=== PATIENT | male | born 1945 | race Caucasian/White ===

== ENCOUNTER 2017-05-01 13:19 | Emergency (ER) | payer MEDICARE ==
--- NOTE | 2017-05-01 15:22 | RAD ---
RIGHT HIP TWO VIEWS: History: Fall one week ago with pain and injury to right hip. FINDINGS: There is evidence of a linear fracture involving the greater trochanter of the proximal right femur. Old avulsion from the lesser trochanter is noted. Degenerative changes at the hip. Femoral head con tour is preserved. IMPRESSION: Evidence of acute fracture involving the greater trochanter of the proximal right femur. Consider CT for better characterization. POS: [facility]
== END 2017-05-01 16:40 | disposition home or self-care (01) ==
LOC: ERS 13:19
DX: S72.114A Nondisplaced fracture of greater trochanter of right femur, initial encounter for closed fracture (principal); I10 Essential (primary) hypertension; E78.5 Hyperlipidemia, unspecified; Z85.3 Personal history of malignant neoplasm of breast; W19.XXXA Unspecified fall, initial encounter

== ENCOUNTER 2018-04-26 00:21 | Inpatient (IN) | payer MEDICARE ==
[2018-04-26 01:02] LABS: #Basophils 0.1 thou/uL (0.0-0.2); #Eosinphils 0.2 thou/uL (0.0-0.7); #Lymphocytes 1.9 thou/uL (1.20-3.40); #Neutrophils 8.7 thou/uL (1.40-6.50); %Basophils 0.8 % (0.0-1.0); %Eosinophils 1.3 % (0.0-10.0); %Lymphocytes 15.8 % (21.0-51.0); %Monocytes 8.2 % (0.0-10.0); %Neutrophils 73.9 % (42.0-75.0); Hemoglobin 13.9 g/dL (14.0-18.0); Mean Corpuscular HGB CONC 32.9 g/dL (32.0-36.0); Mean Corpuscular Hemoglobin 34.1 pg (27.0-31.0); Mean Platelet Volume 7.3 fL (7.4-10.4); Platelet Count 243 thou/uL (130-400); RBC Distribution Width 11.2 % (11.5-14.5); Red Blood Cell (RBC) Count 4.08 mill/uL (4.70-6.10); White Blood Cell (WBC) Count 11.8 thou/uL (4.8-10.8)
[2018-04-26 01:16] LABS: ALT (SGPT) 16 U/L (8-55); AST (SGOT) 18 U/L (5-34); Albumin 4.3 g/dL (3.4-4.8); Alkaline Phosphatase 54 U/L (40-150); Anion Gap 13 mmol/L (10-20); BUN (Urea Nitrogen) 18 mg/dL (8.4-25.7); Bilirubin, Total 0.8 mg/dL (0.2-1.2); CK (CPK) 43 U/L (30-200); Calc. Creatinine Clearance 0 mL/min (70-130); Calcium 9.3 mg/dL (7.8-10.44); Carbon Dioxide 22 mmol/L (23-31); Chloride 96 mmol/L (98-107); Estimated GFR-MDRD Greater than 90; Globulin 2.9 g/dL (2.4-3.5); Glucose 95 mg/dL (83-110); Lipase 106 U/L (8-78); Potassium 4.4 mmol/L (3.5-5.1); Protein, Total 7.2 g/dL (5.8-8.1); Sodium 127 mmol/L (136-145)
[2018-04-26 01:18] LABS: CKMB 1.7 ng/mL (0-6.6); Troponin I Less than 0.010 ng/mL (< 0.028)
[2018-04-26] MEDS ORDERED: Nitroglycerin 2% Ointment 1 INCH/1 GM Packet ONE (03:07)
[2018-04-26] MEDS ORDERED: Ondansetron HCl/PF 4 MG/2 ML Vial IVP PRN ×2 (03:53→07:23)
[2018-04-26] MEDS ORDERED: Ondansetron ODT 4 MG TAB SL PRN (03:53)
[2018-04-26] MEDS ORDERED: Acetaminophen 325 MG TAB PO PRN ×2 (03:53→07:23)
[2018-04-26 05:05] VITALS: BMI 23.6
[2018-04-26 05:46] LABS: Troponin I 0.074 ng/mL (< 0.028)
[2018-04-26] MEDS ORDERED: Zolpidem Tartrate 5 MG TAB PO PRN (07:23)
[2018-04-26 07:30] LABS: Troponin I 0.351 ng/mL (< 0.028)
--- NOTE | 2018-04-26 07:49 | HP ---
PRIMARY CARE PROVIDER: Dr. Martinez Higuera He was referred to the [facility] by [facility] for chest pain. HISTORY OF PRESENT ILLNESS: The patient had chest pain off and on for about a month, tightness in hi s chest, shortness of breath, no precipitating events, no radiation, lasts about 5 minutes at a time. No nausea, sweats. PAST MEDICAL HISTORY: Hypertension, elevated cholesterol. CURRENT MEDICATIONS: Aspirin 81 mg a day, lisinopril 40 mg a day, metoprolol 50 mg a day, pravastati n 80 mg a day. ALLERGIES: None. PAST SURGICAL HISTORY: Two hernia repairs in the distant past, tonsillectomy as a child, breast canc er resected in 2001, had chemotherapy. FAMILY HISTORY: Unknown. He is estranged from his family. SOCIAL HISTORY: . He quit smoking in 1988. He quit drinking alcohol in 1980. CODE STATUS: Full code status. is surrogate decision maker. REVIEW OF SYSTEMS: CONSTITUTIONAL: Occasional headaches lifelong had migraines as a child. No dizziness or fainting. EYES: No double vision, blurred vision, flashing lights. ENT: No ear pain or drainage. No nasal bleeding. No trouble swallowing. CARDIAC: He has had only one episode of being awakened by chest pain, shortness of breath. Otherwis e, no orthopnea, dyspnea on exertion. RESPIRATORY: No cough, wheezing or asthma. GASTROINTESTINAL: No nausea, vomiting, diarrhea, constipation or abdominal pain. GENITOURINARY: No frequency, pain, or hematuria on urination. MUSCULOSKELETAL: No muscle or joint pains or swelling in his legs. PSYCHIATRIC: No anxiety, depression. NEUROLOGIC: He states he had a TIA 5 years ago. SKIN: Bruises easily. No rash. HEME/LYMPH: No tender or swollen lymph nodes in axilla, inguinal, or cervical area. NEURO: He is alert, oriented, and cooperative, no distress, requesting coffee. PHYSICAL EXAMINATION: VITAL SIGNS: Blood pressure 125/87, respiration 19, pulse 59, temperature 97.8. HEENT: Reveal pupils equal, round, and reactive to light. Extraocular movements intact. Sclerae wh ite. Tympanic membranes clear. Nose clear. Oral mucous membranes are wet. Dental hygiene is good. NECK: Supple, without jugular venous distention, adenopathy or thyromegaly. CHEST: Clear to auscultation and percussion. HEART: Regular rate and rhythm with an occasional early beat. First and second heart sounds are camila ar. No murmurs or gallops. ABDOMEN: Soft, bowel sounds are normal. There is no hepatosplenomegaly, no mass, no rebound, no bru its. EXTREMITIES: Reveal no cyanosis, clubbing or edema. PULSES: Carotid, radial, femoral, and dorsalis pedis pulses intact. SKIN: Warm and dry without bruises or rash. HEME/LYMPH: No tender or swollen lymph nodes in axilla, inguinal, or cervical area. NEUROLOGICAL: Cranial nerves II-XII are intact. Moves all extremities. Sensation intact. EKG: Regular sinus rhythm with premature beats and ST depression suggestive of ischemia, reviewed by me. CT of the chest was done for a high D-dimer, it is negative for pulmonary emboli. Chest x-ray: No cardiomegaly, CHF, infiltrate mass, etc., reviewed by me. LABORATORY DATA: Initial troponin 0.01, follow up 0.074. BNP 202. Liver function tests normal. So dium 127, potassium 4.4, BUN 18, creatinine 0.82. White count 11.8, hemoglobin 13.9, platelet count 243,000. ADMITTING DIAGNOSES: 1. Chest pain consistent with unstable angina. 2. Hypertension. 3. Dyslipidemia. 4. History of breast cancer. PLAN: Aspirin. N.p.o. for now. I have called Dr. Kerr and ask him to see him before deciding on a stress test or a cardiac catheterization.
--- NOTE | 2018-04-26 08:14 | CT ---
PRELIMINARY REPORT/[facility]/EMERGENTY AFTER-HOURS PROCEDURE Addendum created by Jose J Manuel MD on 04/26/2018 3:02 AM Central Time ([place] & [place]) Findings were di scussed with BRI LEON at 04/26/2018 2:58 AM CDT. Dictation software error occurred. Regarding lung lesion, Nonemergent (not non-urgent) evaluation is advised. Initial Report created on 04/26/2018 2:43 AM Central Time ([place] & [place]) CT Angiography Chest With Intravenous Contrast EXAM DATE/TIME: 04/26/2018 2:20 AM CLINICAL HISTORY: 73 years old, male; Pain and signs and symptoms; Dyspnea and shortness of breath; Chest pain; Prior s urgery; Patient HX: Er 8; M73 presents to the ed C/O chest pain and SOB that was first noticed 1 ever h ago. PT. Reports that his symptoms were exacerbated tonight around 2300 while laying down. PT. Desc ribes pain as being localized in center of chest and as a pressure. PT. Does have HX of breast CA in 2000, had a resection. TECHNIQUE: Axial computed tomographic angiography images of the chest with intravenous contrast using CT angiogr aphy protocol. MIP reconstructed images were created and reviewed. COMPARISON: No relevant prior studies available. FINDINGS: Pulmonary arteries: There is no evidence of peripheral filling defects within the pulmonary arterial circulation to suggest pulmonary embolism. Aorta: Normal. No aortic aneurysm. No aortic dissection. Lungs: There is a suspicious appearing 14 mm LEFT upper lobe pulmonary nodule with spiculations. Pleural space: Normal. No pneumothorax. No pleural effusion. Heart: Normal. No cardiomegaly. No pericardial effusion. Bones/joints: Unremarkable. No acute fracture. Soft tissues: Unremarkable. Lymph nodes: Enlarged subcarinal lymph node measuring 2 cm in short axis. IMPRESSION: 1. There is no CT evidence of acute pulmonary embolism. 2. There is a suspicious appearing 14 mm LEFT upper lobe pulmonary nodule with spiculations. Nonurgen t PET CT and/or tissue sampling is advised. 3. Enlarged subcarinal lymph node measuring 2 cm in short axis. Thank you for allowing us to participate in the care of your patient. Dictated and Authenticated by: Jose J Manuel MD 04/26/2018 2:43 AM Central Time ([place] & [place]) FINAL REPORT CT ARTERIOGRAM CHEST WITH IV CONTRAST AND 3D MIP IMAGING: DATE: 04/26/2018. TIME: Performed on emergency basis at 0222 hours. HISTORY: Chest pain. Dyspnea. FINDINGS: Agree with the preliminary report by Dr. Manuel from [facility]. There is no CT evidence of p ulmonary embolus. Left upper lobe nodule is confirmed. Subcarinal lymph node described I the prelim inary report may be less than 2 cm short axis diameter. POS: [facility]
[2018-04-26 08:22] LABS: Troponin I 0.383 ng/mL (< 0.028)
--- NOTE | 2018-04-26 08:33 | RAD ---
CHEST 1 VIEW: HISTORY: Chest pain. Dyspnea. FINDINGS: No comparison. Cardiac silhouette is magnified by projection. Pulmonary vasculature unremarkable. Mediastinum is midline with aortic calcification. No lobar consolidation or evidence of pneumothorax . Metallic clips overlie the left axilla. equipment monitor phototypesetting leads overlie the chest. IMPRESSION: 1. Atherosclerosis. 2. No active cardiopulmonary abnormalities are otherwise demonstrated. POS: [facility]
[2018-04-26] MEDS ORDERED: Non-Formulary Item 1 EACH (Lisinopril [Lisinopril] 40 MG) PO SCH (09:00)
[2018-04-26] MEDS ORDERED: Aspirin 325 MG TAB PO SCH (09:00)
[2018-04-26] MEDS: Lisinopril 20 MG TAB PO SCH (09:18)
[2018-04-26] MEDS ORDERED: Fentanyl 100 MCG/2 ML VIAL ONE (11:52)
[2018-04-26] MEDS ORDERED: Lidocaine 1% (PF) 30 ML VIAL ONE (11:52)
[2018-04-26] MEDS ORDERED: Midazolam HCl 2 mg/2 ml Vial ONE (11:52)
[2018-04-26] MEDS ORDERED: Sodium Chloride 0.9% 1,000 ML IV SCH (12:00)
[2018-04-26] MEDS ORDERED: Heparin 10,000 UNITS/1 ML VIAL ONE (13:11)
[2018-04-26] MEDS ORDERED: Verapamil 5 MG/2 ML VIAL ONE (13:11)
[2018-04-26] MEDS ORDERED: Nitroglycerin 100MG/250ML BOT 250 ML ONE (13:11)
--- NOTE | 2018-04-26 14:01 | CON ---
DATE OF CONSULTATION: 04/26/2018 REASON FOR CONSULTATION: Non-STEMI. HISTORY OF PRESENT ILLNESS: Mr. Guthrie is a very pleasant 73-year-old white gentleman who comes to the hospital for chest pain. He has been having chest pain for at least the last year or 2. He act ually saw Dr. Rubio in the office in February of last year. He would describe symptoms which were h ighly concerning for angina. He was offered a heart catheterization and started on sublingual nitro. He declined catheterization at that time and said he would call back if he decided that he would pr oceed with this. He did get an echocardiogram that showed an EF of 50%-55% and there is documentatio n where he was informed of the findings, but he never called back to schedule a heart catheterization . He continued to have chest pain throughout the year. He states that yesterday the pain got worse. It usually lasts about 5-10 minutes and it lasted for much longer, so decided to come in for evalua tion. He was admitted initially and found to have elevated troponins, so Cardiology was consulted fo r this. On my evaluation, he is pain free. PAST MEDICAL HISTORY: 1. Hypertension. 2. Hyperlipidemia. OUTPATIENT MEDICATIONS: 1. Aspirin 81 a day. 2. Lisinopril 40 mg a day. 3. Metoprolol 50 mg daily. 4. Pravastatin 80 mg at bedtime. 5. Sublingual nitro 0.4 mg p.r.n. chest pain. ALLERGIES: No known drug allergies. PAST SURGICAL HISTORY: 1. Hernia repair. 2. Tonsillectomy. 3. Breast cancer resected in 2001 with chemotherapy afterwards and was in remission. FAMILY HISTORY: He is strange, does not know much about his family medical history. SOCIAL HISTORY: He smoked 2 packs a day from age [age]. He has not smoked since. REVIEW OF SYSTEMS: A 12-point review of systems was done and is all negative unless stated in the hi story of present illness. PHYSICAL EXAMINATION: VITAL SIGNS: Temperature 98.1, pulse 60, respiratory rate 16, sat 98% on room air, blood pressure 15 7/72. GENERAL: Awake, alert, oriented x3, in no distress. HEENT: Normocephalic, atraumatic. NECK: Supple. LUNGS: Clear. CARDIOVASCULAR: S1, S2, no S3, S4, no murmurs, no rubs. ABDOMEN: Soft, positive bowel sounds. EXTREMITIES: No edema. SKIN: Warm and dry. LABORATORY WORK: Reviewed and shows a white count of 11, hemoglobin of 13.9, hematocrit 42.3, platel et count 243. Coags: D-dimer was high at 1.01. Troponin was undetectable on arrival it went up to 0.07, then 0.35, then 0.38. Sodium 127 little low, potassium 4.4, BUN 18, creatinine 0.82, GFR of 90 , albumin 4.3. BNP was 202. CT of the chest done yesterday showed no CT evidence of pulmonary embolus. There is a left upper lob e nodule which is spiculated. There is a subcarinal lymph node as well, less than 2 cm. EKG was reviewed. ASSESSMENT AND PLAN: 1. Non-ST elevation myocardial infarction. We will recommend he have a heart catheterization. Risk s and benefits were discussed with him at length the risks including, but not limited to stroke, [place], , bleeding and need for blood transfusion, limb loss, organ loss, need for emergent bypass surge ry. He verbalized understanding of this and agrees to proceed. We also spoke about contrast reactio ns, both allergic and renal dysfunction. He agrees to proceed. Drug-eluting stents if needed. 2. Pulmonary nodule. He may need workup due to his history of malignancy and this is spiculated nod ule. 3. Further recommendation per results of coronary angiogram.
--- NOTE | 2018-04-26 14:21 | PDOC.EVN ---
Event Note - Event Note Event Note: cardiac cath pos extensive CAD, for CABG
[2018-04-26] MEDS ORDERED: ISOVUE-370 76%-LOCM 1 ML ONE (14:43)
[2018-04-26] MEDS ORDERED: hydrALAZINE 20 MG/ML VIAL SLOW IVP PRN (16:20)
[2018-04-26] MEDS ORDERED: Labetalol HCl 100 MG/20 ML VIAL SLOW IVP PRN (16:20)
[2018-04-26] MEDS ORDERED: Communication Order-Pharmacy FS SCH (18:35)
[2018-04-26] MEDS ORDERED: Non-Formulary Item 1 EACH (Pravastatin Sodium [Pravastatin Sodium] 80 MG) PO SCH (21:00)
[2018-04-26] MEDS ORDERED: Atorvastatin Calcium 20 MG TAB PO SCH (21:00)
--- NOTE | 2018-04-26 23:53 | CON ---
DATE OF CONSULTATION: 04/26/2018 REQUESTING PHYSICIAN: Dr. Kerr. PRIMARY CARE PHYSICIAN: Dr. Martinez Higuera. CHIEF COMPLAINT: Chest pain. HISTORY OF PRESENT ILLNESS: The patient is a 73-year-old man with hypertension , a distant history of left simple mastectomy for male breast cancer and a distant history of smoking. For about a year, he has been having some chest discomfort when walking on his treadmill, but this started getting more frequent and more severe about a month or two ago. Last night when he got up to go to the bathroom, he began having chest pain and this was more severe and lasted longer than typical, and he decided to come to the emergency room. When he first presented, he was markedly hypertensive, but had no obvious acute ischemia on EKG. His initial troponin was negative, but follow troponins turned positive and he underwent cardiac catheterization today that demonstrated severe 3-vessel coronary artery disease. His past medical and surgical history is significant for hypertension and hyperlipidemia. He underwent what he describes as sounds like a simple mastectomy with sentinel node biopsy in 2001. He underwent chemotherapy, but no radiation therapy and he has been in ED since. He has also had herniorrhaphy and tonsillectomy in 2014. He had a brief episode of fluent expressive aphasia that he described as this "speaking Martian --- fluent Martian, but Martian." At that time he had fairly unremarkable head CT, but he does not recall getting any carotid studies at that time. HOME MEDICATIONS: Baby aspirin a day, Toprol-XL 50 mg a day, lisinopril 40 mg every morning and pravastatin 80 mg at bedtime. His pravastatin has been replaced by Lipitor 20 mg at bedtime here in the hospital. ALLERGIES: He denies any medical or food allergies. SOCIAL HISTORY: He quit smoking in 1988. He does not know any details of family history. REVIEW OF SYSTEMS: Positive for one episode of fluent expressive aphasia about 3 years ago, but he has had no other eye, speech, facial or extremity symptoms to suggest TIAs when he walks briskly or uphill, his calves cramp bilaterally. Neither leg is particularly worse than the other. A couple of years ago hiking in [place], he had some shortness of breath, but otherwise no dyspnea with the exception of that associated with his chest pain described in the HPI. He has no orthopnea, no PND, no edema. He has what he describes as trochanteric pain in the left hip, but no other arthritic symptoms of longstanding. He does describe about 2 months of some low back pain in his left side low in his back. He denies any weight loss, any cough or hemoptysis, any headaches that are unusual for him, any seizures, any focal neurologic deficits. Denies any change in color, caliber or character stools. He denies any new lumps or bumps popping up anywhere or any changing moles. PHYSICAL EXAMINATION: GENERAL: He is a thin man in no distress. VITAL SIGNS: On presentation, his heart rate was 77 and blood pressure 215/89. Currently, his heart rate is 57 and blood pressure 151/86, room air O2 sats have been 99%-100%, temperature is 97.8, height 5 feet 8 inches, weight is 156.6 pounds. HEENT: He has no xanthelasma. No JVD. Bilateral carotid bruits. NECK: He has no cervical or supraclavicular lymphadenopathy. CHEST: Clear to auscultation. He has a regular rate and rhythm. He is missing his left breast, but palpably seems to have his pectoralis intact. He has a well healed surgical scar on the left lateral chest. He has no axillary lymphadenopathy. ABDOMEN: Soft and nontender, without any masses or bruits. EXTREMITIES: He has palpable left radial (his right wrist has a pressure dressing on it status post catheterization) and bilateral femoral pulses. I was not able to appreciate popliteal, dorsalis pedis or posterior tibial pulses. His feet are pink with capillary refill, it is less than 1 second. He has loud femoral bruits bilaterally, perhaps louder on the left than on the right. He has no clubbing, cyanosis or edema. He has a few spider type varicosities at the ankles. NEUROLOGIC: Grossly nonfocal. LABORATORY DATA AND IMAGING DATA: Showed white count of 11.8, hemoglobin 13.9, hematocrit 42.3, platelets 243,000 with an MCV reported at 104.0. Sodium is 127 , potassium 4.4, chloride 96, CO2 22, glucose 95, BUN 18, creatinine 0.82, bilirubin 0.8, alkaline phosphatase 54, AST 18 and ALT 16. Calcium is 9.3, total protein 7.2, albumin 4.3, lipase was 106, initial troponin was less than 0.010. Follow up 3 hours later was 0.074, at 06:30 this morning was 0.351 and at 07:30 this morning 0.383. His EKG shows inferolateral downsloping STs, occasional PVC. His cardiac catheterization shows a right dominant system with extensive calcification in the proximal vessels. He has serial subtotal stenoses in the mid to distal right coronary with poor visualization of the distal posterolateral branch with competitive flow in it. The LAD has a high grade lesion in between the second and third diagonals, both of which have some ostial disease in it. There is some milder disease in the distal LAD just beyond fourth diagonal on the left-sided injections. A branch that bifurcates out towards the apex can be seen ghosting in, it is hard to tell off what it originates. There is a subtotal lesion in the first portion of a fairly good sized OM and then there is a subtotal lesion in the circumflex proper leading to a very small posterolateral OM. LVEF is around 50%-60% with anterior hypokinesis. LV pressure was recorded as 108/-1 with an EDP of 6. Aortic pressure on pullback 123/79 with a mean of 95. His CT scan showed no evidence of pulmonary embolism. Does show about a 1.5 cm mass with some speculation, essentially abutting the pleura of the lateral chest wall and what appears to represent the left upper lobe. I see no AP adenopathy. There is extensive calcification in the aortic arch, but I do not really see any in the ascending aorta, I do see calcification in the coronaries. The CT report describes a 2 cm subcarinal lymph node, but I do not really spot any adenopathy in the subcarinal position. There are what I suspect are 2 adjacent subcentimeter nodes behind the distal trachea little proximal to the aurelio that in aggregate or about a 2 x 8 mm. I see no AP adenopathy or any hilar adenopathy. IMPRESSION AND RECOMMENDATIONS: Disruptive healthy appearing individual who actually would appear to be something of a vasculopathy with bilateral carotid bruits, bilateral femoral bruits and absence of palpable pedal pulses, a distant history of a male breast cancer, a new solitary pulmonary nodule and severe three-vessel coronary artery disease presenting with a non-ST elevation myocardial infarction. The patient does not have any very convincing signs or symptoms of metastatic disease should this lung mass proved to be malignancy. He is far enough out from his breast cancer that I would think the likelihood that this represents a recurrence of it is extremely low. He does have some back pain that is not particularly bad, but it is new and he has some hip pain that probably ought to be included in a workup of his lung mass. I do not really think that I would consider what I think is being described as 2 cm subcarinal node as a suspicious adenopathy. It would be accessible by [employer]SF[employer], because it is behind the trachea. I am going to check a carotid ultrasound to help plan on how to run a mean pressures on pump that will tentatively plan on coronary artery bypass grafting tomorrow. Also going to repeat electrolytes with normal alkaline phosphatase, not particularly suspicious that he would be having back pain and hip pain due to bone metastases. I think those x-rays can be deferred for the moment. MARÍA ELENA
[2018-04-27] MEDS ORDERED: Albumin 5% 500 ML ONE (10:10)
[2018-04-27] MEDS ORDERED: CEFAZOLIN/Water 2 GM/20 ML SYRINGE ONE (11:17)
[2018-04-27] MEDS ORDERED: Glycopyrrolate 0.2 MG/ML 5 ML SYRINGE ONE (11:39)
[2018-04-27] MEDS ORDERED: Calcium Chloride 1 GM/10 ML Abboject SYRINGE ONE ×2 (11:39→13:25)
[2018-04-27] MEDS ORDERED: Lidocaine 1% PF 5 ML VIAL ONE (11:39)
[2018-04-27] MEDS ORDERED: PHENYLEPHRINE-NS 100 MCG/ML 10 ML SYRINGE ONE ×2 (11:39→18:04)
[2018-04-27] MEDS ORDERED: Papaverine 60 MG/2 ML VIAL ONE ×2 (11:39→13:25)
[2018-04-27] MEDS ORDERED: PROPOFOL 200 MG/20 ML VIAL ONE (11:39)
[2018-04-27] MEDS ORDERED: ePHEDrine/0.9% NaCl/PF SYRINGE 50 mg/10 ml ONE ×2 (11:39→13:00)
[2018-04-27] MEDS ORDERED: Sodium Bicarb 50 MEQ/50 ML VIAL ONE ×2 (11:39→13:25)
[2018-04-27] MEDS ORDERED: Cardioplegic Soln 1,000 ML BAG ONE ×2 (11:39→13:25)
[2018-04-27] MEDS ORDERED: Nitroglycerin 50 MG/250 ML BOT ONE ×2 (11:39→13:25)
[2018-04-27] MEDS ORDERED: Thrombin 5000 UNITS/5 ML VIAL ONE ×2 (11:39→13:25)
[2018-04-27] MEDS ORDERED: Vecuronium 10 MG VIAL ONE (11:39)
[2018-04-27] MEDS ORDERED: Heparin 5,000 UNITS/ML VIAL ONE ×2 (11:39→13:25)
[2018-04-27] MEDS ORDERED: Heparin 30,000 units/30 ml VIAL ONE ×2 (11:39→13:25)
[2018-04-27] MEDS ORDERED: Protamine Sulfate 250 MG/25 ML VIAL ONE ×2 (11:39→13:25)
[2018-04-27] MEDS ORDERED: Heparin 10,000 UNITS/1 ML VIAL 30,000 UNITS in Sodium Chloride 0.9% 1,000 ML IVPB SCH (12:00)
[2018-04-27] MEDS ORDERED: Fentanyl 250 MCG/5 ML VIAL ONE (12:21)
[2018-04-27] MEDS ORDERED: Midazolam HCl 5 mg/5 ml Vial ONE (12:21)
[2018-04-27] MEDS ORDERED: Midazolam HCl 2 mg/2 ml Vial ONE (12:22)
[2018-04-27] MEDS ORDERED: Phenylephrine HCL 10 MG/ML VIAL ONE (12:22)
[2018-04-27 12:44] LABS: Anion Gap 13 mmol/L (10-20); BUN (Urea Nitrogen) 7 mg/dL (8.4-25.7); Calc. Creatinine Clearance 82 mL/min (70-130); Calcium 9.7 mg/dL (7.8-10.44); Carbon Dioxide 24 mmol/L (23-31); Chloride 98 mmol/L (98-107); Estimated GFR-MDRD Greater than 90; Glucose 86 mg/dL (83-110); Potassium 4.8 mmol/L (3.5-5.1); Sodium 130 mmol/L (136-145)
[2018-04-27] MEDS ORDERED: Bisacodyl 5 MG TAB PO PRN (13:13)
[2018-04-27] MEDS ORDERED: Mag-Al 1200 mg/1200 mg/30 ML UDCUP PO PRN (13:13)
[2018-04-27] MEDS ORDERED: Potassium Chloride 20 MEQ/100 ML PREMIX BAG IVPB PRN (13:13)
[2018-04-27] MEDS ORDERED: hydrALAZINE 20 MG/ML VIAL SLOW IVP PRN (13:13)
[2018-04-27] MEDS ORDERED: Promethazine HCl 25 MG/ML VIAL IM PRN (13:13)
[2018-04-27] MEDS ORDERED: Fentanyl 100 MCG/2 ML VIAL SLOW IVP PRN (13:13)
[2018-04-27] MEDS ORDERED: Morphine 2 MG/ML SYRINGE SLOW IVP PRN (13:13)
[2018-04-27] MEDS ORDERED: HYDROcodone/Acetaminophen 5/325 mg Tablet PO PRN (13:13)
[2018-04-27] MEDS ORDERED: Guaifenesin DM 100-10/5 ML UDCUP PO PRN (13:13)
[2018-04-27] MEDS ORDERED: Acetaminophen 325 MG TAB PO PRN (13:13)
[2018-04-27] MEDS ORDERED: Nitroglycerin 50 MG/250 ML BOT 250 ML IVPB PRN (13:13)
[2018-04-27] MEDS ORDERED: Hetastarch 6% 500 ML 500 ML IVPB PRN (13:13)
[2018-04-27] MEDS ORDERED: Post-Op Insulin Drip Protocol IVPB ONE (13:13)
[2018-04-27] MEDS ORDERED: Bisacodyl 10 MG SUPP PR PRN (13:13)
[2018-04-27] MEDS ORDERED: Norepinephrine 8 MG/0.9% NS 250 ML IVPB PRN (13:13)
[2018-04-27] MEDS ORDERED: Ondansetron HCl/PF 4 MG/2 ML Vial IVP PRN (13:13)
[2018-04-27] MEDS ORDERED: Magnesium 5 GM/10 ML VIAL ONE (13:25)
[2018-04-27] MEDS ORDERED: Lidocaine 2% PF 100 mg/5 ml Syringe ONE (13:25)
[2018-04-27] MEDS ORDERED: Aminocaproic Acid 5 GM/20 ML VIAL ONE (13:25)
[2018-04-27] MEDS ORDERED: Potassium Chloride 60 MEQ/30 ML VIAL ONE (13:25)
[2018-04-27] MEDS ORDERED: Mannitol 12.5 GM/50 ML ONE (13:25)
--- NOTE | 2018-04-27 14:51 | ULT ---
CAROTID DUPLEX SONOGRAM: HISTORY: Vascular disease. Carotid bruit. FINDINGS: RIGHT: Mild plaque. Color and spectral Doppler evaluation, peak systolic velocity of 142 cm/s, and IC to CC ratio of 1.8 suggests stenosis within the mid right cervical ICA to be approximately 50%. Antegrade flow within the vertebral artery. LEFT: Mild plaque. Color and spectral Doppler evaluation, peak systolic velocity of 102 cm/s, and IC to CC ratio of 0.8 suggests no hemodynamically significant stenosis within the extracranial left ICA. Ant egrade flow within the vertebral artery. IMPRESSION: 1. Slight elevated velocities within the mid right cervical internal carotid artery suggesting steno sis of approximately 50%. 2. No significant stenosis evident on the left. POS: [facility]
[2018-04-27] MEDS ORDERED: Insulin Regular 300 UNITS/3 ML VIAL SC PRN (15:37)
[2018-04-27] MEDS ORDERED: Dextrose 50% Abboject 50 ML SYRINGE SLOW IVP PRN (15:37)
[2018-04-27] MEDS ORDERED: Dextrose 5% in Water 1,000 ML IV PRN (15:37)
[2018-04-27] MEDS: Lisinopril 20 MG TAB PO SCH (16:57)
[2018-04-27 17:04] LABS: White Blood Cell (WBC) Count 9.4 thou/uL (4.8-10.8)
[2018-04-27 17:05] LABS: #Basophils 0.1 thou/uL (0.0-0.2); #Eosinphils 0.3 thou/uL (0.0-0.7); #Lymphocytes 1.6 thou/uL (1.20-3.40); #Monocytes 0.8 thou/uL (0.11-0.59); #Neutrophils 6.7 thou/uL (1.40-6.50); %Basophils 0.8 % (0.0-1.0); %Eosinophils 2.7 % (0.0-10.0); %Lymphocytes 16.7 % (21.0-51.0); %Monocytes 8.1 % (0.0-10.0); %Neutrophils 71.8 % (42.0-75.0); Hemoglobin 14.3 g/dL (14.0-18.0); Mean Corpuscular Hemoglobin 34.2 pg (27.0-31.0); Platelet Count 247 thou/uL (130-400); RBC Distribution Width 11.2 % (11.5-14.5); Red Blood Cell (RBC) Count 4.18 mill/uL (4.70-6.10)
[2018-04-27 18:32] LABS: Actual Bicarbonate (HCO3a) 19.1 mEq/L (22-28); Base Excess (BEa) -5.2 mEq/L (-2.0 to +3.0); CO2 Tension 33.1 mmHg (35.0-45.0); Calcium, Ionized 1.11 mmol/L (1.12-1.30); Carboxyhemoglobin (COHb) 0.6 gm% (0.0-3.0); Hemoglobin (Hb) 11.8 g/dL (14.0-18.0); O2 Tension (PaO2) 122.6 mmHg (> 70.0); Potassium - ABG Lab 4.25 mmol/L (3.70-5.30); pH, Arterial 7.38 (7.35-7.45)
[2018-04-27 18:33] LABS: ALV-art Gradient 263.825 (0-20); Puncture Site ALINE
[2018-04-27 18:37] LABS: Hemoglobin 11.7 g/dL (14.0-18.0); Mean Corpuscular HGB CONC 33.2 g/dL (32.0-36.0); Mean Corpuscular Hemoglobin 35.1 pg (27.0-31.0); Mean Platelet Volume 7.8 fL (7.4-10.4); Platelet Count 169 thou/uL (130-400); RBC Distribution Width 11.2 % (11.5-14.5); Red Blood Cell (RBC) Count 3.32 mill/uL (4.70-6.10); White Blood Cell (WBC) Count 26.6 thou/uL (4.8-10.8)
[2018-04-27 18:44] LABS: INR-International Normal Ratio 1.4; Prothrombin Time 17.2 SEC (12.0-14.7)
[2018-04-27 18:57] LABS: Potassium 4.4 mmol/L (3.5-5.1)
--- NOTE | 2018-04-27 18:58 | RAD ---
PORTABLE CHEST: 04/27/18 HISTORY: Postop open heart surgery. COMPARISON: 04/25/18 study. Endotracheal tube is in satisfactory position. Midline left sided chest tubes are present. Right subc lavian line is seen with catheter tip overlying the superior vena cava. Atelectatic changes are seen in the right base. Surgical clips are seen in the left axilla. IMPRESSION: 1. Subsegmental atelectasis right lung base. 2. Endotracheal tube in satisfactory position. POS: [facility]
[2018-04-27 19:03] LABS: Anion Gap 14 mmol/L (10-20); BUN (Urea Nitrogen) 9 mg/dL (8.4-25.7); Calc. Creatinine Clearance 90 mL/min (70-130); Calcium 7.8 mg/dL (7.8-10.44); Carbon Dioxide 17 mmol/L (23-31); Chloride 107 mmol/L (98-107); Estimated GFR-MDRD Greater than 90; Glucose 150 mg/dL (83-110); Potassium 4.5 mmol/L (3.5-5.1); Sodium 133 mmol/L (136-145)
[2018-04-27 19:04] LABS: Band 14 % (5-11); Lymphocytes 6 % (21-51); MDiff Complete? YES; Macrocytosis SLIGHT = 6-15 cells (100X) (0-5/hpf); Monocytes 4 % (0-10); Neutrophil 76 % (42-75); PLT Morphology Comment Appears Adequate
[2018-04-27] MEDS: Ketorolac Tromethamine 30 MG/ML VIAL IVP SCH ×2 (19:19→23:41)
[2018-04-27] MEDS: Sodium Chloride 0.9% 1,000 ML IV SCH (19:21)
[2018-04-27 21:24] LABS: Actual Bicarbonate (HCO3a) 17.6 mEq/L (22-28); Base Excess (BEa) -3.3 mEq/L (-2.0 to +3.0); Calcium, Ionized 1.06 mmol/L (1.12-1.30); Carboxyhemoglobin (COHb) 1.2 gm% (0.0-3.0); Hemoglobin (Hb) 12.7 g/dL (14.0-18.0); O2 Tension (PaO2) 140.3 mmHg (> 70.0); Potassium - ABG Lab 3.97 mmol/L (3.70-5.30); pH, Arterial 7.53 (7.35-7.45)
[2018-04-27 21:28] LABS: ALV-art Gradient 117.775 (0-20); CO2 Tension 21.7 mmHg (35.0-45.0); Puncture Site ALINE
[2018-04-27] MEDS: Famotidine/PF 20 mg/2ml Vial SLOW IVP SCH (22:00)
[2018-04-27] MEDS: Atorvastatin Calcium 20 MG TAB PO SCH (22:00)
--- NOTE | 2018-04-27 23:19 | OP ---
DATE OF PROCEDURE: 04/27/2018 PROCEDURES PERFORMED: Coronary artery bypass grafting x4 with left internal mammary artery to the LA D and reverse greater saphenous vein graft from the aorta to the third diagonal to the second obtuse marginal into the distal right coronary artery. PREOPERATIVE DIAGNOSIS: Coronary artery disease, status post subendocardial myocardial infarction. POSTOPERATIVE DIAGNOSIS: Coronary artery disease, status post subendocardial myocardial infarction. SURGEON: Bulmaro Terrazas M.D. SUPERVISOR OF WAY: Martinez Lee M.D. ANESTHESIA: General endotracheal anesthesia. INDICATIONS: The patient is a 73-year-old former smoker with cerebrovascular disease and peripheral vascular disease. He has been having mild angina over the last year that is significantly worsened o ryan the last month or so. He presented with protracted episode of severe chest pain and ruled in for myocardial infarction. Cardiac catheterization demonstrated severe 3-vessel coronary artery disease . He is now taken to the operating room for surgical revascularization. FINDINGS: Hyperinflated pump time 91 minutes. Crossclamp time 44 minutes. Hyperinflated lungs that were touching in the midline. Upon performance of the sternotomy, there was hard plaque in the inno minate artery and the base of the arch, but the intrapericardial aorta was soft, good quality KVNG. T here were extensive varicosities in both legs requiring bilateral vein harvesting in order to get an adequate amount of acceptable quality vein for grafting. The LAD was about a 2 mm vessel. The third diagonal was about 1.5-2 mm. The first obtuse marginal seemed to represent an occluded vessel seen on the catheterization filling left to left much of its length was intramyocardial, but it was rock h regi for almost all of its length including hard plaque that could be appreciated in the intrapericard ial segment and the vessel was not grafted. The second obtuse marginal was about 2 mm vessel with ex tensive hard plaque proximally, but is fairly good quality distally. The right coronary at the crux where it was soft, was about a 2.5 to 3 mm vessel. There was hard plaque in the right coronary proxi marleen. The pericardium was loosely closed. NARRATIVE REPORT: After informed consent was obtained, the patient was taken to the operating room a nd placed in supine position on the operating table. After induction of general anesthesia, the otoniel ent's right upper chest was prepped and draped in a sterile fashion and a triple-lumen central line k it was used to place a right subclavian central line. All three ports easily aspirated and flushed a nd the line was secured. The patient's torso, groins and lower extremities were prepped and draped i n sterile fashion. After ultrasonographic examination of the patient's saphenous veins, the veins ar e not appear to be appropriate for endoscopically harvesting and vein was harvested starting in the r ight lower extremity, but ultimately going to both lower extremities in order to harvest an adequate amount of vein. The vein that was ultimately used for the right coronary, was relatively large, but of fairly good quality. The segments of vein used for the diagonal and the obtuse marginal were slig htly small, but otherwise good quality. Median sternotomy was performed. The right pleura was opene d during the performance of the sternotomy and an attempt was made to close it with Vicryl. The left KVNG was then harvested as a skeletonized in situ graft through an extrapleural exposure. The patien t was heparinized. The mammary was ligated and divided distally. There was excellent flow through t he mammary which was instilled intraluminally with papaverine solution. The mammary bed was inspecte d for hemostasis. KVNG retractor was placed with an Ankeney. The pericardium was opened, hard plaque could be readily appreciated at the base of the innominate and the arch, but the intrapericardial ao rta felt soft. A double concentric pursestring of 2-0 Ethibond was placed in the intrapericardial ao rta distally towards the lesser curvature of the aorta to avoid plaque at the base of the innominate. A single pursestring was placed in the right atrial appendage. Aortic and venous cannulae were ins erted and secured by the pursestrings. The plane between the aorta and the pulmonary artery was deve loped. Cardiopulmonary bypass was instituted. The remaining intrapericardial aorta was again examin ed. The heart was examined. The vessels to be bypassed were identified. A longitudinal slit was ma de in the pericardium anterior to the left phrenic nerve through which the mammary could be passed an d the aortic crossclamp was applied and cardioplegia was administered through an aortic root needle. When arrest had been achieved, attention was turned to the distal right coronary system. The right coronary was opened with a [place] blade and Kuldeep scissors at the crux and saphenous vein was anas tomosed to it with a running Prolene suture and the anastomosis tested to limit flushing cold cardiop legia down the graft. Attention was then turned to the circumflex system. The intramyocardial OM1 w as deemed to be a poor quality target even though it was of good size. The OM2 ran in close proximit y to it and where it ran on the epicardial surface. Most of it was fairly good quality vessel. It w as opened and grafted in a similar fashion, the third diagonal was then opened and grafted, LAD was t hen opened at about the junction of the middle and distal thirds, it was deep to the epicardial fat a t that point, but where it was readily accessible in the epicardial surface towards the apex was far enough distal. I was concerned that with the lung was inflated even with a skeletonized mammary allegra th of the graft could be a problem. The LAD was opened and the mammary was anastomosed with running 7-0 Prolene, and then tacked to the epicardium. The aortic crossclamp was placed with partial occlud ing clamp and aortotomy was made in the ascending aorta with a scalpel and punch. The right coronary graft was brought along the right side of the heart and anastomosed to the most proximal aortotomy. The diagonal and OM grafts were anastomosed to the middle and distal aortotomies respectively. Part ial occlusion clamp was removed and the vein grafts were deaired. The bulldogs were removed from the m. The anastomoses were inspected for hemostasis. The posterior pericardial drain was brought out t hrough separate incision and secured with a suture. Right atrial and right ventricular temporary epi cardial pacing wires were placed. The patient was then easily from cardiopulmonary bypass. The aortic and venous cannulae were removed and their pursestring secured. Protamine was administe red. When hemostasis was adequate, an anterior mediastinal drain was placed and the pericardium was loosely reapproximated over it with running Vicryl. The sternum was treated with platelet rich GPS a nd vancomycin paste and then reapproximated with a combination of simple and [id number] #7 stain less steel Vicryl wires. The wound was then irrigated and treated with a platelet poor GPS. The fas francisco javier was closed over the wires and the subcutaneous tissue closed over that with Vicryl. The remainin g GPS was applied and the skin was closed with 4-0 Vicryl subcuticular suture. The wounds were dress ed and the patient was taken to the intensive care unit in stable condition.
[2018-04-27] MEDS: Fentanyl 100 MCG/2 ML VIAL SLOW IVP PRN (23:57)
[2018-04-28] MEDS: HYDROcodone/Acetaminophen 5/325 mg Tablet PO PRN ×3 (01:30→16:51)
[2018-04-28] MEDS: Fentanyl 100 MCG/2 ML VIAL SLOW IVP PRN ×2 (03:25→05:43)
[2018-04-28 04:37] LABS: #Lymphocytes 0.6 thou/uL (1.20-3.40); #Monocytes 0.7 thou/uL (0.11-0.59); #Neutrophils 12.3 thou/uL (1.40-6.50); %Basophils 0.1 % (0.0-1.0); %Lymphocytes 4.2 % (21.0-51.0); %Monocytes 5.2 % (0.0-10.0); %Neutrophils 90.4 % (42.0-75.0); Hemoglobin 10.5 g/dL (14.0-18.0); Mean Corpuscular HGB CONC 32.5 g/dL (32.0-36.0); Mean Corpuscular Hemoglobin 34.2 pg (27.0-31.0); Mean Platelet Volume 7.6 fL (7.4-10.4); Platelet Count 161 thou/uL (130-400); RBC Distribution Width 11.3 % (11.5-14.5); Red Blood Cell (RBC) Count 3.07 mill/uL (4.70-6.10); White Blood Cell (WBC) Count 13.6 thou/uL (4.8-10.8)
[2018-04-28 05:19] LABS: Anion Gap 10 mmol/L (10-20); BUN (Urea Nitrogen) 11 mg/dL (8.4-25.7); Calc. Creatinine Clearance 91 mL/min (70-130); Calcium 7.9 mg/dL (7.8-10.44); Carbon Dioxide 23 mmol/L (23-31); Chloride 105 mmol/L (98-107); Estimated GFR-MDRD Greater than 90; Glucose 153 mg/dL (83-110); Sodium 134 mmol/L (136-145)
[2018-04-28] MEDS: Sodium Chloride 0.9% 1,000 ML IV SCH ×2 (05:38→17:05)
[2018-04-28] MEDS: Ketorolac Tromethamine 30 MG/ML VIAL IVP SCH ×2 (05:38→11:50)
--- NOTE | 2018-04-28 05:42 | PDOC.CTH ---
Cardiology Progress Note - Subjective No complaints except for SOB. CXR with pneumothorax, left sided - Objective Vital Signs Temp Pulse Resp Pulse Ox 04/28/18 04:00 97.8 F 97 04/28/18 00:00 97.7 F 100 04/27/18 20:00 97.9 F 12 100 04/27/18 18:47 100 04/27/18 18:45 83 04/27/18 18:20 97.7 F 12 Admit Weight 155 lb 9.6 oz Weight 158 lb 1.143 oz 04/26/18 04/27/18 04/28/18 06:59 06:59 06:59 Intake Total 240 840 500 Output Total 400 1085 Balance 240 440 -585 - Physical Examination General/Neuro: alert & oriented x3, NAD Neck: carotid US brisk, no JVD present Lungs: CTA Heart: PMI normal, RRR Abdomen: no HSM, NT/ND, soft Extremities: + edema B - Labs Result Diagrams: 04/28/18 03:40 04/28/18 03:40 Troponin/CKMB CK-MB (CK-2) 1.7 ng/mL (0-6.6) 04/26/18 00:40 Troponin I 0.383 ng/mL (< 0.028) H* 04/26/18 07:35 - Assessment/Plan CAD s/p CABG HTN HLD Pneumonthorax On ASA, BB and statin IP Placement of CT per surgery
--- NOTE | 2018-04-28 08:27 | RAD ---
SEMIUPRIGHT PORTABLE CHEST: Date: 04/28/18 HISTORY: 73-year-old male, history of postop open heart. COMPARISON: 04/27/18. FINDINGS: Interval development of a moderate size left-sided pneumothorax is noted. No significant midline shif t. Mediastinal chest tubes and right subclavian catheter remain in place. The endotracheal tube has b een removed. The right lung is expanded with some minimal linear parenchymal changes in both lung bas es, probably some mild subsegmental atelectasis. IMPRESSION: Interval development of a moderate size left-sided pneumothorax. Minimal stable bibasilar subsegmenta l atelectatic changes. This report was called to the patient's nurse, Danette, at 0754 hours, who indicated she would contact Dr. Terrazas in this regard. CODE CR. POS: KENTRELL
[2018-04-28] MEDS ORDERED: Insulin Glargine 9 UNITS in Pre-Filled Syringe 1 EACH SC SCH (08:30)
[2018-04-28] MEDS: Lisinopril 20 MG TAB PO SCH (08:33)
[2018-04-28] MEDS: Famotidine/PF 20 mg/2ml Vial SLOW IVP SCH ×2 (08:34→20:52)
--- NOTE | 2018-04-28 09:58 | CON ---
DATE OF CONSULTATION: 04/28/2018 SERVICE: Pulmonary Medicine. REASON FOR CONSULTATION: ICU patient. HISTORY OF PRESENT ILLNESS: The patient is a 73-year-old white male with past medical history significant for a coronary artery disease. He presented to the hospital with some chest pain. He ruled in. Ultimately, he underwent a coronary artery bypass graft. He is postop day #1 from a 4-vessel bypass. Otherwise, the patient currently is asymptomatic. He denies any shortness of breath. He has appropriate chest discomfort. He does not have any nausea or vomiting. He is tolerating small amounts of p.o., but has yet to have a robust meal. The chest pain that brought him here is no longer present. Otherwise, he is in his usual state of health. PAST MEDICAL HISTORY: 1. Hypertension. 2. Dyslipidemia. 3. Coronary artery disease. PAST SURGICAL HISTORY: 1. Herniorrhaphy, remote. 2. Tonsillectomy. 3. Breast cancer, resected in 2001. 4. Coronary artery bypass graft x4 vessels. FAMILY HISTORY: Noncontributory. SOCIAL HISTORY: He quit smoking in 1988. Prior to that, he had greater than a 19-[id number]-caxk history of smoking. He quit drinking alcohol in 1980. He denies any illicit drugs. He is . He has no exposure to chemicals, dust, asbestos, or tuberculosis. ALLERGIES: No known drug allergies. MEDICATIONS: List of his inpatient medications were reviewed. No specific updates were made. REVIEW OF SYSTEMS: General, head, ears, eyes, nose, throat, cardiovascular, respiratory, GI, , musculoskeletal, neurologic, and skin is negative except as mentioned in the HPI. PHYSICAL EXAMINATION: VITAL SIGNS: Afebrile, pulse 79, blood pressure 108/52, respirations 17, saturation 96% on 2 liters nasal cannula. GENERAL: The patient is awake, alert, in no apparent distress. LUNGS: Decent air entry bilaterally. No prolonged expiratory phase or wheezing is present. HEART: Normal rate, regular. ABDOMEN: Soft, nontender, nondistended. Bowel sounds are positive. MUSCULOSKELETAL: No cyanosis or clubbing. There is no pitting in the bilateral lower extremities. NEUROLOGIC: Grossly nonfocal. LABORATORY DATA: WBC 13.6 and beautifully downtrending, hemoglobin 10.5, platelets 161,000. INR 1.4. D-dimer 1.01. PH 7.53, pCO2 of 21, pO2 of 140. Basic metabolic profile is, otherwise, unremarkable. Cardiac enzymes previously were up-trending to 0.38. Liver function studies are unremarkable. BNP is slightly elevated. IMAGIN. Chest x-ray from today demonstrates sternotomy wires that are in good position. The sternum was approximated well. The heart is small in size. There is a mediastinal drain, which is noted. I cannot identify the chest tube. The left lung has a small pneumothorax present. 2. Carotid Doppler demonstrates no significant stenosis on the left. Slightly elevated velocities in the right suggestive of a 50% stenosis. 3. CTA of the chest demonstrates no evidence of a pulmonary embolism. There is a spiculated pulmonary nodule in the left upper lobe. ASSESSMENT: 1. Acute hypoxic respiratory failure. 2. Coronary artery disease, status post coronary artery bypass graft x4 vessel , postoperative day #1. 3. Pneumothorax on the left, small. 4. Pulmonary nodule with findings concerning for cancer. DISCUSSION AND PLAN: The patient is doing fine in the postop period. He is asymptomatic from the pneumothorax. As such, we will put him on a nonrebreather , and repeat a chest x-ray in a couple of hours. If this thing increases in size, a small-bore catheter will be placed. If we do this, we can send him down for interventional radiology biopsy before the chest tube comes out. Pulmonary Critical Care will continue to follow along. 70 minutes have been devoted to this patient in various activities. I personally reviewed all imaging studies and laboratory data noted within this document. For fifty percent of this time, I was interacting with the patient at the bedside or coordinating care with the care team. For the remainder of the time I was immediately available to the patient in the hospital unit. MARÍA ELENA
--- NOTE | 2018-04-28 13:09 | RAD ---
FRONTAL VIEW CHEST: Date: 04/28/18 COMPARISON: Earlier same day. INDICATION: Hypoxia, pneumothorax, follow-up. FINDINGS: Moderate volume left pneumothorax is grossly stable. There are interstitial opacities of the lungs bi laterally. Right subclavian venous catheter is present with tip overlying the cavoatrial junction. Ca theter tubing overlying the mediastinum is again seen. No additional significant interval change. IMPRESSION: 1. Stable left pneumothorax. 2. Interstitial opacities bilaterally which may relate to edema. 3. Continued follow-up is recommended. POS: KENTRELL
--- NOTE | 2018-04-28 16:28 | PDOC.PN ---
- Subjective Encounter Start Date: 04/28/18 Encounter Start Time: 16:20 Subjective: f/u s/p CABG x 4v POD #1. Small L pneumothorax dx on CXR. -: Feels ok overall. Feels hungry. No fever or chills. O2 @ 2L/min NC - Objective Resuscitation Status: Resuscitation Status FULL:Full Resuscitation MAR Reviewed: Yes Vital Signs & Weight: Vital Signs (12 hours) Temp BP Pulse Ox 04/28/18 12:00 98.1 F 04/28/18 08:33 108/52 L 04/28/18 08:00 97.9 F 92 L 04/28/18 07:49 97 Weight Admit Weight 155 lb 9.6 oz Weight 158 lb 1.143 oz Most Recent Monitor Data Heart Rate from ECG 88 NIBP 178/96 NIBP BP-Mean 123 Respiration from ECG 20 SpO2 59 I&O: 04/27/18 04/28/18 04/29/18 06:59 06:59 06:59 Intake Total 840 1988 Output Total 400 1145 1005 Balance 440 843 -1005 Result Diagrams: 04/28/18 03:40 04/28/18 03:40 Additional Labs: Accuchecks 04/28/18 04/28/18 04/28/18 05:26 04:15 03:23 POC Glucose 112 H 132 H 122 H 04/28/18 04/28/18 04/28/18 02:17 01:16 00:11 POC Glucose 120 H 102 102 04/27/18 04/27/18 04/27/18 23:14 22:13 21:10 POC Glucose 122 H 137 H 164 H 04/27/18 04/27/18 04/27/18 20:00 18:25 17:54 POC Glucose 137 H 151 H 151 H 04/27/18 04/27/18 04/27/18 17:06 16:24 15:43 POC Glucose 158 H 157 H 135 H 04/27/18 04/27/18 15:02 13:48 POC Glucose 126 H 84 Laboratory Tests 04/27/18 04/27/18 03:30 18:24 WBC 9.4 26.6 H Hgb 14.3 11.7 L Radiology Reviewed by me: Yes (PCXR - mod-sized L pneumothorax) EKG Reviewed by me: Yes (Tele - SR) Phys Exam - Physical Examination Constitutional: NAD HEENT: PERRLA, sclera anicteric, oral pharynx no lesions Neck: no nodes, no JVD, supple, full ROM midline surgical incision intact Respiratory: no wheezing, no rales, no rhonchi, clear to auscultation bilateral Cardiovascular: RRR, no significant murmur, no rub, gallop Gastrointestinal: soft, non-tender, no distention, positive bowel sounds Musculoskeletal: no edema, pulses present Neurological: normal sensation, moves all 4 limbs Psychiatric: normal affect, A&O x 3 Skin: normal turgor, cap refill <2 seconds Deviation from normal: Ng with clear urine Dx/Plan (1) 3-vessel CAD Status: Acute Comment: s/p CABG x 4v POD #1, continue ASA, Lipitor, Metoprolol (2) Acute respiratory failure with hypoxia Code(s): J96.01 - ACUTE RESPIRATORY FAILURE WITH HYPOXIA Status: Acute Comment: Secondary to L pneumothorax, O2 supplementation NC currently, clinically observe (3) HTN (hypertension) Code(s): I10 - ESSENTIAL (PRIMARY) HYPERTENSION Status: Chronic Qualifiers: Hypertension type: essential hypertension Qualified Code(s): I10 - Essential (primary) hypertension Comment: Continue Metoprolol, Lisinopril, serial monitoring (4) NSTEMI (non-ST elevated myocardial infarction) Code(s): I21.4 - NON-ST ELEVATION (NSTEMI) MYOCARDIAL INFARCTION Status: Acute Comment: CAD x 3v on [facility], see #1 above - Plan plan discussed w/ family, PT/OT, social insurance administrator, incentive spirometry, out of bed/ambulate, DVT proph w/SCDs Stable currently -: Continue ASA and Lipitor -: Continue Metoprolol and Lisinopril -: OOB to chair -: AM lab: BMP, CBC * PCXR in am
[2018-04-28] MEDS: Docusate 100 MG CAP PO SCH (20:51)
[2018-04-28] MEDS: Atorvastatin Calcium 20 MG TAB PO SCH (20:51)
[2018-04-29] MEDS: HYDROcodone/Acetaminophen 5/325 mg Tablet PO PRN ×2 (02:11→17:16)
[2018-04-29] MEDS: Sodium Chloride 0.9% 1,000 ML IV SCH ×3 (04:17→22:30)
[2018-04-29 04:38] LABS: #Eosinphils 0.1 thou/uL (0.0-0.7); #Lymphocytes 1.6 thou/uL (1.20-3.40); #Monocytes 0.8 thou/uL (0.11-0.59); %Basophils 0.1 % (0.0-1.0); %Eosinophils 0.4 % (0.0-10.0); %Monocytes 5.2 % (0.0-10.0); %Neutrophils 83.4 % (42.0-75.0); Mean Corpuscular HGB CONC 34.2 g/dL (32.0-36.0); Mean Corpuscular Hemoglobin 35.9 pg (27.0-31.0); Mean Platelet Volume 8.2 fL (7.4-10.4); Platelet Count 148 thou/uL (130-400); RBC Distribution Width 11.3 % (11.5-14.5); White Blood Cell (WBC) Count 14.4 thou/uL (4.8-10.8)
[2018-04-29 04:50] LABS: Anion Gap 8 mmol/L (10-20); BUN (Urea Nitrogen) 12 mg/dL (8.4-25.7); Calc. Creatinine Clearance 98 mL/min (70-130); Calcium 7.9 mg/dL (7.8-10.44); Carbon Dioxide 24 mmol/L (23-31); Chloride 101 mmol/L (98-107); Estimated GFR-MDRD Greater than 90; Glucose 112 mg/dL (83-110); Potassium 4.9 mmol/L (3.5-5.1); Sodium 128 mmol/L (136-145)
[2018-04-29] MEDS: Lisinopril 20 MG TAB PO SCH (06:40)
--- NOTE | 2018-04-29 08:33 | PDOC.CTH ---
Cardiology Progress Note - Subjective Felling better. Less SOB. Pneumothorax has improved. - Objective Vital Signs Temp BP 04/29/18 06:40 153/93 H 04/29/18 04:00 98.2 F 04/29/18 00:00 97.7 F Admit Weight 155 lb 9.6 oz Weight 166 lb 10.711 oz 04/28/18 04/29/18 04/30/18 06:59 06:59 06:59 Intake Total 1988 2098.9 Output Total 1145 1595 Balance 843 503.9 - Physical Examination General/Neuro: alert & oriented x3, NAD Neck: carotid US brisk, no JVD present Lungs: unlabored respirations, other: (decrease BS on left) Heart: PMI normal, RRR Abdomen: NT/ND Extremities: + femoral B - Labs Result Diagrams: 04/29/18 03:45 04/29/18 03:45 Troponin/CKMB CK-MB (CK-2) 1.7 ng/mL (0-6.6) 04/26/18 00:40 Troponin I 0.383 ng/mL (< 0.028) H* 04/26/18 07:35 - Assessment/Plan CAD s/p CABG HTN HLD Pneumonthorax observation recommended on pneumothorax on BB, statin IS, PT
[2018-04-29] MEDS ORDERED: Polyethylene Glycol 3350 17 GM Packet PO SCH (09:00)
[2018-04-29] MEDS: Famotidine/PF 20 mg/2ml Vial SLOW IVP SCH ×2 (09:42→21:18)
[2018-04-29] MEDS: Docusate 100 MG CAP PO SCH ×2 (09:42→21:18)
--- NOTE | 2018-04-29 10:20 | RAD ---
SEMIUPRIGHT PORTABLE CHEST 1 VIEW: Date: 04/29/18 HISTORY: 73-year-old male postop open heart. COMPARISON: 04/28/18. FINDINGS: Mediastinal tube is in place with right subclavian catheter. The previously noted left-sided pneumoth orax appears stable. Small apical right-sided stable pneumothorax. Stable parenchymal changes in the left lower lobe. IMPRESSION: 1. Stable left-sided pneumothorax. Small right apical stable right-sided pneumothorax. Stable bibasi lar parenchymal changes, worse in the left retrocardiac region. Continued short-term follow-up recomm ended. 2. Persistent stable parenchymal changes in the left lower lobe. POS: LIZETH
[2018-04-29] MEDS ORDERED: Iopamidol 370 76% 100 ML VIAL ONE (10:35)
--- NOTE | 2018-04-29 10:45 | PRG ---
DATE OF SERVICE: 04/29/2018 SERVICE: Pulmonary Medicine. INTERVAL HISTORY: The patient is doing fine from a respiratory standpoint. He denies any current chest pain, fevers, chills, shortness of breath. His pain is much improved with the Toradol. The narcotic really does not seem to do very much for him. That being said, Toradol got discontinued and he is interested in why. We will look to see whether or not he can have this medication back. Otherwise, he is tolerating a little bit of p.o., though his appetite had not picked up completely. He denies any current fevers or chills. He is not currently on any drips. PHYSICAL EXAMINATION: VITAL SIGNS: Afebrile, pulse 90, blood pressure 153/93, respirations 25, saturation 96% on 2 liters nasal cannula. GENERAL: The patient is awake, alert, in no apparent distress. LUNGS: Really good air entry. Minimal dependent crackles are present. There is no prolonged expiratory phase or wheezing. HEART: Normal rate and regular. ABDOMEN: Soft, nontender, nondistended. Bowel sounds are positive. MUSCULOSKELETAL: No cyanosis or clubbing. There is trace pitting in the bilateral lower extremities. NEUROLOGIC: Grossly nonfocal. LABORATORY DATA: WBC 14.4, hemoglobin 10.0, platelets 148,000. INR 1.4. PH 7.53, pCO2 of 21, pO2 of 140. Basic metabolic profile is essentially unremarkable except for a sodium that is dropping off to 128. IMAGING: Chest x-ray demonstrates persistent left-sided pneumothorax. There is a new small apical right-sided pneumothorax as well. Mediastinal drain is in place. Sternotomy wires are noted. ASSESSMENT: 1. Acute hypoxic respiratory failure. 2. Coronary artery disease, status post coronary artery bypass graft x4 vessels , postoperative day #2. 3. Pneumothorax on the left, moderate. 4. Pneumothorax on the right. 5. Pulmonary nodule with findings concerning for cancer. 6. Hyponatremia. DISCUSSION AND PLAN: The patient is doing fine from a postop standpoint. That being said, he will need to stay in the ICU until this pneumothorax has resolved. We will talk to Dr. Lee about whether or not a chest tube is indicated. I think a small-bore chest tube on the left would be reasonable. If this is done, a biopsy of the pulmonary nodule could be done. Either way, he is fairly asymptomatic from a respiratory standpoint, and continued observation is reasonable too. We will reinitiate his Toradol. For his decreasing sodium, we will recheck a level this afternoon and put him on a fluid restriction. IV fluids will be interrupted. Pulmonary Critical Care will continue to follow along. MARÍA ELENA
--- NOTE | 2018-04-29 16:19 | PDOC.PN ---
- Subjective Encounter Start Date: 04/29/18 Encounter Start Time: 15:10 Subjective: f/u s/p CABG x 4v POD #2. Post-op bilat pneumothorax mod on L and -: small on R. States feeling fatigued but sat up for several hours. Appetite -: ok. - Objective Resuscitation Status: Resuscitation Status FULL:Full Resuscitation MAR Reviewed: Yes Vital Signs & Weight: Vital Signs (12 hours) Temp BP Pulse Ox 04/29/18 12:00 98.0 F 04/29/18 08:00 98.3 F 98 04/29/18 06:40 153/93 H Weight Admit Weight 155 lb 9.6 oz Weight 166 lb 10.711 oz Most Recent Monitor Data Heart Rate from ECG 87 NIBP 177/90 NIBP BP-Mean 119 Respiration from ECG 17 SpO2 98 I&O: 04/28/18 04/29/18 04/30/18 06:59 06:59 06:59 Intake Total 1988 2098.9 477 Output Total 1145 1595 600 Balance 843 503.9 -123 Result Diagrams: 04/29/18 03:45 04/29/18 03:45 Additional Labs: Laboratory Tests 04/27/18 04/27/18 04/28/18 03:30 18:24 03:40 WBC 9.4 26.6 H Hgb 14.3 11.7 L Sodium 134 L 04/28/18 03:40 WBC 13.6 H Hgb 10.5 L Sodium Radiology Reviewed by me: Yes (PCXR - bilat L>R pneumothorax) EKG Reviewed by me: Yes (Tele - SR with PVC's) Phys Exam - Physical Examination Constitutional: NAD HEENT: PERRLA, sclera anicteric, oral pharynx no lesions Neck: no nodes, no JVD, supple, full ROM mildly diminished in bases Respiratory: no wheezing, clear to auscultation bilateral chest incision intact Cardiovascular: RRR, no significant murmur, no rub, gallop Gastrointestinal: soft, non-tender, no distention, positive bowel sounds Musculoskeletal: no edema, pulses present Neurological: normal sensation, moves all 4 limbs Psychiatric: normal affect, A&O x 3 Skin: normal turgor, cap refill <2 seconds Deviation from normal: Ng with keira clear urine Dx/Plan (1) 3-vessel CAD Status: Acute Comment: s/p CABG x 4v POD #2, continue ASA, Lipitor, Metoprolol (2) Acute respiratory failure with hypoxia Code(s): J96.01 - ACUTE RESPIRATORY FAILURE WITH HYPOXIA Status: Acute Comment: Secondary to L pneumothorax, O2 supplementation NC currently, clinically observe (3) HTN (hypertension) Code(s): I10 - ESSENTIAL (PRIMARY) HYPERTENSION Status: Chronic Qualifiers: Hypertension type: essential hypertension Qualified Code(s): I10 - Essential (primary) hypertension Comment: Continue Metoprolol, Lisinopril, serial monitoring (4) NSTEMI (non-ST elevated myocardial infarction) Code(s): I21.4 - NON-ST ELEVATION (NSTEMI) MYOCARDIAL INFARCTION Status: Acute Comment: CAD x 3v on C, see #1 above (5) Pneumothorax, acute Code(s): J93.83 - OTHER PNEUMOTHORAX Status: Acute Comment: Bilateral L>R, conservative mgmt, O2 supplementation, serial CXR (6) Hyponatremia Code(s): E87.1 - HYPO-OSMOLALITY AND HYPONATREMIA Status: Acute Comment: Likely due to volume overload, saline lock IVF's, fluid restriction, serial Na+ - Plan PT/OT, family welfare social work professor, respiratory therapy, DVT proph w/SCDs Stable currently -: Continue serial monitoring of bilat pneumothorax -: IS, PT -: Continue ASA/Metoprolol -: AM lab: BMP, CBC * PCXR in am
[2018-04-29 16:41] LABS: Anion Gap 8 mmol/L (10-20); BUN (Urea Nitrogen) 10 mg/dL (8.4-25.7); Calc. Creatinine Clearance 116 mL/min (70-130); Calcium 8.2 mg/dL (7.8-10.44); Carbon Dioxide 23 mmol/L (23-31); Chloride 97 mmol/L (98-107); Estimated GFR-MDRD Greater than 90; Glucose 108 mg/dL (83-110); Potassium 4.4 mmol/L (3.5-5.1); Sodium 124 mmol/L (136-145)
[2018-04-29] MEDS ORDERED: cloNIDine 0.1 MG TAB PO PRN (21:06)
[2018-04-29] MEDS: Atorvastatin Calcium 20 MG TAB PO SCH (21:18)
[2018-04-30] MEDS: HYDROcodone/Acetaminophen 5/325 mg Tablet PO PRN ×2 (03:47→20:58)
[2018-04-30 04:22] LABS: #Eosinphils 0.1 thou/uL (0.0-0.7); #Lymphocytes 1.1 thou/uL (1.20-3.40); #Monocytes 0.8 thou/uL (0.11-0.59); #Neutrophils 11.6 thou/uL (1.40-6.50); %Basophils 0.2 % (0.0-1.0); %Eosinophils 0.5 % (0.0-10.0); %Lymphocytes 8.3 % (21.0-51.0); %Monocytes 5.8 % (0.0-10.0); %Neutrophils 85.2 % (42.0-75.0); Hemoglobin 9.7 g/dL (14.0-18.0); Mean Corpuscular HGB CONC 33.7 g/dL (32.0-36.0); Mean Platelet Volume 8.4 fL (7.4-10.4); Platelet Count 168 thou/uL (130-400); RBC Distribution Width 11.2 % (11.5-14.5); Red Blood Cell (RBC) Count 2.76 mill/uL (4.70-6.10); White Blood Cell (WBC) Count 13.6 thou/uL (4.8-10.8)
[2018-04-30 04:43] LABS: Anion Gap 10 mmol/L (10-20); BUN (Urea Nitrogen) 8 mg/dL (8.4-25.7); Calc. Creatinine Clearance 114 mL/min (70-130); Calcium 8.1 mg/dL (7.8-10.44); Carbon Dioxide 24 mmol/L (23-31); Chloride 97 mmol/L (98-107); Estimated GFR-MDRD Greater than 90; Glucose 102 mg/dL (83-110); Potassium 4.2 mmol/L (3.5-5.1); Sodium 127 mmol/L (136-145)
--- NOTE | 2018-04-30 08:27 | RAD ---
UPRIGHT PORTABLE CHEST ONE VIEW: History: 73-year-old male with history of post op open heart. Comparison: 04-29-18 FINDINGS: Again noted is a small overall stable left sided pneumothorax and a very small right apical pneumotho rax. Life support tubes remain in place and unchanged. Bibasilar parenchymal changes, more prominent in the left retrocardiac region but stable. IMPRESSION: Stable chest with small left sided and very small right sided apical pneumothoraces. Stable bibasilar pulmonary and parenchymal changes. Continued short term follow up. POS: [facility]
[2018-04-30] MEDS ORDERED: Bisacodyl 10 MG SUPP PR PRN (08:55)
[2018-04-30] MEDS ORDERED: Artificial Tears 18 DROP/0.9 ML EA EYE PRN (08:55)
[2018-04-30] MEDS ORDERED: Guaifenesin DM 100-10/5 ML UDCUP PO PRN (08:55)
[2018-04-30] MEDS ORDERED: Nitroglycerin 0.4 MG TAB (25 Tab Bottle) SL PRN (08:55)
[2018-04-30] MEDS ORDERED: Mag-Al 1200 mg/1200 mg/30 ML UDCUP PO PRN (08:55)
[2018-04-30] MEDS ORDERED: Mineral Oil ENEMA PR PRN (08:55)
[2018-04-30] MEDS ORDERED: diphenhydrAMINE 25 MG CAP PO PRN (08:55)
[2018-04-30] MEDS: Bisacodyl 5 MG TAB PO PRN (09:21)
[2018-04-30] MEDS: Famotidine 20 MG TAB PO SCH ×2 (09:23→20:01)
[2018-04-30] MEDS: Docusate 100 MG CAP PO SCH ×2 (09:23→20:01)
--- NOTE | 2018-04-30 10:52 | PRG ---
DATE OF SERVICE: 04/30/2018 SERVICE: Pulmonary Medicine INTERVAL HISTORY: The patient is doing okay from a respiratory standpoint. Whenever he takes his ox ygen off, he feels a little bit short-winded. He denies any current chest pain, nausea, vomiting, fe vers or chills. His appetite is perking up a little bit. Otherwise, there has been no interval flaherty ge to his condition and he is fairly happy with the progress he has made to date. PHYSICAL EXAMINATION: VITAL SIGNS: Afebrile, pulse 101, blood pressure 100/59, respirations 20, saturation is 100% on 2 li ters nasal cannula. GENERAL: The patient is awake and alert, in no apparent distress. LUNGS: Reduced air entry on the left. There is good air entry on the right. There is no prolonged expiratory phase or wheezing present. HEART: Normal rate, regular. ABDOMEN: Soft, nontender, nondistended. Bowel sounds are positive. MUSCULOSKELETAL: No cyanosis or clubbing. There is no pitting in the bilateral lower extremities. NEUROLOGIC: Grossly nonfocal. LABORATORY DATA: WBC 13.6, hemoglobin 9.7, platelets 168,000. INR 1.4. Sodium 127 and gently trend ing upward. Basic metabolic profile is otherwise unremarkable. IMAGING: X-ray of the chest demonstrates interval decrease in the size of the left-sided pneumothora x. There is a persistent right apical pneumothorax, also present. A subclavian central venous marisela ter is present on the right. Mediastinal drains remain in place. ASSESSMENT: 1. Acute hypoxic respiratory failure. 2. Bilateral pneumothorax, improving. 3. Coronary artery disease, post-status post-coronary bypass graft x4 vessels, postoperative day #3. 4. Pulmonary nodules with findings concerning for lung malignancy, DISCUSSION, AND PLAN: It appears that the pneumothorax is improving. As such, I will continue to ob serve. Pulmonary Critical Care will continue to follow along for the time being. IV fluids will be interrupted. When he discharges from the hospital we will need set up a percutaneous biopsy within a couple of days.
--- NOTE | 2018-04-30 13:22 | PDOC.PN ---
- Subjective Encounter Start Date: 04/30/18 Encounter Start Time: 07:00 -: old records requested/rev pt seated in chair, has no chest pain, has chest tube in place, pt subjectively feels better, - Objective Resuscitation Status: Resuscitation Status FULL:Full Resuscitation MAR Reviewed: Yes Vital Signs & Weight: Vital Signs (12 hours) Temp BP Pulse Ox 04/30/18 08:00 98.6 F 04/30/18 06:44 100 04/30/18 04:00 98.4 F 04/30/18 02:05 153/93 H Weight Admit Weight 155 lb 9.6 oz Weight 157 lb 13.616 oz Most Recent Monitor Data Heart Rate from ECG 101 NIBP 100/59 NIBP BP-Mean 72 Respiration from ECG 20 SpO2 98 I&O: 04/29/18 04/30/18 05/01/18 06:59 06:59 06:59 Intake Total 2098.9 2685 640 Output Total 1595 2620 550 Balance 503.9 65 90 Result Diagrams: 04/30/18 03:55 04/30/18 03:55 Additional Labs: Accuchecks 04/28/18 06:22 POC Glucose 116 H Radiology Reviewed by me: Yes (chest xray reviewed) EKG Reviewed by me: Yes (nsr) Phys Exam - Physical Examination Constitutional: NAD HEENT: PERRLA, moist MMs, sclera anicteric Neck: no JVD, supple Respiratory: no wheezing, no rhonchi reduced air entry at base chest tube in place Cardiovascular: RRR, no significant murmur, no rub surgical site with dressing Gastrointestinal: soft, non-tender, no distention Musculoskeletal: no edema, pulses present Neurological: non-focal, normal sensation, moves all 4 limbs Lymphatic: no nodes Psychiatric: normal affect, A&O x 3 Skin: no rash, normal turgor Dx/Plan (1) 3-vessel CAD Status: Acute Comment: s/p CABG x 4v POD #3, continue ASA, Lipitor, Metoprolol (2) Acute respiratory failure with hypoxia Code(s): J96.01 - ACUTE RESPIRATORY FAILURE WITH HYPOXIA Status: Acute Comment: Secondary to L pneumothorax, O2 supplementation NC currently, clinically observe (3) Hyponatremia Code(s): E87.1 - HYPO-OSMOLALITY AND HYPONATREMIA Status: Acute Comment: Likely due to volume overload, , fluid restriction, serial Na+ (4) NSTEMI (non-ST elevated myocardial infarction) Code(s): I21.4 - NON-ST ELEVATION (NSTEMI) MYOCARDIAL INFARCTION Status: Acute Comment: CAD x 3v on [facility], see #1 above (5) Pneumothorax, acute Code(s): J93.83 - OTHER PNEUMOTHORAX Status: Acute Comment: Bilateral L>R, conservative mgmt, O2 supplementation, serial CXR (6) HTN (hypertension) Code(s): I10 - ESSENTIAL (PRIMARY) HYPERTENSION Status: Chronic Qualifiers: Hypertension type: essential hypertension Qualified Code(s): I10 - Essential (primary) hypertension Comment: Continue Metoprolol, Lisinopril, serial monitoring (7) Macrocytic anemia Code(s): D53.9 - NUTRITIONAL ANEMIA, UNSPECIFIED Status: Chronic (8) Pulmonary nodule Code(s): R91.1 - SOLITARY PULMONARY NODULE Status: Acute Comment: will need biopsy after discharge - Plan cont current plan of care * chest tube as per CT surgeon * today transfer to tele * medication reviewed as below * symptomatic treatment Review of Systems - Review of Systems ENT: negative: Ear Pain, Ear Discharge, Nose Pain, Nose Discharge, Nose Congestion, Mouth Pain, Mouth Swelling, Throat Pain, Throat Swelling, Other Respiratory: negative: Cough, Dry, Shortness of Breath, Hemoptysis, SOB with Excertion, Pleuritic Pain, Sputum, Wheezing Cardiovascular: negative: chest pain, palpitations, orthopnea, paroxysmal nocturnal dyspnea, edema, light headedness, other Gastrointestinal: negative: Nausea, Vomiting, Abdominal Pain, Diarrhea, Constipation, Melena, Hematochezia, Other Genitourinary: negative: Dysuria, Frequency, Incontinence, Hematuria, Retention , Other Musculoskeletal: negative: Neck Pain, Shoulder Pain, Arm Pain, Back Pain, Hand Pain, Leg Pain, Foot Pain, Other Skin: negative: Rash, Lesions, Kaushik, Bruising, Other - Medications/Allergies Allergies/Adverse Reactions: Allergies Allergy/AdvReac Type Severity Reaction Status Date / Time No Known Drug Allergies Allergy Verified 04/26/18 03:49 Medications: Current Medications Hydrocodone Bitart/Acetaminophen ([place] 5/325) 1 tab PO Q4H PRN PRN Reason: Moderate Pain (4-6) Last Admin: 04/27/18 21:59 Dose: 1 tab Hydrocodone Bitart/Acetaminophen ([place] 5/325) 2 tab PO Q4H PRN PRN Reason: Severe Pain (7-10) Last Admin: 04/30/18 03:47 Dose: 2 tab Al Hydroxide/Mg Hydroxide (Maalox) 30 ml PO Q4H PRN PRN Reason: Indigestion Albuterol/Ipratropium (Duoneb) 3 ml NEB [id number] PRN PRN Reason: SHORTNESS OF BREATH Artificial Tears (Tears Naturale) 0 drop EA EYE PRN PRN PRN Reason: Dry Eyes Aspirin (Aspirin Chewable) 81 mg PO DAILY [facility] Last Admin: 04/30/18 09:22 Dose: 81 mg Atorvastatin Calcium (Lipitor) 20 mg PO HS [facility] Bisacodyl (Dulcolax) 10 mg PO Q12H PRN PRN Reason: Constipation Last Admin: 04/30/18 09:21 Dose: 10 mg Bisacodyl (Dulcolax) 10 mg IN Q12H PRN PRN Reason: Constipation Diphenhydramine HCl (Benadryl) 25 mg PO Q6H PRN PRN Reason: Itching & Insomnia or Robin Claudy Docusate Sodium (Colace) 100 mg PO BID [facility] Last Admin: 04/30/18 09:23 Dose: 100 mg Famotidine (Pepcid) 20 mg PO Q12HR [facility] Last Admin: 04/30/18 09:23 Dose: 20 mg Guaifenesin/Dextromethorphan (Robitussin Dm) 15 ml PO Q4H PRN PRN Reason: Cough Hydralazine HCl (Apresoline) 10 mg SLOW IVP Q6H PRN PRN Reason: To Maintain SBP< 140mmHG Lisinopril (Zestril) 40 mg PO DAILY [facility] Last Admin: 04/29/18 06:40 Dose: 40 mg Metoprolol Succinate (Toprol Xl) 50 mg PO BID [facility] Last Admin: 04/30/18 09:25 Dose: 50 mg Mineral Oil (Fleet Mineral Oil) 133 ml IN DAILYPRN PRN PRN Reason: Constipation Nitroglycerin (Nitrostat) 0.4 mg SL Q5MIN PRN PRN Reason: Chest Pain Ondansetron HCl (Zofran) 4 mg IVP Q6H PRN PRN Reason: Nausea/Vomiting Sodium Chloride (Flush - Normal Saline) 10 ml IVF Q12HR [facility] Last Admin: 04/30/18 09:23 Dose: 10 ml
[2018-04-30] MEDS ORDERED: Temazepam 15 MG CAP PO PRN (13:23)
[2018-04-30] MEDS ORDERED: Loperamide HCl 2 MG CAP PO PRN (13:23)
[2018-04-30] MEDS ORDERED: Diabetic Tussin 200 MG/10 ML UDCUP PO PRN (13:23)
[2018-04-30] MEDS ORDERED: Ondansetron ODT 4 MG TAB PO PRN (13:23)
[2018-04-30] MEDS ORDERED: Eucerin (Mineral Oil/Petrolatum,White) 30 gm Jar TOP PRN (13:23)
[2018-04-30] MEDS: Atorvastatin Calcium 20 MG TAB PO SCH (20:01)
[2018-04-30] MEDS: Lisinopril 20 MG TAB PO SCH (20:02)
[2018-05-01] MEDS: Docusate 100 MG CAP PO SCH ×2 (07:57→22:13)
[2018-05-01] MEDS: Lisinopril 20 MG TAB PO SCH (07:58)
[2018-05-01] MEDS: Famotidine 20 MG TAB PO SCH ×2 (07:58→22:13)
--- NOTE | 2018-05-01 08:49 | RAD ---
PORTABLE CHEST: DATE: 05/01/2018. PROVIDED CLINICAL HISTORY: Pneumothorax. FINDINGS: Comparison is made with the study dated 04/30/2018. Cardiac and mediastinal silhouette unchanged in appearance. Mediastinal drains are again seen. Left-sided pneumothorax are redemonstrated, not sign ificantly changed with respect to the prior examination. Lucency at the right lung apex was noted wi thout definite pleural line seen on the current examination. Left basilar pleural and/or parenchymal opacities unchanged with respect to prior. Right-sided central line is in similar position. There is a left upper lung zone pulmonary nodule seen laterally, described in detail on chest CT of 018. Please see that report. IMPRESSION: 1. Stable left-sided pneumothorax. 2. Possible persistent small right apical pneumothorax with nonvisualization of definite right pleur al line. POS: [facility]
--- NOTE | 2018-05-01 10:35 | PDOC.PN ---
- Subjective Encounter Start Date: 05/01/18 Encounter Start Time: 08:00 Patient seen and examined. No new complaints. No overnight events today chest tube removed - Objective Resuscitation Status: Resuscitation Status FULL:Full Resuscitation MAR Reviewed: Yes Vital Signs & Weight: Vital Signs (12 hours) Temp Pulse Resp BP Pulse Ox 05/01/18 07:45 97.8 F 84 18 166/80 H 100 05/01/18 07:19 96 05/01/18 03:25 98.6 F 85 18 125/63 96 05/01/18 00:00 97.9 F 86 18 173/86 H 98 Weight Admit Weight 155 lb 9.6 oz Weight 156 lb 8 oz Most Recent Monitor Data Heart Rate from ECG 87 NIBP 142/89 NIBP BP-Mean 106 Respiration from ECG 19 SpO2 100 I&O: 04/30/18 05/01/18 05/02/18 06:59 06:59 06:59 Intake Total 2685 1840 Output Total 2620 2675 Balance 65 -835 Result Diagrams: 04/30/18 03:55 04/30/18 03:55 Radiology Reviewed by me: Yes (chest xray reviewed by me) EKG Reviewed by me: Yes Phys Exam - Physical Examination Constitutional: NAD HEENT: PERRLA, moist MMs, sclera anicteric Neck: no JVD, supple Respiratory: no wheezing, no rales, no rhonchi Cardiovascular: RRR, no significant murmur, no rub Gastrointestinal: soft, non-tender, no distention, positive bowel sounds Musculoskeletal: no edema, pulses present Neurological: non-focal, normal sensation, moves all 4 limbs Psychiatric: normal affect, A&O x 3 Skin: no rash, normal turgor Dx/Plan (1) 3-vessel CAD Status: Acute Comment: s/p CABG x 4v POD #3, continue ASA, Lipitor, Metoprolol (2) Acute respiratory failure with hypoxia Code(s): J96.01 - ACUTE RESPIRATORY FAILURE WITH HYPOXIA Status: Acute Comment: Secondary to L pneumothorax, O2 supplementation NC currently, clinically observe (3) Hyponatremia Code(s): E87.1 - HYPO-OSMOLALITY AND HYPONATREMIA Status: Acute Comment: Likely due to volume overload, , fluid restriction, serial Na+ (4) NSTEMI (non-ST elevated myocardial infarction) Code(s): I21.4 - NON-ST ELEVATION (NSTEMI) MYOCARDIAL INFARCTION Status: Acute Comment: CAD x 3v on [facility], see #1 above (5) Pneumothorax, acute Code(s): J93.83 - OTHER PNEUMOTHORAX Status: Acute Comment: Bilateral L>R, conservative mgmt, O2 supplementation, serial CXR (6) HTN (hypertension) Code(s): I10 - ESSENTIAL (PRIMARY) HYPERTENSION Status: Chronic Qualifiers: Hypertension type: essential hypertension Qualified Code(s): I10 - Essential (primary) hypertension Comment: Continue Metoprolol, Lisinopril, serial monitoring (7) Macrocytic anemia Code(s): D53.9 - NUTRITIONAL ANEMIA, UNSPECIFIED Status: Chronic (8) Pulmonary nodule Code(s): R91.1 - SOLITARY PULMONARY NODULE Status: Acute Comment: will need biopsy after discharge - Plan cont current plan of care, plan discussed w/ family, PT/OT * wean off oxygen as tolerated * continue cardiac rehab * medication reviewed as below * symptomatic treatment * pt prefer to go home on discharge with outpt PT * continue medication adjustment. Review of Systems - Review of Systems Eyes: negative: Pain, Vision Change, Conjunctivae Inflammation, Eyelid Inflammation, Redness, Other ENT: negative: Ear Pain, Ear Discharge, Nose Pain, Nose Discharge, Nose Congestion, Mouth Pain, Mouth Swelling, Throat Pain, Throat Swelling, Other Respiratory: negative: Cough, Dry, Shortness of Breath, Hemoptysis, SOB with Excertion, Pleuritic Pain, Sputum, Wheezing Cardiovascular: negative: chest pain, palpitations, orthopnea, paroxysmal nocturnal dyspnea, edema, light headedness, other Gastrointestinal: negative: Nausea, Vomiting, Abdominal Pain, Diarrhea, Constipation, Melena, Hematochezia, Other Genitourinary: negative: Dysuria, Frequency, Incontinence, Hematuria, Retention , Other Musculoskeletal: negative: Neck Pain, Shoulder Pain, Arm Pain, Back Pain, Hand Pain, Leg Pain, Foot Pain, Other - Medications/Allergies Allergies/Adverse Reactions: Allergies Allergy/AdvReac Type Severity Reaction Status Date / Time No Known Drug Allergies Allergy Verified 04/26/18 03:49 Medications: Current Medications Acetaminophen (Tylenol) 1,000 mg PO Q4H PRN PRN Reason: Fever > 101 Hydrocodone Bitart/Acetaminophen ([place] 5/325) 1 tab PO Q4H PRN PRN Reason: Moderate Pain (4-6) Last Admin: 04/27/18 21:59 Dose: 1 tab Hydrocodone Bitart/Acetaminophen ([place] 5/325) 2 tab PO Q4H PRN PRN Reason: Severe Pain (7-10) Last Admin: 04/30/18 20:58 Dose: 2 tab Al Hydroxide/Mg Hydroxide (Maalox) 30 ml PO Q4H PRN PRN Reason: Indigestion Albuterol/Ipratropium (Duoneb) 3 ml NEB [id number] PRN PRN Reason: SHORTNESS OF BREATH Artificial Tears (Tears Naturale) 0 drop EA EYE PRN PRN PRN Reason: Dry Eyes Aspirin (Aspirin Chewable) 81 mg PO DAILY [facility] Last Admin: 05/01/18 07:57 Dose: 81 mg Atorvastatin Calcium (Lipitor) 20 mg PO HS [facility] Last Admin: 04/30/18 20:01 Dose: 20 mg Bisacodyl (Dulcolax) 10 mg PO Q12H PRN PRN Reason: Constipation Last Admin: 04/30/18 09:21 Dose: 10 mg Bisacodyl (Dulcolax) 10 mg SD Q12H PRN PRN Reason: Constipation Diphenhydramine HCl (Benadryl) 25 mg PO Q6H PRN PRN Reason: Itching & Insomnia or Robin Claudy Docusate Sodium (Colace) 100 mg PO BID [facility] Last Admin: 05/01/18 07:57 Dose: 100 mg Famotidine (Pepcid) 20 mg PO Q12HR [facility] Last Admin: 05/01/18 07:58 Dose: 20 mg Guaifenesin (Robitussin Sf) 200 mg PO Q4H PRN PRN Reason: Cough Guaifenesin/Dextromethorphan (Robitussin Dm) 15 ml PO Q4H PRN PRN Reason: Cough Hydralazine HCl (Apresoline) 10 mg SLOW IVP Q6H PRN PRN Reason: To Maintain SBP< 140mmHG Last Admin: 05/01/18 00:11 Dose: 10 mg Lisinopril (Zestril) 40 mg PO DAILY [facility] Last Admin: 05/01/18 07:58 Dose: 40 mg Loperamide HCl (Imodium) 2 mg PO PRN PRN PRN Reason: Diarrhea/Loose Stools Metoprolol Succinate (Toprol Xl) 50 mg PO BID [facility] Last Admin: 05/01/18 07:58 Dose: 50 mg Mineral Oil (Fleet Mineral Oil) 133 ml SD DAILYPRN PRN PRN Reason: Constipation Mineral Oil/White Petrolatum (Eucerin Cream) 0 gm TOP BIDPRN PRN PRN Reason: Dry Skin Nitroglycerin (Nitrostat) 0.4 mg SL Q5MIN PRN PRN Reason: Chest Pain Ondansetron HCl (Zofran) 4 mg IVP Q6H PRN PRN Reason: Nausea/Vomiting Ondansetron HCl (Zofran Odt) 4 mg PO Q6H PRN PRN Reason: Nausea/Vomiting Sodium Chloride (Flush - Normal Saline) 10 ml IVF Q12HR [facility] Last Admin: 05/01/18 07:59 Dose: 10 ml Temazepam (Restoril) 15 mg PO HSPRN PRN PRN Reason: Insomnia
--- NOTE | 2018-05-01 18:25 | PRG ---
DATE OF SERVICE: 05/01/2018 SERVICE: Pulmonary Medicine. INTERVAL HISTORY: The patient is doing fine from a respiratory standpoint. He denies having any jacki rtness of breath. With exertion, he gets a little winded. Outside of that, however, he is doing wel l. He denies any fevers or chills. He is not coughing or bringing up any sputum currently. OBJECTIVE: VITAL SIGNS: Afebrile, pulse 87, blood pressure 133/71, respirations 16, saturation 100% on nonrebre ather. GENERAL: The patient is awake, alert, no apparent distress. LUNGS: Decent air entry. There is no prolonged expiratory phase or wheezing present. HEART: Normal rate, regular. ABDOMEN: Soft, nontender, nondistended. Bowel sounds are positive. MUSCULOSKELETAL: No cyanosis or clubbing. No pitting in the bilateral lower extremities. NEUROLOGIC: Grossly nonfocal. LABORATORY DATA: WBC 13.6, hemoglobin 9.7 and roughly stable, platelets 168,000. Sodium 127 and gen tly up trending. Basic metabolic profile is otherwise unremarkable. ASSESSMENT: 1. Acute hypoxic respiratory failure. 2. Bilateral pneumothorax, slowly improving. 3. Coronary artery disease, status post coronary artery bypass graft x4 vessels, postoperative day 4 . 4. Pulmonary nodule with findings concerning for lung malignancy. DISCUSSION AND PLAN: The patient is doing fairly well from a respiratory standpoint. That being rad d, pneumothorax persists. We will continue observation. We will be waiting for complete resolution of the pneumothorax before we consider doing a percutaneous sample of this pulmonary nodule. If the chest tube is ever put in on the left side, we will pursue in the inpatient setting.
[2018-05-01] MEDS: Atorvastatin Calcium 20 MG TAB PO SCH (22:13)
[2018-05-02 07:41] LABS: Hemoglobin 11.3 g/dL (14.0-18.0); Mean Corpuscular HGB CONC 32.8 g/dL (32.0-36.0); Mean Corpuscular Hemoglobin 34.4 pg (27.0-31.0); Mean Platelet Volume 7.7 fL (7.4-10.4); Platelet Count 270 thou/uL (130-400); RBC Distribution Width 11.5 % (11.5-14.5); Red Blood Cell (RBC) Count 3.28 mill/uL (4.70-6.10); White Blood Cell (WBC) Count 14.7 thou/uL (4.8-10.8)
[2018-05-02 07:50] LABS: Anion Gap 12 mmol/L (10-20); BUN (Urea Nitrogen) 10 mg/dL (8.4-25.7); Calc. Creatinine Clearance 90 mL/min (70-130); Calcium 8.7 mg/dL (7.8-10.44); Carbon Dioxide 24 mmol/L (23-31); Chloride 99 mmol/L (98-107); Estimated GFR-MDRD Greater than 90; Glucose 120 mg/dL (83-110); Potassium 3.8 mmol/L (3.5-5.1); Sodium 131 mmol/L (136-145)
[2018-05-02 08:57] LABS: Band 5 % (5-11); Eosinophils 2 % (0-10); Lymphocytes 11 % (21-51); MDiff Complete? YES; Macrocytosis SLIGHT = 6-15 cells (100X) (0-5/hpf); Monocytes 8 % (0-10); Myelocyte 2 % (0-0); Neutrophil 71 % (42-75); PLT Morphology Comment Appears Adequate; Polychromasia SLIGHT = 2-3 cells (100X) (0-2/hpf); Promyelocytes 1 % (0-0)
[2018-05-02] MEDS: Lisinopril 20 MG TAB PO SCH (08:58)
[2018-05-02] MEDS: Bisacodyl 5 MG TAB PO PRN (08:58)
[2018-05-02] MEDS: Famotidine 20 MG TAB PO SCH ×2 (08:58→21:13)
[2018-05-02] MEDS: Docusate 100 MG CAP PO SCH ×2 (08:58→21:13)
--- NOTE | 2018-05-02 09:29 | RAD ---
AP VIEW CHEST: Date: 05/02/18 INDICATION: History of pneumothorax. COMPARISON: Prior study dated 05/01/18 at 0611 hours. FINDINGS: Small left apical pneumothorax has decreased in size. Tiny residual remains. Chronic lung changes are similar. Small left pleural effusion is similar. Right subclavian central venous catheter is unchang ed. Previously seen thoracostomy tube and midline mediastinal drain has been removed. Surgical clips within the left axillary region are stable. IMPRESSION: 1. Decreasing size of small left apical pneumothorax. 2. Removal of the mediastinal and left-sided thoracostomy drains. 3. Small left pleural effusion. 4. Stable right subclavian central venous catheter. 5. Stable chronic lung changes. POS: [facility]
--- NOTE | 2018-05-02 11:32 | PDOC.PN ---
- Subjective Encounter Start Date: 05/02/18 Encounter Start Time: 07:30 Patient seen and examined. No new complaints. No overnight events - Objective Resuscitation Status: Resuscitation Status FULL:Full Resuscitation MAR Reviewed: Yes Vital Signs & Weight: Vital Signs (12 hours) Temp Pulse Resp BP Pulse Ox 05/02/18 11:11 97.6 F 69 16 135/71 99 05/02/18 08:05 99 05/02/18 07:56 97.6 F 85 16 167/70 H 99 05/02/18 03:18 97.4 F L 55 L 20 160/75 H 100 05/02/18 00:00 65 18 Weight Admit Weight 155 lb 9.6 oz Weight 153 lb 11.2 oz Most Recent Monitor Data Heart Rate from ECG 87 NIBP 142/89 NIBP BP-Mean 106 Respiration from ECG 19 SpO2 100 I&O: 05/01/18 05/02/18 05/03/18 06:59 06:59 06:59 Intake Total 1840 1490 Output Total 2675 975 Balance -835 515 Result Diagrams: 05/02/18 07:17 05/02/18 07:17 Radiology Reviewed by me: Yes (chest xray reviewed) EKG Reviewed by me: Yes (nsr) Phys Exam - Physical Examination Constitutional: NAD HEENT: PERRLA, moist MMs, sclera anicteric Neck: no JVD, supple Respiratory: no wheezing, no rales, no rhonchi Cardiovascular: RRR, no significant murmur, no rub surgical site clean Gastrointestinal: soft, non-tender, no distention, positive bowel sounds Musculoskeletal: no edema, pulses present Neurological: non-focal, normal sensation, moves all 4 limbs Psychiatric: normal affect, A&O x 3 Dx/Plan (1) 3-vessel CAD Status: Acute Comment: s/p CABG x 4v POD #3, continue ASA, Lipitor, Metoprolol (2) Acute respiratory failure with hypoxia Code(s): J96.01 - ACUTE RESPIRATORY FAILURE WITH HYPOXIA Status: Acute Comment: Secondary to L pneumothorax, O2 supplementation NC currently, clinically observe (3) Hyponatremia Code(s): E87.1 - HYPO-OSMOLALITY AND HYPONATREMIA Status: Acute Comment: Likely due to volume overload, , fluid restriction, serial Na+ (4) NSTEMI (non-ST elevated myocardial infarction) Code(s): I21.4 - NON-ST ELEVATION (NSTEMI) MYOCARDIAL INFARCTION Status: Acute Comment: CAD x 3v on [facility], see #1 above (5) Pneumothorax, acute Code(s): J93.83 - OTHER PNEUMOTHORAX Status: Acute Comment: Bilateral L>R, conservative mgmt, O2 supplementation, serial CXR (6) HTN (hypertension) Code(s): I10 - ESSENTIAL (PRIMARY) HYPERTENSION Status: Chronic Qualifiers: Hypertension type: essential hypertension Qualified Code(s): I10 - Essential (primary) hypertension Comment: Continue Metoprolol, Lisinopril, serial monitoring (7) Macrocytic anemia Code(s): D53.9 - NUTRITIONAL ANEMIA, UNSPECIFIED Status: Chronic (8) Pulmonary nodule Code(s): R91.1 - SOLITARY PULMONARY NODULE Status: Acute Comment: will need biopsy after discharge - Plan cont current plan of care * apical pneumothorex continue to improve, continue oxygen therapy * outpt pulmonary nodule biopsy * continue cardiac rehab * medication reviewed as below * symptomatic treatment * overall stable and continue to improve * discussed with * discharge when CT surgeon OK. Review of Systems - Review of Systems ENT: negative: Ear Pain, Ear Discharge, Nose Pain, Nose Discharge, Nose Congestion, Mouth Pain, Mouth Swelling, Throat Pain, Throat Swelling, Other Respiratory: negative: Cough, Dry, Shortness of Breath, Hemoptysis, SOB with Excertion, Pleuritic Pain, Sputum, Wheezing Cardiovascular: negative: chest pain, palpitations, orthopnea, paroxysmal nocturnal dyspnea, edema, light headedness, other Gastrointestinal: negative: Nausea, Vomiting, Abdominal Pain, Diarrhea, Constipation, Melena, Hematochezia, Other Genitourinary: negative: Dysuria, Frequency, Incontinence, Hematuria, Retention , Other Musculoskeletal: negative: Neck Pain, Shoulder Pain, Arm Pain, Back Pain, Hand Pain, Leg Pain, Foot Pain, Other Skin: negative: Rash, Lesions, Kaushik, Bruising, Other - Medications/Allergies Allergies/Adverse Reactions: Allergies Allergy/AdvReac Type Severity Reaction Status Date / Time No Known Drug Allergies Allergy Verified 04/26/18 03:49 Medications: Current Medications Acetaminophen (Tylenol) 1,000 mg PO Q4H PRN PRN Reason: Fever > 101 Hydrocodone Bitart/Acetaminophen ([place] 5/325) 1 tab PO Q4H PRN PRN Reason: Moderate Pain (4-6) Last Admin: 04/27/18 21:59 Dose: 1 tab Hydrocodone Bitart/Acetaminophen ([place] 5/325) 2 tab PO Q4H PRN PRN Reason: Severe Pain (7-10) Last Admin: 04/30/18 20:58 Dose: 2 tab Al Hydroxide/Mg Hydroxide (Maalox) 30 ml PO Q4H PRN PRN Reason: Indigestion Albuterol/Ipratropium (Duoneb) 3 ml NEB [id number] PRN PRN Reason: SHORTNESS OF BREATH Artificial Tears (Tears Naturale) 0 drop EA EYE PRN PRN PRN Reason: Dry Eyes Aspirin (Aspirin Chewable) 81 mg PO DAILY [facility] Last Admin: 05/02/18 08:58 Dose: 81 mg Atorvastatin Calcium (Lipitor) 20 mg PO HS [facility] Last Admin: 05/01/18 22:13 Dose: 20 mg Bisacodyl (Dulcolax) 10 mg PO Q12H PRN PRN Reason: Constipation Last Admin: 05/02/18 08:58 Dose: 10 mg Bisacodyl (Dulcolax) 10 mg DE Q12H PRN PRN Reason: Constipation Diphenhydramine HCl (Benadryl) 25 mg PO Q6H PRN PRN Reason: Itching & Insomnia or Robin Claudy Docusate Sodium (Colace) 100 mg PO BID [facility] Last Admin: 05/02/18 08:58 Dose: 100 mg Famotidine (Pepcid) 20 mg PO Q12HR [facility] Last Admin: 05/02/18 08:58 Dose: 20 mg Guaifenesin (Robitussin Sf) 200 mg PO Q4H PRN PRN Reason: Cough Guaifenesin/Dextromethorphan (Robitussin Dm) 15 ml PO Q4H PRN PRN Reason: Cough Hydralazine HCl (Apresoline) 10 mg SLOW IVP Q6H PRN PRN Reason: To Maintain SBP< 140mmHG Last Admin: 05/01/18 00:11 Dose: 10 mg Lisinopril (Zestril) 40 mg PO DAILY [facility] Last Admin: 05/02/18 08:58 Dose: 40 mg Loperamide HCl (Imodium) 2 mg PO PRN PRN PRN Reason: Diarrhea/Loose Stools Metoprolol Succinate (Toprol Xl) 100 mg PO DAILY [facility] Last Admin: 05/02/18 08:58 Dose: 100 mg Mineral Oil (Fleet Mineral Oil) 133 ml DE DAILYPRN PRN PRN Reason: Constipation Mineral Oil/White Petrolatum (Eucerin Cream) 0 gm TOP BIDPRN PRN PRN Reason: Dry Skin Nitroglycerin (Nitrostat) 0.4 mg SL Q5MIN PRN PRN Reason: Chest Pain Ondansetron HCl (Zofran) 4 mg IVP Q6H PRN PRN Reason: Nausea/Vomiting Ondansetron HCl (Zofran Odt) 4 mg PO Q6H PRN PRN Reason: Nausea/Vomiting Sodium Chloride (Flush - Normal Saline) 10 ml IVF Q12HR [facility] Last Admin: 05/02/18 11:16 Dose: 10 ml Temazepam (Restoril) 15 mg PO HSPRN PRN PRN Reason: Insomnia
[2018-05-02] MEDS: Acetaminophen 500 MG TAB PO PRN ×2 (13:01→21:15)
--- NOTE | 2018-05-02 13:27 | PRG ---
DATE OF SERVICE: 05/02/2018 SERVICE: Pulmonary Medicine. INTERVAL HISTORY: The patient is doing really well from a respiratory standpoint. He is breathing c omfortably. He has a little bit of pleuritic chest discomfort, but outside of that, he is breathing well. There were no fevers. He is off of oxygen and his saturations are actually much improved. He has been able to work with physical therapy without difficulties. PHYSICAL EXAMINATION: VITAL SIGNS: Afebrile, pulse 69, blood pressure 135/71, respirations 16, saturation 99% on 2 liters nasal cannula. GENERAL: The patient is awake, alert, no apparent distress. LUNGS: Excellent air entry. There is no prolonged expiratory phase or wheezing present. HEART: Normal rate, regular. ABDOMEN: Soft, nontender, nondistended. Bowel sounds are positive. MUSCULOSKELETAL: No cyanosis or clubbing. There is no pitting in the bilateral lower extremities. NEUROLOGIC: Grossly nonfocal. LABORATORY DATA: WBC 14.7, hemoglobin 11.3, platelets 270,000 and up trending. Basic metabolic prof ile has improved dramatically. His sodium has gone up to 131. IMAGING: Chest x-ray demonstrates significant interval improvement in the left-sided pneumothorax. There is just a small apical lesion that remains. Mediastinal drain has subsequently been removed. ASSESSMENT: 1. Acute hypoxic respiratory failure, resolving. 2. Bilateral hemothorax, improving. 3. Coronary artery disease, status post coronary bypass graft x4 vessels, postoperative day #5. 4. Pulmonary nodule with findings concerning for lung malignancy. DISCUSSION AND PLAN: At this point, the patient has no further requirements for inpatient Pulmonary or Critical Care opinion. I will arrange for him to undergo an outpatient percutaneous biopsy of thi s lesion. I do not think a primary surgery is indicated because he has a left hilar lymph node. If there is malignancy here, I would prefer to do a PET scan and an MRI of the brain prior to determinin g the best course of action moving forward. From a purely respiratory perspective, he is stable for transition home.
[2018-05-02] MEDS: Atorvastatin Calcium 20 MG TAB PO SCH (21:13)
[2018-05-03] MEDS: Docusate 100 MG CAP PO SCH (09:38)
[2018-05-03] MEDS: Lisinopril 20 MG TAB PO SCH (09:38)
[2018-05-03] MEDS: Famotidine 20 MG TAB PO SCH (09:38)
--- NOTE | 2018-05-03 09:50 | RAD ---
PORTABLE CHEST: HISTORY: Pneumothorax post CABG. FINDINGS: Heart size is within normal limits. There are postop sternotomy changes. There are some left-sided pleural changes noted. The left apical pneumothorax appears slightly smaller than on the prior exami nation. Right subclavian line is unchanged in position. Increased density in the right base is zeenat lar to the prior study. IMPRESSION: Fairly stable overall examination. There is slight decrease in size to the left apical pneumothorax as compared to the prior exam. POS: TPC
--- NOTE | 2018-05-03 10:35 | DIS ---
DATE OF ADMISSION: 04/26/2018 DATE OF DISCHARGE: 05/03/2018 PRIMARY CARE PHYSICIAN: Martinez Higuera M.D. DISCHARGE DISPOSITION: Home. PRIMARY DISCHARGE DIAGNOSES: 1. Acute respiratory failure with hypoxia, resolved. 2. Hyponatremia, improved. 3. Non-ST elevation myocardial infarction on admission. 4. Status post 3-vessel coronary artery disease. 5. Status post coronary artery bypass graft. 6. Pneumothorax, resolved. 7. Pulmonary nodule. SECONDARY DISCHARGE DIAGNOSES: Macrocytosis anemia and hypertension. PRIMARY PROCEDURE/OPERATION: Cardiac catheterization was performed by Dr. Kerr and the patient was found with 3-vessel CAD. Cardiac catheterization was done for non-STEMI. The patient had mid LAD 7 0%, second diagonal 90%, third diagonal 90%, proximal circumflex 60%, RCA 90% and mid RCA 90% blockag e and recommended CABG. CABG x4 was performed by Dr. Terrazas. The patient had pneumothorax, required chest tube manageme nt. RADIOLOGICAL INVESTIGATION: CT angiography on admission negative for pulmonary embolism. Carotid Do ppler negative for any stenosis. The patient had several chest x-rays while in hospital, which showe d spiculated pulmonary nodule. SIGNIFICANT LABORATORY DATA: WBC 14.7, hemoglobin 11.3, platelet 270,000. INR 1.4. D-dimer 1.01. Sodium 131, potassium 3.8, BUN 10, creatinine 0.70, calcium 8.7. DISCHARGE MEDICATIONS: Aspirin 81 mg p.o. daily, Lipitor 20 mg p.o. at bedtime, lisinopril 40 mg p.o . daily, Toprol XL 100 mg p.o. daily, [place] 10 one tablet q.4 hourly p.r.n., nitroglycerin p.r.n. bas is, pravastatin 80 mg p.o. at bedtime. CONTRAINDICATIONS: None. CODE STATUS: Full code. INPATIENT CONSULTANTS: Dr. Kerr was consulted for non-STEMI. Dr. Terrazas was consulted for CA BG. Dr. Marshall was consulted for pulmonary nodule. TEST RESULTS PENDING ON DISCHARGE: None. ALLERGIES: No known drug allergy. DISCHARGE PLAN: Post hospital, the patient is instructed to follow up with Dr. Marshall who will arra nge outpatient pulmonary nodule biopsy. The patient is instructed to follow up with Cardiology, Dr. Rubio on 07/11/2018 at 9:30 a.m. The patient has appointment with primary care physician on 05/09 at 10:45 a.m. The patient is also advised to follow up with Dr. Terrazas in 2-3 weeks. HOSPITAL COURSE: A 73-year-old male with above-mentioned medical problem who was admitted by Dr. John Paul hunt on 04/26/2018. Please see his H and P for further detail. He came to emergency room with complai nt of chest pain. He had elevated D-dimer and that is why CT angio was done, which was negative for pulmonary embolism, but it did show spiculated pulmonary nodule and carinal lymph node. The patient had elevated troponin and that is why Cardiology was consulted. The patient was having non-ST elevat ion PR. The patient underwent cardiac catheterization and found with three-vessel coronary artery di sease. Subsequently, the patient's status was changed to inpatient and Dr. Terrazas was consulted who decided to do CABG. CABG was done without any immediate complication. He required CABG x4. Feliz bsequently, the patient's hospital course was complicated by pneumothorax and required chest tube mill operator agement. The patient was monitored with serial x-ray and his pneumothorax completely resolved. The patient was transferred to telemetry floor where he continued with cardiac rehabilitation. He wa s doing very well. He was initially requiring oxygen, but subsequently his oxygen requirement also d id not require. At this point, the patient will need a pulmonary nodule biopsy, which will be added by fire fighting equipment specialist and that is why the patient needs to follow up with them. He will follow up with cardiovascular surg mulugeta as instructed. The patient will follow up with Cardiology and primary care physician. The patient is seen and examined at bedside today. Review of systems reviewed with him and negative. Plan of care discussed with the patient and family member. PHYSICAL EXAMINATION: VITAL SIGNS: Currently, temperature 98.8, pulse 77, respiratory rate 18, saturation 96%, blood press ure 135/74, weight 152 pounds. GENERAL: The patient is currently alert, awake, in no obvious acute distress. HEAD: Normocephalic, atraumatic. EYES: Pupils round and reactive to light. Extraocular muscle intact. ENT: Oropharynx within normal limits. Moist mucous membrane. No oral lesion, no pharyngeal erythem a, no exudate. NECK: Supple. No JVD, no thyromegaly, no carotid bruit. LUNGS: Clear to auscultation without any rhonchi or rales. CARDIAC: S1, S2 regular without any murmur. ABDOMEN: Soft and benign. EXTREMITIES: No edema. NEUROLOGIC: Nonfocal examination. His surgical site is clean and healthy. Before discharge, the patient's central line was removed. iLliana watts had a chest tube, which was also removed before and he had a Ng catheter, which was also removed . The patient is doing very well and today all consultants cleared him for discharge.
--- NOTE | 2018-05-03 11:55 | DIS ---
DATE OF ADMISSION: 04/26/2018 DATE OF DISCHARGE: 05/03/2018 PRINCIPAL DIAGNOSES: Coronary artery disease with non-ST elevation myocardial infarction. SECONDARY DIAGNOSES: Left lung mass and left pneumothorax present, but not specifically addressed, h ypertension, cerebrovascular disease and peripheral vascular disease. PROCEDURES PERFORMED: 1. Cardiac catheterization 04/26/2018. 2. Coronary artery bypass grafting x4 with left internal mammary artery to the LAD and reverse great er saphenous vein graft from the aorta to the third diagonal, the second obtuse marginal and the RCA 04/27/2018. HISTORY OF PRESENT ILLNESS/HOSPITAL COURSE: The patient is a 73-year-old man with a distant history of smoking and a distant history of a left mastectomy for male breast cancer. For about a year he romero d been having some chest discomfort when walking on a treadmill that over the last month or two had b ecome more frequent and more severe. The night of presentation, he had an episode severe enough to p rompt presentation to the emergency room. He had nonspecific EKG changes, but his troponins turned p ositive consistent with a non-ST elevation myocardial infarction. Cardiac catheterization demonstrat ed severe 3-vessel coronary disease with an LVEF in the 50-60% range with anterior hypokinesis. CT s durga that was done as part of his initial evaluation demonstrated a 1-1/2 or 2 cm peripheral mass in the left upper lobe of the lung, worrisome for malignancy. The CT scan report described a 2 cm joyner bcarinal lymph node, but on my evaluation of the scan, I think they are probably referring to an area behind the trachea near the level of the aurelio that I suspect represents 2 adjacent subcentimeter l ymph nodes. The patient had some mild low back pain, but no other radiographic, laboratory or physic al findings worrisome for metastatic disease. He had a screening carotid ultrasound because of carot id bruits and a distant history of TIA manifest as a fluent expressive aphasia. That ultrasound was negative for significant disease. He underwent surgical revascularization. Varicosities necessitate d an extensive vein harvest in order to obtain sufficient vein of adequate quality. His perioperativ e course was really only marked by an asymptomatic left-sided pneumothorax that presumably represente d incomplete evacuation of the pneumothorax after entering the pleural space during the course of the patient's operation. This eventually resorbed on facemask oxygen. His blood pressure was running h igh enough that his beta blockade was increased, but the remainder of his medical regimen remained th e same. He is now being discharged home with his Toprol-XL being increased from 50 mg a day to 100 mg a day. He is to continue his lisinopril 40 mg a day and baby aspirin. He is to continue his pravastatin. I will plan on seeing him in the office in around a week or two for a postop check that will include a chest x-ray. Follow up with Dr. Marshall will be per him. Dr. Marshall is coordinating his lung mas s evaluation.
[2018-05-03 16:35] VITALS: BP 149/68; TEMP 98.6
--- NOTE | 2018-05-04 08:06 | CON ---
DATE OF CONSULTATION: 05/03/2018 ELECTROPHYSIOLOGY CONSULTATION REPORT I am seeing Mr. Guthrie at our [facility] telemetry floor as an electrophysiology consultan t. His problems are: 1. 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 A. 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 2. Coronary artery disease. A. Non-ST elevation myocardial infarction, prompting left heart catheterization on 04/26/2018 showin g severe multivessel coronary artery disease. Normal LVEF. B. Status post coronary artery bypass grafting surgery on 04/27/2018 with x4 vessels with JOSEPH to LA D, SVG to diagonal, obtuse marginal, and right coronary artery. C. A 2D echo from 05/03/2018, post bypass surgery reveals LVEF of 55%-60%, diastolic dysfunction, mi tral or tricuspid regurgitation. 3. Risk factors including hypertension, hyperlipidemia. 4. History of breast cancer. ALLERGIES: None noted. MEDICATIONS AT HOME: Include aspirin, lisinopril, metoprolol, and pravastatin. SUBJECTIVE: Mr. Guthrie is here 7-day after his bypass surgery. He is actually doing well, recover ing without major issues. He has been noted to have frequent PVCs pre and post-bypass surgery and al so short nonsustained ventricular tachycardia was also seen last night hence, I was consulted by Dr. Pulido. He is actually unaware of his ventricular ectopy noted during . No fever, chills, co ugh, minimal chest discomfort from the bypass surgeries present. No angina is present. Denies palpi tations. No stroke-like symptoms. No bleeding issues. No fever, chills or cough. REVIEW OF SYSTEMS: Rest of 12-point system otherwise unremarkable. PAST MEDICAL HISTORY: As above. He also had issues with a CT scan revealing a perihilar mass and no significant coronary artery disease. He has history of hypercholesterolemia on pravastatin. SOCIAL HISTORY: The patient denies smoking, EtOH or drug use. He is . His is at bedsid e. FAMILY HISTORY: Noncontributory. OBJECTIVE DATA: VITAL SIGNS: Blood pressure currently is 137/66, heart rate 62, respiratory rate is 14, temperature 98.5 degrees Fahrenheit. GENERAL: He is alert and oriented man in no apparent distress. NECK: Supple. Jugular veins are distended. CHEST: Coarse without crackles. CARDIOVASCULAR: Heart sounds are regular to rate and rhythm. No murmur or gallop. ABDOMEN: Benign. Bowel sounds are positive. EXTREMITIES: Lower extremity without edema, clubbing or cyanosis. Pulses are adequate. NEUROLOGIC: The patient is nonfocal. MUSCULOSKELETAL: No joint swelling or deformities. SKIN: Without rash. Midsternal scar is healing adequately. DATABASE: EKGs reviewed an EKG from 01/01/2015 over 3 years ago revealed a sinus rhythm with frequen t PVCs which are right bundle inferior axis in morphology. Subsequent EKGs from 04/26/2018 prior to bypass surgery does reveal a similar sinus rhythm with occasional PVCs and right bundle inferior axis in morphology with separate morphology is also noted. reveal predominantly monomorphic PVCs a nd also similar morphology nonsustained ventricular tachycardia . LABORATORY DATA: White count is 14.7, hemoglobin 11.3, platelet count is 270. Sodium 131, potassium 3.8, BUN is 10, creatinine is 0.7. ASSESSMENT AND PLAN: Mr. Guthrie is a 73-year-old man with history of 3-vessel coronary artery dise ase who has noted to have frequent premature ventricular contractions chronically even prior, but als o after his bypass surgery. He also had episodes of bigeminy and also a short nonsustained ventricul ar arrhythmias run. Just as before, he is unaware of his premature ventricular contractions. He has a recheck echocardiogram reveals no left ventricular dysfunction. In my assessment, this premature ventricular contraction is likely unrelated to his coronary artery d isease and recovery from bypass surgery, likely a chronic idiopathic ventricular arrhythmia focus, is to blame possibly in the left ventricular outflow or aortic root area. At this point, I would parisa nue conservative management with optimizing heart failure therapy. Continue metoprolol as already in itiated and monitor for further symptoms. Should he develop further symptoms, antiarrhythmic therapy versus ablation therapy could be considered after recovery from bypass surgery. Again at this point , I would continue beta kishan therapy only. The patient understands the pros and cons of this approach. At this point, he has no indication for ICD implant. I will be happy to see him back as an outpatient if necessary. Thank you for letting me participate in the care of this patient.
--- NOTE | 2018-05-05 12:24 | EKG ---
Test Reason : CP Blood Pressure : / mmHG Vent. Rate : 074 BPM Atrial Rate : 074 BPM P-R Int : 158 ms QRS Dur : 092 ms QT Int : 384 ms P-R-T Axes : 074 -14 078 degrees QTc Int : 426 ms Sinus rhythm with occasional Premature ventricular complexes Septal infarct , age undetermined Abnormal ECG Confirmed by BRI LEON D.O. ([id number]), magazine editor BENNY DURAN ([id number]) on 05/05/2018 12:24:37 PM Referred By: Confirmed By:BRI LEON D.O.
== END 2018-05-03 17:39 | disposition home or self-care (01) | DRG 233 ==
LOC: ERS 00:21 → 2SW 02:33 → OBSVTOIN 09:52 → 2NO 13:50 → CCU 04-27 11:41 → 2NO 04-30 18:22
PROVIDERS: ADMIT Hospitalist; ATTEND Hospitalist
PROC: 4A023N7 Measurement of Cardiac Sampling and Pressure, Left Heart, Percutaneous Approach (ICD-10-PCS; 2018-04-26)
PROC: B2111ZZ Fluoroscopy of Multiple Coronary Arteries using Low Osmolar Contrast (ICD-10-PCS; 2018-04-26)
PROC: B2151ZZ Fluoroscopy of Left Heart using Low Osmolar Contrast (ICD-10-PCS; 2018-04-26)
PROC: 02100Z9 Bypass Coronary Artery, One Artery from Left Internal Mammary, Open Approach (ICD-10-PCS; principal; 2018-04-27)
PROC: 021209W Bypass Coronary Artery, Three Arteries from Aorta with Autologous Venous Tissue, Open Approach (ICD-10-PCS; 2018-04-27)
PROC: 06BY4ZZ Excision of Lower Vein, Percutaneous Endoscopic Approach (ICD-10-PCS; 2018-04-27)
PROC: 5A1221Z Performance of Cardiac Output, Continuous (ICD-10-PCS; 2018-04-27)
DX: I21.4 Non-ST elevation (NSTEMI) myocardial infarction (principal); J96.01 Acute respiratory failure with hypoxia; E87.1 Hypo-osmolality and hyponatremia; J93.83 Other pneumothorax; I10 Essential (primary) hypertension; F32.9 Major depressive disorder, single episode, unspecified; E78.5 Hyperlipidemia, unspecified; I25.10 Atherosclerotic heart disease of native coronary artery without angina pectoris; I73.9 Peripheral vascular disease, unspecified; D53.9 Nutritional anemia, unspecified; R91.1 Solitary pulmonary nodule; I49.3 Ventricular premature depolarization; Z79.82 Long term (current) use of aspirin; Z85.3 Personal history of malignant neoplasm of breast; Z86.73 Personal history of transient ischemic attack (TIA), and cerebral infarction without residual deficits; Z87.891 Personal history of nicotine dependence
CPT/HCPCS: 36415; 36416; 36430; 71045; 71275; 80048; 80053; 82550; 82553; 82805; 83690; 83880; 84484; 85025; 85379; 85610; 85730; 86850; 86900; 86901; 93005; 93010; 93306; 93458; 93798; 93880; 94002; 94150; 94760; 96360; 96361; 99152; C1769; C1887; J0360; J1642; J1644; J1815; J1885; J2001; J2150; J2250; J2370; J2440; J2704; J2720; J3010; J3370; J3475; J3480; J7050; J7620; P9045; S0017; S0028

== ENCOUNTER 2018-05-10 08:36 | Day surgery (SDC) | payer MEDICARE ==
[2018-05-09 13:43] VITALS: BMI 22.8
[~2018-05-10 08:36] MED LIST: Prevnar 13-Val Conj/PF 0.5 ML SYRINGE IM ONE
[2018-05-10 11:58] VITALS: BP 128/67; TEMP 96.7
--- NOTE | 2018-05-10 13:17 | CT ---
CT GUIDED LEFT LUNG BIOPSY: History: 73-year-old with history of left upper lobe lung mass. The patient has had a recent sternotomy. Technique: Informed consent was obtained. The left upper lobe mass was localized using CT guidance. The overlyin g skin was prepped and draped in the usual sterile manner. Incidentally noted left axillary surgical clips seen from patient's previous known breast cancer. The left upper lobe lesion was visualized using CT guidance. The overlying skin was prepped and drape d in the usual sterile manner. A 1% Lidocaine solution was used to anesthetize the overlying soft tis sues. A 19 gauge needle was placed into the left upper lobe mass. Two 19 gauge core biopsies obtained . The specimen was sent to pathology. Initial touch prep suggests presence of atypical cells in both specimens. Post biopsy: There was a tiny left mariella pneumothorax. This did not significantly change after outer c oaxial needle was removed. Follow up chest radiographs pending. IMPRESSION: Successful left upper lobe mass biopsy. Pathology is pending. POS: KENTRELL
--- NOTE | 2018-05-10 13:19 | RAD ---
INSPIRATORY AND EXPIRATORY RADIOGRAPHS CHEST: History: Patient with recent biopsy of left upper lobe mass. FINDINGS: Sternotomy wires are seen. Left axillary surgical clip seen. No significant visible evidence of a post procedure pneumothorax is seen in the apical region. Just l ateral to the left upper lobe lesion there does appear to be a minimal area of lucency suggesting a t iny area of peribiopsy pneumothorax confined to the left upper lobe region. Correlate with follow up radiographs to confirm stability. IMPRESSION: Tiny left sided pneumothorax. POS: H
--- NOTE | 2018-05-10 16:29 | RAD ---
TWO VIEWS CHEST: 05/10/18 Comparison made to previous exam from earlier in the day on 05/10/18. HISTORY: Patient status post biopsy. Tiny left sided apical pneumothorax. A tiny left apical pneumo thorax again seen. No significant interval changes seen since the previous exam. No increasing size seen. The left sided pneumothorax is stable. IMPRESSION: Stable left apical pneumothorax. No other significant interval changes seen. POS: [facility]
== END 2018-05-10 14:35 | disposition home or self-care (01) ==
LOC: CT 08:36
PROVIDERS: ATTEND Internal Medicine
PROC: 0BDG4ZX Extraction of Left Upper Lung Lobe, Percutaneous Endoscopic Approach, Diagnostic (ICD-10-PCS; principal; 2018-05-10)
DX: C34.12 Malignant neoplasm of upper lobe, left bronchus or lung (principal); Z79.899 Other long term (current) drug therapy; Z98.890 Other specified postprocedural states
CPT/HCPCS: 32405; 71045; 77002; 88305; 88312; 88333; 88334; 88341; 88342; 88360; 93005; 93010

== ENCOUNTER 2018-05-17 13:47 | Outpatient (CLI) | payer MEDICARE ==
--- NOTE | 2018-05-17 14:48 | RAD ---
2 VIEWS CHEST: Date: 05/17/18 COMPARISON: 05/03/18 and 05/10/18. HISTORY: Pneumothorax. FINDINGS: Single view of the chest shows a normal sized cardiomediastinal silhouette. The patient is status pos t sternotomy. There are small bilateral pleural effusions. There is a nodule projecting over the uppe r outer aspect of the left chest. No pneumothorax is seen. IMPRESSION: Bilateral pleural effusions. POS: [facility]
== END 2018-05-17 13:48 | disposition home or self-care (01) ==
LOC: RAD 13:47
PROVIDERS: ATTEND Thoracic Surgery (Cardiothoracic Vascular Surgery)
DX: J95.811 Postprocedural pneumothorax (principal); J90 Pleural effusion, not elsewhere classified
CPT/HCPCS: 71046

== ENCOUNTER 2018-05-31 07:25 | Outpatient (CLI) | payer MEDICARE ==
--- NOTE | 2018-05-31 10:33 | MRI ---
BRAIN MRI WITH AND WITHOUT CONTRAST: Date: 05/31/18 INDICATION: Malignant neoplasm of bronchus or lung. Clinical concern for metastatic disease. FINDINGS: There are multifocal FLAIR and T2 hyperintense signal abnormalities within the bilateral cerebral hem ispheres. There is no hemorrhagic susceptibility. Ventricular system is normal size. Septum pellucidu m maintains appropriate midline location. There is no restricted diffusion to indicate territorial in farction of acuity. No pathologic intra-axial enhancement is demonstrated. IMPRESSION: No evidence of intracranial metastatic disease. Findings most consistent with mild chronic ischemic disease. POS: [facility]
[2018-05-31] MEDS ORDERED: Gadobenate Dimeglumine 529 MG/1 ML (20ML VIAL) ONE (14:35)
--- NOTE | 2018-05-31 15:22 | PET ---
PET CT: HISTORY: 73-year-old male with well to moderately differentiated adenocarcinoma (non-small cell carcinoma) of the upper lobe of the left lung. Exam requested for initial staging. TECHNIQUE: PET scanning with CT attenuation correction was performed from the base of the brain through the prox imal thighs following the intravenous administration of 10.6 mCi F18-FDG in the left hand. Imaging wa s performed after an uptake interval of 52 minutes. COMPARISON: None. CORRELATION: CT pulmonary angiogram obtained 06/05/18. FINDINGS: There is increased FDG localization in the 15.0 mm left upper lobe lung nodule with a SUV of 5. There are two hypermetabolic pleural nodules in the left basilar hemithorax with SUVs of 4.4 medially and 4.6 laterally. No oscar hypermetabolism is seen in the neck, mediastinum, hilar regions, axilla, or abdomen. There is a 1.0 cm soft tissue nodule in the left anterior lower pelvis with increased FDG localizatio n and SUV of 6.2. There is a small right pleural effusion and a large left pleural effusion. There are healing fracture s of the head/neck of the right first, second, and third ribs with increased uptake in the right thir d rib. Increased uptake in the sternum is consistent with postop changes of median sternotomy. No hypermetabolic liver or adrenal lesions are seen. No abnormal areas of tracer localization in the remainder of the skeleton is identified to suggest metastatic disease. There is physiologic activity in the GI and tracts, and the visualized portions of the brain. IMPRESSION: 1. Left upper lobe malignancy with metastatic disease involving the left pleura. 2. Bilateral pleural effusions, left larger than right. 3. Hypermetabolic 1.0 cm nodule in the left anterior lower pelvis. POS: [facility]
== END 2018-05-31 07:26 | disposition home or self-care (01) ==
LOC: CP 07:25
PROVIDERS: ATTEND Internal Medicine
DX: C34.90 Malignant neoplasm of unspecified part of unspecified bronchus or lung (principal); C78.2 Secondary malignant neoplasm of pleura; J90 Pleural effusion, not elsewhere classified
CPT/HCPCS: 70553; 78815; 94060; 94727; 94729; A9552; A9579

== ENCOUNTER → 2018-06-06 | Day surgery (SDC) | payer MEDICARE ==
--- NOTE | 2018-06-06 14:15 | OP ---
DATE OF PROCEDURE: 06/06/2018 SERVICE: Pulmonary Medicine. PROCEDURE: Left-sided pleural drainage with catheter insertion, under ultrasound guidance. CONSENT: Risks and benefits of the procedure were explained to the patient. All questions were answered and alternative options explained. STAFF PHYSICIAN: Bruce Marshall M.D. MEDICATIONS USED: Lidocaine 1% without epinephrine, total quantity 10 mL. PREOPERATIVE DIAGNOSES: 1. Pleural effusion. 2. Adenocarcinoma of the lung. POSTPROCEDURE DIAGNOSES: 1. Pleural effusion. 2. Adenocarcinoma of the lung. DESCRIPTION OF PROCEDURE: A timeout was performed by the procedure team and patient. The patient was positively identified using name and date of . The procedure site was marked. Vital sign monitoring was accomplished by noninvasive hemodynamic monitoring, pulse oximetry and telemetry. In the seated position, the left posterior hemithorax was examined using ultrasound probe. The diaphragm and pleural fluid was easily identified. Skin was prepped and draped in the usual sterile fashion, anesthetized with 1% lidocaine without epinephrine. A finder needle was inserted in the pleural space with return of serosanguineous pleural fluid. A pleural drainage catheter was inserted in the same location. A total quantity of 1900 mL of pleural fluid was withdrawn by syringe pump technique. A sample was sent for analysis. Evacuation of fluid was terminated because the estimated intrapleural pressures arrived at -20 cm of pleural fluid. At that time, there was clearly tidaling of the pleural fluid evacuation with respiration. The intact catheter was withdrawn on exhalation and a sterile dressing was applied. The patient maintained stable vital throughout the entire procedure. ESTIMATED BLOOD LOSS: Less than 2 mL. COMPLICATIONS: None. MTDD
[2018-06-06 14:37] LABS: BF Color Red; Body Fluid Source THORACENTESIS FLD; Clarity Cloudy/Turbid (Clear); RBC Background Count 0.004; RBC Count-Automated 31000 /cumm; Tube # EDTA; WBC/NonHematic-Auto 4790 /cumm
[2018-06-06 14:41] LABS: Pleural Fluid, Protein 4.5 g/dL
[2018-06-06 15:38] LABS: BF Segmented Neutrophils 12 %; Cell Count Non Hematic 10 %; Lymphocytes 78 %
== END ==
LOC: SDC 09:06
PROVIDERS: ATTEND Internal Medicine
PROC: 0W9B3ZX Drainage of Left Pleural Cavity, Percutaneous Approach, Diagnostic (ICD-10-PCS; principal; 2018-06-06)
DX: J90 Pleural effusion, not elsewhere classified (principal); C34.90 Malignant neoplasm of unspecified part of unspecified bronchus or lung; I10 Essential (primary) hypertension; Z79.899 Other long term (current) drug therapy; Z95.1 Presence of aortocoronary bypass graft
CPT/HCPCS: 32554; 82150; 82945; 83615; 83986; 84157; 84478; 85060; 87070; 87116; 87205; 87206; 89051

== ENCOUNTER 2018-06-15 13:33 | Outpatient (CLI) | payer MEDICARE ==
[2018-06-15 14:08] LABS: Estimated GFR-MDRD - POC Greater than 90
--- NOTE | 2018-06-15 15:55 | CT ---
CT OF THORAX WITH IV CONTRAST: INDICATION: History of lung malignancy, evaluate extent of disease. COMPARISON: Prior PET CT dated 05/31/[address] of the chest dated 04/26/2018. FINDINGS: The spiculated pulmonary nodule found to be hypermetabolic on a comparison PET CT has not appreciably changed measuring approximately 1.4 to 1.5 cm. The pleural-based metastatic disease involving the l eft posterior costophrenic angle is largely similar to the comparison study. Scattered emphysema is similar-appearing. There is a small right and moderate left pleural effusion. No additional suspici ous pulmonary nodules are evident within the lungs. The visualized adrenal glands appear within norm al limits. There are calcified granuloma within the liver. There are tiny hypodensities within segm ent 7 and segment 6 of the right hepatic lobe that were likely present on the comparison CT examinati on 04/26/2018. These are small and difficult to characterize but are relatively stable and suspiciou s for small cysts. There is scattered degenerative and osteoarthritic change. There is diffuse oste openia. No suspicious osteolytic or osteoblastic lesion is identified. There is post CABG change. IMPRESSION: 1. Stable left upper lobe pulmonary malignancy with left pleural-based metastatic disease and a mode rate left pleural effusion. 2. Small right pleural effusion without overt evidence of enhancing pleural-based mets involving the right hemithorax. 3. No pathologically enlarged lymph nodes are seen within the mediastinum, hilar, or axillary region s. 4. Scattered calcifications are seen involving the thoracic and coronary arteries. There is mild ec rosendo of the abdominal aorta measuring 4 cm. POS: [facility]
== END 2018-06-15 13:34 | disposition home or self-care (01) ==
LOC: BICCT 13:33
PROVIDERS: ATTEND Internal Medicine Hematology & Oncology
DX: C34.12 Malignant neoplasm of upper lobe, left bronchus or lung (principal); C78.2 Secondary malignant neoplasm of pleura; J90 Pleural effusion, not elsewhere classified; I70.0 Atherosclerosis of aorta; I25.10 Atherosclerotic heart disease of native coronary artery without angina pectoris; I77.811 Abdominal aortic ectasia
CPT/HCPCS: 71260; 82565

== ENCOUNTER 2018-06-21 14:06 | Outpatient (CLI) | payer MEDICARE ==
[2018-06-21 14:59] LABS: Hemoglobin 13.5 g/dL (14.0-18.0); Mean Corpuscular HGB CONC 33.4 g/dL (32.0-36.0); Mean Corpuscular Hemoglobin 34.5 pg (27.0-31.0); Mean Platelet Volume 7.2 fL (7.4-10.4); Platelet Count 282 thou/uL (130-400); RBC Distribution Width 12.8 % (11.5-14.5); Red Blood Cell (RBC) Count 3.93 mill/uL (4.70-6.10); White Blood Cell (WBC) Count 9.3 thou/uL (4.8-10.8)
[2018-06-21 15:20] LABS: Anion Gap 10 mmol/L (10-20); BUN (Urea Nitrogen) 14 mg/dL (8.4-25.7); Calc. Creatinine Clearance 0 mL/min (70-130); Calcium 9.3 mg/dL (7.8-10.44); Carbon Dioxide 27 mmol/L (23-31); Chloride 99 mmol/L (98-107); Estimated GFR-MDRD 90; Glucose 85 mg/dL (83-110); Potassium 4.5 mmol/L (3.5-5.1); Sodium 131 mmol/L (136-145)
--- NOTE | 2018-06-21 16:47 | RAD ---
CHEST TWO VIEWS: Date: 06-21-18 Comparison: 05-17-18 History: Pre-operative patient. FINDINGS: Stable blunting of costophrenic angle on the left. Stable midline sternotomy wires. Post-operative cl ips overlie the left axillary region. There is no pneumothorax. Right lung appears grossly unremarkab le. There is a nodular opacity in the lateral aspect of the left upper lobe region measuring 1.5 cm, similar when compared to the 05-17-[address] of the chest performed 06-15-18 demonstrat ed a lesion suspicious for malignancy in this region. IMPRESSION: 1. Stable lateral left upper lobe mass lesion suspicious for malignancy. 2. Small left pleural effusion. POS: [facility]
== END 2018-06-21 14:07 | disposition home or self-care (01) ==
LOC: LABBT 14:06
PROVIDERS: ATTEND Thoracic Surgery (Cardiothoracic Vascular Surgery)
DX: Z01.818 Encounter for other preprocedural examination (principal); R91.8 Other nonspecific abnormal finding of lung field; J90 Pleural effusion, not elsewhere classified
CPT/HCPCS: 71046; 80048; 85027; 93005; 93010

== ENCOUNTER 2018-06-21 14:30 | Inpatient (IN) | payer MEDICARE ==
[2018-06-21 14:37] VITALS: BMI 22.8
[2018-06-25] MEDS ORDERED: Fentanyl 100 MCG/2 ML VIAL ONE ×3 (06:31→10:04)
[2018-06-25] MEDS ORDERED: Midazolam HCl 2 mg/2 ml Vial ONE (06:31)
[2018-06-25] MEDS ORDERED: Bupivacaine HCl 0.5%/Epinephrine 1:200,000/PF 30 ml Vial ONE (07:16)
[2018-06-25] MEDS ORDERED: Fentanyl 100 MCG/2 ML VIAL SLOW IVP PRN ×2 (07:36)
[2018-06-25] MEDS ORDERED: HYDROcodone/Acetaminophen 5/325 mg Tablet PO PRN ×2 (07:36)
[2018-06-25] MEDS ORDERED: Ondansetron PF 4 MG/2 ML Vial IVP PRN (07:36)
[2018-06-25] MEDS ORDERED: Talc Infusion/Pleuradesis 4 GM BOT ONE (08:00)
[2018-06-25] MEDS ORDERED: Promethazine HCl 25 MG/ML VIAL SLOW IVP PRN (09:48)
[2018-06-25] MEDS ORDERED: Ondansetron HCl/PF 4 MG/2 ML Vial IVP PRN (09:48)
[2018-06-25] MEDS ORDERED: Promethazine HCl 25 MG/ML VIAL IM PRN (09:48)
[2018-06-25] MEDS ORDERED: HYDROmorphone 2 MG/ML VIAL SLOW IVP PRN (09:48)
[2018-06-25] MEDS: Multivitamin W/ Minerals 1 TAB PO SCH (12:06)
[2018-06-25] MEDS: Lisinopril 20 MG TAB PO SCH (12:06)
[2018-06-25] MEDS: Acetaminophen 1,000 MG in Premix Bag 1 BAG IVPB SCH ×2 (12:18→18:04)
[2018-06-25] MEDS: Sodium Chloride 0.9% 1,000 ML IV SCH ×2 (12:30→13:26)
--- NOTE | 2018-06-25 14:28 | RAD ---
PORTABLE UPRIGHT FRONTAL CHEST RADIOGRAPH: Date; 06/25/18 COMPARISON: 06/21/18. HISTORY: Evaluate chest following thoracotomy. FINDINGS: New left-sided chest tube is in place. There is no pneumothorax seen on either side. Midline sternoto my wires and mediastinal clips are present. There are clips in the left axillary region. There is a 1.4 cm mass in the lateral aspect of the left upper lobe as before. IMPRESSION: Postsurgical changes on the left. Left upper lobe mass lesion. POS: [facility]
--- NOTE | 2018-06-25 14:54 | OP ---
DATE OF PROCEDURE: 06/25/2018 PROCEDURES PERFORMED: Left thoracoscopic pleural biopsy, combined mechanical and talc pleurodesis, and multiple intercostal rib locks. PREOPERATIVE DIAGNOSES: Left upper lobe non-small cell carcinoma with left pleural effusion. POSTOPERATIVE DIAGNOSES: Left upper lobe non-small cell carcinoma with left pleural effusion with malignant effusion. ANESTHESIA: General endotracheal anesthesia. INDICATIONS FOR PROCEDURE: The patient is a 73-year-old man who about 2 months ago presented with chest pain and had non-ST elevation myocardial infarction. A CT scan that was done as part of that initial presentation demonstrated left upper lobe mass. At that time, he did not have any gross evidence to suggest metastatic disease and underwent surgical revascularization. In the interim, he has developed left pleural effusion and PET scanning suggested hypermetabolic lesions in the chest wall at the left base. He is now taken to the operating room for thoracoscopy to assess for intrapleural disease. FINDINGS: Scant pleural effusion. Multiple hard nodules on the parietal pleura at base of the chest. Frozen section examination of which was consistent with non-small cell carcinoma. NARRATIVE REPORT: After informed consent was obtained, the patient was taken to the operating room, and placed in supine position on the operating table. After the induction of general anesthesia and confirmation of placement of double lumen endotracheal tube, the patient was turned into right lateral decubitus position and his right chest was prepped and draped in sterile fashion. An incision was made at about the posterior axillary line, relatively low on the chest using the scalpel and electrocautery. Blunt dissection was used to enter the pleural space. The wound was probed with a surgeon's finger. A small amount of pleural fluid around 100 to 200 mL of serosanguinous fluid was aspirated with Yankauer sucker. The thoracoscope port and scope were inserted. Initial thoracoscopic examination of the chest showed no obvious parenchymal tumor or pleural disease in the upper portion of the chest, but in the lower portion from about the level of the port and on down, there were several suspicious nodules. An incision was made low on the chest anteriorly for the chest tube exit site and through that incision, ring clamps were inserted along with endoscopic biopsy forceps to biopsy several of these nodules. Frozen section examination was consistent with non-small cell carcinoma. Pleura was elevated and then multiple slough stripped away to effect mechanical pleurodesis and then talc was aerosolized into the pleural space. With additional talc being aerosolized at the base, where the nodules were, where fluid collection would be gravity dependent and the mechanical pleurodesis was incomplete. A 28-[place] chest tube was positioned posterioapically. Through that anterior incision, the lung was reinflated. A chest tube was secured to the skin with suture. A thoracoscope port and scope were inserted. A 0.5% Marcaine was used to perform intercostal rib locks 2 ribs below the chest tube site and 3 ribs above the port site, for a total 6 intercostal blocks. Additional Marcaine was infiltrated into the incision itself. The port site was closed with 2-0 Vicryl for the muscular and subcutaneous layers and a 4-0 Vicryl subcuticular suture and Steri-Strips for the skin. The wound was dressed. The chest tube was connected to close suction drainage. The patient was awakened and extubated in the operating room, and taken to the recovery area in good condition. Job ID: [id number]
[2018-06-25] MEDS: Ketorolac Tromethamine 30 MG/ML VIAL IVP SCH ×2 (15:07→20:42)
[2018-06-25] MEDS: Atorvastatin Calcium 40 MG TAB PO SCH (20:42)
[2018-06-25] MEDS ORDERED: Glycopyrrolate 0.2 MG/ML 5 ML SYRINGE ONE (21:11)
[2018-06-25] MEDS ORDERED: Lidocaine 1% PF 5 ML VIAL ONE (21:11)
[2018-06-25] MEDS ORDERED: Dexamethasone 20 MG/5 ML VIAL ONE (21:11)
[2018-06-25] MEDS ORDERED: Ondansetron PF 4 MG/2 ML Vial ONE (21:11)
[2018-06-25] MEDS ORDERED: Ketorolac Tromethamine 30 MG/ML VIAL ONE (21:11)
[2018-06-25] MEDS ORDERED: PHENYLEPHRINE-NS 100 MCG/ML 10 ML SYRINGE ONE (21:11)
[2018-06-25] MEDS ORDERED: PROPOFOL 200 MG/20 ML VIAL ONE (21:11)
[2018-06-25] MEDS ORDERED: Vecuronium 10 MG VIAL ONE (21:11)
[2018-06-25] MEDS ORDERED: Sterile Water 10 ML VIAL ONE (21:11)
[2018-06-26] MEDS: Acetaminophen 1,000 MG in Premix Bag 1 BAG IVPB SCH ×2 (00:51→05:27)
[2018-06-26] MEDS: Ketorolac Tromethamine 30 MG/ML VIAL IVP SCH ×2 (03:58→09:44)
[2018-06-26] MEDS: Sodium Chloride 0.9% 1,000 ML IV SCH ×3 (04:15→23:04)
[2018-06-26 06:06] LABS: #Eosinphils 0.1 thou/uL (0.0-0.7); #Lymphocytes 1.1 thou/uL (1.20-3.40); #Neutrophils 11.6 thou/uL (1.40-6.50); %Basophils 0.3 % (0.0-1.0); %Eosinophils 0.8 % (0.0-10.0); %Lymphocytes 8.2 % (21.0-51.0); %Monocytes 7.1 % (0.0-10.0); %Neutrophils 83.8 % (42.0-75.0); Hemoglobin 11.1 g/dL (14.0-18.0); Mean Corpuscular HGB CONC 32.6 g/dL (32.0-36.0); Mean Corpuscular Hemoglobin 33.2 pg (27.0-31.0); Mean Platelet Volume 7.6 fL (7.4-10.4); Platelet Count 189 thou/uL (130-400); Red Blood Cell (RBC) Count 3.34 mill/uL (4.70-6.10); White Blood Cell (WBC) Count 13.9 thou/uL (4.8-10.8)
[2018-06-26 06:24] LABS: Anion Gap 8 mmol/L (10-20); BUN (Urea Nitrogen) 16 mg/dL (8.4-25.7); Calc. Creatinine Clearance 75 mL/min (70-130); Calcium 8.7 mg/dL (7.8-10.44); Carbon Dioxide 25 mmol/L (23-31); Chloride 99 mmol/L (98-107); Estimated GFR-MDRD Greater than 90; Glucose 94 mg/dL (83-110); Potassium 4.7 mmol/L (3.5-5.1); Sodium 127 mmol/L (136-145)
[2018-06-26] MEDS ORDERED: Bupivacaine/Epinephrine 0.25% 30 ML VIAL ONE (06:39)
[2018-06-26] MEDS ORDERED: Lidocaine 2% w/Epinephrine 1:200K 20 ML VIAL ONE (06:39)
[2018-06-26] MEDS ORDERED: Lidocaine 2% PF 5 ML VIAL ONE (06:39)
[2018-06-26] MEDS ORDERED: Fentanyl 100 MCG/2 ML VIAL ONE ×3 (07:39→10:08)
[2018-06-26] MEDS ORDERED: Heparin 10,000 UNITS/1 ML VIAL ONE (07:52)
[2018-06-26] MEDS ORDERED: Bupivacaine HCl 0.5%/Epinephrine 1:200,000/PF 30 ml Vial ONE (07:52)
[2018-06-26] MEDS ORDERED: Lidocaine 1% (PF) 30 ML VIAL ONE (07:52)
[2018-06-26] MEDS ORDERED: Heparin 5,000 UNITS/ML VIAL ONE ×2 (07:52→11:18)
[2018-06-26] MEDS ORDERED: Propofol 1,000 MG/100 ML VIAL IV ONE (08:07)
[2018-06-26] MEDS ORDERED: Midazolam HCl 2 mg/2 ml Vial ONE ×2 (08:07→10:08)
[2018-06-26] MEDS ORDERED: CEFAZOLIN 2 GM/50 ML BAG ONE (08:27)
[2018-06-26] MEDS ORDERED: Ketorolac Tromethamine 30 MG/ML VIAL ONE (08:27)
--- NOTE | 2018-06-26 09:10 | RAD ---
SINGLE VIEW OF THE CHEST: Comparison: 06-25-18 History: Status post thoracotomy. FINDINGS: Single view of the chest shows a normal sized mediastinal silhouette. The patient is status post ster notomy. There is a left sided chest tube. A pulmonary nodule projects over the lateral aspect of the left thorax. No pneumothorax is seen. IMPRESSION: Stable exam. POS: [facility]
[2018-06-26] MEDS ORDERED: Promethazine HCl 25 MG/ML VIAL IM PRN (11:06)
[2018-06-26] MEDS ORDERED: Promethazine HCl 25 MG/ML VIAL SLOW IVP PRN (11:06)
[2018-06-26] MEDS ORDERED: Ondansetron HCl/PF 4 MG/2 ML Vial IVP PRN (11:06)
--- NOTE | 2018-06-26 12:55 | RAD ---
RADIOGRAPH CHEST 1 VIEW: Date: 06/26/2018 Time: 11:32 a.m. HISTORY: A 73-year-old male, status post thoracotomy. COMPARISON: 06/26/2018 at 5:20 a.m. FINDINGS: This is now a supine view, which would be insensitive for pneumothorax detection. There has been int erval insertion of a right subclavian vascular access port with the distal tip overlying the SVC. Th e large-bore left-sided chest tube remains. Again noted is the noncalcified, nodular density overlyi ng the lateral aspect of the left upper lung zone. Consolidation in the medial base of the left lowe r lobe. No pulmonary edema or cardiomegaly. IMPRESSION: 1. Interval insertion of right subclavian implantable vascular access port. 2. No other interval change. CATHY [] POS: [facility]
[2018-06-26] MEDS: Multivitamin W/ Minerals 1 TAB PO SCH (13:36)
[2018-06-26] MEDS: Lisinopril 20 MG TAB PO SCH (13:36)
[2018-06-26] MEDS ORDERED: Ondansetron PF 4 MG/2 ML Vial ONE (16:59)
[2018-06-26] MEDS: Ibuprofen 600 MG TAB PO PRN (18:32)
--- NOTE | 2018-06-26 19:32 | OP ---
DATE OF PROCEDURE: 06/26/2018 PROCEDURE PERFORMED: 7.8-[place] low-profile Port-A-Cath 2 implantation via right subclavian vein for fluoroscopic guidance. PREOPERATIVE DIAGNOSIS: Stage IV lung cancer. POSTOPERATIVE DIAGNOSIS: Stage IV lung cancer. ANESTHESIA: 1% lidocaine, local anesthesia with intravenous sedation under monitored anesthesia care. INDICATIONS FOR PROCEDURE: The patient is a 73-year-old man, found to have pleural disease in the evaluation of a biopsy-proven left lung cancer, is now taken to the operating room for Port-A-Cath implantation for secure IV access for chemotherapy. FINDINGS: Catheter tip in the superior vena cava and no pneumothorax by fluoroscopy. The port when accessed percutaneously, easily aspirated and flushed. NARRATIVE REPORT: After informed consent was obtained, the patient was taken to the operating room, and placed in supine position on the operating table. The patient was sedated, and his upper chest and neck were prepped and draped in sterile fashion. 1% lidocaine was used to infiltrate the skin and subcutaneous tissues along a line parallel and inferomedial to the right deltopectoral groove and radially primarily extending inferomedially to it. When an adequate level of anesthesia had been achieved, the skin was sharply incised along that line. The incision was carried down to the pectoralis with the electrocautery and the subcutaneous pocket adequate to accommodate the port reservoir that was developed just superficial to the pectoralis primarily extending inferomedially. Additional lidocaine was infiltrated along the clavicle and then with the patient in Trendelenburg, large bore needle was used to cannulate the subclavian vein. The guidewire was passed and the needle removed. The guidewire when examined fluoroscopically was positioned intravenously, but it gone up to jugular. Attempts to manipulate the wire to guide it down into the innominate from the vena cava were unsuccessful even when using the dilator partially inserted to provide support for the wire. The wire was removed and the vein was cannulated further laterally. At this time, the guidewire was easily passed into the vena cava, the wire was removed and tract dilated. Maintaining the wire, the catheter which had been trimmed at rough length was guided over the wire. The catheter was threaded over the wire. The wire and catheter were held securely and the sheath was tripped away. Under fluoroscopy, the wire was withdrawn to facilitate accurate identification at the tip of the catheter to allow for positioning of it in the vena cava. The wire was removed. The catheter easily aspirated and flushed. It was then clamped at the insertion site with a rubber shod clamp. The catheter was then trimmed at length and affixed to the nipple on the port reservoir, which was then placed into the pocket. When percutaneously accessed, it easily aspirated and flushed, 1 mL of 1000 unit/mL heparin was instilled. The reservoir was then tacked to the pectoralis with silk suture through each of the 4 preformed holes in the base of the reservoir and then round the collar securing the reservoir to the nipple. The catheter was then loosely tacked down at the insertion site and at the midpoint where it was slack. The wound was then closed in deep and superficial layers of 3-0 Vicryl, tacking the deep layer to the pectoralis to help with securing the reservoir in position. The skin was then closed with running 5-0 Vicryl, subcuticular suture, and steri-strips. The wound was dressed and the patient was taken to the recovery area in stable condition. Job ID: [id number]
[2018-06-26] MEDS: Atorvastatin Calcium 40 MG TAB PO SCH (20:28)
[2018-06-26] MEDS: Docusate 100 MG CAP PO SCH (20:28)
[2018-06-27] MEDS: Ibuprofen 600 MG TAB PO PRN (02:33)
--- NOTE | 2018-06-27 07:57 | RAD ---
PORTABLE UPRIGHT FRONTAL CHEWST RADIOGRAPH: DATE: 06/27/2018. COMPARISON: 06/26/2018. HISTORY: Pleurodesis, MediPort. FINDINGS: There is a stable left-sided chest tube. There is diffuse mild increased thickening of the pleura on the left laterally. There is a nodule measuring 1.7 cm projecting over the lateral aspect of the le ft upper lobe. This is suspicious for malignancy. There is focal opacity in the medial left base which could represent volume loss of pleural fluid. CT injectable right-sided Port-A-Cath noted, distal tip overlying cavoatrial junction. Blunting of t he right costophrenic angle suggests small volume right pleural fluid and/or pleural thickening. Mid line sternotomy wires are present. IMPRESSION: Relatively stable appearance of the chest as detailed above. POS: [facility]
[2018-06-27] MEDS: Acetaminophen 500 MG TAB PO PRN ×3 (08:12→22:18)
[2018-06-27] MEDS: Docusate 100 MG CAP PO SCH ×2 (08:13→20:44)
[2018-06-27] MEDS: Multivitamin W/ Minerals 1 TAB PO SCH (08:13)
[2018-06-27] MEDS: Lisinopril 20 MG TAB PO SCH (09:24)
[2018-06-27] MEDS: Sodium Chloride 0.9% 1,000 ML IV SCH ×2 (09:32→10:53)
[2018-06-27] MEDS: Atorvastatin Calcium 40 MG TAB PO SCH (20:44)
[2018-06-28] MEDS: Ibuprofen 600 MG TAB PO PRN ×2 (03:59→11:49)
[2018-06-28] MEDS: Sodium Chloride 0.9% 1,000 ML IV SCH (05:22)
--- NOTE | 2018-06-28 09:40 | RAD ---
CHEST 1 VIEW: HISTORY: Pleurodesis. Followup. COMPARISON: 06/27/2018. FINDINGS: Cardiac silhouette is magnified by projection. Pulmonary vasculature remains slightly engorged. Lef t thoracostomy tube remains in place with significant atelectasis at the left lower lobe. Nodular de nsity projecting over the lateral aspect of the left upper lobe is stable. No significant pneumothor ax. Mediastinum midline with postoperative changes and aortic calcification. A small amount of righ t pleural fluid remains. IMPRESSION: Stable postoperative appearance of the chest. POS: [facility]
[2018-06-28] MEDS: Lisinopril 20 MG TAB PO SCH (09:46)
[2018-06-28] MEDS: Docusate 100 MG CAP PO SCH (09:46)
[2018-06-28] MEDS: Multivitamin W/ Minerals 1 TAB PO SCH (09:46)
[2018-06-28 12:39] VITALS: BP 126/62; TEMP 97.8
--- NOTE | 2018-06-28 17:06 | DIS ---
DATE OF ADMISSION: 06/25/2018 DATE OF DISCHARGE: 06/28/2018 PRINCIPAL DIAGNOSIS: Stage IV adenocarcinoma of the left lung. PROCEDURES PERFORMED: 1. Left thoracoscopic pleural biopsy with mechanical and talc pleurodesis on 06/25/2018. 2. 7.8-[place] low-profile Port-A-Cath placement via right subclavian vein on 06/26/2018. HISTORY OF PRESENT ILLNESS AND HOSPITAL COURSE: The patient is a 73-year-old man, who was found to have peripheral left upper lobe mass on the CT scanning that was part of his initial evaluation about 2 months ago when he presented with chest pain that proved to be cardiac in origin in the perioperative period following coronary revascularization. He underwent percutaneous biopsy of that mass and radiographic staging. There was a worry that a pleural effusion that he had can be a malignant effusion rather than one related to a surgery, and he underwent thoracoscopy, which demonstrated a fairly small innocuous-appearing effusion, but multiple small nodules in the lower portion of his chest, biopsies of which were consistent with adenocarcinoma of lung origin. A pleurodesis was done at that same setting, and after discussions with the patient's oncologist, it was opted to proceed with Port-A-Cath implantation during this hospitalization to have secure IV access for therapy. The patient had an uncomplicated postprocedure course following both procedures. His chest tube outputs initially were rather high, but then by the third day following his pleurodesis, they had significantly diminished. His chest tube was removed, and the patient was discharged to home. Plan will be to see him in office with another chest x-ray in 1 to 2 weeks. Job ID: [id number]
== END 2018-06-28 13:45 | disposition home or self-care (01) | DRG 164 ==
LOC: SURG A 06-25 06:02 → SURG B 06-25 10:59
PROVIDERS: ADMIT Thoracic Surgery (Cardiothoracic Vascular Surgery); ATTEND Thoracic Surgery (Cardiothoracic Vascular Surgery)
PROC: 0B5P4ZZ Destruction of Left Pleura, Percutaneous Endoscopic Approach (ICD-10-PCS; principal; 2018-06-25)
PROC: 0BBP4ZX Excision of Left Pleura, Percutaneous Endoscopic Approach, Diagnostic (ICD-10-PCS; 2018-06-25)
PROC: 3E0L4GC Introduction of Other Therapeutic Substance into Pleural Cavity, Percutaneous Endoscopic Approach (ICD-10-PCS; 2018-06-25)
PROC: 0JH63XZ Insertion of Tunneled Vascular Access Device into Chest Subcutaneous Tissue and Fascia, Percutaneous Approach (ICD-10-PCS; 2018-06-26)
PROC: 02HV33Z Insertion of Infusion Device into Superior Vena Cava, Percutaneous Approach (ICD-10-PCS; 2018-06-26)
PROC: B5181ZA Fluoroscopy of Superior Vena Cava using Low Osmolar Contrast, Guidance (ICD-10-PCS; 2018-06-26)
DX: C34.92 Malignant neoplasm of unspecified part of left bronchus or lung (principal); J91.0 Malignant pleural effusion; I25.10 Atherosclerotic heart disease of native coronary artery without angina pectoris; R09.89 Other specified symptoms and signs involving the circulatory and respiratory systems; I70.213 Atherosclerosis of native arteries of extremities with intermittent claudication, bilateral legs; I10 Essential (primary) hypertension; I25.2 Old myocardial infarction; Z86.73 Personal history of transient ischemic attack (TIA), and cerebral infarction without residual deficits; Z85.3 Personal history of malignant neoplasm of breast; Z87.891 Personal history of nicotine dependence; Z95.1 Presence of aortocoronary bypass graft
CPT/HCPCS: 71045; 80048; 85025; 88305; 88331; 88334; 88341; 88342; 93798; 96374; A4216; C1788; J0131; J0670; J1100; J1642; J1644; J1885; J2001; J2250; J2405; J2704; J3010

== ENCOUNTER 2018-08-22 06:46 | Outpatient (CLI) | payer MEDICARE ==
--- NOTE | 2018-08-22 08:05 | ULT ---
ABDOMINAL SONOGRAM: History: Abdominal pain. Abnormal liver function tests. FINDINGS: Gallbladder is well distended without stone evident. Common duct is 0.4 cm. Liver is unremarkable wit hout focal mass or intrahepatic biliary dilatation. No free fluid. Shadowing calcification in the aor ta. The spleen, kidneys, and visualized portions of the IVC and pancreas are unremarkable. IMPRESSION: 1. No evidence of gallstones or biliary obstruction. No focal liver abnormality. 2. Atherosclerosis. POS: [facility]
== END 2018-08-22 06:47 | disposition home or self-care (01) ==
LOC: BICULT 06:46
PROVIDERS: ATTEND Internal Medicine Hematology & Oncology
DX: R74.0 Nonspecific elevation of levels of transaminase and lactic acid dehydrogenase [LDH] (principal); C34.12 Malignant neoplasm of upper lobe, left bronchus or lung; I70.0 Atherosclerosis of aorta
CPT/HCPCS: 76700

== ENCOUNTER 2018-10-10 09:01 | Day surgery (SDC) | payer MEDICARE ==
[2018-10-10] MEDS ORDERED: Sodium Chloride 0.9% 20 ML ONE (09:12)
[2018-10-10] MEDS ORDERED: diphenhydrAMINE 25 MG CAP PO SCH (09:30)
[2018-10-10] MEDS ORDERED: Acetaminophen 500 MG TAB PO SCH (09:30)
[2018-10-10] MEDS ORDERED: Sodium Chloride 0.9% 40 ML ONE (09:38)
[2018-10-10 11:43] VITALS: TEMP 98.5
[2018-10-10 15:06] VITALS: BP 160/75
== END 2018-10-10 15:06 | disposition home or self-care (01) ==
LOC: ONC/OP 09:01
PROVIDERS: ATTEND Internal Medicine Hematology & Oncology
PROC: 30233N1 Transfusion of Nonautologous Red Blood Cells into Peripheral Vein, Percutaneous Approach (ICD-10-PCS; principal; 2018-10-10)
DX: D64.9 Anemia, unspecified (principal); D69.6 Thrombocytopenia, unspecified
CPT/HCPCS: 36430; 85014; 85018; 86850; 86900; 86901; J1642; P9016; Q0163

== ENCOUNTER 2018-10-11 08:19 | Outpatient (CLI) | payer MEDICARE ==
--- NOTE | 2018-10-11 13:03 | PET ---
FEXAM: PET/CT HISTORY: 73-year-old male with well to moderately differentiated adenocarcinoma (non-small cell carcinoma) of the upper lobe of the left lung; exams requested for restaging. Last chemotherapy was on 09/24/2018. Kirstin estrada also has a history of breast cancer in 2001.. TECHNIQUE: PET scanning with CT attenuation correction was performed from the base of the brain to the proximal thighs following the intravenous administration of 12.3 millicuries [id number]. COMPARISON: 05/31/2018 FINDINGS: There is residual FDG uptake in the left upper lobe nodule noted on the previous exam with a current SUV of 3.2 (previously 5). There is increased uptake in the left pleura with foci of intense uptake with SUV measurement in the upper medial mediastinal pleura is 3.8 and in the lower posteromedial pleura is also 3.8. No hypermetabolic mediastinal, hilar, axillary, cervical or abdominal lymph nodes are seen. There is been interval reduction in intensity of uptake in the nodule in the left anterior lower pelvis since the last exam with a current SUV of 2.7 (previously 6.2). No hypermetabolic liver, adrenal or skeletal lesions are seen. There is physiologic activity in the GI and tracts and the visualized portions of the brain. The CT scan used for attenuation correction demonstrates no evidence of pleural effusions or ascites. The previously noted pleural effusions have resolved in the interim. IMPRESSION: Incomplete response to therapy since 05/31/2018.
== END 2018-10-11 08:20 | disposition home or self-care (01) ==
LOC: PET 08:19
PROVIDERS: ATTEND Internal Medicine Hematology & Oncology
DX: C34.12 Malignant neoplasm of upper lobe, left bronchus or lung (principal)
CPT/HCPCS: 78815; A9552

== ENCOUNTER 2019-01-07 12:46 | Outpatient (CLI) | payer MEDICARE ==
--- NOTE | 2019-01-07 13:24 | RAD ---
PA AND LATERAL VIEWS OF CHEST: HISTORY: Shortness of breath, fever, lung cancer. FINDINGS: Comparison is made with the exam of 06/21/2018. There are changes of median sternotomy. The right-sided Port-A-Cath is present. The heart size is n ormal. The aorta is tortuous. No lobar consolidation, pneumothoraces, or pleural effusions are seen . There are postop changes in the left axilla. Degenerative changes are present in the spine. IMPRESSION: No radiographic evidence of acute cardiopulmonary process. POS: [facility]
== END 2019-01-07 12:47 | disposition home or self-care (01) ==
LOC: RAD 12:46
PROVIDERS: ATTEND Internal Medicine Hematology & Oncology
DX: C34.90 Malignant neoplasm of unspecified part of unspecified bronchus or lung (principal); R06.02 Shortness of breath; R50.9 Fever, unspecified
CPT/HCPCS: 71046

== ENCOUNTER 2019-01-10 07:31 | Outpatient (CLI) | payer MEDICARE ==
--- NOTE | 2019-01-10 10:52 | PET ---
Nuclear medicine FDG PET/CT: (Positron emission tomography and computed tomography) DATE: 01/10/2019 HISTORY: 73-year-old male with left upper lobe lung cancer, non-small cell carcinoma, adenocarcinoma for follo w-up. Evaluate for chemotherapy response. COMPARISON: 10/11/2018 TECHNIQUE: IV injection of F-18 fluorodeoxyglucose (FDG) dose: 12.3 mCi. PET scan and attenuation correction CT performed from skull base to proximal thighs. FINDINGS: SUV (standard uptake values) numbers given are maximum SUVs. QCLR used. Close to the left lateral pleural surface, the left upper lobe pulmonary nodule which was previously 12 x 10 mm, now measures 10 x 7 mm, with previous SUV of 3.8, and current SUV of 2.6. Multiple left hypermetabolic metastatic pleural nodules are present. Most or all of them are calcifie d pleural plaque. The nonattenuation corrected rule out. Images were evaluated to be sure that they are actually hypermetabolic rather than having falsely elevated SUVs due to the calcification. They d o appear to be hypermetabolic. Some sample lesions: At very apical left pleural surface 8 calcified lesion with previous SUV 4.5, current SUV 5.3. Left posterior pleural surface near apex: Previous SUV 5.2, current SUV 4.8. Left upper medial pleural surface abutting upper mediastinum elongated lesion previous SUV 5.4, curre nt SUV 6.6. Left medial pleural base previous SUV 5.4, current SUV 5.0. Left posteromedial pleural surface at base with previous SUV 5.0, and current SUV 3.3. New pleural lesion at left lateral base, left lateral costophrenic angle with current SUV 7.2. At the contralateral right posteromedial base of right lower lobe, there is a new hypermetabolic grou ndglass pulmonary lesion abutting the pleural surface of the right prevertebral space, with SUV of 6.5. It is uncertain whether this is a new primary adenocarcinoma or a very tiny acute or subacute in fectious or inflammatory process. The latter is slightly favored. Likewise, there are small focal new infiltrates at the posterior segment of the right upper lobe abut ting the superior aspect of the right major fissure, with SUV up to 3.2, consistent with mild infectious/inflammatory pulmonary process.. Previously, there was a hypermetabolic nodule within the far anterior aspect of the intrapelvic pelvi s to the left of midline adjacent to bowel loops, with SUV of 5.0. Current SUV is 5.4. Superior and lateral to that, there is a new hypermetabolic nodule very close to it, with SUV of 4.6. IMPRESSION: 1) mixed response to therapy. 2) some of the left metastatic calcified pleural nodules have modestly decreased in SUV while others have mildly increased. 3) there are new hypermetabolic nodules, including one at left lateral costophrenic angle pleural bas e, and a new one in the left far anterior pelvis very close to the original single pelvic nodule. 4) the original main left upper lobe pulmonary mass has slightly decreased in size and decreased in S UV, currently low the threshold of 3.0. 5) small new foci of mild right pneumonitis.
== END 2019-01-10 07:32 | disposition home or self-care (01) ==
LOC: PET 07:31
PROVIDERS: ATTEND Internal Medicine Hematology & Oncology
DX: C34.12 Malignant neoplasm of upper lobe, left bronchus or lung (principal); R91.8 Other nonspecific abnormal finding of lung field; J18.9 Pneumonia, unspecified organism
CPT/HCPCS: 78815; A9552

== ENCOUNTER 2019-03-04 14:35 | Outpatient (CLI) | payer MEDICARE ==
--- NOTE | 2019-03-04 16:33 | BD ---
DEXA BONE DENSITY SCAN: 03/04/2019 HISTORY: Malignant neoplasm. FINDINGS: BMD (g/cm2) T-SCORE L1 0.803 -2.5 L2 0.901 -1.8 L3 0.900 -1.8 L4 0.908 -1.7 TOTAL 0.883 -1.9 FEMORAL NECK 0.545 -2.8 TOTAL PROXIMAL FEMUR 0.808 -1.5 IMPRESSION: Osteopenia of the lumbar spine. Focal femoral neck osteoporosis. This correlates with a high associ ated risk for fracture. The 10 year fracture risk is not reported secondary to some T-scores at or below -2.5. Transcribed Date/Time: 03/04/2019 5:04 PM
== END 2019-03-04 14:36 | disposition home or self-care (01) ==
LOC: BICMAMMO 14:35
PROVIDERS: ATTEND Internal Medicine Hematology & Oncology
DX: Z13.820 Encounter for screening for osteoporosis (principal); C50.929 Malignant neoplasm of unspecified site of unspecified male breast; C34.12 Malignant neoplasm of upper lobe, left bronchus or lung; M85.88 Other specified disorders of bone density and structure, other site
CPT/HCPCS: 77080

== ENCOUNTER 2019-04-04 07:34 | Outpatient (CLI) | payer MEDICARE ==
--- NOTE | 2019-04-04 12:28 | PET ---
PET CT: HISTORY: 73-year-old male with left lung cancer. Metastatic lung cancer. Exam requested to evaluate for treatm ent response. Patient is undergoing chemotherapy. TECHNIQUE: PET scanning with CT attenuation correction was performed from the base of the brain through the prox imal thighs following the intravenous administration of 12 mCi F18-FDG in the left antecubital fossa. COMPARISON: PET CT of 01/10/19. FINDINGS: Multiple foci of increased uptake along the left pleura are again seen with a maximum SUV of 5.5 at t he apex (previously 4.8), 5.4 in the upper mediastinal pleura (previously 6.6), 4.4 close to the medi al lung base (previously 3.3), 4.3 at the mid lung base (previously 5). The peripheral lung nodules on the left have SUVs of 3.4 in the left upper lobe (previously 2.6) and 3.7 at the left lung base anterolaterally with a SUV of 3.7 (previously 7.2). The focus of increased uptake in the posteromedial aspect of the right lung base noted on the previou s exam has resolved. There is a focus of mild increased uptake in the posterolateral aspect of the right upper lobe with a SUV of 2.4. No oscar hypermetabolism is identified on the neck, chest, abdomen, or pelvis. No hypermetabolic liver, adrenal, or skeletal lesions are seen. There is physiologic activity in the GI and tracts, and the visualized portions of the brain. The CT scan used for attenuation correction demonstrates no evidence of pleural effusions or ascites. IMPRESSION: Mixed response to therapy since 01/10/19. POS: KENTRELL
== END 2019-04-04 07:35 | disposition home or self-care (01) ==
LOC: PET 07:34
PROVIDERS: ATTEND Internal Medicine Hematology & Oncology
DX: C34.92 Malignant neoplasm of unspecified part of left bronchus or lung (principal)
CPT/HCPCS: 78815; A9552

== ENCOUNTER 2019-05-27 10:24 | Outpatient (CLI) | payer MEDICARE ==
--- NOTE | 2019-05-27 12:13 | RAD ---
2 VIEWS CHEST: Date: 05/27/19 COMPARISON: 01/07/19. HISTORY: Lung cancer and cough. FINDINGS: 2 views of the chest show a normal sized cardiomediastinal silhouette. The patient is status post sreedhar rnotomy. The MediPort is unchanged in position. There is no evidence of consolidation, mass, or pleur al effusion. IMPRESSION: No evidence of acute cardiopulmonary disease. POS: T[facility]
== END 2019-05-27 10:25 | disposition home or self-care (01) ==
LOC: BICRAD 10:24
PROVIDERS: ATTEND Internal Medicine Hematology & Oncology
DX: C34.12 Malignant neoplasm of upper lobe, left bronchus or lung (principal); R06.02 Shortness of breath; R05 Cough
CPT/HCPCS: 71046

== ENCOUNTER 2019-06-17 09:32 | Observation (INO) | payer MEDICARE ==
--- NOTE | 2019-06-17 10:25 | RAD ---
XR Chest 1 View Portable HISTORY: Dyspnea, lung cancer COMPARISON: 05/27/2019 FINDINGS: Changes of median sternotomy and right-sided Port-A-Cath again seen. The heart size is norm al. The aorta is tortuous. The lungs are well expanded without focal areas of consolidation, pneumothorax or pleural effusions. Chronic changes in the left lung base again noted. Surgical clips in the left axilla are again seen. IMPRESSION: No radiographic evidence of acute cardiopulmonary process.
[2019-06-17 10:41] LABS: Base Excess-Venous -4.8 mmol/L (-2.0 to 3.0); Bicarbonate (HCO3v) 19.1 mmol/L (22.0-28.0); CO2 Tension (PvCO2) 29.1 mmHg (40.0-50.0); Calcium, Ionized 1.01 mmol/L (See Comments:); Chloride 96 mmol/L (98-107); Hemoglobin - Calc 6.2 g/dL (14.0-18.0); Potassium 4.3 mmol/L (3.5-5.1); Sodium 127 mmol/L (138-145); vO2 Saturation-calc 90.6 % (60.0-85.0)
[2019-06-17 10:44] LABS: INR-International Normal Ratio 1.2; Prothrombin Time 15.6 SEC (12.0-14.7)
[2019-06-17 10:45] LABS: PTT 39.3 SEC (22.9-36.1)
[2019-06-17 10:52] LABS: D-Dimer Test 6.03 *mcg/mL (0.27-0.43)
[2019-06-17 11:09] LABS: ALT (SGPT) 44 U/L (8-55); AST (SGOT) 57 U/L (5-34); Alkaline Phosphatase 66 U/L (40-110); BUN (Urea Nitrogen) 18 mg/dL (8.4-25.7); Bilirubin, Total 1.1 mg/dL (0.2-1.2); Calc. Creatinine Clearance 0 mL/min (70-130); Calcium 7.6 mg/dL (7.8-10.44); Carbon Dioxide 18 mmol/L (23-31); Chloride 99 mmol/L (98-107); Estimated GFR-MDRD 55; Glucose 92 mg/dL (83-110); Potassium 4.4 mmol/L (3.5-5.1); Sodium 128 mmol/L (136-145)
[2019-06-17 11:23] LABS: Anion Gap 15 mmol/L (10-20)
[2019-06-17 11:34] LABS: #Lymphocytes 0.4 thou/uL (1.20-3.40); #Neutrophils 2.3 thou/uL (1.40-6.50); %Basophils 0.8 % (0.0-1.0); %Eosinophils 0.8 % (0.0-10.0); %Lymphocytes 12.7 % (21.0-51.0); %Monocytes 1.6 % (0.0-10.0); Hemoglobin 6.8 g/dL (14.0-18.0); Mean Corpuscular HGB CONC 33.7 g/dL (32.0-36.0); Mean Corpuscular Hemoglobin 38.7 pg (27.0-31.0); Mean Platelet Volume 6.8 fL (7.4-10.4); Platelet Count 204 thou/uL (130-400); RBC Distribution Width 16.5 % (11.5-14.5); Red Blood Cell (RBC) Count 1.75 mill/uL (4.70-6.10); White Blood Cell (WBC) Count 2.7 thou/uL (4.8-10.8)
[2019-06-17] MEDS ORDERED: HYDROcodone/Acetaminophen 5/325 mg Tablet PO PRN (13:18)
[2019-06-17] MEDS ORDERED: Guaifenesin DM 100-10/5 ML UDCUP PO PRN (13:18)
[2019-06-17] MEDS ORDERED: Bisacodyl 10 MG SUPP PR PRN (13:18)
[2019-06-17] MEDS ORDERED: Senokot S 8.6-50 MG TAB PO PRN (13:18)
[2019-06-17] MEDS ORDERED: Acetaminophen 325 MG TAB PO PRN (13:18)
[2019-06-17 14:27] VITALS: BMI 24.7
[2019-06-17] MEDS: Sodium Chloride 0.9% 1,000 ML IV SCH (15:02)
--- NOTE | 2019-06-17 20:34 | HP ---
REASON FOR ADMISSION: Pancytopenia, anemia, dehydration, deconditioning, fever for evaluation. HISTORY OF PRESENTING ILLNESS: The patient gives history of having chemotherapy Ellipta last Monday. He was borderline anemic prior to chemo. He has had serial checks of the same done at his oncologist's office. From Monday, the patient started to have loss of appetite, low blood pressure, and feeling very weak and exhausted. He would ambulate 30 to 40 feet and had to sit to recover. On Monday and Monday, the patient had temperatures of 100.5. This morning, the patient developed chills, dry cough, but no expectoration. No complaints of urinary frequency or urgency or burning sensation. No diarrhea. No chest pain or palpitations. PAST MEDICAL AND SURGICAL HISTORY: History of lung cancer, on Ellipta once every 3 weeks chemotherapy; history of left breast cancer with prior lumpectomy and finally mastectomy with lymph node removed on the left side; dyslipidemia; hypertension; hernia repair x2 on both sides; tonsillectomy; right infraclavicular MediPort; CABG for 4-vessel disease in April 2018. CURRENT MEDICATIONS: The patient is on: 1. Aspirin 81 mg p.o. daily. 2. Metoprolol extended release 50 mg daily. 3. Prednisone 5 mg daily. 4. Atorvastatin 80 mg p.o. daily. 5. Lisinopril 40 mg daily. 6. Ezetimibe 10 mg daily. 7. Pepcid 20 mg q.p.m. 8. Multivitamin one tablet once daily. ALLERGIES: NO KNOWN DRUG ALLERGIES. PERSONAL HISTORY: Quit smoking in 1988, prior to which has smoked 2 packs a day for nearly 30 years. Does not abuse alcohol or drugs. Lives with his . FAMILY HISTORY: Mother at the age of 89 years, she has had history of osteoporosis. Father at the age of 79, he does not know much about him. CODE STATUS: Full. Power of state attorney is his . REVIEW OF SYSTEMS: CONSTITUTIONAL: Negative for weight loss or gain, ability to conduct usual activities. SKIN: Negative for rash, itching. EYES: Negative for double vision, pain. ENT/MOUTH: Negative for nose bleeding, neck stiffness, pain, tenderness. CARDIOVASCULAR: Negative for palpitations, dyspnea on exertion, orthopnea. RESPIRATORY: Negative for shortness of breath, wheezing, cough, hemoptysis, fever or night sweats. GASTROINTESTINAL: Negative for poor appetite, abdominal pain, heartburn, nausea , vomiting, constipation, or diarrhea. GENITOURINARY: Negative for urgency, frequency, dysuria, nocturia. MUSCULOSKELETAL: Negative for pain, swelling. NEUROLOGIC/PSYCHIATRIC: Negative for anxiety, depression. ALLERGY/IMMUNOLOGIC: Negative for skin rash, bleeding tendency. PHYSICAL EXAMINATION: GENERAL: The patient is a 74-year-old male, who is currently not in any acute distress. VITAL SIGNS: Blood pressure 94/64, pulse 120 per minute, respiratory rate 20 per minute, temperature 97.7 degrees Fahrenheit, saturating 100% on room air. NECK: Supple. No elevated JVD. HEENT: Eyes; extraocular muscles intact. Pupils reacting to light. Oral cavity, mucous membranes are dry. Pallor plus. No exudates seen. CARDIOVASCULAR: S1 and S2 heard. Tachycardic. RESPIRATORY SYSTEM: Air entry 1+ bilateral. Scattered rhonchi plus. No rales or wheezes. ABDOMEN: Soft. Bowel sounds heard. No tenderness, rigidity, or guarding. EXTREMITIES: The patient has bilateral rash on his thighs and leg area. States it has been chronic and he is on prednisone for the same. No calf tenderness. VASCULAR SYSTEM: Peripheral pulses 1+ bilateral. No ischemic ulcerations or gangrene. CENTRAL NERVOUS SYSTEM: No gross focal deficits noted. The patient is alert, awake, and oriented well. PSYCHIATRIC SYSTEM: The patient's mood is euthymic. No hallucinations or delusions. LABORATORY DATA: Chest x-ray done shows no acute cardiopulmonary process. White count of 2.7, H and H of 6.8 and 20, platelet count 204, MCV is 115 with 84% neutrophils. PT/INR of 15 and 1.2, PTT 39. Sodium 127, potassium 4.3, bicarb 18, BUN 18, creatinine 1.2, serum glucose 92, lactic acid 4.0, AST 57, ALT 44, alkaline phosphatase 66. Troponin I 0.02. BNP 106. Albumin is 3. EKG done shows sinus tach at 113 beats per minute. There is nonspecific ST-T wave changes seen. CLINICAL IMPRESSION AND PLAN: The patient will be admitted to oncology floor under observation status. If needed, will be switched over to inpatient status in the morning based on clinical recovery and his trend of H and H. We will transfuse him 1 unit of packed cell. Blood and urine cultures will be obtained. We will hold off on any antibiotics as his temperature has been normal here at 97.7 degrees. We will continue aspirin, Lipitor, Toprol-XL, and prednisone as before. He will be on normal saline at 70 mL/h. We will consult Dr. Chan Powers, his oncologist during his stay here. PT/OT evaluations will be requested for early ambulation. We will continue to closely monitor him on oncology floor. Job ID: [id number] [facility]
[2019-06-17] MEDS: Famotidine 20 MG TAB PO SCH (20:58)
[2019-06-17] MEDS ORDERED: Atorvastatin Calcium 40 MG TAB PO SCH (21:00)
[2019-06-18] MEDS: Sodium Chloride 0.9% 1,000 ML IV SCH (04:00)
[2019-06-18 05:36] LABS: #Eosinphils 0.1 thou/uL (0.0-0.7); #Lymphocytes 0.5 thou/uL (1.20-3.40); #Monocytes 0.1 thou/uL (0.11-0.59); %Basophils 0.9 % (0.0-1.0); %Eosinophils 3.1 % (0.0-10.0); %Lymphocytes 33.4 % (21.0-51.0); %Monocytes 3.6 % (0.0-10.0); Hemoglobin 7.2 g/dL (14.0-18.0); Mean Corpuscular HGB CONC 35.3 g/dL (32.0-36.0); Platelet Count 133 thou/uL (130-400); RBC Distribution Width 17.6 % (11.5-14.5); Red Blood Cell (RBC) Count 1.85 mill/uL (4.70-6.10); White Blood Cell (WBC) Count 1.6 thou/uL (4.8-10.8)
[2019-06-18 05:51] LABS: Anion Gap 9 mmol/L (10-20); BUN (Urea Nitrogen) 17 mg/dL (8.4-25.7); Calc. Creatinine Clearance 58 mL/min (70-130); Calcium 7.3 mg/dL (7.8-10.44); Carbon Dioxide 20 mmol/L (23-31); Chloride 104 mmol/L (98-107); Estimated GFR-MDRD 63; Glucose 81 mg/dL (83-110); Sodium 129 mmol/L (136-145)
--- NOTE | 2019-06-18 07:29 | CON ---
DATE OF CONSULTATION: REASON FOR CONSULT: Lung cancer. HISTORY OF PRESENT ILLNESS: Mr. Guthrie is a very pleasant 74-year-old gentleman with a remote history of breast cancer in 2001, but was diagnosed with adenocarcinoma of the left upper lobe of the lung in 2018. He underwent treatment with carboplatin, Alimta and Keytruda, unfortunately had grade 3 transaminitis from Keytruda. He has been on maintenance Alimta for several months. His last treatment was June 10. He has been chronically anemic with treatment with his hemoglobin of 7.8 last week. His white count was 8.5 and his platelet count was 474. Over the last several days, he has been feeling weak with some shortness of breath. He has had swelling in his lower extremities. He presented to our clinic today for evaluation. His O2 sat was 82%, so he was sent to the emergency room for evaluation. He had a chest x-ray performed, which showed no acute findings. A CBC drawn showed a white count of 2.7 with an ANC of 2.3, hemoglobin of 6.8, and a platelet count of 204,000. His creatinine was slightly elevated from baseline. He was admitted for anemia and dehydration. He is currently receiving a unit of packed RBCs. He states he is feeling significantly better since admission. He does complain of a sore throat and some difficulty urinating today, though no burning, just difficulty starting. PAST MEDICAL HISTORY: 1. Lung cancer, currently on maintenance Alimta. 2. History of breast cancer in 2001. 3. Hypertension. 4. ID. 5. Coronary artery disease. 6. Dyslipidemia. PAST SURGICAL HISTORY: 1. Tonsillectomy. 2. Vasectomy. 3. Hernia repair. 4. Left mastectomy. 5. CABG. 6. Lung biopsy. ALLERGIES: NO KNOWN DRUG ALLERGIES. HOME MEDICATIONS: 1. Prednisone 5 mg daily. 2. Aspirin. 3. Atorvastatin. 4. Ezetimibe 10. 5. Folic acid. 6. Lisinopril. 7. Metoprolol. 8. Pepcid. FAMILY HISTORY: No history of cancer. SOCIAL HISTORY: , has 3 children, lives with his spouse, former smoker. No alcohol or illicit drug use. REVIEW OF SYSTEMS: A 10-point review of systems is negative except for noted in HPI. PHYSICAL EXAMINATION: VITAL SIGNS: Temperature is 98.8, pulse is 98, respiratory rate is 18, blood pressure is 141/67, and he is 99% on room air. GENERAL: This is a well-developed, well-nourished male, in no acute distress. HEENT: Normocephalic and atraumatic. Pupils are equal and reactive to light. NECK: Supple. CV: rate and rhythm. LUNGS: Clear to auscultation anteriorly. ABDOMEN: Soft and nontender. Bowel sounds are positive. EXTREMITIES: He has 1+ bilateral lower extremity edema. SKIN: No rash. HEMATOLOGICAL: No petechiae or purpura. NEUROLOGICAL: Nonfocal. PERTINENT LABS AND X-RAYS: Current WBCs 2.7, hemoglobin 6.8, hematocrit 20.1, and platelet count 204,000, 84% neutrophils, and 12% lymphocytes. PT is 15.6, INR is 1.2, and PTT is 39.3. D-dimer is 6. Sodium 127, potassium 4.3, chloride 96, CO2 is 18, BUN 18, creatinine 1.28, lactic acid is 4, and calcium 7.6. Bilirubin 1.1, AST is 57, ALT is 44, and alk phos is 66. BNP is 106. Serum total protein 6, albumin 3, and globulin 3. Radiology, per HPI. ASSESSMENT: 1. Symptomatic anemia. 2. Lung cancer, on maintenance Alimta. 3. Possible dehydration. DISCUSSION: The patient has received a liter of IV fluids and is currently receiving a unit of packed RBCs. He states he is feeling significantly better since arrival. He has been afebrile and has no complaints at this time. His bilateral lower extremity edema is very mild and likely secondary to long-term prednisone use from transaminitis from immunotherapy. I would continue his prednisone 5 mg daily. Hopefully, he will improve over the next 24 hours and be able to go home. Thank you for the consult. Case has been discussed with Dr. Powers. Job ID: [id number]
[2019-06-18] MEDS: Famotidine 20 MG TAB PO SCH (07:52)
[2019-06-18] MEDS ORDERED: predniSONE 5 MG TAB PO SCH (08:00)
--- NOTE | 2019-06-18 08:42 | PDOC.MOPN ---
Interval History: Pt feeling much better today. SOB back to base;ine. No CP. RLE with mild pain at ankles. - Vital Signs Vital Signs: Vital Signs (12 hours) Temp Pulse Resp BP Pulse Ox 06/18/19 07:29 98.4 F 110 H 18 137/66 98 06/18/19 03:25 98.8 F 107 H 18 121/59 L 97 Weight Weight 162 lb 14.746 oz Most Recent Monitor Data Heart Rate from ECG 108 - Physical Exam General: Alert, Oriented x3, Cooperative HEENT: EOMI Lungs: Normal air movement Cardiovascular: Other (tachy) Extremities: Other (2+ edema in RLE, larger than left) - Labs Result Diagrams: 06/18/19 04:44 06/18/19 04:44 Lab results: Laboratory Results - last 24 hr 06/18/19 04:44: WBC 1.6 L, RBC 1.85 L, Hgb 7.2 L, Hct 20.4 L, MCV 111.0 H, MCH 39.0 H, MCHC 35.3, RDW 17.6 H, Plt Count 133, MPV 7.0 L, Neutrophils % 59.0, Lymphocytes % 33.4, Monocytes % 3.6, Eosinophils % 3.1, Basophils % 0.9, Neutrophils # 1.0 L, Lymphocytes # 0.5 L, Monocytes # 0.1 L, Eosinophils # 0.1, Basophils # 0.0 06/18/19 04:44: Sodium 129 L, Potassium 4.0, Chloride 104, Carbon Dioxide 20 L, Anion Gap 9 L, BUN 17, Creatinine 1.13, Estimated GFR (MDRD) 63, Glucose 81 L, Calcium 7.3 L 06/17/19 11:13: WBC 2.7 L, RBC 1.75 L, Hgb 6.8 L, Hct 20.1 L, MCV 115.0 H, MCH 38.7 H, MCHC 33.7, RDW 16.5 H, Plt Count 204, MPV 6.8 L, Neutrophils % 84.0 H, Neutrophils % (Manual) Not Reportable, Lymphocytes % 12.7 L, Monocytes % 1.6, Eosinophils % 0.8, Basophils % 0.8, Neutrophils # 2.3, Lymphocytes # 0.4 L, Monocytes # 0.0 L, Eosinophils # 0.0, Basophils # 0.0 06/17/19 11:12: Blood Type O POSITIVE, Antibody Screen POSITIVE H, Ab Screen Tube Method NEGATIVE, Antibody Identification ANTIBODY-UNKNOWN SPECIFICITY, Crossmatch See Detail 06/17/19 10:42: POC Venous Hct 18.0 L, POC Bicarbonate Calc 19.1 L, POC VBG pH 7.425, VBG pCO2 29.1 L, VBG pO2 57.5 H, POC VBG CO2 (Calc) 20.0 L, POC VBG O2 Sat (Calc) 90.6 H, POC VBG Base Excess -4.8 L, POC VBG Hemoglobin Calc 6.2 L, POC Venous Sodium 127 L, POC Venous Potassium 4.3, POC Venous Chloride 96 L, POC Daron Anion Gap Calc 16, POC Venous Ion Calcium 1.01 06/17/19 10:25: Troponin I 0.027 06/17/19 10:25: Sodium 128 L, Potassium 4.4, Chloride 99, Carbon Dioxide 18 L, Anion Gap 15, BUN 18, Creatinine 1.28, Estimated GFR (MDRD) 55, Glucose 92, Calcium 7.6 L, Total Bilirubin 1.1, AST 57 H, ALT 44, Alkaline Phosphatase 66, Serum Total Protein 6.0, Albumin 3.0 L, Globulin 3.0, Albumin/Globulin Ratio 1.0 L 06/17/19 10:24: Lactic Acid 4.0 H 06/17/19 10:24: B-Natriuretic Peptide 106.3 H 06/17/19 10:24: PT 15.6 H, INR 1.2, APTT 39.3 H, D-Dimer 6.03 H A/P - Problem (1) Lung cancer Current Visit: Yes Code(s): C34.90 - MALIGNANT NEOPLASM OF UNSP PART OF UNSP BRONCHUS OR LUNG Status: Acute (2) Acute respiratory failure with hypoxia Current Visit: No Code(s): J96.01 - ACUTE RESPIRATORY FAILURE WITH HYPOXIA Status: Acute - Plan Plan: RLE doppler to r/o DVT ok to dc home this afternoon if remains stable
[2019-06-18] MEDS ORDERED: Enoxaparin Sodium 40 MG/0.4 ML SYRINGE SC SCH (09:00)
[2019-06-18] MEDS ORDERED: Multivitamin W/ Minerals 1 TAB PO SCH (09:00)
[2019-06-18] MEDS ORDERED: Aspirin Chewable 81 MG TAB PO SCH (09:00)
--- NOTE | 2019-06-18 10:16 | ULT ---
EXAM: Right lower extremity venous Doppler US HISTORY: Right lower extremity edema and pain, elevated d-dimer FINDINGS: Grayscale, color-flow, Doppler evaluation, spectral analysis of the right lower extremity venous stru ctures is performed with 2-D imaging. The right common femoral, superficial femoral, popliteal, posterior tibial, proximal greater saphenous and profunda femoral veins are imaged. There is normal luminal compressibility, flow, and augmentation the visualized deep venous structures of the right lower extremity. IMPRESSION: No evidence of a deep vein thrombosis in the right lower extremity.
[2019-06-18 11:38] VITALS: BP 126/62; TEMP 99.1
--- NOTE | 2019-06-20 13:45 | DIS ---
DATE OF ADMISSION: 06/17/2019 DATE OF DISCHARGE: 06/18/2019 DISCHARGE DIAGNOSES: 1. Symptomatic anemia. 2. Acute hypoxic respiratory failure secondary to anemia. 3. Lung cancer. 4. Hypertension. 5. Coronary artery disease. 6. Hyperlipidemia. HISTORY OF PRESENT ILLNESS: This patient is a 74-year-old male undergoing treatment for lung cancer on maintenance Alimta. The patient had reported several days of dyspnea on exertion and fatigue when he presented to the oncologist office. At that time, his sats were 82% on room air and he was referred to the emergency department. There, chest x-ray was unremarkable. However, his hemoglobin is down to 6.8. The patient was felt to have dehydration and symptomatic anemia and was placed on observation. HOSPITAL COURSE: The patient was admitted, started on IV fluids and received 1 unit of packed red blood cells. He felt substantially better. Subsequent to that, he did have some lower extremity edema which was felt to be chronic due to chronic use of prednisone. He did undergo a lower extremity Dopplers which were negative for DVTs. He was seen in consultation by Oncology, who felt the patient was stable for discharge as he had symptomatic improvement and his oxygenation had improved as well. DISPOSITION: The patient is discharged to home. He is to continue his usual home medication regimen with no change. ACTIVITY: As tolerated. DIET: He will remain on a heart healthy diet. FOLLOWUP: He is to follow up with Dr. Chan Powers and Dr. Martinez Higuera. He can return to the hospital at anytime should he feel the need to do so. At the time of discharge, temperature was 99.1, pulse 94, respirations 16, O2 saturation 98% on room air, BP 126/62. He was awake and alert. Heart was regular rate and rhythm. Lungs were clear, slightly diminished, but no wheezes or rales. Abdomen was benign. Extremities with trace to 1+ bilateral lower extremity edema. Job ID: [id number]
== END 2019-06-18 12:06 | disposition home or self-care (01) ==
LOC: ERS 09:32 → ERHOLD 11:53 → 2SW 14:14
PROVIDERS: ADMIT Internal Medicine; ATTEND Internal Medicine
DX: J96.01 Acute respiratory failure with hypoxia (principal); D63.8 Anemia in other chronic diseases classified elsewhere; C34.12 Malignant neoplasm of upper lobe, left bronchus or lung; I10 Essential (primary) hypertension; I25.10 Atherosclerotic heart disease of native coronary artery without angina pectoris; E78.5 Hyperlipidemia, unspecified; I25.2 Old myocardial infarction; Z79.82 Long term (current) use of aspirin; Z79.899 Other long term (current) drug therapy; Z85.3 Personal history of malignant neoplasm of breast; Z87.891 Personal history of nicotine dependence; Z95.1 Presence of aortocoronary bypass graft
CPT/HCPCS: 36430; 71045; 80048; 80053; 82330; 82435; 82803; 83605; 83880; 84132; 84295; 84484; 85014; 85025 ×2; 85379; 85610; 85730; 86850 ×2; 86870; 86900; 86901; 86920; 86922; 87040; 93005; 93971; 96360; 96372; 97139 ×2; 99285; G0378 ×3; P9016; 36415; J1650; J7512

== ENCOUNTER 2019-06-20 12:49 | Day surgery (SDC) | payer MEDICARE ==
[2019-06-20] MEDS ORDERED: diphenhydrAMINE 25 MG CAP PO SCH (13:00)
[2019-06-20] MEDS ORDERED: Acetaminophen 500 MG TAB PO SCH (13:00)
[2019-06-20 16:21] VITALS: BMI 24.7
[2019-06-20 18:42] LABS: Hemoglobin 7.7 g/dL (14.0-18.0)
[2019-06-20 22:38] VITALS: BP 135/65; TEMP 98.2
[2019-06-20 23:44] LABS: #Eosinphils 0.1 thou/uL (0.0-0.7); #Lymphocytes 0.7 thou/uL (1.20-3.40); #Monocytes 0.3 thou/uL (0.11-0.59); #Neutrophils 1.1 thou/uL (1.40-6.50); %Basophils 0.1 % (0.0-1.0); %Eosinophils 2.5 % (0.0-10.0); %Lymphocytes 32.2 % (21.0-51.0); %Neutrophils 51.1 % (42.0-75.0); Hemoglobin 9.1 g/dL (14.0-18.0); Mean Corpuscular HGB CONC 35.2 g/dL (32.0-36.0); Mean Corpuscular Hemoglobin 36.2 pg (27.0-31.0); Mean Platelet Volume 8.1 fL (7.4-10.4); Platelet Count 65 thou/uL (130-400); Platelet Morphology Comment Appears Decreased; RBC Distribution Width 19.4 % (11.5-14.5); Red Blood Cell (RBC) Count 2.51 mill/uL (4.70-6.10); White Blood Cell (WBC) Count 2.1 thou/uL (4.8-10.8)
[2019-06-21] MEDS ORDERED: FLU VACC TS2019-20(65YR UP)/PF 180 MCG/0.5 ML SYRINGE IM ONE (09:00)
== END 2019-06-20 23:08 | disposition home or self-care (01) ==
LOC: ONC/OP 12:49 → ONC 14:17 → ONC/OP 23:08
PROVIDERS: ATTEND Internal Medicine Hematology & Oncology
PROC: 30233R1 Transfusion of Nonautologous Platelets into Peripheral Vein, Percutaneous Approach (ICD-10-PCS; principal; 2019-06-20)
PROC: 30233N1 Transfusion of Nonautologous Red Blood Cells into Peripheral Vein, Percutaneous Approach (ICD-10-PCS; 2019-06-20)
DX: D64.9 Anemia, unspecified (principal); D69.6 Thrombocytopenia, unspecified
CPT/HCPCS: 36430; 85014; 85018; 86850; 86900; 86901; 86922; J1642; P9016; Q0163

== ENCOUNTER 2019-06-28 07:27 | Outpatient (CLI) | payer MEDICARE ==
--- NOTE | 2019-06-28 10:34 | PET ---
PET CT: HISTORY: A 74-year-old male with left leg cancer. Exam requested to evaluate for response to treatment. The patient's last chemotherapy was 06/10/2019. TECHNIQUE: PET scanning with CT attenuation correction is performed from the base of the brain through the proxi mal thighs following the intravenous administration of 12 mCi [id number] in the right ant ecubital fossa. COMPARISON: PET CT of 04/04/2019. FINDINGS: Multiple foci of increased uptake along the left pleura are again seen with a maximum SUV of 3.8 at t he apex (previously 5.5), 4.6 in the upper mediastinum (previously 5.4), 4.1 in the medial lung base (previously 4.4), and 3.9 in the mid lung base (previously 4.3). The peripheral nodules on the left have SUVs of 5.4 in the left upper lobe (previously 3.4) and 2.3 i n the left lung base anterolaterally (previously 3.7). The previously noted focus of mildly increase d uptake in the posterolateral aspect of the right upper lobe shows minimal residual uptake on the cu rrent exam. There is a new infiltrate in the posteromedial aspect of the left lower lobe with increased FDG local ization and an SUV of 2.6. No oscar hypermetabolism is noted in the neck, chest, abdomen, or pelvis. No hypermetabolic liver, adrenal, or skeletal lesions are seen. There is physiologic activity in the GI and tracts or visualized portions of the brain. The CT scan used for attenuation correction demonstrates no evidence of pleural effusions or ascites. IMPRESSION: Mixed response to therapy since 04/04/2019. POS: KENTRELL
== END 2019-06-28 07:28 | disposition home or self-care (01) ==
LOC: PET 07:27
PROVIDERS: ATTEND Internal Medicine Hematology & Oncology
DX: C34.90 Malignant neoplasm of unspecified part of unspecified bronchus or lung (principal)
CPT/HCPCS: 78815; A9552

== ENCOUNTER 2019-06-29 21:22 | Inpatient (IN) | payer MEDICARE ==
--- NOTE | 2019-06-29 22:30 | RAD ---
Chest AP view INDICATION: Fever COMPARISON: None FINDINGS: Lungs:Mixed pleural-parenchymal opacity of the left lower lobe is stable. No acute airspace consolida tion is noted. Cardiac silhouette:Heart size is normal. Midline sternotomy changes are stable. Right subclavian ches t wall port is unchanged. Pulmonary vasculature:Normal Pleural spaces:No pleural effusion or pneumothorax is demonstrated. Upper abdomen:No abnormality seen. Osseous structures: No acute osseous abnormality. Additional findings:Surgical clips within the left axilla are stable. IMPRESSION: Stable exam. No definite acute cardiopulmonary abnormality.
[2019-06-29 22:49] LABS: #Lymphocytes 0.5 thou/uL (1.20-3.40); #Monocytes 0.6 thou/uL (0.11-0.59); #Neutrophils 4.1 thou/uL (1.40-6.50); %Basophils 0.1 % (0.0-1.0); %Eosinophils 0.4 % (0.0-10.0); %Lymphocytes 8.8 % (21.0-51.0); %Monocytes 12.1 % (0.0-10.0); %Neutrophils 78.7 % (42.0-75.0); Hemoglobin 9.5 g/dL (14.0-18.0); Mean Corpuscular HGB CONC 34.1 g/dL (32.0-36.0); Mean Corpuscular Hemoglobin 35.5 pg (27.0-31.0); Mean Platelet Volume 7.4 fL (7.4-10.4); Platelet Count 269 thou/uL (130-400); RBC Distribution Width 19.2 % (11.5-14.5); Red Blood Cell (RBC) Count 2.68 mill/uL (4.70-6.10); White Blood Cell (WBC) Count 5.2 thou/uL (4.8-10.8)
[2019-06-29] MEDS ORDERED: Cefepime 2 GM VIAL ONE (22:55)
[2019-06-29] MEDS ORDERED: Azithromycin 500 MG VIAL ONE (22:55)
[2019-06-29 23:11] LABS: ALT (SGPT) 65 U/L (8-55); AST (SGOT) 91 U/L (5-34); Albumin 2.5 g/dL (3.4-4.8); Alkaline Phosphatase 66 U/L (40-110); Anion Gap 11 mmol/L (10-20); BUN (Urea Nitrogen) 17 mg/dL (8.4-25.7); Bilirubin, Total 0.4 mg/dL (0.2-1.2); Calc. Creatinine Clearance 0 mL/min (70-130); Calcium 7.6 mg/dL (7.8-10.44); Carbon Dioxide 21 mmol/L (23-31); Chloride 94 mmol/L (98-107); Estimated GFR-MDRD 49; Globulin 3.2 g/dL (2.4-3.5); Glucose 106 mg/dL (83-110); Lipase 56 U/L (8-78); Potassium 3.6 mmol/L (3.5-5.1); Protein, Total 5.7 g/dL (5.8-8.1); Sodium 122 mmol/L (136-145)
[2019-06-29 23:31] LABS: CKMB 1.3 ng/mL (0-6.6)
[2019-06-30] MEDS ORDERED: Enoxaparin Sodium 100 MG/ML SYRINGE ONE (00:10)
[2019-06-30] MEDS ORDERED: Aspirin Chewable 81 MG TAB ONE (00:10)
[2019-06-30 00:50] LABS: Bacteria/HPF None Seen HPF (None Seen); Bilirubin Negative (Negative); Blood, Urine Negative (Negative); Clarity Clear (Clear); Glucose, Urine (Dipstick) Normal (Negative); Leukocyte Negative Leu/uL (Negative); Nitrite Negative (Negative); Protein, Urine (Dipstick) 30 mg/dL (Neg-Trace); RBC/HPF 0-3 HPF (0-3); Squamous Epithelial 0-3 HPF (0-3); Urobilinogen Normal mg/dL (Less than 2); WBC/HPF 0-3 HPF (0-3)
[2019-06-30] MEDS ORDERED: Sodium Chloride 0.9% 1,000 ML IV SCH (01:30)
[2019-06-30 02:45] LABS: Troponin I 0.064 ng/mL (< 0.028)
[2019-06-30] MEDS ORDERED: HYDROcodone/Acetaminophen 5/325 mg Tablet PO PRN ×2 (02:46)
[2019-06-30] MEDS ORDERED: Ondansetron ODT 4 MG TAB SL PRN (02:46)
[2019-06-30] MEDS ORDERED: Ondansetron PF 4 MG/2 ML Vial IVP PRN (02:46)
[2019-06-30] MEDS ORDERED: Vancomycin HCl 1 GM in Premix Bag 1 BAG IVPB SCH (03:00)
--- NOTE | 2019-06-30 03:16 | PDOC.EVN ---
Event Note - Event Note Event Note: [id number]
[2019-06-30] MEDS: Acetaminophen 325 MG TAB PO PRN ×2 (03:20→09:26)
--- NOTE | 2019-06-30 03:42 | HP ---
CHIEF COMPLAINT: Low blood pressure and weakness. HISTORY OF PRESENT ILLNESS: Mr. Guthrie is a 74-year-old male with past medical history of lung cancer on chemotherapy, coronary artery disease, coronary artery bypass graft surgery, hypertension, NSTEMI, pneumothorax, hyponatremia, among others, presents to the emergency room with low blood pressure and weakness. Also, the patient has been having on and off fever. The patient is on chemotherapy. Workup in the emergency room, the patient was hyponatremic with a sodium of 122. His baseline sodium is around 129. Troponin is indeterminate at 0.07; repeat one went down to 0.06. Lactic acid is normal at 1. In the emergency room, blood pressure is 110/70. The patient had a fever of 103. Septic workup done in the ED. The patient is started on IV antibiotics. The patient is being admitted to the hospital for further management. PAST MEDICAL HISTORY: As mentioned above in history of present illness. PAST SURGICAL HISTORY: Coronary artery bypass graft surgery, pleurodesis, and lumpectomy for breast cancer. FAMILY HISTORY: Reviewed and noncontributory. HOME MEDICATIONS: Please see home medication reconciliation form for updated medications. ALLERGIES: NO KNOWN ALLERGIES. SOCIAL HISTORY: He is a former smoker. Denies alcohol drinking. REVIEW OF SYSTEMS: Review of 14 systems negative except what is mentioned in the history of present illness. PHYSICAL EXAMINATION: GENERAL: The patient is awake, alert, in moderate distress. VITAL SIGNS: Blood pressure 110/70, heart rate is 90, respiratory rate is 20, temperature maximum 103. HEAD AND NECK: Normocephalic, atraumatic. Neck is supple. CHEST: Decreased air entry bilaterally. HEART: S1, S2. Regular. ABDOMEN: Soft, nontender. NEUROLOGIC: Awake, alert, oriented x3. PSYCH: Normal mood. EXTREMITIES: No clubbing. No cyanosis. LABORATORY DATA: Sodium 122, potassium 3.6, BUN is 11, creatinine 1.4. Troponin initial one is 0.07. The repeat one 0.06. Urinalysis unremarkable. WBC count is 5.2, hemoglobin 9.5, platelets 169. Chest x-ray, no acute findings. ASSESSMENT AND PLAN: 1. Fever in an immunocompromised patient on chemotherapy. 2. Hypotension, resolved. 3. Lung cancer, on chemotherapy. 4. Immunocompromised. 5. History of coronary artery bypass graft surgery. 6. Hyponatremia, sodium is 122. His baseline sodium is around 129. PLAN: 1. Admit. 2. Septic workup including blood cultures. 3. IV antibiotics. 4. IV fluids. 5. Oncologist consulted for evaluation and further recommendations. 6. Reconcile home medications. 7. DVT prophylaxis as appropriate. 8. Expected length of stay 2 midnights or more. Job ID: [id number]
[2019-06-30 05:21] LABS: Band 7 % (5-11); Elliptocytes SLIGHT = 2-5 cells (100X) (0-1/hpf); Hemoglobin 8.9 g/dL (14.0-18.0); Lymphocytes 5 % (21-51); MDiff Complete? YES; Mean Corpuscular HGB CONC 34.5 g/dL (32.0-36.0); Mean Corpuscular Hemoglobin 35.8 pg (27.0-31.0); Mean Platelet Volume 7.5 fL (7.4-10.4); Monocytes 9 % (0-10); Neutrophil 79 % (42-75); Platelet Count 254 thou/uL (130-400); Platelet Morphology Comment Appears Adequate; RBC Distribution Width 19.1 % (11.5-14.5); Red Blood Cell (RBC) Count 2.48 mill/uL (4.70-6.10); White Blood Cell (WBC) Count 5.2 thou/uL (4.8-10.8)
[2019-06-30 05:28] LABS: Anion Gap 12 mmol/L (10-20); BUN (Urea Nitrogen) 16 mg/dL (8.4-25.7); Calc. Creatinine Clearance 50 mL/min (70-130); Calcium 7.5 mg/dL (7.8-10.44); Carbon Dioxide 18 mmol/L (23-31); Chloride 97 mmol/L (98-107); Estimated GFR-MDRD 51; Glucose 93 mg/dL (83-110); Potassium 3.6 mmol/L (3.5-5.1); Sodium 123 mmol/L (136-145)
[2019-06-30] MEDS ORDERED: Sodium Chloride 0.9% 500 ML IV SCH (05:30)
[2019-06-30 05:33] LABS: Troponin I 0.061 ng/mL (< 0.028)
[2019-06-30] MEDS ORDERED: Heparin 5,000 UNITS/ML VIAL SC SCH (09:00)
[2019-06-30 09:10] LABS: Creatinine, Urine 39.24 mg/dL (63-166)
[2019-06-30] MEDS ORDERED: predniSONE 20 MG TAB PO SCH (09:15)
[2019-06-30] MEDS ORDERED: Fludrocortisone Acetate 0.1 MG TAB PO SCH (09:30)
--- NOTE | 2019-06-30 09:35 | PDOC.HOSPP ---
- Subjective Encounter Date: 06/30/19 Encounter Time: 09:33 Subjective: 74 y//o male with lung cancer , CAD s/p CABG, pneumothorax s/p pleurodesis, chronic presdnisone therapy who was wean down about 6 weeks ago to 5 mg admitted with worsening weakness on background of chronic non productive cough. found to be hypotensive, hyponatremia and with elevated troponin. Feeling better. - Objective Vital Signs & Weight: Vital Signs (12 hours) Temp Pulse Resp BP Pulse Ox 06/30/19 08:02 99.3 F 100 7 L 107/64 90 L 06/30/19 07:30 90 L 06/30/19 05:46 100 98/56 L 06/30/19 05:14 102.2 F H 106 H 89/50 L 06/30/19 02:25 97 06/30/19 02:24 103.3 F H 122 H 24 H 125/75 97 Weight Weight 166 lb I&O: 06/29/19 06/30/19 07/01/19 06:59 06:59 06:59 Intake Total 300 600 Output Total 300 125 Balance 0 475 Result Diagrams: 06/30/19 04:52 06/30/19 04:52 Hospitalist ROS - Medication Medications: Active Medications Generic Name Dose Route Start Last Admin Trade Name Freq PRN Reason Stop Dose Admin Acetaminophen 650 mg 06/30/19 02:36 06/30/19 09:26 Tylenol PO 650 mg Q6H PRN Administration Fever>101/(Mi/Mod/Sev) Pain Heparin Sodium (Porcine) 5,000 units 06/30/19 09:00 06/30/19 09:26 Heparin SC 5,000 units TID GLADIS Administration Prednisone 20 mg 06/30/19 09:15 06/30/19 09:26 Prednisone PO 06/30/19 11:15 20 mg NOW GLADIS Administration Sodium Chloride 10 ml 06/30/19 09:00 06/30/19 09:21 Flush - Normal Saline IVF Not Given Q12HR GLADIS - Exam General Appearance: awake alert General - other findings: chronically ill looking afebrile ENT: normocephalic atraumatic Neck: symmetric Heart: RRR Respiratory - other findings: fair air entry with transmitted sound. No rhonchi Gastrointestinal: soft, non-tender, non-distended, normal bowel sounds Extremities - other findings: mild to moderate edema of the right upper and both legs. moderate LLUE skyler Neurological: cranial nerve grossly intact, no new deficit Musculoskeletal: generalized weakness, diffuse muscle atrophy Psychiatric: A&O x 3 Hosp A/P (1) Hypotension Status: Acute (2) Adrenal insufficiency due to corticosteroid withdrawal Code(s): E27.3 - DRUG-INDUCED ADRENOCORTICAL INSUFFICIENCY Status: Acute (3) Severe sepsis Code(s): A41.9 - SEPSIS, UNSPECIFIED ORGANISM; R65.20 - SEVERE SEPSIS WITHOUT SEPTIC SHOCK Status: Acute (4) Elevated troponin Code(s): R79.89 - OTHER SPECIFIED ABNORMAL FINDINGS OF BLOOD CHEMISTRY Status : Acute (5) CINDI (acute kidney injury) Code(s): N17.9 - ACUTE KIDNEY FAILURE, UNSPECIFIED Status: Acute (6) Moderate protein-calorie malnutrition Code(s): E44.0 - MODERATE PROTEIN-CALORIE MALNUTRITION Status: Acute (7) Hyponatremia Code(s): E87.1 - HYPO-OSMOLALITY AND HYPONATREMIA Status: Acute (8) Lung cancer Code(s): C34.90 - MALIGNANT NEOPLASM OF UNSP PART OF UNSP BRONCHUS OR LUNG Status: Acute - Plan Volume expansion with albumin. Start stress dose steroid. Start florinef also Broad spectrum antibiotic with levaquin, van and cefepime Await cultures. get Doppler to rule DVT left upper limb. [place] oral intake. start oral supplement monitor electrolytes and replete as needed Consult oncology
[2019-06-30] MEDS: Cefepime 1 GM in Sodium Chloride 0.9% 100 ML IVPB SCH ×2 (09:36→22:25)
[2019-06-30] MEDS ORDERED: Aspirin 81 mg Enteric Coated Tablet PO SCH (09:45)
[2019-06-30] MEDS: Albumin 25% 25 GM/100 ML BOT IVPB SCH ×4 (12:00→23:21)
--- NOTE | 2019-06-30 14:48 | ULT ---
LEFT UPPER EXTREMITY VENOUS DOPPLER ULTRASOUND: DATE: 06/30/2019. COMPARISON: None. HISTORY: Pain, swelling, assess for DVT. TECHNIQUE: Multiplanar, flores scale, sonographic imaging of the venous structures of the left upper extremity obt ained with color flow and spectral analysis. FINDINGS: The left internal jugular vein, left subclavian vein, and left axillary vein are patent. The left brachial vein is noncompressible from the proximal upper arm to the distal upper arm, consis tent with deep venous thrombosis within the left brachial vein. Left basilic vein, left cephalic vein, left radial vein, and left ulnar vein are patent. IMPRESSION: Evidence of deep venous thrombosis involving the left brachial vein. The performing mixing machine operator related this information to the covering nurse, Mega, at the time of the examination 06/30/2019. CODE CR POS: OFF
[2019-06-30] MEDS: Apixaban 5 MG TAB PO SCH (20:54)
[2019-06-30] MEDS: guaiFENesin 200 MG TAB PO PRN (23:40)
[2019-06-30] MEDS ORDERED: Azithromycin 500 MG in Sodium Chloride 0.9% 250 ML 250 ML IVPB SCH (23:59)
[2019-07-01 00:08] LABS: Magnesium 1.3 mg/dL (1.6-2.6); Potassium 3.6 mmol/L (3.5-5.1)
[2019-07-01] MEDS ORDERED: Magnesium Oxide 400 MG TAB PO SCH (00:30)
[2019-07-01] MEDS ORDERED: Vancomycin HCl 1.25 GM in Sodium Chloride 0.9% 250 ML 250 ML IVPB SCH (02:00)
[2019-07-01] MEDS ORDERED: Magnesium 2 GM/50 ML 2 GM in Premix Bag 1 BAG IVPB SCH (03:15)
[2019-07-01 07:49] LABS: ALT (SGPT) 41 U/L (8-55); AST (SGOT) 66 U/L (5-34); Albumin 2.9 g/dL (3.4-4.8); Alkaline Phosphatase 45 U/L (40-110); Anion Gap 13 mmol/L (10-20); BUN (Urea Nitrogen) 13 mg/dL (8.4-25.7); Bilirubin, Total 0.4 mg/dL (0.2-1.2); Calc. Creatinine Clearance 61 mL/min (70-130); Calcium 7.6 mg/dL (7.8-10.44); Carbon Dioxide 15 mmol/L (23-31); Chloride 96 mmol/L (98-107); Estimated GFR-MDRD 66; Globulin 2.6 g/dL (2.4-3.5); Glucose 69 mg/dL (83-110); Phosphorus 2.5 mg/dL (2.3-4.7); Protein, Total 5.5 g/dL (5.8-8.1); Sodium 121 mmol/L (136-145)
[2019-07-01 08:07] LABS: #Lymphocytes 0.8 thou/uL (1.20-3.40); #Monocytes 0.7 thou/uL (0.11-0.59); #Neutrophils 4.5 thou/uL (1.40-6.50); %Basophils 0.4 % (0.0-1.0); %Eosinophils 0.4 % (0.0-10.0); %Lymphocytes 12.7 % (21.0-51.0); %Monocytes 12.2 % (0.0-10.0); %Neutrophils 74.5 % (42.0-75.0); Hemoglobin 8.4 g/dL (14.0-18.0); Mean Corpuscular HGB CONC 32.5 g/dL (32.0-36.0); Mean Corpuscular Hemoglobin 35.6 pg (27.0-31.0); Mean Platelet Volume 7.2 fL (7.4-10.4); Platelet Count 253 thou/uL (130-400); RBC Distribution Width 19.1 % (11.5-14.5); Red Blood Cell (RBC) Count 2.36 mill/uL (4.70-6.10)
[2019-07-01 08:08] LABS: Burr Cells MODERATE= 6-15 cells (100X) (0-1/hpf); MDiff Complete? YES; Macrocytosis SLIGHT = 6-15 cells (100X) (0-5/hpf); Platelet Morphology Comment Appears Adequate
[2019-07-01] MEDS: predniSONE 20 MG TAB PO SCH (08:15)
[2019-07-01] MEDS: Aspirin 81 mg Enteric Coated Tablet PO SCH (08:16)
[2019-07-01] MEDS: Apixaban 5 MG TAB PO SCH ×2 (08:16→20:59)
[2019-07-01 08:20] LABS: Magnesium Greater than 9.5 mg/dL (1.6-2.6)
[2019-07-01] MEDS ORDERED: Fludrocortisone Acetate 0.1 MG TAB PO SCH (09:00)
--- NOTE | 2019-07-01 09:43 | PDOC.HOSPP ---
- Subjective Encounter Date: 07/01/19 Encounter Time: 09:38 Subjective: awake, alert, no fever, etc - Objective Vital Signs & Weight: Vital Signs (12 hours) Temp Pulse Resp BP Pulse Ox 07/01/19 07:25 97.9 F 90 20 150/77 H 93 L 07/01/19 04:00 97.8 F 96 16 144/83 H 92 L 07/01/19 00:00 99.5 F 99 16 117/75 94 L Weight Weight 164 lb 11.2 oz I&O: 06/30/19 07/01/19 07/02/19 06:59 06:59 06:59 Intake Total 300 2687 300 Output Total 300 1775 675 Balance 0 912 -375 Result Diagrams: 07/01/19 06:51 07/01/19 06:51 Hospitalist ROS - Medication Medications: Active Medications Generic Name Dose Route Start Last Admin Trade Name Freq PRN Reason Stop Dose Admin Acetaminophen 650 mg 06/30/19 02:36 06/30/19 09:26 Tylenol PO 650 mg Q6H PRN Administration Fever>101/(Mi/Mod/Sev) Pain Apixaban 10 mg 06/30/19 21:00 07/01/19 08:16 Eliquis PO 10 mg BID GLADIS Administration Aspirin 81 mg 07/01/19 09:00 07/01/19 08:16 Ecotrin PO 81 mg DAILY GLADIS Administration Guaifenesin 400 mg 06/30/19 23:06 06/30/19 23:40 Organ-I Nr PO 400 mg Q4H PRN Administration Cough Cefepime HCl 1 gm/ Sodium 100 mls @ 200 mls/hr 06/30/19 11:00 06/30/19 22:25 Chloride IVPB 100 mls 1100,2300 GLADIS Administration Vancomycin HCl 1.25 gm/ Sodium 250 mls @ 166.67 mls/hr 07/01/19 02:00 02:45 Chloride IVPB 250 mls Q24HR GLADIS Administration Levofloxacin 750 mg/ Device 150 mls @ 100 mls/hr 06/30/19 10:00 06/30/19 10: 11 IVPB 150 mls 1000 GLADIS Administration Pantoprazole Sodium 40 mg 06/30/19 21:00 06/30/19 20:54 Protonix PO 40 mg HS GLADIS Administration Prednisone 20 mg 07/01/19 08:00 07/01/19 08:15 Prednisone PO 20 mg QAM-WM GLADIS Administration Sodium Chloride 10 ml 06/30/19 09:00 06/30/19 20:55 Flush - Normal Saline IVF 10 ml Q12HR GLADIS Administration - Exam General Appearance: awake alert Neck: no JVD Heart: no murmur, irregular Respiratory: CTAB Gastrointestinal: soft, normal bowel sounds Extremities - other findings: merked swelling L arm Hosp A/P (1) Fever Code(s): R50.9 - FEVER, UNSPECIFIED Status: Acute Qualifiers: Fever type: unspecified Qualified Code(s): R50.9 - Fever, unspecified (2) Deep vein thrombosis (DVT) of brachial vein of left upper extremity Code(s): I82.622 - ACUTE EMBOLISM AND THROMBOSIS OF DEEP VEINS OF L UP EXTREM Status: Acute Qualifiers: Chronicity: acute Qualified Code(s): I82.622 - Acute embolism and thrombosis of deep veins of left upper extremity (3) 3-vessel CAD Status: Chronic (4) Hyponatremia Code(s): E87.1 - HYPO-OSMOLALITY AND HYPONATREMIA Status: Acute - Plan cont eliquis on iv antibx, await C&S results, taper prednisone
--- NOTE | 2019-07-01 10:15 | CON ---
DATE OF CONSULTATION: 06/30/2019 HISTORY OF PRESENT ILLNESS: Mr. Guthrie is a 74-year-old male with known history of metastatic non-small cell lung cancer, currently on maintenance treatment with chemotherapy and immunotherapy, who presented to the emergency room with weakness and low blood pressure. He had a fever last week up to 101.8 and was started on levofloxacin 4 days prior to the admission. He did start that, but got progressively weaker. He is doing good he says that he really has not been eating anything. He has lost a little bit of weight. In the emergency room, his sodium was found to be 122 and he was found to have a fever of 103. He was started on IV antibiotics and has been admitted of course. He is feeling much better today. He states he is starting to eat a little bit more. He remains afebrile as far as he knows. He denies any nausea or vomiting. No diarrhea. He does have chronic left upper extremity swelling for the last several months and did have an ultrasound today, which the patient reportedly says they found a blood clot. The arm is no more swollen than normal he says. He does have chronic right lower extremity edema and had an ultrasound done about a couple of weeks ago, that was negative. PAST MEDICAL HISTORY: 1. Non-small cell lung cancer, stage IV, diagnosed approximately 4 months ago. 2. Coronary artery disease, status post CABG. 3. Hypertension. 4. History of myocardial infarction. 5. Chronic low-grade hyponatremia. ALLERGIES: NO KNOWN DRUG ALLERGIES. MEDICATIONS: 1. Tylenol p.r.n. 2. Aspirin 81 mg p.o. daily. 3. Cefepime 1 g IV q.12 hours. 4. Florinef 0.1 mg p.o. daily. 5. Heparin 5000 units subcu t.i.d. 6. Levaquin 750 mg IV daily. 7. Prednisone 20 mg p.o. daily. 8. Vancomycin 1.25 g IV q.24 hours. SOCIAL HISTORY: He quit smoking in the 1980s. He is here with his , who is quite supportive. He is a retired border patrol and civil private investigator. FAMILY HISTORY: Negative. REVIEW OF SYSTEMS: Otherwise 10-point review of systems is negative. PHYSICAL EXAMINATION: VITAL SIGNS: Temperature 100.0 current, pulse 94, O2 saturation 92% on room air, blood pressure 102/70. GENERAL: He is sitting up, is doing much better, conversant. HEENT: Extraocular muscles are intact. Pupils are equal, round, and reactive to light. No scleral icterus. NECK: Supple without lymphadenopathy. CARDIOVASCULAR: Regular rhythm. LUNGS: Decreased breath sounds in the left base more than the right. ABDOMEN: Hypoactive bowel sounds. Soft, nontender. EXTREMITIES: He does have some bruising in the anterior side of the right thigh. He has SCDs in place. He does have 2+ pitting edema in the left upper extremity. LABORATORY DATA: White blood cell count 5.2, hemoglobin 8.9, MCV 104, platelets 254 with 79% neutrophils. Chemistries; sodium 123, potassium 3.6, chloride 97, CO2 of 18, creatinine 1.35 up from 1.14 baseline, glucose 93, calcium 7.5. Troponin I 0.061. DIAGNOSTIC DATA: Chest x-ray done in the emergency room showed mixed pleural-parenchymal opacity in the left lower lobe, which is stable. Vascular ultrasound of the left upper extremity has not been reported yet. ASSESSMENT: Mr. Guthrie is a 74-year-old male with; 1. Metastatic non-small cell lung cancer, currently on maintenance treatment. 2. Fever and hypotension, not neutropenic. 3. Left upper extremity swelling. 4. Hyponatremia with acute renal failure. PLAN: 1. He is already on IV fluids and is being seen by the Hospitalist Team. He is on appropriate IV antibiotics. If his blood cultures are negative, it would be reasonable to stop the vancomycin once he is stabilized, but I think for now we should continue it. 2. Follow up results of vascular ultrasound. He remains on heparin t.i.d., but may need further anticoagulation depending on the results of the ultrasound. 3. His sodium is stabilizing followed closely. 4. Continue oxygen support and DuoNeb. 5. We will follow with you. Job ID: [id number]
[2019-07-01] MEDS: Cefepime 1 GM in Sodium Chloride 0.9% 100 ML IVPB SCH ×2 (11:58→22:43)
[2019-07-01] MEDS: guaiFENesin 200 MG TAB PO PRN ×2 (13:18→17:15)
[2019-07-01 13:20] VITALS: BMI 25.0
--- NOTE | 2019-07-01 17:27 | PDOC.EVN ---
Event Note - Event Note Event Note: repeat lab, elevated magnesium found to be in error
[2019-07-01] MEDS ORDERED: Ezetimibe 10 MG TAB PO SCH (21:00)
[2019-07-01] MEDS ORDERED: Atorvastatin Calcium 40 MG TAB PO SCH (21:00)
[2019-07-01] MEDS ORDERED: Famotidine 20 MG TAB PO SCH (21:00)
[2019-07-02 01:31] LABS: Vancomycin, Trough 9.6 ug/mL
[2019-07-02] MEDS ORDERED: Vancomycin HCl 750 MG in Sodium Chloride 0.9% 250 ML 250 ML IVPB SCH (02:00)
[2019-07-02 07:45] VITALS: BP 156/72; TEMP 97.9
--- NOTE | 2019-07-02 07:56 | PDOC.MOPN ---
Interval History: Pt feeling much better since admission. Eating better and energy improved. No more fevers. No LUE pain at site of DVT. - Vital Signs Vital Signs: Vital Signs (12 hours) Temp Pulse Resp BP Pulse Ox 07/02/19 07:42 97.9 F 87 14 156/72 H 93 L 07/02/19 07:20 96 07/02/19 04:00 97.6 F 83 20 160/96 H 94 L 07/01/19 23:05 97.8 F 87 20 149/89 H 95 07/01/19 20:00 96 Weight Admit Weight 166 lb Weight 164 lb 5 oz - Physical Exam General: Alert, Oriented x3, Cooperative HEENT: EOMI Lungs: Normal air movement Cardiovascular: Regular rate Extremities: Other (LUE edema, nontender) Neurological: Cranial nerves 3-12 NL - Labs Result Diagrams: 07/01/19 06:51 07/01/19 06:51 Lab results: Laboratory Results - last 24 hr 07/02/19 01:05: Vancomycin Trough 9.6 07/01/19 09:46: Magnesium 1.8 07/01/19 06:51: WBC 6.0, RBC 2.36 L, Hgb 8.4 L, Hct 25.8 L, MCV 109.0 H, MCH 35.6 H, MCHC 32.5, RDW 19.1 H, Plt Count 253, MPV 7.2 L, Neutrophils % 74.5, Neutrophils % (Manual) Not Reportable, Lymphocytes % 12.7 L, Monocytes % 12.2 H , Eosinophils % 0.4, Basophils % 0.4, Neutrophils # 4.5, Lymphocytes # 0.8 L, Monocytes # 0.7 H, Eosinophils # 0.0, Basophils # 0.0, Plt Morphology Comment Appears Adequate, Macrocytosis SLIGHT = 6-15 cells, Bautista Cells MODERATE= 6-15 cells H 07/01/19 06:51: Prealbumin 9.0 L 07/01/19 06:51: Magnesium Greater than 9.5 H* A/P - Problem (1) Deep vein thrombosis (DVT) of brachial vein of left upper extremity Current Visit: Yes Code(s): I82.622 - ACUTE EMBOLISM AND THROMBOSIS OF DEEP VEINS OF L UP EXTREM Status: Acute Qualifiers: Chronicity: acute Qualified Code(s): I82.622 - Acute embolism and thrombosis of deep veins of left upper extremity (2) Hyponatremia Current Visit: No Code(s): E87.1 - HYPO-OSMOLALITY AND HYPONATREMIA Status: Acute (3) Lung cancer Current Visit: No Code(s): C34.90 - MALIGNANT NEOPLASM OF UNSP PART OF UNSP BRONCHUS OR LUNG Status: Acute - Plan Plan: Sodium decreased today, repeat in the AM taper prednisone given clinical improvement, cont fludrocortisone cont eliquis indefinite for DVT given active cancer
[2019-07-02] MEDS: Apixaban 5 MG TAB PO SCH (08:41)
[2019-07-02] MEDS: Aspirin 81 mg Enteric Coated Tablet PO SCH (08:41)
[2019-07-02] MEDS: predniSONE 20 MG TAB PO SCH (08:41)
[2019-07-02] MEDS: guaiFENesin 200 MG TAB PO PRN (08:42)
[2019-07-02] MEDS ORDERED: Folic Acid 1 MG TAB PO SCH (09:00)
[2019-07-02 10:34] LABS: Anion Gap 12 mmol/L (10-20); BUN (Urea Nitrogen) 14 mg/dL (8.4-25.7); Calc. Creatinine Clearance 57 mL/min (70-130); Calcium 7.8 mg/dL (7.8-10.44); Carbon Dioxide 20 mmol/L (23-31); Chloride 104 mmol/L (98-107); Estimated GFR-MDRD 61; Glucose 100 mg/dL (83-110); Potassium 3.2 mmol/L (3.5-5.1); Sodium 133 mmol/L (136-145)
[2019-07-02] MEDS: Cefepime 1 GM in Sodium Chloride 0.9% 100 ML IVPB SCH (10:40)
[2019-07-02] MEDS ORDERED: Potassium Chloride 20 MEQ TAB PO SCH (10:45)
--- NOTE | 2019-07-02 16:07 | PQF ---
CLINICAL DOCUMENTATION IMPROVEMENT CLARIFICATION FORM: ICD-10 Updated PLEASE DO AN ADDENDUM TO THE PROGRESS NOTE WITH ANY DOCUMENTATION UPDATES OR ADDITIONS AND CARRY THROUGH TO DC SUMMARY. THANK YOU. DATE: 07/02/2019 ATTN: Dr. Ferro Please exercise your independent, professional judgment in responding to the clarification form. Clinical indicators are provided on the bottom of this form for your review Please check appropriate box(s) to clarify if the following diagnosis has been ruled in or ruled out: SEPSIS [ ] Ruled in diagnosis [ ] Continue to treat [ ] Resolved [ x] Ruled out diagnosis [ ] Cannot rule out diagnosis [ ] Other diagnosis [ ] Unable to determine In addition, please specify: Present on Admission (POA): [ ] Yes [ ] No [ ] Unable to determine For continuity of documentation, please document condition throughout progress notes and discharge summary. Thank You. CLINICAL INDICATORS - SIGNS / SYMPTOMS / LABS / RESULTS AND LOCATION IN MR PN 06/30: TEMP 103.3 PULSE 122 Hypotension Adrenal insufficiency due to corticosteroid withdrawal Severe sepsis Elevated troponin CINDI RISKS: H&P 06/30: LUNG CANCER, ON CHEMOTHERAPY. IMMUNOCOMPROMISED. HYPONATREMIA. TREATMENT: Order 06/30-07/02: Cefepime HCL 1 gm in Sodium Chloride Order 06/30-07/02: Levaquin 750 mg IV Order 07/01-07/02: IV Vancomycin Thank you, Suzi (This form is maintained as a part of the permanent medical record) 2014 [employer]. All Rights Reserved Suzi Choi RN, BSN [email or web address] Office: [phone] [facility]
--- NOTE | 2019-07-02 17:12 | DIS ---
DATE OF ADMISSION: 06/30/2019 DATE OF DISCHARGE: 07/02/2019 PRIMARY CARE PROVIDER: Martinez Higuera MD. DISPOSITION: Discharged home. FINAL DIAGNOSES: 1. Fever. 2. Hyponatremia, resolved. 3. Acute thrombosis of left brachial vein. 4. Coronary artery disease. 5. Acute renal failure. 6. Lung cancer. 7. Hypertension. DISCHARGE MEDICATIONS: 1. Atorvastatin 80 mg a day. 2. Aspirin 81 mg a day. 3. Prednisone 5 mg a day. 4. Pepcid 20 mg a day. 5. Lisinopril 40 mg a day. 6. Folic acid 1 mg a day. 7. Zetia 10 mg a day. 8. Metoprolol 50 mg a day. 9. Levaquin 750 mg a day. ALLERGIES: NONE. DIET: Heart healthy. CODE STATUS: Full. PENDING AT TIME OF DISCHARGE: Nothing. HOSPITAL COURSE: The patient admitted through the emergency room with low blood pressure and weakness. The septic workup was started. LABORATORY DATA: White count 5.2, hemoglobin 9.5, platelet count 269,000, followup 5.2, 8.9 and 254,000. Chemistries; initial sodium 122, potassium 3.6, BUN 17, creatinine 1.41, lactic acid 1.0. Followup lytes in discharge, sodium 133, potassium 3.2 (he was given 40 mEq of potassium p.o. prior to discharge), chloride 104, CO2 of 20, creatinine 1.16, BUN 14. Blood cultures were negative from 06/29. Today, the patient felt well. Blood pressure 156/72, room air sats were good. He had a pulse of 80 to 90, respiratory rate 14 to 20. He had been afebrile for 48 hours. He was desirous of going home. I agreed with him. He was discharged on the medicines as discussed. He was told to follow up with his PCP in 3 days. Job ID: [id number]
--- NOTE | 2019-07-03 07:53 | PQF ---
JUSTEN CHISHOLM COUNCIL C MD [id number] [facility] [place]-[address] [id number] CLINICAL DOCUMENTATION CLARIFICATION FORM: POST DISCHARGE Addendum to original discharge summary date: ____ Late entry note date: __ DATE: 07/03/2019 ATTN:JACKI QUINTANA MD Please exercise your independent, professional judgment in responding to the clarification form. Clinical indicators are provided on the bottom of this form for your review Please check appropriate box(s): [ ] Weakness due to Hyponatremia [ ] Weakness due to CINDI [ x ] Weakness due to Hypotension [ ] Other diagnosis [ ] Unable to determine CLINICAL INDICATORS - SIGNS / SYMPTOMS / LABS - Low blood pressure and weakness- H&P, 06/30, Fredy Daniel MD - Hypotension resolved-H&P, 06/30, Fredy Daniel MD - Hyponatremia, sodium is 122, his baseline sodium is around 129-H&P, 06/30, Fredy Daniel MD - Acute renal failure-DS, 07/02, JACKI QUINTANA MD - Moderate protein calorie malnutrition- Hospital PN, 06/30, Pretty Leonard MD RISK FACTORS -Acute thrombosis of left brachial vein- DS, 07/02, JACKI QUINTANA MD -Lung cancer-DS, 07/02, JACKI QUINTANA MD -Acute insufficiency due to corticosteroid withdrawal-Hospital PN, 06/30, Pretty Leonard MD TREATMENTS: - Sodium chloride.IV- MAR, 06/30 (This form is maintained as a part of the permanent medical record) 2014 [employer]. All Rights Reserved Marsha Joshua [not provided] [not provided] MTDD
== END 2019-07-02 11:24 | disposition home or self-care (01) | DRG 315 ==
LOC: ERS 21:22 → 2SE 06-30 00:16
PROVIDERS: ADMIT Internal Medicine; ATTEND Internal Medicine
DX: I95.9 Hypotension, unspecified (principal); E87.1 Hypo-osmolality and hyponatremia; I82.622 Acute embolism and thrombosis of deep veins of left upper extremity; N17.9 Acute kidney failure, unspecified; C34.90 Malignant neoplasm of unspecified part of unspecified bronchus or lung; E44.0 Moderate protein-calorie malnutrition; E27.40 Unspecified adrenocortical insufficiency; R50.9 Fever, unspecified; I25.10 Atherosclerotic heart disease of native coronary artery without angina pectoris; I10 Essential (primary) hypertension; Z95.1 Presence of aortocoronary bypass graft
CPT/HCPCS: 36415; 71045; 78815; 80048; 80053; 80202; 81003; 81015; 82533; 82553; 82570; 83605; 83690; 83735; 83880; 83930; 83935; 84100; 84134; 84300; 84484; 84540; 85007; 85025; 85027; 86850; 86900; 86901; 87040; 87086; 87804; 96365; 96372; 96375; A9552; J0456; J0692; J1644; J1650; J1956; J3370; J3475; J3490; J7050; J7512; J7620; P9047

== ENCOUNTER 2019-09-13 12:40 | Day surgery (SDC) | payer MEDICARE ==
[2019-09-13] MEDS ORDERED: Acetaminophen 500 MG TAB PO SCH (13:15)
[2019-09-13] MEDS ORDERED: diphenhydrAMINE 25 MG CAP PO SCH (13:15)
[2019-09-13 18:47] VITALS: BP 144/65; TEMP 98.1
[2019-09-13 19:26] LABS: Anisocytosis MODERATE=16-30 cells (100X) (0-5/hpf); Band 6 % (5-11); Eosinophils 1 % (0-10); Hemoglobin 7.6 g/dL (14.0-18.0); Lymphocytes 7 % (21-51); MDiff Complete? YES; Macrocytosis MODERATE=16-30 cells (100X) (0-5/hpf); Mean Corpuscular HGB CONC 34.8 g/dL (32.0-36.0); Mean Corpuscular Hemoglobin 40.9 pg (27.0-31.0); Mean Platelet Volume 7.9 fL (7.4-10.4); Metamyelocyte 1 % (0-0); Monocytes 20 % (0-10); Myelocyte 1 % (0-0); Neutrophil 62 % (42-75); Platelet Count 311 thou/uL (130-400); Platelet Morphology Comment Appears Adequate; Polychromasia MODERATE = 3-4 cells (100X) (0-2/hpf); RBC Distribution Width 25.3 % (11.5-14.5); Reactive Lymphocytes 2 % (0-10); Red Blood Cell (RBC) Count 1.86 mill/uL (4.70-6.10); Schistocytes SLIGHT = 2-5 cells (100X) (0-1/hpf); Target Cells SLIGHT = 2-5 cells (100X) (0-1/hpf); Tear Drops SLIGHT = 2-5 cells (100X) (0-1/hpf); White Blood Cell (WBC) Count 6.2 thou/uL (4.8-10.8)
== END 2019-09-13 18:50 | disposition home or self-care (01) ==
LOC: ONC/OP 12:40 → ONC 12:41 → ONC/OP 18:50
PROVIDERS: ATTEND Internal Medicine Hematology & Oncology
PROC: 30233N1 Transfusion of Nonautologous Red Blood Cells into Peripheral Vein, Percutaneous Approach (ICD-10-PCS; principal; 2019-09-13)
DX: D64.9 Anemia, unspecified (principal); D69.6 Thrombocytopenia, unspecified
CPT/HCPCS: 36415; 36430; 80053; 82248; 82607; 83615; 84100; 84550; 85025; 86850; 86900; 86901; 86922; J1642; P9016; Q0163

== ENCOUNTER 2019-09-25 18:55 | Inpatient (IN) | payer MEDICARE ==
--- NOTE | 2019-09-25 20:19 | CT ---
CT OF BRAIN PERFORMED WITHOUT CONTRAST ENHANCEMENT: 09/25/19 HISTORY: Syncopal episode. Generalized ventricular and sulcal prominence with decreased attenuation of the periventricular white matter consistent with chronic white matter change. No signs of intracerebral hemorrhage or extra-ax ial fluid collections. Mastoid air cells and visualized sinuses are clear. IMPRESSION: No acute intracranial abnormalities. POS: [facility]
[2019-09-25] MEDS ORDERED: Diltiazem 125 MG/25 ML ONE ×2 (20:24→22:09)
[2019-09-25 20:31] LABS: Hemoglobin 5.7 g/dL (14.0-18.0); Mean Corpuscular HGB CONC 36.8 g/dL (32.0-36.0); Mean Corpuscular Hemoglobin 42.3 pg (27.0-31.0); Mean Platelet Volume 8.9 fL (7.4-10.4); Platelet Count 23 thou/uL (130-400); RBC Distribution Width 20.9 % (11.5-14.5); Red Blood Cell (RBC) Count 1.34 mill/uL (4.70-6.10); White Blood Cell (WBC) Count 2.3 thou/uL (4.8-10.8)
[2019-09-25 20:34] LABS: INR-International Normal Ratio 1.5; PTT 48.5 SEC (22.9-36.1)
[2019-09-25 20:46] LABS: Anisocytosis SLIGHT = 6-15 cells (100X) (0-5/hpf); Band 1 % (5-11); Eosinophils 2 % (0-10); Lymphocytes 31 % (21-51); MDiff Complete? YES; Macrocytosis SLIGHT = 6-15 cells (100X) (0-5/hpf); Monocytes 12 % (0-10); Neutrophil 53 % (42-75); Platelet Morphology Comment Appears Decreased; Polychromasia SLIGHT = 2-3 cells (100X) (0-2/hpf)
[2019-09-25 20:55] LABS: ALT (SGPT) 27 U/L (8-55); AST (SGOT) 41 U/L (5-34); Albumin 2.7 g/dL (3.4-4.8); Alkaline Phosphatase 64 U/L (40-110); Anion Gap 12 mmol/L (10-20); BUN (Urea Nitrogen) 42 mg/dL (8.4-25.7); Bilirubin, Total 0.5 mg/dL (0.2-1.2); Calc. Creatinine Clearance 0 mL/min (70-130); Calcium 8.5 mg/dL (7.8-10.44); Carbon Dioxide 22 mmol/L (23-31); Chloride 91 mmol/L (98-107); Estimated GFR-MDRD 23; Globulin 3.4 g/dL (2.4-3.5); Glucose 110 mg/dL (83-110); Protein, Total 6.1 g/dL (5.8-8.1); Sodium 122 mmol/L (136-145)
[2019-09-25 21:05] LABS: Potassium 2.8 mmol/L (3.5-5.1)
[2019-09-25 21:17] LABS: CKMB 1.1 ng/mL (0-6.6)
[2019-09-25] MEDS ORDERED: Potassium Chloride 20 MEQ TAB ONE (21:43)
[2019-09-25] MEDS ORDERED: Diltiazem HCl 125 MG, Admixture Fee 1 EACH in Sodium Chloride 0.9% 100 ML IVPB SCH (22:15)
[2019-09-25] MEDS ORDERED: Bacitracin 1 PK ONE (22:27)
[2019-09-25] MEDS ORDERED: Magnesium 2 GM/50 ML BAG (IN WATER) ONE (22:50)
--- NOTE | 2019-09-25 23:01 | RAD ---
XR Chest 1 View Portable HISTORY: Syncopal episode. COMPARISON: 06/29/2019 study. FINDINGS: Heart size is within normal limits there are postop sternotomy changes. A right-sided Medip ort catheter is present. There is been development of a right-sided pleural effusion since the prior study and right upper lobe infiltrative appearing lung changes. Left upper lobe pulmonary nodules again noted. Surgical clips are seen in the left axilla. The parenc hymal pleural changes in the left base appears stable. IMPRESSION: Development of a right-sided pleural effusion and right upper lobe infiltrative appearing lung change.
[2019-09-25 23:22] LABS: Hemoglobin 7.1 g/dL (14.0-18.0); Mean Corpuscular Hemoglobin 41.6 pg (27.0-31.0); Mean Platelet Volume 10.3 fL (7.4-10.4); Platelet Count 22 thou/uL (130-400); Red Blood Cell (RBC) Count 1.69 mill/uL (4.70-6.10); White Blood Cell (WBC) Count 2.1 thou/uL (4.8-10.8)
[2019-09-25 23:24] LABS: INR-International Normal Ratio 1.6; PTT 46.2 SEC (22.9-36.1); Prothrombin Time 19.1 SEC (12.0-14.7)
[2019-09-25 23:36] LABS: Lymphocytes 23 % (21-51); MDiff Complete? YES; Monocytes 19 % (0-10); Neutrophil 58 % (42-75); Platelet Morphology Comment Appears Decreased
[2019-09-25 23:43] LABS: ALT (SGPT) 24 U/L (8-55); AST (SGOT) 37 U/L (5-34); Albumin 2.4 g/dL (3.4-4.8); Alkaline Phosphatase 56 U/L (40-110); Anion Gap 13 mmol/L (10-20); BUN (Urea Nitrogen) 41 mg/dL (8.4-25.7); Bilirubin, Total 0.6 mg/dL (0.2-1.2); Calc. Creatinine Clearance 0 mL/min (70-130); Calcium 7.9 mg/dL (7.8-10.44); Carbon Dioxide 20 mmol/L (23-31); Chloride 94 mmol/L (98-107); Estimated GFR-MDRD 24; Globulin 3.2 g/dL (2.4-3.5); Glucose 104 mg/dL (83-110); Potassium 3.2 mmol/L (3.5-5.1); Protein, Total 5.6 g/dL (5.8-8.1); Sodium 124 mmol/L (136-145)
[2019-09-25 23:45] LABS: Troponin I 0.058 ng/mL (< 0.028)
[2019-09-26] MEDS ORDERED: Ondansetron PF 4 MG/2 ML Vial IVP PRN (00:06)
[2019-09-26] MEDS ORDERED: Ondansetron ODT 4 MG TAB SL PRN (00:06)
[2019-09-26] MEDS ORDERED: Acetaminophen 325 MG TAB PO PRN (00:06)
--- NOTE | 2019-09-26 00:15 | PDOC.HHP ---
Hospitalist HPI - History of Present Illness s/p fall, dizzines History of Present Illness: This is a 74 year old male with past medical history of stage IV lung cancer, CAD s/p CABG, DVT left brachial vein on eliquis who presented to the emergency room after a fall. The patient states he had been feeling dizzy and lightheaded for the past week. This morning he went to urinate and while he was washing his hands in the kitchen sink he felt dizzy, passed out and fell on his right side. He did hit his head on the shower door but not very hard. The patient's heard a loud thud on the floor and came running and patient was only unconscious for about two minutes and was not post-ictal. There was no jerking of his extremities or urinary incontinence. The patient has never passed out before. He denied chest pain, worsening shortness of breath, palpitations, abdominal pain, nausea, vomiting, diarrhea or blood in his stools. The patient states that he has been taking spironolactone/hydrochlorothiazide for peripheral edema of his legs and was switched to metolazone and lasix today by Dr. Rubio. He reports having an arterial ultrasound as an outpatient and was told he has poor circulation in his legs and was supposed to have venous ultrasound tomorrow at 10:00 am. Patient states his last hemoglobin was 7 two weeks ago. He did get itching after his last transfusion but no other reaction. He states he is due for B12 injection this week and was asking for repeat levels. He has never had a colonoscopy before or endoscopy but gets yearly FOBT testing. Patient is on chemotherapy with alimta every few weeks for his lung cancer and has been on long-term prednisone secondary to liver injury from Keytruda and is supposed to finish his prednisone taper tomorrow and has questions about whether this should be extended. ED Course: The patient originally had normal vital signs except for HR of 106. EKG showed atrial fibrillation with RVR. CT brain showed no acute disease. Labs showed WBC 2.3, hemoglobin 5.7, platelet count of 23. K was 2.8, Mag 1.8, creatinine 2.73. Patient was given 1L bolus of IV fluid in the ER. He was given 10 mg IV push of diltiazem with improvement in his heart rate to 90 and then it went back up to 150, so another 5 mg cardizem was bolused and patient was started on a cardizem drip. He was given 40 meq of potassium and 2 grams of magnesium. Current heart rate is 80. Patient was also ordered for 2 units of PRBC, but none given in the ER as of yet. Chest X ray shows right sided pleural effusion and right upper lobe infiltrate. Hospitalist ROS - Review of Systems Constitutional: denies: fever, chills Eyes: denies: vision change ENT: denies: ear pain, ear discharge Respiratory: reports: cough (chronic cough from lung cancer), shortness of breath (chronic SOB, can walk about 10 years) Cardiovascular: reports: edema. denies: chest pain, palpitations, orthopnea Gastrointestinal: reports: constipation (had 3 Bowel movements yesterday). denies: nausea, vomiting, abdominal pain, diarrhea Genitourinary: denies: dysuria, frequency Musculoskeletal: denies: neck pain, shoulder pain Skin: denies: rash, lesions Neurological: reports: weakness - Medication Medications: Metolazone 2.5 mg daily Lasix 20 mg 1 am and 2 pm B12 q3 weeks Prednisone 5 mg every other day, last dose supposedly tomorrow Aspirin 81 mg daily Atorvastatin Hospitalist History - Past Medical History Other Medical History: Stage IV lung cancer CAD s/p CABG Diastolic heart failure - Past Surgical History Other Surgical History: CABG Thoracentesis Thorascopy Pleurodesis - Family History Other Family History: Patient is estranged from family. Family members he does know are healthy - Social History Smoking Status: Former smoker (Quit in 1988. Smoked for 30 years) Alcohol: reports: None Drugs: reports: none Living Situation: With Family - Exam General Appearance: NAD, awake alert Eye: PERRL, anicteric sclera ENT: normocephalic atraumatic, no oropharyngeal lesions Neck: supple Heart: no gallops, no rubs Heart - other findings: irregularly irregular Respiratory: CTAB, no wheezes, no rales, no ronchi Gastrointestinal: soft, non-tender, non-distended, normal bowel sounds Extremities: no cyanosis, no clubbing Extremities - other findings: bilateral tenderness to palpation of shins. Skin: normal turgor, no lesions, no rashes Skin - other findings: Left torrez erythematous and slightly warm to palpation Neurological: cranial nerve grossly intact, normal sensation to touch, no focal deficits, no new deficit Musculoskeletal: normal tone, normal strength, no muscle wasting Psychiatric: normal affect, normal behavior, A&O x 3 Hospitalist Results - Labs Result Diagrams: 09/25/19 23:01 09/25/19 23: Lab results: WBC 2.1 thou/uL (4.8-10.8) L 09/25/19 23:01 Hgb 7.1 g/dL (14.0-18.0) L 09/25/19 23: Hct 19.6 % (42.0-52.0) L 09/25/19 23: MCV 116.0 fL (78.0-98.0) H 09/25/19 23:01 Plt Count 22 thou/uL (130-400) L* 09/25/19 23: Band Neuts % (Manual) 1 % (5-11) L 09/25/19 20:20 Sodium 124 mmol/L (136-145) L 09/25/19 23:01 Potassium 3.2 mmol/L (3.5-5.1) L 09/25/19 23:01 Chloride 94 mmol/L (98-107) L 09/25/19 23:01 Carbon Dioxide 20 mmol/L (23-31) L 09/25/19 23:01 BUN 41 mg/dL (8.4-25.7) H 09/25/19 23: Creatinine 2.58 mg/dL (0.7-1.3) H 09/25/19 23: Glucose 104 mg/dL (83-110) 09/25/19 23: Calcium 7.9 mg/dL (7.8-10.44) 09/25/19 23: Total Bilirubin 0.6 mg/dL (0.2-1.2) 09/25/19 23: AST 37 U/L (5-34) H 09/25/19 23: ALT 24 U/L (8-55) 09/25/19 23: Alkaline Phosphatase 56 U/L (40-110) 09/25/19 23:01 CK-MB (CK-2) 1.1 ng/mL (0-6.6) 09/25/19 20:20 Troponin I 0.051 ng/mL (< 0.028) H 09/25/19 23:01 B-Natriuretic Peptide 234.8 pg/mL (0-100) H 09/25/19 20:20 Serum Total Protein 5.6 g/dL (5.8-8.1) L 09/25/19 23:01 Albumin 2.4 g/dL (3.4-4.8) L 09/25/19 23:01 - EKG Interpretation EKG: afib with RVR Hospitalist H&P A/P - Plan Plan: This is a 74 year old male with past medical history of lung cancer stage IV, CAD s/p CABG who presented with a syncopal episode, was found to be anemic #Syncope likely secondary to anemia #Anemia - possibly from chemotherapy - Hb 5.7, but repeat hemoglobin was 7 before patient received any blood. Unclear if this is lab error? For now will transfuse 1 unit and recheck CBC - will check iron panel in the am. Patient has never had colonoscopy or endoscopy - patient with history of B12 deficiency, due for an injection this week. Will recheck B12 levels - check stool guiac - troponin elevated but downtrending. Repeat ECHO. Currently no chest pain - check orthostatics - monitor on telemetry #LLE erythema and mild peripheral edema #History of PAD - will order bilateral doppler venous US since patient due for it tomorrow and given mild tenderness to palpation #Hypokalemia - potassium 2.8, given 40 meq, repeat 3.2. Will give another 40 meq and repeat BMP #CINDI - creatinine up to 2.73. Will hydrate with IV fluids and repeat BMP - check UA - likely from diuretics #Hyponatremia - sodium 122, increased up to 124. Will continue IV fluids - BMP q8 - hold lasix/metolazone and spironolactone #LUE DVT - on eliquis, will hold for now, likely can resume tomorrow #CAD s/p CABG #Hyperlipidemia - resume aspirin in the am - continue atorvastatin and zetia #Transaminitis- secondary to keytruda chemo - resume prednisone 5 mg in the am Dispo: admit to I[facility]U DVT prophylaxis: will hold for now Code status: full code
[2019-09-26] MEDS ORDERED: Potassium Chloride 20 MEQ TAB PO SCH ×2 (00:45→15:45)
--- NOTE | 2019-09-26 02:23 | PDOC.FMACP ---
Advance Care Planning - Note Participants: patient Summary: Advanced Care Planning was discussed. The diagnosis, prognosis and goals of care were discussed. Appropriate forms and documentation to accomplish the goals of care were discussed. All questions were answered. The Palliative Care Team will be engaged to assist with completion of any outstanding forms that are needed. Patient would like to be full code. HCP patient states would be his in case he cannot make medical decisions for himself Time Spent (mins): 40
[2019-09-26] MEDS: Sodium Chloride 0.9% 1,000 ML IV SCH ×2 (04:30→16:06)
[2019-09-26 04:54] LABS: Mean Platelet Volume 10.7 fL (7.4-10.4); Platelet Count 23 thou/uL (130-400)
[2019-09-26 04:57] LABS: RBC/HPF 0-3 HPF (0-3); Squamous Epithelial None Seen HPF (0-3); WBC/HPF 0-3 HPF (0-3)
[2019-09-26 05:07] LABS: Band 4 % (5-11); Eosinophils 1 % (0-10); Hemoglobin 6.5 g/dL (14.0-18.0); Lymphocytes 23 % (21-51); MDiff Complete? YES; Mean Corpuscular HGB CONC 36.4 g/dL (32.0-36.0); Mean Corpuscular Hemoglobin 38.8 pg (27.0-31.0); Monocytes 17 % (0-10); Neutrophil 55 % (42-75); Nucleated RBC 1 % (0); Platelet Morphology Comment Appears Decreased; RBC Distribution Width 21.6 % (11.5-14.5); Red Blood Cell (RBC) Count 1.68 mill/uL (4.70-6.10); White Blood Cell (WBC) Count 2.7 thou/uL (4.8-10.8)
[2019-09-26 05:08] LABS: Anion Gap 12 mmol/L (10-20); BUN (Urea Nitrogen) 41 mg/dL (8.4-25.7); Calc. Creatinine Clearance 24 mL/min (70-130); Carbon Dioxide 20 mmol/L (23-31); Chloride 94 mmol/L (98-107); Estimated GFR-MDRD 24; Glucose 112 mg/dL (83-110); Potassium 3.1 mmol/L (3.5-5.1); Sodium 123 mmol/L (136-145)
[2019-09-26 05:09] LABS: Bacteria/HPF 1+ HPF (None Seen)
[2019-09-26 05:09] LABS: Troponin I 0.055 ng/mL (< 0.028)
[2019-09-26 05:20] LABS: Iron 190 ug/dL (65-175); Iron Binding Capacity, Total 180 mcg/dL (261-462)
[2019-09-26 05:21] LABS: Iron 186 ug/dL (65-175); Iron Binding Capacity, Total 178 mcg/dL (261-462)
--- NOTE | 2019-09-26 07:46 | ULT ---
Bilateral lower extremity venous Doppler ultrasound: 09/26/2019 COMPARISON: None HISTORY: Edema,, pain, swelling, assess for DVT TECHNIQUE: Multiplanar grayscale sonographic imaging of the venous structures of bilateral lower extr emities obtained with color flow and spectral analysis FINDINGS: Bilateral common femoral veins, greater saphenous veins, profunda femoral veins, femoral ve ins, popliteal veins, and posterior tibial veins are patent. There is normal blood flow, augmentation, and compression within the deep venous system bilaterally. No evidence for DVT on eithe r side IMPRESSION: No evidence for deep venous thrombosis of either lower extremity.
[2019-09-26] MEDS: Folic Acid 1 MG TAB PO SCH (10:11)
[2019-09-26] MEDS: predniSONE 5 MG TAB PO SCH (10:11)
[2019-09-26] MEDS: Aspirin Chewable 81 MG TAB PO SCH (10:11)
[2019-09-26 15:09] LABS: Platelet Count 21 thou/uL (130-400)
[2019-09-26 15:28] LABS: Anion Gap 11 mmol/L (10-20); BUN (Urea Nitrogen) 42 mg/dL (8.4-25.7); Calc. Creatinine Clearance 25 mL/min (70-130); Calcium 7.5 mg/dL (7.8-10.44); Carbon Dioxide 19 mmol/L (23-31); Chloride 97 mmol/L (98-107); Estimated GFR-MDRD 25; Glucose 142 mg/dL (83-110); Potassium 3.1 mmol/L (3.5-5.1); Sodium 124 mmol/L (136-145)
[2019-09-26 15:31] LABS: Anisocytosis MODERATE=16-30 cells (100X) (0-5/hpf); Band 17 % (5-11); Eosinophils 2 % (0-10); Hemoglobin 7.6 g/dL (14.0-18.0); Lymphocytes 8 % (21-51); MDiff Complete? YES; Macrocytosis SLIGHT = 6-15 cells (100X) (0-5/hpf); Mean Corpuscular HGB CONC 36.7 g/dL (32.0-36.0); Mean Corpuscular Hemoglobin 37.9 pg (27.0-31.0); Mean Platelet Volume 10.4 fL (7.4-10.4); Monocytes 10 % (0-10); Neutrophil 63 % (42-75); Platelet Morphology Comment Appears Decreased; Polychromasia MODERATE = 3-4 cells (100X) (0-2/hpf); RBC Distribution Width 20.7 % (11.5-14.5); Tear Drops SLIGHT = 2-5 cells (100X) (0-1/hpf); White Blood Cell (WBC) Count 3.2 thou/uL (4.8-10.8)
--- NOTE | 2019-09-26 19:31 | CON ---
DATE OF CONSULTATION: REASON FOR CONSULTATION: Elevated creatinine and hyponatremia. HISTORY OF PRESENT ILLNESS: This is a 74-year-old gentleman, who presented to the hospital earlier this morning with a complaint of fall and dizziness. The patient's baseline creatinine was in the 1's, which had increased to 2.7. He had had increased episodes of acute kidney injury, so I was consulted. The patient is getting Alimta for lung cancer and has received carboplatin in the past. The patient denies any NSAID, nausea, vomiting, or chest pain, but has been on diuretics. PAST MEDICAL HISTORY: Significant for stage IV lung cancer, coronary artery disease, CABG, diastolic heart failure, thoracentesis, thoracoscopy, pleurodesis, history of anemia, history of pancytopenia, and history of edema. SOCIOECONOMIC HISTORY: No alcohol or drug use. FAMILY HISTORY: Negative for ESRD. ALLERGIES: REVIEWED. MEDICATIONS: Home medications list, reviewed. Hospital medications list, reviewed. REVIEW OF SYSTEMS: A 15-point review of systems was performed, was negative except for positives noted above. HEENT: Eyes intact, no diplopia. Ears: No hearing loss or earache. Nose: No discharge or bleeding. CHEST: No cough or phlegm. ABDOMEN: No nausea or vomiting. GENITOURINARY: No hematuria. No Ng catheter. MUSCULOSKELETAL: No low back pain. No joint swelling or pain. NEUROLOGICAL: No syncope. No seizures. SKIN: No complaints of rash or itching. PSYCHIATRIC: No depression. CONSTITUTIONAL: No weight loss or loss of appetite. PHYSICAL EXAMINATION: GENERAL: The patient is awake and alert. VITAL SIGNS: Afebrile, pulse 75, breathing at 16, blood pressure 112/60. HEENT: Head normocephalic and atraumatic. Eyes intact, no ulcers. Nose intact, no ulcers. Ears intact, no ulcers. NECK: Supple. No JVD. CHEST: Symmetrical and clear. CARDIOVASCULAR: Shows S1 and S2, no rub, no murmur. GASTROINTESTINAL: Abdomen is soft, bowel sounds positive. EXTREMITIES: Lower extremities have edema. SKIN: Shows no rash or petechiae. MUSCULOSKELETAL: Shows no joint swelling or stiffness. GENITOURINARY: Shows no Ng or CVA tenderness. NEUROLOGIC: Motor intact. Cranial nerves intact. LABORATORY DATA: Show urine has protein. Creatinine 2.5. ASSESSMENT AND PLAN: 1. Acute kidney injury with chronic kidney disease, most likely due to and decreased effective arterial blood volume. Continue hydration at lowered. 2. Hyponatremia, most likely because of renal failure. We will restrict fluid. 3. Hypotension, episodic. Hold diuretics. 4. Proteinuria. We will order random urine protein-creatinine ratio. The patient was exposed to in the past, and current medication list is appropriate. Other etiologies could be cardiorenal syndrome. Job ID: [id number]
[2019-09-26] MEDS ORDERED: Atorvastatin Calcium 40 MG TAB PO SCH (21:00)
[2019-09-26] MEDS: Famotidine 20 MG TAB PO SCH (21:18)
[2019-09-26] MEDS: Ezetimibe 10 MG TAB PO SCH (21:18)
--- NOTE | 2019-09-26 21:32 | CON ---
DATE OF CONSULTATION: REASON FOR CONSULTATION: Lung cancer. HISTORY OF PRESENT ILLNESS: A 74-year-old male, with stage IV lung cancer, status post chemotherapy and immunotherapy, currently on maintenance Alimta chemotherapy, presenting to the hospital after a fall. The patient states he has been feeling dizzy and lightheaded over the past week and passed out, was unconscious for a few minutes and hit his head. This has never happened to him before. Of note, he has recently been taking spironolactone, hydrochlorothiazide, metolazone, and Lasix for diuretics for extensive lower extremity edema, which is at great benefit in his swelling. He denies any other complaints at this time and has a good appetite and denies any worsening shortness of breath. He is due for a PET scan tomorrow to re-stage his cancer. Upon presentation to the hospital, he was found to be hypotensive and in AFib with RVR and admitted to the [facility] and started on a Cardizem drip. Currently, his heart rate is between 80 and 95 and he remains on Cardizem drip. He is also hypotensive as low as 70/55, and currently blood pressure is normal. The patient was found to have CINDI on CKD. The patient's hemoglobin was pretty low on admission, thought to be a lab error as it increased by 1.5 g on repeat. The patient has now received 2 units of blood and does feel a little bit better. 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 REVIEW OF SYSTEMS: 10-point review of systems negative except as per HPI. PAST MEDICAL HISTORY: Stage IV lung cancer, CAD, heart failure. PAST SURGICAL HISTORY: CABG, thoracentesis, thoracoscopy, pleurodesis, MediPort placement. FAMILY HISTORY: Unknown. SOCIAL HISTORY: Former smoker. No alcohol. PHYSICAL EXAMINATION: VITAL SIGNS: Temperature 97.9, pulse ranges 80-96, blood pressure 112/60, saturating 94% on room air, respirations 13. GENERAL APPEARANCE: The patient is sitting up in bed, in no acute distress, eating dinner. HEENT: Normocephalic and atraumatic. CARDIOVASCULAR: S1 and S2. Regular rate and rhythm. No tachycardia. No murmurs. Respirations are nonlabored with some mild rhonchorous breath sounds. ABDOMEN: Soft, nondistended, and nontender. EXTREMITIES: Very minimal swelling in bilateral lower extremities. NEUROLOGIC: Cranial nerves 2 through 12 are grossly intact. PSYCHIATRIC: Awake, alert, and oriented x3. LABORATORY DATA: White blood cells 3.2, hemoglobin 7.6, platelets 21. Sodium 124, potassium 3.1, BUN 42, creatinine 2.53, calcium 7.5. Iron 186%, saturation of 105, ferritin 4154, vitamin B12 of 1461, folate 18.60. IMAGING DATA: CT brain shows no METS. Chest x-ray shows development of right-sided pleural effusion and right upper lobe infiltrative appearing lung change. ASSESSMENT AND PLAN: A 74-year-old male, with stage IV lung cancer, on maintenance Alimta chemotherapy, sent to the hospital with syncope, atrial fibrillation with rapid ventricular response, electrolyte disturbances, and acute kidney injury on chronic kidney disease. Acute kidney injury on chronic kidney disease is likely multifactorial secondary to extensive diuretic use and potentially sepsis or ischemic nephropathy and/or obstruction. Dr. Conn has seen the patient and is ordering an ultrasound of the kidneys. The patient is pancytopenic secondary to chemotherapy and currently is not neutropenic and platelets should slowly improve overtime. He is chronically anemic and has a little bit worsening anemia, but has responded appropriately to 2 units of packed red blood cells. He denies any bleeding; however, occult stool is currently pending. The patient has received an echocardiogram and is continuing on Cardizem drip for the moment for his AFib and if this can be titrated off, he can be hopefully sent down to the floor and I believe he is being planned to send to telemetry. The patient's PET scan tomorrow has been postponed until next week and we will this upon discharge from the hospital. I discussed all of this with the patient and his at the bedside. Job ID: [id number]
--- NOTE | 2019-09-26 21:38 | PDOC.EVN ---
Event Note - Event Note Event Note: Feeling substantially better already. Thinks the transfusion helped. On the Eliquis for DVT of the LUE. VS reviewed. Still in afib. Anemia, syncope, CINDI, hyponatremia. Made Dr. Powers aware of the situation with the patient. CBC, BMP Consult Cards, Nephrology.
[2019-09-27] MEDS: Sodium Chloride 0.9% 1,000 ML IV SCH ×2 (06:40→17:59)
[2019-09-27] MEDS: predniSONE 5 MG TAB PO SCH (09:06)
[2019-09-27] MEDS: Folic Acid 1 MG TAB PO SCH (09:06)
[2019-09-27] MEDS: Aspirin Chewable 81 MG TAB PO SCH (09:06)
[2019-09-27 09:29] LABS: Anion Gap 11 mmol/L (10-20); BUN (Urea Nitrogen) 39 mg/dL (8.4-25.7); Calc. Creatinine Clearance 26 mL/min (70-130); Calcium 7.5 mg/dL (7.8-10.44); Carbon Dioxide 18 mmol/L (23-31); Chloride 100 mmol/L (98-107); Estimated GFR-MDRD 26; Glucose 107 mg/dL (83-110); Magnesium 1.9 mg/dL (1.6-2.6); Sodium 126 mmol/L (136-145)
[2019-09-27 09:34] LABS: Potassium 2.9 mmol/L (3.5-5.1)
[2019-09-27 09:40] LABS: #Lymphocytes 0.7 thou/uL (1.20-3.40); #Monocytes 0.4 thou/uL (0.11-0.59); %Basophils 0.1 % (0.0-1.0); %Eosinophils 0.8 % (0.0-10.0); %Lymphocytes 16.1 % (21.0-51.0); %Monocytes 8.8 % (0.0-10.0); %Neutrophils 74.2 % (42.0-75.0); Hemoglobin 7.2 g/dL (14.0-18.0); Mean Corpuscular HGB CONC 35.9 g/dL (32.0-36.0); Mean Corpuscular Hemoglobin 37.4 pg (27.0-31.0); Mean Platelet Volume 10.5 fL (7.4-10.4); Platelet Count 28 thou/uL (130-400); RBC Distribution Width 20.9 % (11.5-14.5); Red Blood Cell (RBC) Count 1.91 mill/uL (4.70-6.10); White Blood Cell (WBC) Count 4.1 thou/uL (4.8-10.8)
[2019-09-27] MEDS ORDERED: Potassium Chloride 20 MEQ TAB PO SCH (10:00)
--- NOTE | 2019-09-27 11:37 | PDOC.HOSPP ---
- Subjective Encounter Date: 09/27/19 Encounter Time: 11:35 Subjective: Continues to feel well. Has not had BM since admission. Queries whether the diuretics he has been getting through Dr. Rubio's office might have contributed to the current situation. - Objective Vital Signs & Weight: Vital Signs (12 hours) Temp Pulse Ox 09/27/19 08:00 100 09/27/19 07:51 97.9 F 09/27/19 05:00 97.8 F 09/27/19 00:00 97.6 F Weight Admit Weight 156 lb Weight 158 lb 6 oz Most Recent Monitor Data Heart Rate from ECG 77 NIBP 116/55 NIBP BP-Mean 75 Respiration from ECG 20 SpO2 100 I&O: 09/26/19 09/27/19 09/28/19 06:59 06:59 06:59 Intake Total 1300 1626 Output Total 300 900 Balance 1000 726 Result Diagrams: 09/27/19 09:04 09/27/19 09:04 Hospitalist ROS - Medication Medications: Active Medications Generic Name Dose Route Start Last Admin Trade Name Joseq PRN Reason Stop Dose Admin Aspirin 81 mg 09/26/19 09:00 09/27/19 09:06 Aspirin Chewable PO 81 mg DAILY GLADIS Administration Atorvastatin Calcium 80 mg 09/26/19 21:00 09/26/19 21:18 Lipitor PO 80 mg HS GLADIS Administration Ezetimibe 10 mg 09/26/19 21:00 09/26/19 21:18 Zetia PO 10 mg HS GLADIS Administration Famotidine 20 mg 09/26/19 21:00 09/26/19 21:18 Pepcid PO 20 mg HS GLADIS Administration Folic Acid 1 mg 09/26/19 09:00 09/27/19 09:06 Folvite PO 1 mg DAILY GLADIS Administration Diltiazem HCl 125 mg/ 125 mls @ 5 mls/hr 09/25/19 22:15 09/26/19 21:17 Miscellaneous Medication 1 IVPB 125 mls each/ Sodium Chloride INF GLADIS Administration Protocol Sodium Chloride 1,000 mls @ 75 mls/hr 09/26/19 00:45 09/27/19 06:40 Normal Saline 0.9% IV 1,000 mls .[id number] GLADIS Administration Potassium Chloride 40 meq 09/27/19 10:00 09/27/19 10:10 K-Dur PO 09/27/19 12:00 40 meq NOW GLADIS Administration Prednisone 5 mg 09/26/19 09:00 09/27/19 09:06 Prednisone PO 5 mg DAILY GLADIS Administration - Exam General Appearance: NAD, awake alert Neck: supple, symmetric, no JVD, no thyromegaly, no lymphadenopathy, no carotid bruit Heart: no murmur, no gallops, no rubs, irregular Respiratory: CTAB, no wheezes, no rales, no ronchi, normal chest expansion, no tachypnea, normal percussion Gastrointestinal: soft, non-tender, non-distended, normal bowel sounds, no palpable masses, no hepatomegaly, no splenomegaly, no bruit Extremities - other findings: Mild eryth dist LE's. Decreased pulses. No edema. BUE edema. Neurological: no focal deficits Musculoskeletal: generalized weakness Psychiatric: normal affect, normal behavior, A&O x 3 Hosp A/P (1) CINDI (acute kidney injury) Code(s): N17.9 - ACUTE KIDNEY FAILURE, UNSPECIFIED Status: Acute (2) Deep vein thrombosis (DVT) of brachial vein of left upper extremity Code(s): I82.622 - ACUTE EMBOLISM AND THROMBOSIS OF DEEP VEINS OF L UP EXTREM Status: Acute Qualifiers: Chronicity: acute Qualified Code(s): I82.622 - Acute embolism and thrombosis of deep veins of left upper extremity (3) Hyponatremia Code(s): E87.1 - HYPO-OSMOLALITY AND HYPONATREMIA Status: Acute (4) Hypotension Status: Acute (5) Lung cancer Code(s): C34.90 - MALIGNANT NEOPLASM OF UNSP PART OF UNSP BRONCHUS OR LUNG Status: Acute (6) 3-vessel CAD Status: Chronic (7) HTN (hypertension) Code(s): I10 - ESSENTIAL (PRIMARY) HYPERTENSION Status: Chronic Qualifiers: Hypertension type: essential hypertension Qualified Code(s): I10 - Essential (primary) hypertension (8) Macrocytic anemia Code(s): D53.9 - NUTRITIONAL ANEMIA, UNSPECIFIED Status: Chronic (9) Pancytopenia Code(s): D61.818 - OTHER PANCYTOPENIA Status: Acute (10) Hypokalemia Code(s): E87.6 - HYPOKALEMIA Status: Acute (11) Atrial fibrillation Code(s): I48.91 - UNSPECIFIED ATRIAL FIBRILLATION Status: Acute (12) PVD (peripheral vascular disease) with claudication Code(s): I73.9 - PERIPHERAL VASCULAR DISEASE, UNSPECIFIED Status: Acute - Plan Afib: Rate controlled. Still on Dilt gtt. Cardio consult pending. Can likely convert to po's, but with peripheral edema concerned the CCB will exacerbate that. Echo without significant findings. Will resume the Eliquis. Doubt there is GI bleeding at this point. Anemia: Part of the pancytopenia from chemo (Alimta) Transfused. Feels better. Continue to monitor. Counts improving overall. No BM yet to check FOBT. Syncope: 2/2 anemia. LUE DVT: Resume Eliquis. CINDI: Likely multifactorial - anemia, chemo, afib, hypotension. Neph following. Very slightly better today. Holding diuretics. Lung Cancer: on Alimta. Appreciate Onc. Hypokalemia: Replace. Hyponatremia: 2/2 CINDI. Improving. Dispo: To telemetry. PT consult. Says he does ambulate about 10 feet at home. Limited by PVD.
[2019-09-27] MEDS: methylPREDNISolone Sod Succ 40 MG VIAL IVP SCH ×3 (12:53→23:20)
--- NOTE | 2019-09-27 13:06 | PRG ---
DATE OF SERVICE: 09/27/2019 SUBJECTIVE: This is a 74-year-old gentleman, being seen for acute kidney injury. The patient denied any nausea, vomiting, or chest pain. PHYSICAL EXAMINATION: General: The patient is awake and alert. Vital Signs: Afebrile, pulse 69, breathing at 16, blood pressure 133/84. HEENT: Head normocephalic and atraumatic. Eyes intact, no ulcers. Nose intact, no ulcers. Ears intact, no ulcers. Neck: Supple. No JVD. Chest: Symmetrical and clear. Cardiovascular: Shows S1 and S2, no rub, no murmur. Gastrointestinal: Abdomen is soft, bowel sounds positive. Extremities: Show no edema or ulcers. Skin: Shows no rash or petechiae. Musculoskeletal: Shows no joint swelling or stiffness. Genitourinary: Shows no Ng or CVA tenderness. Neurologic: Motor intact. Cranial nerves intact. LABORATORY DATA: Labs showed hemoglobin 7.2. Creatinine is 2.4. ASSESSMENT AND PLAN: 1. Acute kidney injury, improved. 2. Hyponatremia, improved. 3. Hypokalemia, recommend aggressive potassium replacement. 4. Stress-dose steroids no indication for dialysis at this time. Job ID: [id number]
[2019-09-27] MEDS ORDERED: Apixaban 2.5 MG TAB PO SCH (13:15)
--- NOTE | 2019-09-27 13:41 | ULT ---
Exam: Bilateral renal ultrasound HISTORY: Acute kidney insufficiency COMPARISON: None FINDINGS: Right kidney: Normal cortical echotexture. Trace hydronephrosis. Hydronephrosis persists after postvo iding Right kidney measurements: 5.0 x 4.8 x 11.4 cm. Left kidney: Normal cortical echotexture. No hydronephrosis Left kidney measurements 11.7 x 4.6 x 4.9 cm. Urinary bladder: Normal mucosa. IMPRESSION: 1. Trace hydronephrosis in the right kidney, persisting after voiding.
[2019-09-27] MEDS ORDERED: Diltiazem 125 MG in Sodium Chloride 0.9% 100 ML IVPB SCH (18:15)
[2019-09-27] MEDS ORDERED: Senokot 8.6 MG TAB PO PRN (18:29)
[2019-09-27] MEDS: Ezetimibe 10 MG TAB PO SCH (21:09)
[2019-09-27] MEDS: Famotidine 20 MG TAB PO SCH (21:10)
[2019-09-27] MEDS: Atorvastatin Calcium 40 MG TAB PO SCH (21:10)
[2019-09-27] MEDS: Apixaban 5 MG TAB PO SCH (21:11)
[2019-09-27] MEDS ORDERED: Metoprolol Tartrate 25 MG TAB PO SCH (22:00)
[2019-09-28 00:38] LABS: Anion Gap 13 mmol/L (10-20); BUN (Urea Nitrogen) 44 mg/dL (8.4-25.7); Calc. Creatinine Clearance 28 mL/min (70-130); Calcium 7.1 mg/dL (7.8-10.44); Carbon Dioxide 13 mmol/L (23-31); Chloride 105 mmol/L (98-107); Estimated GFR-MDRD 28; Glucose 123 mg/dL (83-110); Potassium 3.4 mmol/L (3.5-5.1); Sodium 128 mmol/L (136-145)
--- NOTE | 2019-09-28 01:28 | CON ---
DATE OF CONSULTATION: HISTORY OF PRESENT ILLNESS: Martinez Guthrie is a 74-year-old white male with history of CABG x4 in April 2018. Currently, he has stage IV adenocarcinoma of the lung and is undergoing chemotherapy. He also had brachial vein thrombosis and is on Eliquis. After bypass surgery, he had episodes of nonsustained ventricular tachycardia and was evaluated by Dr. Lei. The patient had normal left ventricular function and was felt that he should just be treated with beta kishan. Somewhere along the line it has been discontinued. He now presents after having a syncopal episode at home, he was out for approximately 2 minutes. When he presented, his hemoglobin was 5.7. He was found to be in atrial fibrillation with fast ventricular response and also has had episodes of nonsustained ventricular tachycardia. He denies any chest discomfort. PAST MEDICAL HISTORY: Adenocarcinoma of the lung, stage IV, coronary artery disease, hypertension, hyperlipidemia, history of breast cancer. PAST SURGICAL HISTORY: CABG, hernia surgery, tonsillectomy, resection of breast cancer. HOME MEDICATIONS: 1. Eliquis 5 mg b.i.d. 2. Aspirin 81 daily. 3. Atorvastatin 40 at bedtime. 4. Zetia 10 at bedtime. 5. Pepcid 20 at bedtime. 6. Furosemide 20 b.i.d. 7. Metolazone 2.5 mg p.r.n. 8. Prednisone 5 mg daily. ALLERGIES: NONE. SOCIAL HISTORY: He smoked 2 packs per day, but stopped in 1991. PHYSICAL EXAMINATION: VITAL SIGNS: Blood pressure 127/70, pulse 69, in sinus rhythm on the monitor. HEENT: PERRL. NECK: Supple. CHEST: Clear. CARDIAC: S1 and S2 normal without any S3, S4, or murmurs. ABDOMEN: Normal bowel sounds without tenderness. EXTREMITIES: There is trace pretibial edema. NEUROLOGIC: Grossly intact. LABORATORY DATA: EKG on admission revealed atrial fibrillation with fast ventricular response of 109 per minute, nonspecific ST-segment changes. Echocardiogram revealed ejection fraction of 50%, with moderate to severely dilated left atrium, [id number] mitral regurgitation, mild to moderate tricuspid regurgitation. Hemoglobin 5.7 on admission, which is up to 7.2 today. Platelets 23,000, white count 2.3 at the time of admission, sodium 126, potassium 2.9, chloride 100, BUN 39, creatinine 2.47. IMPRESSION: 1. Syncope, possibly due to severe anemia, although could have had some type of cardiac arrhythmia. 2. Atrial fibrillation, which converted to sinus rhythm. 3. Nonsustained ventricular tachycardia, which was seen after bypass surgery. 4. Acute kidney injury. 5. Hyponatremia. 6. History of left upper extremity deep venous thrombosis. 7. Severe pancytopenia secondary to chemotherapy. 8. Stage IV lung cancer. PLAN: Mr. Guthrie was on beta-blockers in the past, is not at the present time, he is not certain why. He was on 50 mg per day of metoprolol. We will taper his Cardizem and restart him at 12.5 mg b.i.d. and this may need to be further increased. Diuretics will be held at this time. Job ID: [id number]
[2019-09-28] MEDS: methylPREDNISolone Sod Succ 40 MG VIAL IVP SCH (06:23)
[2019-09-28] MEDS: Sodium Chloride 0.9% 1,000 ML IV SCH (07:22)
[2019-09-28] MEDS ORDERED: Potassium Chloride 20 MEQ TAB PO SCH (08:15)
[2019-09-28] MEDS: Aspirin Chewable 81 MG TAB PO SCH (08:22)
[2019-09-28] MEDS: Apixaban 5 MG TAB PO SCH ×2 (08:22→20:13)
[2019-09-28] MEDS: Folic Acid 1 MG TAB PO SCH (08:22)
[2019-09-28] MEDS: Metoprolol Tartrate 25 MG TAB PO SCH ×2 (08:22→20:13)
[2019-09-28] MEDS: predniSONE 5 MG TAB PO SCH (08:23)
--- NOTE | 2019-09-28 11:33 | PDOC.CPN ---
- Subjective Date: 09/28/19 Time: 11:05 Interval history: C/o edema to arm. No CP, SOB or WAD[place]ORTH. - Review of Systems General: denies: fever/chills, weight/appetite/sleep changes, night sweats, fatigue Respiratory: denies: cough, congestion, shortness of breath, exercise intolerance Cardiovascular: denies: chest pain, palpitation, edema, paroxysmal nocturnal dyspnea, orthopnea Gastrointestinal: denies: nausea, vomiting, diarrhea, constipation, abd pain, GI bleeding Musculoskeletal: denies: pain, tenderness, stiffness, swelling, arthritis/ arthralgias Neurological: denies: numbness, syncope, seizure, weakness - Objective Allergies/Adverse Reactions: Allergies Allergy/AdvReac Type Severity Reaction Status Date / Time No Known Drug Allergies Allergy Verified 06/21/18 14:32 Visit Medications: Current Medications Apixaban (Eliquis) 5 mg PO BID [facility] Last Admin: 09/28/19 08:22 Dose: 5 mg Aspirin (Aspirin Chewable) 81 mg PO DAILY [facility] Last Admin: 09/28/19 08:22 Dose: 81 mg Atorvastatin Calcium (Lipitor) 40 mg PO [facility] Last Admin: 09/27/19 21:10 Dose: 40 mg Ezetimibe (Zetia) 10 mg PO HS [facility] Last Admin: 09/27/19 21:09 Dose: 10 mg Famotidine (Pepcid) 20 mg PO [facility] Last Admin: 09/27/19 21:10 Dose: 20 mg Folic Acid (Folvite) 1 mg PO DAILY [facility] Last Admin: 09/28/19 08:22 Dose: 1 mg Sodium Chloride (Normal Saline 0.9%) 1,000 mls @ 75 mls/hr IV .[id number] [facility] Last Admin: 09/28/19 07:22 Dose: Not Given Metoprolol Tartrate (Lopressor) 12.5 mg PO BID [facility] Last Admin: 09/28/19 08:22 Dose: 12.5 mg Prednisone (Prednisone) 20 mg PO DAILY [facility] Last Admin: 09/28/19 08:23 Dose: 20 mg Senna (Senokot) 2 tab PO HSPRN PRN PRN Reason: Constipation Last Admin: 09/27/19 23:19 Dose: 2 tab Sodium Chloride (Flush - Normal Saline) 10 ml IVF Q12HR [facility] Last Admin: 09/28/19 08:23 Dose: 10 ml Sodium Chloride (Flush - Normal Saline) 10 ml IVF PRN PRN PRN Reason: Saline Flush Vital Signs & Weight: Vital Signs Temp Pulse Resp BP Pulse Ox 09/28/19 07:18 98.0 F 55 L 16 135/71 95 09/28/19 04:40 97.8 F 82 16 122/58 L 98 09/27/19 23:35 98.6 F 69 16 155/77 H 93 L Admit Weight 156 lb Weight 159 lb 14.4 oz - Physical Exam General: alert & oriented x3, appears well HEENT: mucus membranes moist Neck: supple neck Cardiac: regular rate and rhythm Lungs: clear to auscultation Neuro: grossly intact Abdomen: unremarkable, soft Extremities: 1+ LE edema, other: (+2 UEE bilaterally) Musculoskeletal: normal range of motion - Labs Result Diagrams: 09/27/19 09:04 09/28/19 00:20 Troponin/CKMB CK-MB (CK-2) 1.1 ng/mL (0-6.6) 09/25/19 20:20 Troponin I 0.055 ng/mL (< 0.028) H 09/26/19 04:15 - Assessment/Plan Assessment/Plan: 1. DEBRA/CKD 2. edema 3. NSVT 4. CAD s/p CABG 5. Hypokalemia Replace Potassium. Continue monitoring renal function. Cautious hydration secondary to edema. Noe Wang MD-Pt seen and exaimned. Agree with above. Edema likely secondary to Alimta Contiue to ambulate Pt states he is weak Increase fluids secondary to Orthostatic hypotension
[2019-09-28] MEDS ORDERED: diphenhydrAMINE 25 MG CAP PO SCH (12:15)
--- NOTE | 2019-09-28 15:25 | PDOC.HOSPP ---
- Subjective Encounter Date: 09/28/19 Encounter Time: 10:00 Subjective: no overnight events. This morning, breathing is better even when completely supine but dyspnea on exertion persists (baseline). Otherwise no complaints. - Objective Vital Signs & Weight: Vital Signs (12 hours) Temp Pulse Pulse Pulse Pulse Resp BP 09/28/19 11:37 75 76 74 114/56 L 09/28/19 11:30 97.7 F 72 16 09/28/19 07:18 98.0 F 55 L 16 09/28/19 04:40 97.8 F 82 16 BP BP BP Pulse Ox 09/28/19 11:37 110/57 L 117/62 09/28/19 11:30 124/59 L 100 09/28/19 07:18 135/71 95 09/28/19 04:40 122/58 L 98 Weight Admit Weight 156 lb Weight 159 lb 14.4 oz Most Recent Monitor Data Heart Rate from ECG 78 NIBP 132/57 NIBP BP-Mean 82 Respiration from ECG 14 SpO2 100 I&O: 09/27/19 09/28/19 09/29/19 06:59 06:59 06:59 Intake Total 1626 Output Total 900 Balance 726 Result Diagrams: 09/27/19 09:04 09/28/19 00:20 Hospitalist ROS - Review of Systems Constitutional: denies: fever, chills, sweats, weakness, malaise, other Respiratory: denies: cough, dry, shortness of breath, hemoptysis, SOB with excertion, pleuritic pain, sputum, wheezing, other Cardiovascular: denies: chest pain, palpitations, orthopnea, paroxysmal noc. dyspnea, edema, light headedness, other Gastrointestinal: denies: nausea, vomiting, abdominal pain, diarrhea, constipation, melena, hematochezia, other Genitourinary: denies: dysuria, frequency, incontinence, hematuria, retention, other - Medication Medications: Active Medications Generic Name Dose Route Start Last Admin Trade Name Freq PRN Reason Stop Dose Admin Apixaban 5 mg 09/27/19 21:00 09/28/19 08:22 Eliquis PO 5 mg BID [facility] Administration Aspirin 81 mg 09/26/19 09:00 09/28/19 08:22 Aspirin Chewable PO 81 mg DAILY [facility] Administration Atorvastatin Calcium 40 mg 09/27/19 21:00 09/27/19 21:10 Lipitor PO 40 mg HS [facility] Administration Ezetimibe 10 mg 09/26/19 21:00 09/27/19 21:09 Zetia PO 10 mg HS [facility] Administration Famotidine 20 mg 09/26/19 21:00 09/27/19 21:10 Pepcid PO 20 mg HS [facility] Administration Folic Acid 1 mg 09/26/19 09:00 09/28/19 08:22 Folvite PO 1 mg DAILY [facility] Administration Sodium Chloride 1,000 mls @ 75 mls/hr 09/26/19 00:45 09/28/19 07:22 Normal Saline 0.9% IV Not Given .[id number] [facility] Metoprolol Tartrate 12.5 mg 09/28/19 09:00 09/28/19 08:22 Lopressor PO 12.5 mg BID [facility] Administration Prednisone 20 mg 09/28/19 09:00 09/28/19 08:23 Prednisone PO 20 mg DAILY [facility] Administration Senna 2 tab 09/27/19 18:29 09/27/19 23:19 Senokot PO 2 tab HSPRN PRN Administration Constipation Sodium Chloride 10 ml 09/27/19 21:00 09/28/19 08:23 Flush - Normal Saline IVF 10 ml Q12HR [facility] Administration - Exam General Appearance: NAD, awake alert ENT: normocephalic atraumatic, moist mucosa Heart: RRR, no murmur, no gallops, no rubs Respiratory: no wheezes, no ronchi Respiratory - other findings: mild RLF inspiratory rales Gastrointestinal: soft, non-tender, non-distended, normal bowel sounds Extremities - other findings: b/l pitting to knee level; erythema proximal to ankle b/l Psychiatric: normal affect, normal behavior, A&O x 3 Hosp A/P - Plan #atrial fibrillation (resolved) #NSVT -weaned of cardizem drip; currently metoprolol tartrate 12.5 bid, tolerating well -on eliquis #CINDI over CKD -baseline ~ 1.5; currently 2.3 -u/s showing persistent right hydronephrosis -currently improving; nephrology onboard Anemia: Part of the pancytopenia from chemo (Alimta) Transfused. Feels better. Continue to monitor. Counts improving overall. No BM yet to check FOBT. Syncope: 2/2 anemia. no additional episodes overnight (09/27) LUE DVT: Resume Eliquis. Lung Cancer: on Alimta. Appreciate Onc. Dispo: To telemetry. PT consult. Says he does ambulate about 10 feet at home. Limited by PVD.
--- NOTE | 2019-09-28 19:27 | RAD ---
KUB: 09/28/2019 HISTORY: Constipation FINDINGS: Postoperative clips overlie the pelvis. There is stool within the colon including the cecum and ascending colon as well as in the region of the splenic flexure and descending colon. There is also stool filling the rectum. The bowel gas pattern appears nonobstructed. Provided supine imaging l imits assessment for free intraperitoneal air and small bowel obstruction. There is atherosclerotic calcification in the region of the abdominal aorta, bilateral common iliac arteries, and splenic shadi ry. IMPRESSION: Significant stool seen within the colon as described above.
[2019-09-28] MEDS: Ezetimibe 10 MG TAB PO SCH (20:12)
[2019-09-28] MEDS: Famotidine 20 MG TAB PO SCH (20:12)
[2019-09-28] MEDS: Senokot S 8.6-50 MG TAB PO SCH (20:12)
[2019-09-28] MEDS: Atorvastatin Calcium 40 MG TAB PO SCH (20:13)
[2019-09-28 20:24] LABS: Hemoglobin 7.5 g/dL (14.0-18.0)
[2019-09-28] MEDS ORDERED: Mineral Oil ENEMA PR SCH (21:45)
[2019-09-28] MEDS ORDERED: diphenhydrAMINE 12.5 MG/5 ML UDCUP PO SCH (23:30)
--- NOTE | 2019-09-29 00:34 | PRG ---
DATE OF SERVICE: 09/28/2019 SUBJECTIVE: This is a 74-year-old gentleman, being seen for acute kidney injury. The patient denied nausea, vomiting, or chest pain. OBJECTIVE: GENERAL: The patient is awake and alert. VITAL SIGNS: Afebrile, pulse 61, breathing at 16, blood pressure 120/66. HEENT: Head normocephalic and atraumatic. Eyes intact, no ulcers. Nose intact , no ulcers. Ears intact, no ulcers. Neck: Supple. No JVD. Chest: Symmetrical and clear. Cardiovascular: Shows S1 and S2, no rub, no murmur. Gastrointestinal: Abdomen is soft, bowel sounds positive. Extremities: Show no edema or ulcers. Skin: Shows no rash or petechiae. Musculoskeletal: Shows no joint swelling or stiffness. Genitourinary: Shows no Ng or CVA tenderness. Neurologic: Motor intact. Cranial nerves intact. LABORATORY DATA: Reviewed. ASSESSMENT AND PLAN: 1. Chronic kidney disease stage 4 with acute kidney injury, stable. 2. Hypertension, stable. 3. Anemia, stable. We would recommend transfusion. 4. Hypokalemia, recommend potassium replacement. No indication for dialysis. 5. Hyponatremia, improved. Job ID: [id number] [facility]
[2019-09-29] MEDS: Sodium Chloride 0.9% 1,000 ML IV SCH ×3 (04:30→21:05)
[2019-09-29 04:35] LABS: Hemoglobin 6.7 g/dL (14.0-18.0)
[2019-09-29 04:59] LABS: Anion Gap 12 mmol/L (10-20); BUN (Urea Nitrogen) 45 mg/dL (8.4-25.7); Calc. Creatinine Clearance 32 mL/min (70-130); Calcium 6.8 mg/dL (7.8-10.44); Carbon Dioxide 14 mmol/L (23-31); Chloride 106 mmol/L (98-107); Estimated GFR-MDRD 33; Glucose 116 mg/dL (83-110); Magnesium 1.7 mg/dL (1.6-2.6); Sodium 129 mmol/L (136-145)
[2019-09-29 05:08] LABS: Potassium 2.7 mmol/L (3.5-5.1)
[2019-09-29] MEDS ORDERED: Potassium Chloride 20 MEQ TAB PO SCH (05:45)
[2019-09-29] MEDS ORDERED: Potassium Chloride 20 MEQ in Premix Bag 1 BAG IVPB SCH (05:45)
[2019-09-29] MEDS: predniSONE 5 MG TAB PO SCH (09:12)
[2019-09-29] MEDS: Folic Acid 1 MG TAB PO SCH (09:12)
[2019-09-29] MEDS: Aspirin Chewable 81 MG TAB PO SCH (09:12)
[2019-09-29] MEDS: Senokot S 8.6-50 MG TAB PO SCH ×2 (09:12→21:04)
[2019-09-29] MEDS: Metoprolol Tartrate 25 MG TAB PO SCH ×2 (09:13→21:04)
--- NOTE | 2019-09-29 11:21 | CON ---
DATE OF CONSULTATION: 09/29/2019 REASON FOR CONSULTATION: Melena, anemia. HISTORY OF PRESENT ILLNESS: Martinez Guthrie is a 74-year-old man with a history significant for coronary artery disease status post CABG, upper extremity DVT on Eliquis, and stage IV lung cancer, status post immunotherapy, now on maintenance chemotherapy. He has diastolic heart failure. He has no chronic gastrointestinal symptoms, recalls he has never undergone any EGD or colonoscopy. He was admitted to the hospital 3 days ago after a syncopal episode. He felt weak at home and had a fall. He did not have any seizure activity rather. Upon presentation, he was found to be in atrial fibrillation with rapid ventricular rate and was also hypotensive. He had some degree of acute kidney injury with creatinine up to 2.73. He was treated with Cardizem drip. He did convert to sinus rhythm. Cardiology has evaluated him and started his beta kishan. His diuretics are being held. Notably, he had no gastrointestinal symptoms on presentation. He went about 4 days without a bowel movement, so was given Senokot yesterday after abdominal x-ray showed stool filling the colon. He had a large bowel movement last night and this was noted to be very dark and tarry, which is unusual for him. He had no prior history of any melena or hematochezia. He has not had any bowel movements since last night. He is not having any abdominal pain or other symptoms. Throughout his hospital course, he has been basically at his baseline pancytopenia which is severe. He had an admission hemoglobin of 5.7. He has received 2 units RBC transfusion over the past couple of days. Hemoglobin this morning is 6.7, and he is receiving one more unit. His platelets are quite low, running in the 20s, currently 28. His acute kidney injury is slowly improving with creatinine 1.99. His Eliquis is being held this morning, last dose was last night. He is not on any acid suppression. PAST MEDICAL HISTORY: Stage IV lung cancer on maintenance chemotherapy, coronary artery disease status post CABG, DVT on Eliquis, diastolic heart failure, atrial fibrillation, breast cancer status post surgery. OUTPATIENT MEDICATIONS: 1. Aspirin 81 mg daily. 2. Atorvastatin. 3. Prednisone 5 mg every other day. 4. Vitamin B12 every three weeks. 5. Lasix 20 mg in a.m. and 40 mg in the p.m. 6. Metolazone 2.5 mg daily. ALLERGIES: NO KNOWN DRUG ALLERGIES. INPATIENT MEDICATIONS: 1. Eliquis 5 mg twice daily, held this morning. 2. Aspirin 81 mg daily. 3. Lipitor. 4. Zetia. 5. Pepcid 20 mg at bedtime. 6. Folic acid. 7. Metoprolol 12.5 mg b.i.d. 8. Prednisone 20 mg daily. 9. Senokot b.i.d. SOCIAL HISTORY: He is a former smoker. No alcohol use. FAMILY HISTORY: Unknown. PHYSICAL EXAMINATION: VITAL SIGNS: Temperature 97.8, pulse 68, blood pressure 125/65, 99% oxygen saturation on room air. GENERAL: A 74-year-old man, sitting up in bed comfortably, in no distress, chronically ill, but nontoxic. SKIN: He is pale. No jaundice. No rashes were palpable. He does have some abrasions to the elbow with some mild oozing. EYES: No scleral icterus. Extraocular movements intact. ENT: Mucous membranes moist. No oral lesions. LYMPH: No submandibular or supraclavicular lymphadenopathy. THYROID: Nontender to palpation. HEART: Regular rate and rhythm. LUNGS: Clear to auscultation bilaterally. ABDOMEN: Bowel sounds present. Soft, nontender to palpation throughout. EXTREMITIES: He has some edema of the left upper extremity. NEUROLOGIC: Cranial nerves 2 through 12 intact bilaterally. No focal deficits. LABORATORY STUDIES: Hemoglobin 5.7 on admission. He has received 2 units of RBC transfusion. Today's hemoglobin is 6.7, MCV 104, WBC 4.1, platelets 28. Sodium 129, potassium 2.7, BUN 45, and creatinine 1.99. INR 1.6, ferritin is 4154, vitamin B12 of 1461, folic acid 18.6, magnesium 1.7, total bilirubin 0.6, alkaline phosphatase 56, AST 37, ALT 24. IMAGING STUDIES: Echocardiogram demonstrates ejection fraction 50%. Renal ultrasound showed trace hydronephrosis of the right kidney. Abdominal x-ray from yesterday showed stool filling the colon. No obstructive process. ASSESSMENT AND PLAN: 1. Melena, single episode last night following laxative administration. The patient never had a prior melenic stool. 2. Pancytopenia, with significant chronic anemia and thrombocytopenia. This is secondary to his chemotherapy. He has received multiple RBC transfusions even prior to this admission. Looking back, hemoglobin appears to be about at baseline. Certainly, with this new melenic stool, there may be a component of acute blood loss anemia as well, difficult to say for sure. 3. Deep vein thrombosis, on Eliquis. 4. Severe thrombocytopenia. I had a long discussion with the patient about this melenic stool. With him being on Eliquis in the context of acute kidney injury and such severe thrombocytopenia, he is certainly at high risk for a GI bleeding lesion. On the other hand, he would be very high risk for any endoscopic procedure at this time, particularly the risk of causing injury or bleeding. Agree with holding the Eliquis, and this would need to be held at least two full days prior to considering any endoscopy. We would also like to see the platelet count improved before considering this. So for now, continue regular diet, continue close monitoring for any further overt bleeding. We will start him on IV PPI. We will follow along with you. Job ID: [id number]
[2019-09-29] MEDS ORDERED: Pantoprazole 40 MG VIAL IVP SCH (11:30)
[2019-09-29] MEDS: Acetaminophen 325 MG TAB PO PRN (11:50)
--- NOTE | 2019-09-29 11:58 | PDOC.CPN ---
- Subjective Date: 09/29/19 Time: 09:00 Interval history: Resting comfortably. No complaints. - Review of Systems General: denies: fever/chills, weight/appetite/sleep changes, night sweats, fatigue Respiratory: denies: cough, congestion, shortness of breath, exercise intolerance Cardiovascular: reports: edema. denies: chest pain, palpitation, paroxysmal nocturnal dyspnea, orthopnea Gastrointestinal: denies: nausea, vomiting, diarrhea, constipation, abd pain, GI bleeding Musculoskeletal: denies: pain, tenderness, stiffness, swelling, arthritis/ arthralgias Neurological: denies: numbness, syncope, seizure, weakness - Objective Allergies/Adverse Reactions: Allergies Allergy/AdvReac Type Severity Reaction Status Date / Time No Known Drug Allergies Allergy Verified 06/21/18 14:32 Visit Medications: Current Medications Acetaminophen (Tylenol) 650 mg PO Q6H PRN PRN Reason: Headache/Fever or Pain Last Admin: 09/29/19 11:50 Dose: 650 mg Apixaban (Eliquis) 5 mg PO BID [facility] Last Admin: 09/28/19 20:13 Dose: 5 mg Aspirin (Aspirin Chewable) 81 mg PO DAILY [facility] Last Admin: 09/29/19 09:12 Dose: 81 mg Atorvastatin Calcium (Lipitor) 40 mg PO HS [facility] Last Admin: 09/28/19 20:13 Dose: 40 mg Ezetimibe (Zetia) 10 mg PO HS [facility] Last Admin: 09/28/19 20:12 Dose: 10 mg Famotidine (Pepcid) 20 mg PO HS [facility] Last Admin: 09/28/19 20:12 Dose: 20 mg Folic Acid (Folvite) 1 mg PO DAILY [facility] Last Admin: 09/29/19 09:12 Dose: 1 mg Sodium Chloride (Normal Saline 0.9%) 1,000 mls @ 75 mls/hr IV .[id number] [facility] Last Admin: 09/29/19 09:11 Dose: 1,000 mls Metoprolol Tartrate (Lopressor) 12.5 mg PO BID [facility] Last Admin: 09/29/19 09:13 Dose: 12.5 mg Pantoprazole Sodium (Protonix) 40 mg IVP Q12HR [facility] Pantoprazole Sodium (Protonix) 40 mg IVP NOW [facility] Stop: 09/29/19 13:30 Last Admin: 09/29/19 11:50 Dose: 40 mg Prednisone (Prednisone) 20 mg PO DAILY [facility] Last Admin: 09/29/19 09:12 Dose: 20 mg Senna/Docusate Sodium (Senokot S) 1 tab PO BID [facility] Last Admin: 09/29/19 09:12 Dose: 1 tab Sodium Chloride (Flush - Normal Saline) 10 ml IVF Q12HR [facility] Last Admin: 09/29/19 09:13 Dose: 10 ml Sodium Chloride (Flush - Normal Saline) 10 ml IVF PRN PRN PRN Reason: Saline Flush Vital Signs & Weight: Vital Signs Temp Pulse Resp BP Pulse Ox 09/29/19 07:16 97.8 F 68 14 125/65 99 09/29/19 03:44 97.4 F L 103 H 18 154/70 H 98 Admit Weight 156 lb Weight 159 lb 14.4 oz - Physical Exam General: alert & oriented x3 HEENT: mucus membranes moist Neck: supple neck Cardiac: regular rate and rhythm Lungs: clear to auscultation Abdomen: soft, non-tender Extremities: 2+ LE edema, other: (bilateral UEE) Musculoskeletal: no pain - Labs Result Diagrams: 09/29/19 04:16 09/29/19 04:16 Troponin/CKMB CK-MB (CK-2) 1.1 ng/mL (0-6.6) 09/25/19 20:20 Troponin I 0.055 ng/mL (< 0.028) H 09/26/19 04:15 - Assessment/Plan Assessment/Plan: 1. DEBRA/CKD 2. edema 3. NSVT 4. CAD s/p CABG 5. Hypokalemia Continue with potassium replacement and cautious hydration.
--- NOTE | 2019-09-29 14:55 | PRG ---
DATE OF SERVICE: 09/29/2019 SUBJECTIVE: A 74-year-old gentleman being seen for acute kidney injury. The patient denies any nausea, vomiting, or chest pain. OBJECTIVE: See above. The patient is awake and alert. VITAL SIGNS: Afebrile, pulse 72, breathing 16, and blood pressure 133/84. GENERAL APPEARANCE AND MENTAL STATUS: Fair. HEAD/NECK: Normocephalic. Atraumatic. EYES: EOMI. No deformity. EARS: Clear. No ulcers. NOSE: Intact. No lesions. MOUTH: Clear. No discharge. THROAT: Clear. No exudate. LUNGS: Clear. No crackles. CARDIAC: S1, S2. No rub. ABDOMEN: Benign. Bowel sounds positive. GENITALIA/RECTUM: Ng absent. BACK/EXTREMITIES: Edema 0+. NEUROLOGICAL: Alert and motor intact. SKIN: LYMPHATICS: LABORATORY DATA: Hemoglobin 6.7. Potassium is 2.7 and creatinine 1.9. ASSESSMENT AND PLAN: 1. Acute kidney injury, improved. 2. Chronic kidney disease stage 3, stable and improved. 3. Hypokalemia. Recommend aggressive potassium replacement. 4. Hyponatremia, resolved. No indication for dialysis. 5. Anemia. We would recommend transfusion stat. Job ID: [id number]
[2019-09-29 15:38] LABS: Hemoglobin 7.5 g/dL (14.0-18.0)
[2019-09-29 15:53] LABS: Potassium 3.3 mmol/L (3.5-5.1)
--- NOTE | 2019-09-29 17:40 | PDOC.HOSPP ---
- Subjective Encounter Date: 09/29/19 Encounter Time: 08:00 Subjective: ovnernight, patient had melanotic stool. HgB 6.7, asymptomatic. Held eliquis, consulted GI. Lying comfortably in bed and has no complaints. - Objective Vital Signs & Weight: Vital Signs (12 hours) Temp Pulse Resp BP Pulse Ox 09/29/19 10:53 97.6 F 97 14 123/84 99 09/29/19 07:16 97.8 F 68 14 125/65 99 Weight Admit Weight 156 lb Weight 159 lb 14.4 oz Most Recent Monitor Data Heart Rate from ECG 78 NIBP 132/57 NIBP BP-Mean 82 Respiration from ECG 14 SpO2 100 I&O: 09/28/19 09/29/19 09/30/19 06:59 06:59 06:59 Intake Total 240 350 Output Total 300 Balance -60 350 Result Diagrams: 09/29/19 15:30 09/29/19 15:30 Hospitalist ROS - Review of Systems Constitutional: denies: fever, chills, sweats, weakness, malaise, other Respiratory: denies: cough, dry, shortness of breath, hemoptysis, SOB with excertion, pleuritic pain, sputum, wheezing, other Cardiovascular: denies: chest pain, palpitations, orthopnea, paroxysmal noc. dyspnea, edema, light headedness, other Gastrointestinal: reports: melena. denies: nausea, vomiting, abdominal pain, diarrhea, constipation, hematochezia, other Genitourinary: denies: dysuria, frequency, incontinence, hematuria, retention, other - Medication Medications: Active Medications Generic Name Dose Route Start Last Admin Trade Name Joseq PRN Reason Stop Dose Admin Acetaminophen 650 mg 09/29/19 10:14 09/29/19 11:50 Tylenol PO 650 mg Q6H PRN Administration Headache/Fever or Pain Apixaban 5 mg 09/27/19 21:00 09/28/19 20:13 Eliquis PO 5 mg BID GLADIS Administration Aspirin 81 mg 09/26/19 09:00 09/29/19 09:12 Aspirin Chewable PO 81 mg DAILY GLADIS Administration Atorvastatin Calcium 40 mg 09/27/19 21:00 09/28/19 20:13 Lipitor PO 40 mg HS GLADIS Administration Ezetimibe 10 mg 09/26/19 21:00 09/28/19 20:12 Zetia PO 10 mg HS GLADIS Administration Famotidine 20 mg 09/26/19 21:00 09/28/19 20:12 Pepcid PO 20 mg HS GLADIS Administration Folic Acid 1 mg 09/26/19 09:00 09/29/19 09:12 Folvite PO 1 mg DAILY GLADIS Administration Sodium Chloride 1,000 mls @ 75 mls/hr 09/26/19 00:45 09/29/19 09:11 Normal Saline 0.9% IV 1,000 mls .[id number] GLADIS Administration Metoprolol Tartrate 12.5 mg 09/28/19 09:00 09/29/19 09:13 Lopressor PO 12.5 mg BID GLADIS Administration Prednisone 20 mg 09/28/19 09:00 09/29/19 09:12 Prednisone PO 20 mg DAILY GLADIS Administration Senna/Docusate Sodium 1 tab 09/28/19 21:00 09/29/19 09:12 Senokot S PO 1 tab BID GLADIS Administration Sodium Chloride 10 ml 09/27/19 21:00 09/29/19 09:13 Flush - Normal Saline IVF 10 ml Q12HR GLADIS Administration - Exam General Appearance: NAD, awake alert Heart: RRR, no murmur, no gallops, no rubs Respiratory: CTAB, no wheezes, no rales, no ronchi Gastrointestinal: soft, non-tender, non-distended, normal bowel sounds Extremities: 2+ LE edema Extremities - other findings: b/l pitting equal Skin - other findings: b/l erythema surrounding ankles Psychiatric: normal affect, normal behavior, A&O x 3 Hosp A/P - Plan #Melena -had episode overnight; Hgb 6.7 this morning -transfused 1 x PRBC; responded well -aspirin, Eliquis held -started IV PPI -H&H q6h; transfuse if < 7 -GI consulted #p. atrial fibrillation #NSVT -currently metoprolol tartrate 12.5 bid -eliquis held #CINDI over CKD -baseline ~ 1.5; currently 1.9 -u/s showing persistent right hydronephrosis -currently improving; nephrology onboard chronic Anemia: Part of the pancytopenia from chemo (Alimta) Transfused. Feels better. Continue to monitor. Counts improving overall. No BM yet to check FOBT. Syncope: 2/2 anemia. no additional episodes since (09/27) LUE DVT: eliquis held due to GI bleed. Lung Cancer: on Alimta. Appreciate Onc. Dispo: telemetry. PT consult. Says he does ambulate about 10 feet at home. Limited by PVD.
[2019-09-29] MEDS: Potassium Chloride 20 MEQ TAB PO SCH ×2 (18:10→21:52)
[2019-09-29] MEDS: Ezetimibe 10 MG TAB PO SCH (21:04)
[2019-09-29] MEDS: Atorvastatin Calcium 40 MG TAB PO SCH (21:04)
[2019-09-29] MEDS: Famotidine 20 MG TAB PO SCH (21:04)
[2019-09-29] MEDS: Pantoprazole 40 MG VIAL IVP SCH (21:05)
[2019-09-29 22:12] LABS: Hemoglobin 7.6 g/dL (14.0-18.0)
[2019-09-30 04:32] LABS: Hemoglobin 7.5 g/dL (14.0-18.0)
[2019-09-30 04:58] LABS: Anion Gap 10 mmol/L (10-20); BUN (Urea Nitrogen) 43 mg/dL (8.4-25.7); Calc. Creatinine Clearance 31 mL/min (70-130); Calcium 6.8 mg/dL (7.8-10.44); Carbon Dioxide 15 mmol/L (23-31); Chloride 110 mmol/L (98-107); Estimated GFR-MDRD 31; Glucose 90 mg/dL (83-110); Magnesium 1.6 mg/dL (1.6-2.6); Potassium 3.7 mmol/L (3.5-5.1); Sodium 131 mmol/L (136-145)
[2019-09-30] MEDS: Folic Acid 1 MG TAB PO SCH (09:22)
[2019-09-30] MEDS: Metoprolol Tartrate 25 MG TAB PO SCH ×2 (09:22→21:09)
[2019-09-30] MEDS: Pantoprazole 40 MG VIAL IVP SCH ×2 (09:24→21:09)
[2019-09-30] MEDS: predniSONE 5 MG TAB PO SCH (09:24)
[2019-09-30] MEDS: Senokot S 8.6-50 MG TAB PO SCH ×2 (09:25→21:10)
[2019-09-30 09:37] LABS: Platelet Count 86 thou/uL (130-400)
[2019-09-30] MEDS: Acetaminophen 325 MG TAB PO PRN (11:32)
[2019-09-30] MEDS: Sodium Chloride 0.9% 1,000 ML IV SCH (11:32)
--- NOTE | 2019-09-30 11:58 | PRG ---
DATE OF SERVICE: 09/30/2019 SUBJECTIVE: Mr. Guthrie is feeling fine. He is not having any abdominal pain. He reports he had one further melenic stool yesterday evening, no stool since then. He has some orthostatic hypotension, but has otherwise remained stable. Hemoglobin is stable at 7.5 this morning. Platelets are up to 86. Eliquis being held, starting yesterday morning. OBJECTIVE: VITAL SIGNS: Temperature 97.9, pulse 79, blood pressure 112/58 sitting, 85/55 standing, 114/69 supine, pulse 79, 100% oxygen saturation on room air. GENERAL: No acute distress, pale, lying in bed comfortably. HEART: Regular rate and rhythm. LUNGS: Clear to auscultation bilaterally. ABDOMEN: Soft and nontender to palpation. EXTREMITIES: No peripheral edema. LABORATORY STUDIES: Hemoglobin 7.5, platelets 86. INR 1.6. Sodium is 131, potassium 3.7, BUN 43, creatinine 2.09. ASSESSMENT AND PLAN: 1. Melena, had one further episode last night, with no bowel movements so far today. This makes two melenic bowel movements total. 2. Pancytopenia, with significant chronic anemia and thrombocytopenia. This is secondary to his chemotherapy. Platelet count has come up to 86 over the past few days. 3. Deep vein thrombosis, on Eliquis. Eliquis being held since yesterday morning. The patient remains fairly high risk for any endoscopic procedure. That being said, with improvement in platelet count, this could be considered if needed. We will hold off on this for now, continue regular diet. Continue the IV PPI. Monitor for any further overt bleeding and trend H and H. We will reassess tomorrow, and decide on possible upper endoscopy, possibly the following day. The patient is not really willing to consider any colonoscopy. Please call anytime with questions or concerns. Job ID: [id number]
[2019-09-30 13:29] VITALS: BMI 25.1
--- NOTE | 2019-09-30 18:47 | PRG ---
DATE OF SERVICE: 09/30/2019 SUBJECTIVE: Patient was seen and examined at bedside and overnight events noted. Patient denies any shortness of breath or chest pain or palpitation. No history of nausea or vomiting or diarrhea or fever or chills or cramps. OBJECTIVE: GENERAL: This is a well-built male, in no apparent distress. VITAL SIGNS: Temperature 97.6. Heart rate 87. Respiratory rate 18. Blood pressure 121/64. HEENT: Atraumatic, normocephalic. Oral mucosa is moist NECK: Supple. CARDIOVASCULAR: S1, S2 heard. Rate and rhythm regular. RESPIRATORY: Clear to auscultation. GASTROINTESTINAL: Abdomen is soft. MUSCULOSKELETAL: No tenderness. No edema. DERMATOLOGIC: No skin rash. NEUROLOGIC: Alert and awake and oriented X3. No focal neurologic deficits. Moving all the extremities. PSYCHIATRIC: Mood and affect normal. LABORATORY DATA: Potassium is 3.7, BUN is 43, and creatinine is 2.09. ASSESSMENT AND PLAN: 1. Acute kidney injury on chronic kidney stage 3 stable numbers. We will follow. 2. Hypokalemia, replace. 3. Hyponatremia, better. 4. Edema. 5. Acidosis. 6. History of hypertension. 7. Anemia of chronic disease. 8. Hypoalbuminemia. 9. Hypocalcemia. We will monitor renal function closely. Avoid nephrotoxins. Currently on IV fluids. No other nephrotoxins identified. Renally dose the medications and we will follow. Monitor electrolytes and renal function closely. Job ID: [id number]
--- NOTE | 2019-09-30 20:54 | PDOC.HOSPP ---
- Subjective Encounter Date: 09/30/19 Encounter Time: 07:45 Subjective: no overnight events and no additional bowel movement. This morning, feeling well and eating meal. Has no complaints and denies symtpoms associated with acute anemia. - Objective Vital Signs & Weight: Vital Signs (12 hours) Temp Pulse Pulse Pulse Resp BP BP 09/30/19 15:15 97.6 F 87 18 09/30/19 13:16 93 82 129/59 L 127/58 L 09/30/19 11:26 97.4 F L 78 18 BP Pulse Ox 09/30/19 15:15 121/64 98 09/30/19 13:16 09/30/19 11:26 123/64 100 Weight Admit Weight 156 lb Weight 165 lb 6.4 oz Most Recent Monitor Data Heart Rate from ECG 78 NIBP 132/57 NIBP BP-Mean 82 Respiration from ECG 14 SpO2 100 I&O: 09/29/19 09/30/19 10/01/19 06:59 06:59 06:59 Intake Total 240 2767 1440 Output Total 300 3025 1650 Balance -60 -258 -210 Result Diagrams: 09/30/19 09:14 09/30/19 04:19 Hospitalist ROS - Review of Systems Constitutional: denies: fever, chills, sweats, weakness, malaise, other Respiratory: denies: cough, dry, shortness of breath, hemoptysis, SOB with excertion, pleuritic pain, sputum, wheezing, other Cardiovascular: denies: chest pain, palpitations, orthopnea, paroxysmal noc. dyspnea, edema, light headedness, other Gastrointestinal: denies: abdominal pain, diarrhea, constipation, melena, hematochezia - Medication Medications: Active Medications Generic Name Dose Route Start Last Admin Trade Name Freq PRN Reason Stop Dose Admin Acetaminophen 650 mg 09/29/19 10:14 09/30/19 11:32 Tylenol PO 650 mg Q6H PRN Administration Headache/Fever or Pain Apixaban 5 mg 09/27/19 21:00 09/28/19 20:13 Eliquis PO 5 mg BID GLADIS Administration Aspirin 81 mg 09/26/19 09:00 09/29/19 09:12 Aspirin Chewable PO 81 mg DAILY GLADIS Administration Atorvastatin Calcium 40 mg 09/27/19 21:00 09/29/19 21:04 Lipitor PO 40 mg HS GLADIS Administration Ezetimibe 10 mg 09/26/19 21:00 09/29/19 21:04 Zetia PO 10 mg HS GLADIS Administration Famotidine 20 mg 09/26/19 21:00 09/29/19 21:04 Pepcid PO 20 mg HS GLADIS Administration Folic Acid 1 mg 09/26/19 09:00 09/30/19 09:22 Folvite PO 1 mg DAILY GLADIS Administration Sodium Chloride 1,000 mls @ 75 mls/hr 09/26/19 00:45 09/30/19 11:32 Normal Saline 0.9% IV 1,000 mls .[id number] GLADIS Administration Metoprolol Tartrate 12.5 mg 09/28/19 09:00 09/30/19 09:22 Lopressor PO 12.5 mg BID GLADIS Administration Pantoprazole Sodium 40 mg 09/29/19 21:00 09/30/19 09:24 Protonix IVP 40 mg Q12HR GLADIS Administration Prednisone 20 mg 09/28/19 09:00 09/30/19 09:24 Prednisone PO 20 mg DAILY GLADIS Administration Senna/Docusate Sodium 1 tab 09/28/19 21:00 09/30/19 09:25 Senokot S PO 1 tab BID GLADIS Administration Sodium Chloride 10 ml 09/27/19 21:00 09/30/19 09:25 Flush - Normal Saline IVF Not Given Q12HR GLADIS - Exam General Appearance: NAD, awake alert Heart: RRR, no murmur, no gallops, no rubs, normal peripheral pulses Respiratory: CTAB, no wheezes, no rales, no ronchi, normal chest expansion, no tachypnea, normal percussion Gastrointestinal: soft, non-tender, non-distended, normal bowel sounds, no palpable masses, no hepatomegaly, no splenomegaly, no bruit Extremities: no edema Psychiatric: normal affect, normal behavior, A&O x 3 Hosp A/P - Plan #Melena -no additional episodes; FOBT +ve -HgB 7.5 and stable -GI onboard; high risk for procedure; pending reassessment 09/30; appreciated recs -aspirin, Eliquis held -IV PPI -H&H in AM #p. atrial fibrillation #NSVT -16 beat MAT in AM (09/29); asymptomatic -currently metoprolol tartrate 12.5 bid -eliquis held #CINDI over CKD -baseline ~ 1.5; currently 2.1 -u/s showing persistent right hydronephrosis - nephrology onboard chronic Anemia: Part of the pancytopenia from chemo (Alimta) Transfused. Feels better. Continue to monitor. Counts improving overall. Syncope: 2/2 anemia. no additional episodes since (09/27) LUE DVT: eliquis held due to GI bleed. Lung Cancer: on Alimta. Appreciated Onc. Dispo: telemetry. Says he does ambulate about 10 feet at home. Limited by PVD.
[2019-09-30] MEDS: Atorvastatin Calcium 40 MG TAB PO SCH (21:08)
[2019-09-30] MEDS: Ezetimibe 10 MG TAB PO SCH (21:08)
[2019-09-30] MEDS: Famotidine 20 MG TAB PO SCH (21:09)
[2019-10-01] MEDS: Sodium Chloride 0.9% 1,000 ML IV SCH (00:26)
[2019-10-01 05:10] LABS: Anion Gap 10 mmol/L (10-20); BUN (Urea Nitrogen) 36 mg/dL (8.4-25.7); Calc. Creatinine Clearance 35 mL/min (70-130); Calcium 6.4 mg/dL (7.8-10.44); Carbon Dioxide 14 mmol/L (23-31); Chloride 113 mmol/L (98-107); Estimated GFR-MDRD 35; Glucose 86 mg/dL (83-110); Magnesium 1.5 mg/dL (1.6-2.6); Potassium 3.1 mmol/L (3.5-5.1); Sodium 134 mmol/L (136-145)
[2019-10-01 05:18] LABS: Hemoglobin 7.6 g/dL (14.0-18.0); Mean Corpuscular HGB CONC 35.1 g/dL (32.0-36.0); Mean Corpuscular Hemoglobin 36.7 pg (27.0-31.0); Platelet Count 109 thou/uL (130-400); RBC Distribution Width 19.8 % (11.5-14.5); Red Blood Cell (RBC) Count 2.08 mill/uL (4.70-6.10); White Blood Cell (WBC) Count 10.4 thou/uL (4.8-10.8)
--- NOTE | 2019-10-01 05:22 | PDOC.HOSPP ---
- Subjective Encounter Date: 10/01/19 Encounter Time: 12:00 Subjective: no overnight events. This morning, feels well and has no complaints. no additional bowel movements - Objective Vital Signs & Weight: Vital Signs (12 hours) Temp Pulse Resp BP Pulse Ox 10/01/19 03:55 97.5 F L 83 16 132/62 97 09/30/19 20:00 99 Weight Admit Weight 156 lb Weight 165 lb 6.4 oz Most Recent Monitor Data Heart Rate from ECG 78 NIBP 132/57 NIBP BP-Mean 82 Respiration from ECG 14 SpO2 100 I&O: 09/29/19 09/30/19 10/01/19 06:59 06:59 06:59 Intake Total 240 2767 1440 Output Total 300 3025 1650 Balance -60 -258 -210 Result Diagrams: 10/01/19 04:12 10/01/19 04:12 Hospitalist ROS - Review of Systems Constitutional: denies: fever, chills, sweats, weakness, malaise, other Respiratory: denies: cough, dry, shortness of breath, hemoptysis, SOB with excertion, pleuritic pain, sputum, wheezing, other Cardiovascular: denies: chest pain, palpitations, orthopnea, paroxysmal noc. dyspnea, edema, light headedness, other Gastrointestinal: denies: nausea, vomiting, abdominal pain, diarrhea, constipation, melena, hematochezia, other Genitourinary: denies: dysuria, frequency, incontinence, hematuria, retention, other - Medication Medications: Active Medications Generic Name Dose Route Start Last Admin Trade Name Freq PRN Reason Stop Dose Admin Acetaminophen 650 mg 09/29/19 10:14 09/30/19 11:32 Tylenol PO 650 mg Q6H PRN Administration Headache/Fever or Pain Apixaban 5 mg 09/27/19 21:00 09/28/19 20:13 Eliquis PO 5 mg BID GLADIS Administration Aspirin 81 mg 09/26/19 09:00 09/29/19 09:12 Aspirin Chewable PO 81 mg DAILY GLADIS Administration Atorvastatin Calcium 40 mg 09/27/19 21:00 09/30/19 21:08 Lipitor PO 40 mg HS GLADIS Administration Ezetimibe 10 mg 09/26/19 21:00 09/30/19 21:08 Zetia PO 10 mg HS GLADIS Administration Famotidine 20 mg 09/26/19 21:00 09/30/19 21:09 Pepcid PO 20 mg HS GLADIS Administration Folic Acid 1 mg 09/26/19 09:00 09/30/19 09:22 Folvite PO 1 mg DAILY GLADIS Administration Sodium Chloride 1,000 mls @ 75 mls/hr 09/26/19 00:45 10/01/19 00:26 Normal Saline 0.9% IV Not Given .[id number] GLADIS Metoprolol Tartrate 12.5 mg 09/28/19 09:00 09/30/19 21:09 Lopressor PO 12.5 mg BID GLADIS Administration Pantoprazole Sodium 40 mg 09/29/19 21:00 09/30/19 21:09 Protonix IVP 40 mg Q12HR GLADIS Administration Prednisone 20 mg 09/28/19 09:00 09/30/19 09:24 Prednisone PO 20 mg DAILY GLADIS Administration Senna/Docusate Sodium 1 tab 09/28/19 21:00 09/30/19 21:10 Senokot S PO Not Given BID GLADIS Sodium Chloride 10 ml 09/27/19 21:00 09/30/19 21:16 Flush - Normal Saline IVF 10 ml Q12HR GLADIS Administration - Exam General Appearance: NAD, awake alert Neck: no JVD Heart: RRR, no murmur, no gallops, no rubs, normal peripheral pulses Respiratory: CTAB, no wheezes, no rales, no ronchi, normal chest expansion, no tachypnea, normal percussion Gastrointestinal: soft, non-tender, non-distended, normal bowel sounds Extremities: no edema Psychiatric: normal affect, normal behavior, A&O x 3 Hosp A/P - Plan #Melena -no additional episodes; FOBT +ve -HgB 7.5 and stable -GI onboard; high risk for procedure; pending reassessment 09/30; appreciated recs -aspirin, Eliquis held -IV PPI -H&H #p. atrial fibrillation #NSVT -16 beat MAT in AM (09/29); asymptomatic -currently metoprolol tartrate 12.5 bid -eliquis held #CINDI over CKD -baseline ~ 1.5; currently 1.9 and improving -u/s showing persistent right hydronephrosis - nephrology onboard chronic Anemia: Part of the pancytopenia from chemo (Alimta) Transfused. Feels better. Continue to monitor. Counts improving overall. Syncope: 2/2 anemia. no additional episodes since (09/27) ELDON DVT: nevais held due to GI bleed. Lung Cancer: on Alimta. Appreciated Onc. Dispo: telemetry. Says he does ambulate about 10 feet at home. Limited by PVD.
[2019-10-01] MEDS ORDERED: Magnesium Oxide 400 MG TAB PO SCH (05:30)
[2019-10-01] MEDS: Potassium Chloride 20 MEQ TAB PO SCH ×2 (07:13→10:22)
[2019-10-01] MEDS: Apixaban 5 MG TAB PO SCH (08:38)
[2019-10-01] MEDS: predniSONE 5 MG TAB PO SCH (08:39)
[2019-10-01] MEDS: Senokot S 8.6-50 MG TAB PO SCH ×2 (08:39→20:47)
[2019-10-01] MEDS: Folic Acid 1 MG TAB PO SCH (08:40)
[2019-10-01] MEDS: Metoprolol Tartrate 25 MG TAB PO SCH ×2 (08:40→20:35)
[2019-10-01] MEDS: Pantoprazole 40 MG VIAL IVP SCH ×2 (08:41→20:35)
[2019-10-01] MEDS ORDERED: Sodium Bicarbonate 150 MEQ in Dextrose 5% in Water 1,000 ML IV SCH (13:15)
--- NOTE | 2019-10-01 13:32 | PRG ---
DATE OF SERVICE: 10/01/2019 SUBJECTIVE: Patient was seen and examined at bedside and overnight events noted. Patient denies any shortness of breath or chest pain or palpitation. No history of nausea or vomiting or diarrhea or fever or chills or cramps. OBJECTIVE: General: This is a well-built male, in no apparent distress. Vital Signs: Temperature 98.6. Heart Rate 81. Respiratory rate 18. Blood pressure 130/71. HEENT: Atraumatic, normocephalic. Oral mucosa is moist. Neck: Supple. Cardiovascular: S1, S2 heard. Rate and rhythm regular. Respiratory: Clear to auscultation. Gastrointestinal: Abdomen is soft. Musculoskeletal: No tenderness. No edema. Dermatologic: No skin rash. Neurologic: Alert and awake and oriented x3. No focal neurologic deficits. Moving all the extremities. Psychiatric: Mood and affect normal. LABORATORY DATA: Potassium is 3.1, BUN is 36, creatinine is 1.9. ASSESSMENT AND PLAN: 1. Acute kidney injury on chronic kidney disease, stage 3, stable. 2. Hypokalemia. 3. . 4. Acidosis. 5. Hypomagnesemia. 6. Hypocalcemia. 7. History of hypertension. 8. Replace electrolytes and we will follow. Job ID: [id number]
--- NOTE | 2019-10-01 18:34 | PRG ---
DATE OF SERVICE: 10/01/2019 SUBJECTIVE: Mr. Guthrie is feeling very well. He has no abdominal pain or nausea. He did pass another dark bowel movement just about 30 minutes ago. There has been no bright red blood per rectum. His hemoglobin has been stable. Eliquis has now been held for 2 days, platelets are up to 109. OBJECTIVE: VITAL SIGNS: Temperature 97.8, pulse 85, blood pressure 132/64, 99% oxygen saturation on room air. GENERAL: No acute distress. HEART: Regular rate and rhythm. LUNGS: Clear to auscultation bilaterally. ABDOMEN: Soft, nontender to palpation. EXTREMITIES: No peripheral edema. LABORATORY STUDIES: Hemoglobin stable at 7.6, platelets up to 109, WBC 10.4. Sodium 134, potassium 3.1, BUN down to 36, creatinine down to 1.90. ASSESSMENT AND PLAN: 1. Melena, three separate melenic appearing stools over the past 3 days. 2. Pancytopenia, with significant chronic anemia and thrombocytopenia. Hemoglobin is stable. Thrombocytopenia secondary to chemotherapy, but platelet counts have come up nicely to 109 over the past few days. 3. Deep vein thrombosis, on Eliquis. Eliquis has been held over the past couple of days now. Given the improvement in platelet count, the patient is now more acceptable risk for endoscopic investigation. Given the persistence of melenic stool as well as the significant anemia, I do think we should proceed with EGD tomorrow. The patient is agreeable to this. We will get this scheduled. The patient is not agreeable to any colonoscopy exam, but clinically this seems more consistent with upper gastrointestinal source at any rate. We will schedule EGD for tomorrow. Please have the patient n.p.o. after midnight. Job ID: [id number]
[2019-10-01] MEDS: Ezetimibe 10 MG TAB PO SCH (20:35)
[2019-10-01] MEDS: Atorvastatin Calcium 40 MG TAB PO SCH (20:35)
[2019-10-01] MEDS: Famotidine 20 MG TAB PO SCH (20:35)
[2019-10-02 05:41] LABS: Anion Gap 11 mmol/L (10-20); BUN (Urea Nitrogen) 31 mg/dL (8.4-25.7); Calc. Creatinine Clearance 34 mL/min (70-130); Calcium 6.6 mg/dL (7.8-10.44); Carbon Dioxide 16 mmol/L (23-31); Chloride 112 mmol/L (98-107); Estimated GFR-MDRD 34; Glucose 77 mg/dL (83-110); Magnesium 1.3 mg/dL (1.6-2.6); Potassium 3.4 mmol/L (3.5-5.1); Sodium 136 mmol/L (136-145)
[2019-10-02 05:42] LABS: #Eosinphils 0.1 thou/uL (0.0-0.7); #Lymphocytes 1.3 thou/uL (1.20-3.40); #Monocytes 0.9 thou/uL (0.11-0.59); #Neutrophils 6.9 thou/uL (1.40-6.50); %Basophils 0.2 % (0.0-1.0); %Eosinophils 0.6 % (0.0-10.0); %Lymphocytes 14.3 % (21.0-51.0); Anisocytosis SLIGHT = 6-15 cells (100X) (0-5/hpf); Hemoglobin 7.5 g/dL (14.0-18.0); MDiff Complete? YES; Macrocytosis SLIGHT = 6-15 cells (100X) (0-5/hpf); Mean Corpuscular HGB CONC 36.4 g/dL (32.0-36.0); Mean Corpuscular Hemoglobin 37.9 pg (27.0-31.0); Mean Platelet Volume 9.2 fL (7.4-10.4); Platelet Count 116 thou/uL (130-400); Platelet Morphology Comment Appears Decreased; RBC Distribution Width 19.8 % (11.5-14.5); Red Blood Cell (RBC) Count 1.99 mill/uL (4.70-6.10); White Blood Cell (WBC) Count 9.2 thou/uL (4.8-10.8)
[2019-10-02] MEDS ORDERED: Magnesium 2 GM/50 ML 2 GM in Premix Bag 1 BAG IVPB SCH (07:45)
[2019-10-02] MEDS ORDERED: Potassium Chloride 40 MEQ in Sodium Chloride 0.9% 250 ML 250 ML IVPB SCH (08:00)
[2019-10-02] MEDS: Pantoprazole 40 MG VIAL IVP SCH (08:12)
[2019-10-02] MEDS: Metoprolol Tartrate 25 MG TAB PO SCH ×2 (08:14→20:32)
[2019-10-02] MEDS: Senokot S 8.6-50 MG TAB PO SCH ×2 (08:14→20:13)
[2019-10-02] MEDS: Folic Acid 1 MG TAB PO SCH (08:14)
[2019-10-02] MEDS: predniSONE 5 MG TAB PO SCH (08:14)
[2019-10-02] MEDS ORDERED: PROPOFOL 200 MG/20 ML VIAL ONE (10:05)
[2019-10-02] MEDS ORDERED: GoLYTELY 4,000 ml Bottle PO SCH ×2 (10:30→18:00)
--- NOTE | 2019-10-02 10:54 | OP ---
DATE OF PROCEDURE: 10/02/2019 PREPROCEDURE DIAGNOSES: 1. Melena. 2. Posthemorrhagic anemia. POSTPROCEDURE DIAGNOSIS: Normal esophagogastroduodenoscopy. RECOMMENDATIONS: 1. Colonoscopy if the patient is agreeable. We will talk with him and his and schedule that for tomorrow. 2. Continue to hold anticoagulation at this time. ANESTHESIA: TIVA. DESCRIPTION OF PROCEDURE: After the patient was informed of the risks, benefits, and possible complications of endoscopy including perforation, bleeding, informed consent was obtained and the patient was brought to the endoscopy suite, sedated in gradual fashion. One he was comfortable, a bite-block was placed inside the orifices. The endoscope was advanced into the esophagus, stomach, and second and third portions of the duodenum and slowly removed. There was about 3 cm hiatal hernia with no evidence of erosions or gastritis or strictures. No bleeding sites were identified. The esophagus was normal. There was no reflux esophagitis. The scope was advanced into the stomach, and forward and retroflexed views were normal. There was no evidence of Matthias ulcers or erosions. There was no evidence of incisura ulcers or gastritis. The duodenum was normal to the third portion. The scope was removed. The patient tolerated the procedure well, no complications. Job ID: [id number]
[2019-10-02] MEDS: Potassium Chloride 40 MEQ in Sodium Chloride 0.9% 250 ML 250 ML IVPB SCH ×2 (11:13→15:13)
--- NOTE | 2019-10-02 17:19 | PRG ---
DATE OF SERVICE: 10/02/2019 SUBJECTIVE: Patient was seen and examined at bedside and overnight events noted. Patient denies any shortness of breath or chest pain or palpitation. No history of nausea or vomiting or diarrhea or fever or chills or cramps. OBJECTIVE: GENERAL: This is a well-built male, in no acute distress. VITAL SIGNS: Temperature 91. Pulse 59. Respiratory rate 18. Blood pressure 127/74. HEENT: Atraumatic, normocephalic. Oral mucosa is moist NECK: Supple. CARDIOVASCULAR: S1, S2 heard. Rate and rhythm regular. RESPIRATORY: Clear to auscultation. GASTROINTESTINAL: Abdomen is soft. MUSCULOSKELETAL: No tenderness. No edema. DERMATOLOGIC: No skin rash. NEUROLOGIC: Alert and awake and oriented X3. No focal neurologic deficits. Moving all the extremities. PSYCHIATRIC: Mood and affect normal. LABORATORY DATA: Potassium is 3.4, BUN is 31, and creatinine is 1.9. ASSESSMENT AND PLAN: 1. Acute kidney injury on chronic kidney disease stage 3, stable. 2. Edema, controlled. 3. History of hypotension and hypokalemia. 4. Acidosis. 5. Creatinine is stable. Monitor electrolytes. Job ID: [id number]
--- NOTE | 2019-10-02 18:43 | PDOC.HOSPP ---
- Subjective Encounter Date: 10/02/19 Encounter Time: 09:00 Subjective: no overnight events. This morning, feels well pending EGD. Has no complaints. - Objective Vital Signs & Weight: Vital Signs (12 hours) Temp Pulse Pulse Resp BP BP BP 10/02/19 15:24 91 127/74 10/02/19 15:21 98.1 F 59 L 18 101/54 L 10/02/19 11:03 98.7 F 80 18 117/65 10/02/19 07:29 98 F 80 18 117/69 Pulse Ox 10/02/19 15:24 10/02/19 15:21 100 10/02/19 11:03 98 10/02/19 07:29 Weight Admit Weight 156 lb Weight 166 lb 3.2 oz Most Recent Monitor Data Heart Rate from ECG 78 NIBP 132/57 NIBP BP-Mean 82 Respiration from ECG 14 SpO2 100 I&O: 10/01/19 10/02/19 10/03/19 06:59 06:59 06:59 Intake Total 2820 1780 2220 Output Total 3500 1520 Balance -046 674 0170 Result Diagrams: 10/02/19 04:26 10/02/19 04:26 Hospitalist ROS - Review of Systems Constitutional: denies: fever, chills, sweats, weakness, malaise, other Respiratory: denies: cough, dry, shortness of breath, hemoptysis, SOB with excertion, pleuritic pain, sputum, wheezing, other Cardiovascular: denies: chest pain, palpitations, orthopnea, paroxysmal noc. dyspnea, edema, light headedness, other Gastrointestinal: denies: nausea, vomiting, abdominal pain, diarrhea, constipation, melena, hematochezia, other Genitourinary: denies: dysuria, frequency, incontinence, hematuria, retention, other - Medication Medications: Active Medications Generic Name Dose Route Start Last Admin Trade Name Freq PRN Reason Stop Dose Admin Acetaminophen 650 mg 09/29/19 10:14 09/30/19 11:32 Tylenol PO 650 mg Q6H PRN Administration Headache/Fever or Pain Aspirin 81 mg 09/26/19 09:00 09/29/19 09:12 Aspirin Chewable PO 81 mg DAILY GLADIS Administration Atorvastatin Calcium 40 mg 09/27/19 21:00 03/17/20 20:35 Lipitor PO 40 mg HS GLADIS Administration Ezetimibe 10 mg 09/26/19 21:00 10/01/19 20:35 Zetia PO 10 mg HS GLADIS Administration Famotidine 20 mg 09/26/19 21:00 10/01/19 20:35 Pepcid PO 20 mg HS GLADIS Administration Folic Acid 1 mg 09/26/19 09:00 10/02/19 08:14 Folvite PO 1 mg DAILY GLADIS Administration Metoprolol Tartrate 12.5 mg 09/28/19 09:00 10/02/19 08:14 Lopressor PO 12.5 mg BID GLADIS Administration Polyethylene Glycol/Electrolytes 4,000 ml 10/02/19 18:00 10/02/19 18:14 Golytely PO 10/02/19 22:00 4,000 ml 1800 GLADIS Administration Prednisone 20 mg 09/28/19 09:00 10/02/19 08:14 Prednisone PO 20 mg DAILY GLADIS Administration Senna/Docusate Sodium 1 tab 09/28/19 21:00 10/02/19 08:14 Senokot S PO 1 tab BID GLADIS Administration Sodium Chloride 10 ml 09/27/19 21:00 10/02/19 10:15 Flush - Normal Saline IVF 10 ml Q12HR GLADIS Administration - Exam General Appearance: NAD, awake alert Neck: supple, symmetric, no JVD, no thyromegaly, no lymphadenopathy, no carotid bruit Heart: RRR, no murmur, no gallops, no rubs, normal peripheral pulses Respiratory: CTAB, no wheezes, no rales, no ronchi, normal chest expansion, no tachypnea, normal percussion Gastrointestinal: soft, non-tender, non-distended, normal bowel sounds, no palpable masses, no hepatomegaly, no splenomegaly, no bruit Extremities: no edema Hosp A/P - Plan #Melena -no additional episodes; FOBT +ve -HgB 7.5 and stable -pending EGD -aspirin, Eliquis held -IV PPI -H&H #p. atrial fibrillation #NSVT -currently metoprolol tartrate 12.5 bid -eliquis held #CINDI over CKD -near baseline chronic Anemia: Part of the pancytopenia from chemo (Alimta) Transfused. Feels better. Continue to monitor. Counts improving overall. Syncope: 2/2 anemia. no additional episodes since (3/14) LUE DVT: eliquis held due to GI bleed. Lung Cancer: on Alimta. Appreciated Onc. Dispo: Full code
[2019-10-02] MEDS ORDERED: Sodium Chloride 0.9% 1,000 ML IV SCH (18:45)
[2019-10-02 19:28] LABS: Anion Gap 12 mmol/L (10-20); BUN (Urea Nitrogen) 26 mg/dL (8.4-25.7); Calc. Creatinine Clearance 37 mL/min (70-130); Calcium 6.4 mg/dL (7.8-10.44); Carbon Dioxide 15 mmol/L (23-31); Chloride 111 mmol/L (98-107); Estimated GFR-MDRD 36; Glucose 154 mg/dL (83-110); Magnesium 1.6 mg/dL (1.6-2.6); Potassium 3.8 mmol/L (3.5-5.1); Sodium 134 mmol/L (136-145)
[2019-10-02] MEDS: Atorvastatin Calcium 40 MG TAB PO SCH (20:32)
[2019-10-02] MEDS: Ezetimibe 10 MG TAB PO SCH (20:32)
[2019-10-02] MEDS: Famotidine 20 MG TAB PO SCH (20:32)
[2019-10-02] MEDS: MAGNESIUM SULFATE IV SCH (20:33)
[2019-10-02] MEDS: KCL IV SCH (20:33)
[2019-10-02] MEDS: D5 NS W IV SCH (20:33)
[2019-10-03 05:13] LABS: Anion Gap 11 mmol/L (10-20); BUN (Urea Nitrogen) 22 mg/dL (8.4-25.7); Calc. Creatinine Clearance 40 mL/min (70-130); Calcium 6.3 mg/dL (7.8-10.44); Carbon Dioxide 19 mmol/L (23-31); Chloride 111 mmol/L (98-107); Estimated GFR-MDRD 40; Glucose 93 mg/dL (83-110); Potassium 3.8 mmol/L (3.5-5.1); Sodium 137 mmol/L (136-145)
[2019-10-03] MEDS: KCL IV SCH ×2 (06:06→14:26)
[2019-10-03] MEDS: D5 NS W IV SCH ×2 (06:06→14:26)
[2019-10-03] MEDS: MAGNESIUM SULFATE IV SCH ×2 (06:06→14:26)
[2019-10-03] MEDS: Aspirin Chewable 81 MG TAB PO SCH (08:29)
[2019-10-03] MEDS: predniSONE 5 MG TAB PO SCH (08:29)
[2019-10-03] MEDS: Folic Acid 1 MG TAB PO SCH (08:30)
[2019-10-03] MEDS: Metoprolol Tartrate 25 MG TAB PO SCH ×2 (08:30→21:31)
[2019-10-03] MEDS: Senokot S 8.6-50 MG TAB PO SCH ×2 (08:43→21:32)
[2019-10-03] MEDS ORDERED: EPHEDRINE 25 MG/5 ML SYRINGE ONE ×2 (09:46→10:54)
[2019-10-03] MEDS ORDERED: PROPOFOL 200 MG/20 ML VIAL ONE (09:46)
[2019-10-03] MEDS ORDERED: Lidocaine 1% PF 5 ML VIAL ONE (09:46)
--- NOTE | 2019-10-03 10:41 | PRG ---
DATE OF SERVICE: 10/03/2019 SUBJECTIVE: Patient was seen and examined at bedside and overnight events noted. Patient denies any shortness of breath or chest pain or palpitation. No history of nausea or vomiting or diarrhea or fever or chills or cramps. OBJECTIVE: General: This is a well-built male, in no apparent distress. Vital Signs: Temperature 97.5. Heart Rate 82. Respiratory rate 18. Blood pressure 138/80. HEENT: Atraumatic, normocephalic. Oral mucosa is moist. Neck: Supple. Cardiovascular: S1, S2 heard. Rate and rhythm regular. Respiratory: Clear to auscultation. Gastrointestinal: Abdomen is soft. Musculoskeletal: No tenderness. No edema. Dermatologic: No skin rash. Neurologic: Alert and awake and oriented x3. No focal neurologic deficits. Moving all the extremities. Psychiatric: Mood and affect normal. LABORATORY DATA: Potassium 3.8, BUN is 22, and creatinine is 1.6. ASSESSMENT AND PLAN: 1. Acute kidney injury, better. 2. Chronic kidney disease, stage 3. 3. Edema. 4. History of hypertension. 5. Acidosis, stable. 6. Avoid nephrotoxins, and we will follow. Job ID: [id number]
--- NOTE | 2019-10-03 11:15 | OP ---
DATE OF PROCEDURE: 10/03/2019 PROCEDURE PERFORMED: Colonoscopy (diagnostic). INDICATIONS FOR PROCEDURE: Anemia, melena. DESCRIPTION OF PROCEDURE: After the risks and benefits of the procedure were explained to the patient including risks of bleeding, infection, perforation, reactions to anesthesia, aspiration, and/or pain, informed consent was obtained. The patient was then taken to the endoscopy suite, where he was placed in the left lateral decubitus position, followed by introduction of propofol via Anesthesia support. Once adequate sedation was achieved, a digital rectal examination was performed followed by introduction of the standard colonoscope, which was then advanced to the terminal ileum with some difficulty due to tortuosity and significant looping of the colonoscope. The quality of the prep was good. The patient tolerated the procedure well with no immediate perioperative complications. Upon conclusion of the procedure, all equipment was removed from the patient and he was transferred to PACU in satisfactory condition. FINDINGS: Digital rectal exam: Small nonbleeding external hemorrhoids were seen on external examination. There was no abnormal sphincter tone or masses palpated. Colon findings: Normal-appearing mucosa was seen within the terminal ileum with no evidence of active or recent bleeding seen in this region. Normal-appearing mucosa was then seen at the ileocecal valve, appendiceal orifice, cecum, ascending colon, transverse colon, descending colon, sigmoid colon, and rectum. There was no evidence of active/recent bleeding seen throughout the entire colon. Small to medium-sized internal hemorrhoids were seen on rectal retroflexion. IMPRESSION: 1. Small external and medium-sized internal hemorrhoids (nonbleeding). 2. Otherwise normal colonoscopy. 3. No evidence of the patient's melena was seen during this examination. RECOMMENDATIONS: 1. We would continue to trend the patient's H and H and transfuse as necessary to maintain an H and H of 7/21. 2. Continue to monitor clinically for signs of active GI bleeding. 3. If the patient continues to have decreased H and H and/or evidence of GI bleeding, I would recommend a tagged red cell scan for further evaluation/localization. 4. We would continue to hold anticoagulation for the next 24 to 48 hours, then consider restarting if clinically appropriate. 5. If patient's H/H is stable over the next 24-48 hours, could consider discharge to home with follow up in the outpatient GI clinic. We will continue to follow peripherally at this time. Please call with any additional questions. Job ID: [id number] MTDD
[2019-10-03] MEDS: Acetaminophen 325 MG TAB PO PRN (15:27)
--- NOTE | 2019-10-03 20:32 | PDOC.HOSPP ---
- Subjective Encounter Date: 10/03/19 Encounter Time: 14:00 Subjective: no overnight events. THis morning, underwent colonoscopy and tolerated the procedure well. Has no complaints and denies additional episodes of melena for the past 36 hours. - Objective Vital Signs & Weight: Vital Signs (12 hours) Temp Pulse Resp BP BP Pulse Ox 10/03/19 19:15 98 F 89 20 132/69 100 10/03/19 15:23 99 F 93 18 100/60 98 10/03/19 11:10 97.6 F 86 18 114/58 L 96 Weight Admit Weight 156 lb Weight 166 lb 3.2 oz Most Recent Monitor Data Heart Rate from ECG 78 NIBP 132/57 NIBP BP-Mean 82 Respiration from ECG 14 SpO2 100 I&O: 10/02/19 10/03/19 10/04/19 06:59 06:59 06:59 Intake Total 1780 2220 Output Total 1520 Balance 260 2220 Result Diagrams: 10/02/19 04:26 10/03/19 04:36 Hospitalist ROS - Review of Systems Constitutional: denies: fever, chills, sweats, weakness, malaise, other Respiratory: denies: cough, dry, shortness of breath, hemoptysis, SOB with excertion, pleuritic pain, sputum, wheezing, other Cardiovascular: denies: chest pain, palpitations, orthopnea, paroxysmal noc. dyspnea, edema, light headedness, other Gastrointestinal: denies: nausea, vomiting, abdominal pain, diarrhea, constipation, melena, hematochezia, other Genitourinary: denies: dysuria, frequency, incontinence, hematuria, retention, other - Medication Medications: Active Medications Generic Name Dose Route Start Last Admin Trade Name Freq PRN Reason Stop Dose Admin Acetaminophen 650 mg 09/29/19 10:14 10/03/19 15:27 Tylenol PO 650 mg Q6H PRN Administration Headache/Fever or Pain Aspirin 81 mg 09/26/19 09:00 10/03/19 08:29 Aspirin Chewable PO 81 mg DAILY GLADIS Administration Atorvastatin Calcium 40 mg 09/27/19 21:00 10/02/19 20:32 Lipitor PO 40 mg HS GLADIS Administration Ezetimibe 10 mg 09/26/19 21:00 10/02/19 20:32 Zetia PO 10 mg HS GLADIS Administration Famotidine 20 mg 09/26/19 21:00 10/02/19 20:32 Pepcid PO 20 mg HS GLADIS Administration Folic Acid 1 mg 09/26/19 09:00 10/03/19 08:30 Folvite PO 1 mg DAILY GLADIS Administration Magnesium Sulfate 2 gm/ 1,004 mls @ 100 mls/hr 10/02/19 18:45 10/03/19 14:26 Potassium Chloride/Dextrose/ IV Not Given Sod Cl .Q10H3M [facility] Metoprolol Tartrate 12.5 mg 09/28/19 09:00 10/03/19 08:30 Lopressor PO 12.5 mg BID GLADIS Administration Prednisone 20 mg 09/28/19 09:00 10/03/19 08:29 Prednisone PO 20 mg DAILY GLADIS Administration Senna/Docusate Sodium 1 tab 09/28/19 21:00 10/03/19 08:43 Senokot S PO Not Given BID [facility] Sodium Chloride 10 ml 09/27/19 21:00 10/03/19 08:30 Flush - Normal Saline IVF 10 ml Q12HR GLADIS Administration - Exam General Appearance: NAD, awake alert Heart: RRR, no murmur, no gallops, no rubs, irregular Respiratory: CTAB, no wheezes, no rales, no ronchi, normal chest expansion Gastrointestinal: soft, non-tender, non-distended, normal bowel sounds Extremities: no edema Psychiatric: normal affect, normal behavior, A&O x 3 Hosp A/P - Plan #Melena -no additional episodes; FOBT +ve -HgB 7.5 and stable -no additional episodes for the past 36 hours -EGD normal, s/p colonoscopy pending report -aspirin, Eliquis held; will restart (10/03) if no additional melenic stools and Hgb stable -oral PPI -H&H #p. atrial fibrillation #NSVT -currently metoprolol tartrate 12.5 bid -eliquis held #CINDI over CKD -near baseline chronic Anemia: Part of the pancytopenia from chemo (Alimta) Syncope: 2/2 anemia. no additional episodes since (09/27) LUE DVT: eliquis held due to GI bleed. Lung Cancer: on Alimta. Appreciated Onc. Dispo: Full code
[2019-10-03] MEDS: Famotidine 20 MG TAB PO SCH (21:31)
[2019-10-03] MEDS: Atorvastatin Calcium 40 MG TAB PO SCH (21:31)
[2019-10-03] MEDS: Ezetimibe 10 MG TAB PO SCH (21:32)
[2019-10-03] MEDS ORDERED: Senokot S 8.6-50 MG TAB PO PRN (22:35)
[2019-10-04 04:37] LABS: Hemoglobin 7.5 g/dL (14.0-18.0)
[2019-10-04] MEDS: Folic Acid 1 MG TAB PO SCH (08:58)
[2019-10-04] MEDS: Aspirin Chewable 81 MG TAB PO SCH (08:58)
[2019-10-04] MEDS: Metoprolol Tartrate 25 MG TAB PO SCH ×2 (08:58→21:38)
[2019-10-04] MEDS: predniSONE 5 MG TAB PO SCH (08:59)
[2019-10-04] MEDS ORDERED: Magnesium Oxide 400 MG TAB PO SCH (09:30)
[2019-10-04] MEDS: KCL IV SCH (09:33)
[2019-10-04] MEDS: MAGNESIUM SULFATE IV SCH (09:33)
[2019-10-04] MEDS: D5 NS W IV SCH (09:33)
[2019-10-04] MEDS: Apixaban 2.5 MG TAB PO SCH ×2 (10:38→21:39)
--- NOTE | 2019-10-04 12:00 | PRG ---
DATE OF SERVICE: 10/04/2019 SUBJECTIVE: Patient was seen and examined at bedside and overnight events noted. Patient denies any shortness of breath or chest pain or palpitation. No history of nausea or vomiting or diarrhea or fever or chills or cramps. OBJECTIVE: General: This is well-built male, in no apparent distress. Vital Signs: Temperature 97.7. Heart Rate 78. Respiratory rate 14. Blood pressure 99/69. HEENT: Atraumatic, normocephalic. Oral mucosa is moist. Neck: Supple. Cardiovascular: S1, S2 heard. Rate and rhythm regular. Respiratory: Clear to auscultation. Gastrointestinal: Abdomen is soft. Musculoskeletal: No tenderness. No edema. Dermatologic: No skin rash. Neurologic: Alert and awake and oriented x3. No focal neurologic deficits. Moving all the extremities. Psychiatric: Mood and affect normal. LABORATORY DATA: Potassium 3.8, BUN is 22, and creatinine is 1.6. ASSESSMENT AND PLAN: 1. Acute kidney injury on chronic kidney disease, stage 3, stable. 2. Edema. 3. Hypertension. 4. Acidosis. Overall labs are stable. We will follow. Job ID: [id number]
[2019-10-04] MEDS ORDERED: Furosemide 20 MG/2 ML VIAL SLOW IVP SCH (12:30)
[2019-10-04] MEDS: Furosemide 20 MG/2 ML VIAL SLOW IVP SCH (14:44)
--- NOTE | 2019-10-04 15:41 | PDOC.HOSPP ---
- Subjective Encounter Date: 10/04/19 Encounter Time: 10:00 Subjective: no overnight events. This morning, complains of increasing lower extremity edema , scrotal edema, and pain in buttocks. otherwise no complaints. denies additional episodes of melenic stools - Objective Vital Signs & Weight: Vital Signs (12 hours) Temp Pulse Pulse Pulse Resp BP BP 10/04/19 13:37 101 H 98 88/53 L 88/55 L 10/04/19 12:00 98.5 F 91 18 10/04/19 09:01 10/04/19 07:51 97.7 F 78 14 10/04/19 04:00 97.6 F 98 18 BP BP BP BP BP Pulse Ox 10/04/19 13:37 116/55 L 10/04/19 12:00 112/62 99 10/04/19 09:01 115/58 L 10/04/19 07:51 99/69 92/53 L 115/57 L 96 10/04/19 04:00 120/62 96 Weight Admit Weight 156 lb Weight 166 lb 3.2 oz Most Recent Monitor Data Heart Rate from ECG 78 NIBP 132/57 NIBP BP-Mean 82 Respiration from ECG 14 SpO2 100 I&O: 10/03/19 10/04/19 10/05/19 06:59 06:59 06:59 Intake Total 2220 300 Balance 2220 300 Result Diagrams: 10/04/19 04:16 10/03/19 04:36 Hospitalist ROS - Review of Systems Constitutional: denies: fever, chills, sweats, weakness, malaise, other Respiratory: denies: cough, dry, shortness of breath, hemoptysis, SOB with excertion, pleuritic pain, sputum, wheezing, other Cardiovascular: denies: chest pain, palpitations, orthopnea, paroxysmal noc. dyspnea, edema, light headedness, other Gastrointestinal: denies: nausea, vomiting, abdominal pain, diarrhea, constipation, melena, hematochezia, other Genitourinary: denies: dysuria, frequency, incontinence, hematuria, retention, other - Medication Medications: Active Medications Generic Name Dose Route Start Last Admin Trade Name Freq PRN Reason Stop Dose Admin Acetaminophen 650 mg 09/29/19 10:14 10/03/19 15:27 Tylenol PO 650 mg Q6H PRN Administration Headache/Fever or Pain Apixaban 2.5 mg 10/04/19 09:00 10/04/19 10:38 Eliquis PO 2.5 mg BID GLADIS Administration Aspirin 81 mg 09/26/19 09:00 10/04/19 08:58 Aspirin Chewable PO 81 mg DAILY GLADIS Administration Atorvastatin Calcium 40 mg 09/27/19 21:00 10/03/19 21:31 Lipitor PO 40 mg HS GLADIS Administration Ezetimibe 10 mg 09/26/19 21:00 10/03/19 21:32 Zetia PO 10 mg HS GLADIS Administration Famotidine 20 mg 09/26/19 21:00 10/03/19 21:31 Pepcid PO 20 mg HS GLADIS Administration Folic Acid 1 mg 09/26/19 09:00 10/04/19 08:58 Folvite PO 1 mg DAILY GLADIS Administration Furosemide 20 mg 10/04/19 14:00 10/04/19 14:44 Lasix SLOW IVP 20 mg 0600,1400 GLADIS Administration Metoprolol Tartrate 12.5 mg 09/28/19 09:00 10/04/19 08:58 Lopressor PO 12.5 mg BID GLADIS Administration Prednisone 20 mg 09/28/19 09:00 10/04/19 08:59 Prednisone PO 20 mg DAILY GLADIS Administration Sodium Chloride 10 ml 09/27/19 21:00 10/04/19 09:00 Flush - Normal Saline IVF 10 ml Q12HR GLADIS Administration - Exam General Appearance: NAD, awake alert Heart: RRR, no murmur, no gallops, no rubs Respiratory: CTAB, no wheezes, no rales, no ronchi Gastrointestinal: soft, non-tender, non-distended, normal bowel sounds Extremities: 2+ LE edema Skin - other findings: scrotal edema; stage 2 decubitus ulcer Psychiatric: normal affect, normal behavior, A&O x 3 Hosp A/P - Plan #Melena (resolved) -no additional episodes; FOBT +ve -HgB 7.5 and stable -no additional episodes for the past 36 hours -EGD normal, colonoscopy showing hemorrhoids -restarted aspirin, Eliquis; can likely DC patient (10/04) if HgB stable and no additional bleeding -oral PPI #p. atrial fibrillation #NSVT -currently metoprolol tartrate 12.5 bid -eliquis restarted #CINDI over CKD -near baseline chronic Anemia: Part of the pancytopenia from chemo (Alimta) Syncope: 2/2 anemia. no additional episodes since (09/27) LUE DVT: eliquis restarted Lung Cancer: on Alimta. Appreciated Onc. Dispo: Full code
[2019-10-04] MEDS: Ezetimibe 10 MG TAB PO SCH (21:39)
[2019-10-04] MEDS: Atorvastatin Calcium 40 MG TAB PO SCH (21:39)
[2019-10-04] MEDS: Famotidine 20 MG TAB PO SCH (21:39)
--- NOTE | 2019-10-05 00:23 | PDOC.EVN ---
Event Note - Event Note Event Note: Notified by RN, patient with 4 beats of Vtach and 10 beats of PAT. Asymptomatic and awake in bed when it happened. Will repeat BMP and Mg+ stat. Continue to monitor. Vitals to be repeated per nurse it will be done in the next 15 minutes. ADDENDUM: Vitals unremarkable. Potassium low at 2.9, Mg+ 1.6. Potassium replacement ordered. Repeat BMP in am.
[2019-10-05 00:52] LABS: #Lymphocytes 0.9 thou/uL (1.20-3.40); #Monocytes 1.5 thou/uL (0.11-0.59); #Neutrophils 7.8 thou/uL (1.40-6.50); %Eosinophils 0.3 % (0.0-10.0); %Lymphocytes 8.9 % (21.0-51.0); %Monocytes 14.9 % (0.0-10.0); %Neutrophils 75.9 % (42.0-75.0); Hemoglobin 7.8 g/dL (14.0-18.0); Mean Corpuscular HGB CONC 35.2 g/dL (32.0-36.0); Mean Corpuscular Hemoglobin 37.5 pg (27.0-31.0); Mean Platelet Volume 8.9 fL (7.4-10.4); Platelet Count 162 thou/uL (130-400); RBC Distribution Width 21.6 % (11.5-14.5); Red Blood Cell (RBC) Count 2.07 mill/uL (4.70-6.10); White Blood Cell (WBC) Count 10.3 thou/uL (4.8-10.8)
[2019-10-05 01:07] LABS: Anion Gap 13 mmol/L (10-20); BUN (Urea Nitrogen) 19 mg/dL (8.4-25.7); Calc. Creatinine Clearance 41 mL/min (70-130); Calcium 6.5 mg/dL (7.8-10.44); Carbon Dioxide 17 mmol/L (23-31); Chloride 109 mmol/L (98-107); Estimated GFR-MDRD 41; Glucose 98 mg/dL (83-110); Magnesium 1.6 mg/dL (1.6-2.6); Sodium 136 mmol/L (136-145)
[2019-10-05 01:09] LABS: Potassium 2.9 mmol/L (3.5-5.1)
[2019-10-05] MEDS ORDERED: Magnesium Oxide 400 MG TAB PO SCH (01:30)
[2019-10-05] MEDS ORDERED: Potassium Chloride 40 MEQ in Premix Bag 1 BAG IVPB SCH (02:00)
[2019-10-05 04:40] LABS: Magnesium 1.5 mg/dL (1.6-2.6)
[2019-10-05] MEDS: Furosemide 20 MG/2 ML VIAL SLOW IVP SCH ×2 (06:08→13:50)
[2019-10-05] MEDS: Potassium Chloride 20 MEQ TAB PO SCH ×2 (06:23→11:24)
[2019-10-05] MEDS: predniSONE 5 MG TAB PO SCH (11:24)
[2019-10-05] MEDS: Apixaban 2.5 MG TAB PO SCH (11:25)
[2019-10-05] MEDS: Aspirin Chewable 81 MG TAB PO SCH (11:25)
[2019-10-05] MEDS: Folic Acid 1 MG TAB PO SCH (11:25)
[2019-10-05] MEDS: Metoprolol Tartrate 25 MG TAB PO SCH (11:25)
[2019-10-05 12:35] LABS: Anion Gap 9 mmol/L (10-20); BUN (Urea Nitrogen) 19 mg/dL (8.4-25.7); Calc. Creatinine Clearance 36 mL/min (70-130); Calcium 6.7 mg/dL (7.8-10.44); Carbon Dioxide 21 mmol/L (23-31); Chloride 108 mmol/L (98-107); Estimated GFR-MDRD 36; Glucose 69 mg/dL (83-110); Sodium 135 mmol/L (136-145)
[2019-10-05 13:11] VITALS: BP 112/55; TEMP 98.2
--- NOTE | 2019-10-06 09:43 | PRG ---
DATE OF SERVICE: 10/05/2019 SUBJECTIVE: Patient was seen and examined at bedside and overnight events noted. Patient denies any shortness of breath or chest pain or palpitation. No history of nausea or vomiting or diarrhea or fever or chills or cramps. OBJECTIVE: General: This is a well-build male, in no apparent distress. Vital Signs: Temperature 98.7. Heart Rate 84. Respiratory rate 16. Blood Pressure 115/65. HEENT: Atraumatic, normocephalic. Oral mucosa is moist. Neck: Supple. Cardiovascular: S1, S2 heard. Rate and rhythm regular. Respiratory: Clear to auscultation. Gastrointestinal: Abdomen is soft. Musculoskeletal: No tenderness. No edema. Dermatologic: No skin rash. Neurologic: Alert and awake and oriented x3. No focal neurologic deficits. Moving all the extremities. Psychiatric: Mood and affect normal. LABORATORY DATA: Potassium 3.0, BUN is 17, creatinine is 1.6. ASSESSMENT AND PLAN: 1. Acute kidney injury on chronic kidney disease, stage 3, stable. 2. Hypokalemia. 3. edema. 4. Acidosis. 5. History of hypertension. 6. Chronic anemia. 7. Replace potassium and monitor. Job ID: [id number]
--- NOTE | 2019-10-08 07:36 | PQF ---
JUSTEN CHISHOLM, HAILEY [id number] CLINICAL DOCUMENTATION CLARIFICATION FORM: POST DISCHARGE Addendum to original discharge summary date: ____ Late entry note date: __ DATE: 10/08/2019 ATTN: Hailey Bartholomew Please exercise your independent, professional judgment in responding to the clarification form. Clinical indicators are provided on the bottom of this form for your review Please check appropriate box(s): HEART FAILURE TYPE : Diastolic heart failure ACUITY [ ] Acute [ ] Acute on Chronic [ x ] Chronic [ ] Other diagnosis [ ] Unable to determine In addition, please specify: Present on Admission (POA): [ x ] Yes [ ] No [ ] Unable to determine For continuity of documentation, please document condition throughout progress notes and discharge summary. Thank You. CLINICAL INDICATORS - SIGNS / SYMPTOMS / LABS Laboratory 09/24 BNP 234.8, Troponin I 0.070, CK-MB 1.1, potassium 2.8, Sodium 122 Vital signs 09/24 BP 137/65, Pulse 106, Resp 16, Temp 98.7 Hospitalist H&P p2 09/24 Dr Morrison The pt states that he has been taking spironolactone/hydrochlorothiazide for periphearal edema of his legs and was switched to metolazone and Lasix today by Dr Rubio Hospitalist H&P p2 09/24 Dr Morrison Chest x-ray shows right sided pleural effusion and right upper lobe infiltrates Hospitalist H&P p3 09/24 Dr Morrison Reports cough (chronic cough from lung cancer) , Chronic SOB Hospitalist H&P p6 09/24 Dr Morrison LLE erythema and mild peripheral edema TTE p1 09/25 LV size is mildly increases. LVEF approximately 50%, mildly depressed. Irregular rhythm RISKS: Hospitalist H&P p2 09/24 Stage IV lung cancer Hospitalist H&P p2 09/24 CAD s/p CABG Hospitalist H&P p4 09/24 Former smoker Hospitalist H&P p6 09/24 - CINDI Hospitalist H&P p6 09/24 - HTN Hospitalist H&P p6 09/24 - PAD Hospitalist H&P p1 09/24 Afib Hospitalist H&P p2 09/24 74 years old male Cardiology PN p3 09/27 - NSVT PN p1 10/04 CKD stage 3 TREATMENTS: SEP 16 IV Cardizem 125 mg SEP 16 Ephedrine 25Mg/5 IM SEP 16 k-Dur 10 meq PO SEP 16 Aspirin Chewable 81mg PO SEP 16 Eliquis 2.5 mg PO SEP 16 IV Lasix 20mg Chest X-day ordered 09/24 Bilateral Doppler venous US ordered 09/24 Monitor on telemetry 09/24 Ordered TTE 09/25 Cardiology consult 09/25 Gianluca Chaudhary (This form is maintained as a part of the permanent medical record) 2014 [employer] All Rights Reserved [email or web address]
== END 2019-10-05 15:55 | disposition home or self-care (01) | DRG 809 ==
LOC: ERS 18:55 → IMCU/EMU 22:22 → 2NO 09-27 16:28
PROVIDERS: ADMIT Internal Medicine; ATTEND Internal Medicine
PROC: 30233N1 Transfusion of Nonautologous Red Blood Cells into Peripheral Vein, Percutaneous Approach (ICD-10-PCS; principal; 2019-09-26)
PROC: 0DJ08ZZ Inspection of Upper Intestinal Tract, Via Natural or Artificial Opening Endoscopic (ICD-10-PCS; 2019-10-02)
PROC: 0DJD8ZZ Inspection of Lower Intestinal Tract, Via Natural or Artificial Opening Endoscopic (ICD-10-PCS; 2019-10-03)
DX: D61.810 Antineoplastic chemotherapy induced pancytopenia (principal); E87.1 Hypo-osmolality and hyponatremia; I50.32 Chronic diastolic (congestive) heart failure; N17.9 Acute kidney failure, unspecified; I82.622 Acute embolism and thrombosis of deep veins of left upper extremity; I13.0 Hypertensive heart and chronic kidney disease with heart failure and stage 1 through stage 4 chronic kidney disease, or unspecified chronic kidney disease; C34.90 Malignant neoplasm of unspecified part of unspecified bronchus or lung; K92.1 Melena; E87.2 Acidosis; I47.2 Ventricular tachycardia; I47.1 Supraventricular tachycardia; E87.6 Hypokalemia; I25.10 Atherosclerotic heart disease of native coronary artery without angina pectoris; E78.5 Hyperlipidemia, unspecified; R74.0 Nonspecific elevation of levels of transaminase and lactic acid dehydrogenase [LDH]; T45.1X5A Adverse effect of antineoplastic and immunosuppressive drugs, initial encounter; I95.1 Orthostatic hypotension; D63.1 Anemia in chronic kidney disease; E83.51 Hypocalcemia; I48.0 Paroxysmal atrial fibrillation; L89.152 Pressure ulcer of sacral region, stage 2; K44.9 Diaphragmatic hernia without obstruction or gangrene; K64.8 Other hemorrhoids; N18.3 Chronic kidney disease, stage 3 (moderate); Z95.1 Presence of aortocoronary bypass graft; Z79.01 Long term (current) use of anticoagulants; Z87.891 Personal history of nicotine dependence; Z79.899 Other long term (current) drug therapy; Z79.82 Long term (current) use of aspirin; Z79.52 Long term (current) use of systemic steroids
CPT/HCPCS: 36415; 36416; 36430; 70460; 71045; 74018; 76770; 80048; 80053; 81015; 82274; 82553; 82607; 82728; 82746; 83540; 83550; 83735; 83880; 84132; 84484; 85014; 85018; 85025; 85027; 85610; 85730; 86850; 86900; 86901; 86922; 93005; 93306; 93970; 96365; 96368; 96376; C9113; J1642; J1940; J2001; J2704; J2920; J3475; J3480; J3490; J7050; J7070; J7512; P9016; Q0163

== ENCOUNTER 2019-10-10 09:07 | Outpatient (CLI) | payer MEDICARE ==
--- NOTE | 2019-10-11 09:35 | PET ---
PET CT: HISTORY: A 74-year-old male with left lung cancer (malignant neoplasm upper lobe left bronchus). Exam request ed to evaluate for response to therapy and subsequent treatment. The patient is undergoing chemother apy which was last administered on 09/13/2019. TECHNIQUE: PET scanning with CT attenuation correction was performed from the base of the brain through the prox imal thighs following the intravenous administration of 11.2 mCi [id number] in the right- sided MediPort. COMPARISON: PET CT of 06/18/2019. FINDINGS: There is a focus of intense uptake in the mediastinum in the SVC along the right-sided Port-A-Cath. Multiple foci of increased uptake along the left pleura are again seen with maximum SUV of 4.8 at the apex (previously 3.8), 5.9 in the upper mediastinum (previously 4.6), 3.5 in the medial lung base (p reviously 4.1), and 4 in the mid lung base (previously 3.9). The peripheral nodule in the left upper lobe demonstrates increased FDG localization with an SUV of 7 .8 (previously 5.4). No new hypermetabolic lung nodules are seen. No oscar hypermetabolism is noted in the neck, chest, abdomen, or pelvis. No hypermetabolic liver, adrenal, or skeletal lesions are seen. Physiologic activity is seen in the GI and tracts, heart, and visualized portions of the brain. There has been interval development of a moderate-sized right pleural effusion. No left-sided pleura l effusion or ascites is seen. IMPRESSION: Interval worsening since 06/28/2019. POS: [facility]
== END 2019-10-10 09:08 | disposition home or self-care (01) ==
LOC: PET 09:07
PROVIDERS: ATTEND Internal Medicine Hematology & Oncology
DX: C34.12 Malignant neoplasm of upper lobe, left bronchus or lung (principal)
CPT/HCPCS: 78815; A9552

== ENCOUNTER 2019-10-30 11:37 | Inpatient (IN) | payer MEDICARE, OTHER ==
[~2019-10-30 11:37] MED LIST changes: +Iopamidol 370 76% 100 ML VIAL ONE; -Prevnar 13-Val Conj/PF 0.5 ML SYRINGE IM ONE
[2019-10-30 13:25] LABS: INR-International Normal Ratio 1.5; PTT 38.2 SEC (22.9-36.1); Prothrombin Time 18.1 SEC (12.0-14.7)
[2019-10-30 13:40] LABS: ALT (SGPT) 29 U/L (8-55); AST (SGOT) 42 U/L (5-34); Albumin 2.3 g/dL (3.4-4.8); Alkaline Phosphatase 66 U/L (40-110); Anion Gap 13 mmol/L (10-20); BUN (Urea Nitrogen) 32 mg/dL (8.4-25.7); Bilirubin, Total 0.8 mg/dL (0.2-1.2); Calc. Creatinine Clearance 0 mL/min (70-130); Calcium 7.7 mg/dL (7.8-10.44); Carbon Dioxide 22 mmol/L (23-31); Chloride 95 mmol/L (98-107); Estimated GFR-MDRD 39; Globulin 3.4 g/dL (2.4-3.5); Glucose 99 mg/dL (83-110); Potassium 3.4 mmol/L (3.5-5.1); Protein, Total 5.7 g/dL (5.8-8.1); Sodium 127 mmol/L (136-145)
[2019-10-30 14:02] LABS: CKMB 0.6 ng/mL (0-6.6)
--- NOTE | 2019-10-30 14:11 | RAD ---
CHEST 1 VIEW PORTABLE: Date: 10/30/2019 HISTORY: Cough, shortness of breath, and weakness. History of lung cancer. FINDINGS: There is diffuse increased opacity overlying the right chest, evidence for large right pleural effusi on. Left upper chest lateral lung mass with little change from prior PET scan of 10/10/2019. Increase d linear and nodular parenchymal changes in the left costophrenic angle and lower chest. Heart size i s normal. Right central line and injection port. IMPRESSION: 1. Abnormal homogeneous opacity of the right chest, evidence for large pleural effusion. 2. Left upper lobe lateral peripheral lung mass. Increased markings in left costophrenic angle. The pleural and parenchymal opacity changes in the right chest have increased when compared to the mo st recent prior chest x-ray of 09/25/2019. POS: [facility]
[2019-10-30 14:25] LABS: Hemoglobin 5.5 g/dL (14.0-18.0); Mean Corpuscular HGB CONC 34.9 g/dL (32.0-36.0); Mean Corpuscular Hemoglobin 39.9 pg (27.0-31.0); Mean Platelet Volume 11.5 fL (7.4-10.4); Platelet Count 4 thou/uL (130-400); RBC Distribution Width 21.3 % (11.5-14.5); Red Blood Cell (RBC) Count 1.37 mill/uL (4.70-6.10); White Blood Cell (WBC) Count 2.4 thou/uL (4.8-10.8)
[2019-10-30 14:26] LABS: #Lymphocytes 0.1 thou/uL (1.20-3.40); #Monocytes 0.1 thou/uL (0.11-0.59); #Neutrophils 2.2 thou/uL (1.40-6.50); %Eosinophils 0.4 % (0.0-10.0); %Lymphocytes 5.9 % (21.0-51.0); %Monocytes 2.8 % (0.0-10.0); %Neutrophils 90.9 % (42.0-75.0)
[2019-10-30 14:47] LABS: Anisocytosis MODERATE=16-30 cells (100X) (0-5/hpf); Large Platelets SLIGHT; MDiff Complete? YES; Macrocytosis MODERATE=16-30 cells (100X) (0-5/hpf); Platelet Morphology Comment Appears Decreased; Polychromasia SLIGHT = 2-3 cells (100X) (0-2/hpf)
[2019-10-30] MEDS ORDERED: ADMIXTURE FEE IV SCH (15:15)
[2019-10-30] MEDS ORDERED: HUM PROTHROMBIN CPLX IV SCH (15:15)
[2019-10-30] MEDS ORDERED: [UNRECOGNIZED DRUG - OTHER] IV SCH (15:15)
--- NOTE | 2019-10-30 15:22 | CT ---
CT PULMONARY ANGIOGRAM WITH IV CONTRAST AND 3D POSTPROCESSING: Date: 10/30/2019 HISTORY: Dyspnea. Lung cancer. Breast cancer. FINDINGS: There is good contrast opacification of the pulmonary arterial vasculature without filling defects to suggest pulmonary embolism. There is dilatation of the right pulmonary artery measuring 2.9 cm. The left pulmonary artery measures 2.5 cm. There are vascular calcifications without evidence of aneurysm or dissection or the thoracic aorta. No pericardial effusion is seen. There is a small amount of flu id in the left fissure. There is a moderate-large right pleural effusion with adjacent atelectatic ch suki. There is a 2.0 cm peripheral spiculated solid nodule in the left upper lobe. A 1.0 cm periphera l nodule is seen in the posterior aspect of the left lower lobe. Left-sided pleural calcifications ar e present. There are degenerative changes in the spine. IMPRESSION: No CT evidence of pulmonary embolism. Please see above. POS: [facility]
[2019-10-30 16:46] LABS: Troponin I 0.053 ng/mL (< 0.028)
[2019-10-30] MEDS ORDERED: hydrALAZINE 20 MG/ML VIAL SLOW IVP PRN (18:30)
[2019-10-30] MEDS ORDERED: Ondansetron PF 4 MG/2 ML Vial IVP PRN (18:30)
[2019-10-30] MEDS ORDERED: Ondansetron ODT 4 MG TAB PO PRN (18:30)
[2019-10-30] MEDS ORDERED: methylPREDNISolone Sod Succ 40 MG VIAL IVP SCH (18:45)
[2019-10-30] MEDS ORDERED: Morphine 4 MG/ML VIAL SLOW IVP PRN (18:55)
[2019-10-30] MEDS: Famotidine 20 MG TAB PO SCH (22:02)
[2019-10-30] MEDS: Atorvastatin Calcium 40 MG TAB PO SCH (22:02)
[2019-10-30] MEDS: Metoprolol Tartrate 25 MG TAB PO SCH (22:02)
[2019-10-30] MEDS: Cefepime 2 GM in Sodium Chloride 0.9% 100 ML IVPB SCH (22:06)
[2019-10-30] MEDS: PROVENTIL INHALER 6.7 G (200 INHALATIONS) INH SCH ×2 (22:08→23:59)
[2019-10-30] MEDS: Ezetimibe 10 MG TAB PO SCH (22:08)
[2019-10-30] MEDS: Mometasone 200 MCG/Formoterol 5 MCG 120 PUFF INHALER INH SCH (22:09)
[2019-10-30] MEDS: methylPREDNISolone Sod Succ 40 MG VIAL IVP SCH (23:57)
[2019-10-31] MEDS: Sodium Chloride 0.9% 1,000 ML IV SCH ×4 (00:30→17:08)
--- NOTE | 2019-10-31 01:07 | HP ---
PRIMARY CARE PROVIDER: Dr. Martinez Higuera. PRIMARY ONCOLOGIST: Dr. Chan Powers. CHIEF COMPLAINT: Shortness of breath and general weakness. HISTORY OF PRESENT ILLNESS: This is a 74-year-old male, who presents to [facility] complaining of profound weakness, progressive over the last 2 to 4 days in conjunction with increasing shortness of breath in the context of known stage IV lung carcinoma, currently receiving chemotherapy with Alimta with Dr. Powers at the [facility]. The patient states his last treatment was on 10/17/2019 and has been on this regimen for some time. The patient noted progressive weakness, inability to ambulate without a rolling walker, progressing to needing assistance from his for general hygiene, assistance to the restroom and feeding. The patient denied any melena or hematuria, but states his urine has been dark. The patient admits to low-grade temperature of 100.4 degrees Fahrenheit, taking [id number] antipyretics as needed. The patient was recently admitted from 09/24 through 10/05/2019 for pancytopenia, syncope and acute kidney injury. The patient underwent general evaluation during that hospital course, discharging home in stable condition. The patient does states he has been on a prednisone taper in conjunction with Dr. Powers's recommendations. The patient denied any productive cough, but states he has progressive shortness of breath regardless of position. The patient states with any exertion, he becomes extremely short of breath. The patient admits to chronic swelling of the left upper extremity after diagnosed with deep venous thrombosis in June 2019. The patient has been on Eliquis for chronic anticoagulation. The patient denied any travel history or known exposures other than the hospital admission and attending his clinic visits. In the emergency room, the patient underwent general evaluation including chest imaging with plain radiographs and CT modality. CT of the chest showed no evidence for pulmonary embolus with evidence of atelectasis in the right hemithorax with associated right pleural effusion. Spiculated nodules also noted in the left upper lobe consistent with lung cancer. The patient was also noted on metabolic screening with a hemoglobin of 5.5, previously noted 7.8, 10/05/2019. The patient was typed and crossed for packed red blood cells, receiving 1 unit in the emergency room. The patient also typed and crossed for platelet transfusion after platelets were noted at 4. The patient was also placed on respiratory isolation after concern for potential COVID exposure receiving a nasal swab with pending results. PAST MEDICAL HISTORY: 1. Stage IV lung carcinoma receiving treatment with Alimta. 2. Pancytopenia secondary to chemotherapy. 3. Chronic kidney disease, stage 3. 4. Deep venous thrombosis of the left brachial vein on chronic Eliquis. 5. History of symptomatic anemia. 6. Coronary artery disease. 7. Diastolic dysfunction. PAST SURGICAL HISTORY: 1. Status post coronary artery bypass grafting. 2. Status post thoracentesis. 3. Status post thoracoscopy. 4. Status post pleurodesis. 5. Status post MediPort placement. 6. Status post colonoscopy 09/2019, showing external hemorrhoids. CURRENT MEDICATIONS: 1. Lipitor 40 mg p.o. at bedtime. 2. Ezetimibe 10 mg p.o. at bedtime. 3. Pepcid 20 mg p.o. at bedtime. 4. Folic acid 1 mg p.o. daily. 5. Lasix 20 mg p.o. b.i.d. 6. Metolazone 2.5 mg p.o. daily. 7. Prednisone 10 mg p.o. daily. 8. Coenzyme Q10 of 200 mg p.o. daily. 9. Enteric-coated aspirin 81 mg p.o. daily. 10. Eliquis 2.5 mg p.o. b.i.d. 11. Magnesium oxide 400 mg p.o. daily. 12. Metoprolol tartrate 12.5 mg p.o. b.i.d. ALLERGIES: NO KNOWN DRUG ALLERGIES. FAMILY HISTORY: No inheritable disease per patient report. SOCIAL HISTORY: . Resides in [place], [place]. Retired. Quit smoking in 1988 after smoking for 30 years. No current alcohol, tobacco, or illicit drug use. Ambulating with a rolling walker. REVIEW OF SYSTEMS: CONSTITUTIONAL: Negative for weight loss or gain, ability to conduct usual activities. SKIN: Negative for rash, itching. EYES: Negative for double vision, pain. ENT/MOUTH: Negative for nose bleeding, neck stiffness, pain, tenderness. CARDIOVASCULAR: Negative for palpitations, dyspnea on exertion, orthopnea. RESPIRATORY: Negative for shortness of breath, wheezing, cough, hemoptysis, fever or night sweats. GASTROINTESTINAL: Negative for poor appetite, abdominal pain, heartburn, nausea, vomiting, constipation, or diarrhea. GENITOURINARY: Negative for urgency, frequency, dysuria, nocturia. MUSCULOSKELETAL: Negative for pain, swelling. NEUROLOGIC/PSYCHIATRIC: Negative for anxiety, depression. ALLERGY/IMMUNOLOGIC: Negative for skin rash, bleeding tendency. Otherwise negative except as stated per HPI. PHYSICAL EXAMINATION: VITAL SIGNS: On admission, blood pressure 101/62, pulse 91, respiratory rate 16, temperature 97.9 degrees Fahrenheit, O2 saturation 97% on room air. GENERAL APPEARANCE: This is a 74-year-old male, ill appearing, alert, responsive, and mild respiratory distress. HEENT: Pupils are equal, round, reactive to light and accommodation. Extraocular muscles are intact. Bilateral conjunctival injection. Nares patent. OP is clear. Oral mucosa dry. NECK: Supple. No cervical adenopathy. No thyromegaly. No carotid bruits. No JVD appreciated. Cervical spine with full active and passive range of motion. No meningeal signs noted. CHEST: Diminished breath sounds on the right base with occasional rhonchi. CARDIOVASCULAR EXAM: S1, S2 without noted murmur, rub, or gallop. ABDOMEN: Rounded, soft, nontender, and nondistended. Bowel sounds are positive in all 4 quadrants. No hepatosplenomegaly. No abdominal bruits. No rebound or guarding appreciated. EXTREMITIES: Left upper extremity with edema from the shoulder to the hand. Positive erythema and ecchymotic changes bilaterally. Chronic left upper extremity edema. Bilateral lower extremities without clubbing, cyanosis, or asymmetric edema. Pulses palpable distally at the dorsalis pedis, posterior tibial, and popliteal arteries bilaterally. Capillary refill less than 2 seconds. NEUROLOGIC: Cranial nerves 2 through 12 are grossly intact. No focal or lateralizing signs appreciated. Not observed ambulatory during this exam. PERTINENT LABORATORY AND X-RAY FINDINGS: Sodium 127, potassium 3.4, chloride 95, CO2 of 22, BUN 32, creatinine 1.73, estimated GFR 39, glucose 99, calcium 7.7, AST 42, ALT of 29, alkaline phosphatase 66. Troponin I ranged between 0.04 to 0.053. BNP 578, previously noted 235, 09/25/2019. Albumin 2.3. CBC showed white blood cell count of 2.4, hemoglobin 5.5, hematocrit 15.7, MCV 114, platelet count of 4, 91% neutrophils. PT 18.1, INR 1.5, PTT 38.2. Influenza A and B antigen dated 10/30/2019 negative. Portable chest x-ray dated 10/30/2019, showed opacity of the right chest with large right pleural effusion. Left upper lobe lung mass. CT angiogram of the chest dated 10/30/2019, showed no evidence for pulmonary embolus. Moderate to large right pleural effusion with associated atelectasis. Left upper lobe lung mass. EKG dated 10/30/2019 by my interpretation shows sinus mechanism with heart rates in the 90s. Normal R-wave progression noted in the precordial leads. Normal axis. No acute ST-T wave changes appreciated. ASSESSMENT AND PLAN: 1. Symptomatic anemia. The patient will be admitted to the telemetry unit. Type and cross for 2 units of packed red blood cells and transfuse when available. Serial H and H monitoring. Pepcid 20 mg p.o. b.i.d. 2. Pancytopenia secondary to chemotherapy. We will consult Medical Oncology Service for any further recommendations or medical management. Serial CBC monitoring. Transfuse 10 pack of platelets. 3. Acute hypoxic respiratory failure. Continue oxygen supplementation to maintain O2 saturation greater than or equal to 90%. DuoNeb q.4 hours. Solu-Medrol 40 mg IV q.6 hours. Dulera two puffs inhaled b.i.d. 4. Hyponatremia. Suspect secondary to decreased oral intake and SIADH. Start normal saline at 75 mL/h and repeat sodium level in the a.m. 5. Stage IV lung carcinoma with current chemotherapy. Continue supportive management as outlined previously. Consult Medical Oncology Service for any further recommendations. 6. 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 Hold Eliquis due to severe thrombocytopenia and anemia. Supportive management. Elevate left upper extremity while in bed. 7. Prophylaxis. SCDs while in bed. Pepcid 20 mg p.o. b.i.d. Physical Therapy evaluation. COVID-19 PCR rule out. Respiratory isolation. 8. Code status is full. Surrogate medical decision maker is the patient's spouse. Job ID: [id number]
[2019-10-31] MEDS: Furosemide 20 MG TAB PO SCH ×2 (04:57→15:30)
[2019-10-31] MEDS: methylPREDNISolone Sod Succ 40 MG VIAL IVP SCH ×3 (04:58→18:45)
[2019-10-31] MEDS: PROVENTIL INHALER 6.7 G (200 INHALATIONS) INH SCH ×5 (05:41→18:45)
[2019-10-31 05:46] LABS: ALT (SGPT) 24 U/L (8-55); AST (SGOT) 35 U/L (5-34); Albumin 2.3 g/dL (3.4-4.8); Alkaline Phosphatase 56 U/L (40-110); Anion Gap 11 mmol/L (10-20); BUN (Urea Nitrogen) 32 mg/dL (8.4-25.7); Calc. Creatinine Clearance 42 mL/min (70-130); Calcium 7.5 mg/dL (7.8-10.44); Carbon Dioxide 24 mmol/L (23-31); Chloride 98 mmol/L (98-107); Estimated GFR-MDRD 43; Globulin 3.2 g/dL (2.4-3.5); Glucose 94 mg/dL (83-110); Potassium 3.1 mmol/L (3.5-5.1); Protein, Total 5.5 g/dL (5.8-8.1); Sodium 130 mmol/L (136-145); Uric Acid 3.9 mg/dL (3.5-7.2)
[2019-10-31 05:47] LABS: Anisocytosis SLIGHT = 6-15 cells (100X) (0-5/hpf); Band 18 % (5-11); Hemoglobin 7.5 g/dL (14.0-18.0); Lymphocytes 3 % (21-51); MDiff Complete? YES; Mean Corpuscular HGB CONC 35.6 g/dL (32.0-36.0); Mean Corpuscular Hemoglobin 37.2 pg (27.0-31.0); Mean Platelet Volume 7.5 fL (7.4-10.4); Monocytes 1 % (0-10); Neutrophil 78 % (42-75); Platelet Count 49 thou/uL (130-400); Platelet Morphology Comment Appears Decreased; RBC Distribution Width 20.6 % (11.5-14.5); White Blood Cell (WBC) Count 3.4 thou/uL (4.8-10.8)
[2019-10-31] MEDS: Cefepime 2 GM in Sodium Chloride 0.9% 100 ML IVPB SCH ×2 (08:28→21:08)
[2019-10-31] MEDS: Folic Acid 1 MG TAB PO SCH (08:29)
[2019-10-31] MEDS: Magnesium Oxide 400 MG TAB PO SCH (08:29)
[2019-10-31] MEDS: Metoprolol Tartrate 25 MG TAB PO SCH ×2 (08:29→21:08)
[2019-10-31] MEDS: Multivitamin W/ Minerals 1 TAB PO SCH (08:29)
[2019-10-31] MEDS: Mometasone 200 MCG/Formoterol 5 MCG 120 PUFF INHALER INH SCH ×2 (09:17→18:45)
--- NOTE | 2019-10-31 12:08 | CON ---
DATE OF CONSULTATION: REASON FOR CONSULTATION: Lung cancer. HISTORY OF PRESENT ILLNESS: A 74-year-old male with history of stage IV lung cancer, currently on maintenance Alimta chemotherapy every 3 weeks last received on October 16, presenting to the ER with severe fatigue, shortness of breath, edema, progressive weakness. The patient's called with these complaints to the clinic and patient refused to go to the ER, but was able to be convinced to come to the Cancer Clinic for labs and nurse evaluation. The patient was seen by the nurse and appeared extremely fatigued and weak, and pale with severe edema. The patient was afebrile. The patient was then sent immediately over to the ER. The patient received a CT angio of the chest, which did not show any PE, but did show lung nodules, which is consistent with his lung cancer. Of note, patient is taking Eliquis for history of DVT. In the ER, the patient's hemoglobin was found to be 5.5 with a platelet count of 4. He received 2 units of blood and a unit of platelets and hemoglobin improved to 7.5, and platelets improved to 49. The patient's white blood cells were 2.4 with 91% neutrophils. He was also noted to have an elevated BNP of 578 and troponin up to 0.08 along with hyponatremia, hypokalemia. On the date of his last chemotherapy, his white blood cells were 11.5, hemoglobin 8.4, and platelets 213. The patient has Long-standing problem with anemia requiring transfusions in the past, however, has never been this low. His platelets have been as low as 65 in the past, but again never this low. REVIEW OF SYSTEMS: As per stated in HPI. PAST MEDICAL HISTORY: Stage IV lung cancer, CKD, DVT, CAD, diastolic heart failure. PAST SURGICAL HISTORY: Coronary artery bypass graft, thoracentesis, thoracoscopy, pleurodesis, MediPort placement. CURRENT MEDICATIONS: Reviewed. ALLERGIES: NO KNOWN DRUG ALLERGIES. FAMILY HISTORY: No cancer. SOCIAL HISTORY: Former smoker. No alcohol. Lives with his . PHYSICAL EXAMINATION: VITAL SIGNS: Temperature 96.9, pulse 94, respirations 20, saturating 100% on room air, blood pressure 129/64. Rest of examination is deferred as patient is currently on COVID rule out in isolation. However, examination yesterday in clinic the patient is very ill, lying flat in his car in the back seat, very weak and very pale. Vital signs were stable. LABORATORY DATA: White blood cells 3.4, hemoglobin 5.5, up to 7.5, platelets 4 up to 49. PT 18.1, INR 1.5, PTT 38.2. Sodium 127 up to 130, potassium 3.1, BUN 32, creatinine 1.59, total bilirubin 0.8 up to 2.0, AST 35, ALT 24, ALP 56, troponin 0.08. BNP 578.2. IMAGING DATA: CT angio of the chest shows no PE. A moderate large right pleural effusion with atelectasis, a 2 cm solid nodule in the left upper lobe and a 1 cm nodule in the left lower lobe and left-sided pleural calcifications. ASSESSMENT AND PLAN: A 74-year-old male with stage IV lung cancer on maintenance Alimta, presenting with symptomatic anemia and shortness of breath, severe failure to thrive and worsening edema. The patient responded appropriately to 2 units of packed red blood cells. There is no evidence of gastrointestinal bleed,. It is likely secondary to chemotherapy. We will continue to monitor at this time. Thrombocytopenia also likely secondary to chemotherapy and responded very well to 1 unit of platelets. Shortness of breath, likely secondary to lung cancer, pleural effusion, and anemia and recommend continuing DuoNeb and steroids for now. Once platelets are above 50, patient's Eliquis can be restarted. Otherwise recommend SCDs. We will follow up COVID-19 PCR for rule out. The patient may benefit from an echocardiogram given severe worsening edema and elevated BNP. We will continue to follow along with you. Job ID: [id number]
--- NOTE | 2019-10-31 15:45 | PDOC.HOSPP ---
- Subjective Encounter Date: 10/31/19 Encounter Time: 15:45 Subjective: f/u for severe symptomatic anemia, pancytopenia on current chemotherapy for stage IV Lung CA. Received 2u PRBC's, Platelets and overall feeling better. COVID-19 being ruled out as well. States feeling better today. - Objective Vital Signs & Weight: Vital Signs (12 hours) Temp Pulse Resp BP Pulse Ox 10/31/19 12:20 96.2 F L 94 15 127/62 100 10/31/19 08:40 96.9 F L 94 20 129/64 100 10/31/19 05:30 97.3 F L 95 18 122/73 100 Weight Admit Weight 164 lb 9.6 oz Weight 164 lb 9.6 oz I&O: 10/30/19 10/31/19 11/01/19 06:59 06:59 06:59 Intake Total 350 Balance 350 Result Diagrams: 10/31/19 05:09 10/31/19 05:09 Additional Labs: Microbiology 10/30/19 12:40 Nasal swab Influenza Types A,B Direct EIA - Final Laboratory Tests 04/27/18 04/27/18 04/28/18 03:30 18:24 03:40 WBC 9.4 26.6 H Hgb 14.3 11.7 L Plt Count Neutrophils % Neutrophils % (Manual) Band Neuts % (Manual) Sodium 134 L Potassium BUN Creatinine 04/28/18 10/30/19 10/30/19 03:40 12:48 14:05 WBC 13.6 H 2.4 L Hgb 10.5 L 5.5 L* Plt Count 4 L* Neutrophils % 90.9 H Neutrophils % (Manual) Band Neuts % (Manual) Sodium 127 L Potassium 3.4 L BUN 32 H Creatinine 1.73 H 10/31/19 05:09 WBC Hgb Plt Count Neutrophils % Neutrophils % (Manual) 78 H Band Neuts % (Manual) 18 H Sodium Potassium BUN Creatinine EKG Reviewed by me: Yes (Tele - SR) Hospitalist ROS - Medication Medications: Active Medications Generic Name Dose Route Start Last Admin Trade Name Freq PRN Reason Stop Dose Admin Albuterol Sulfate 2 puff 10/30/19 18:30 10/31/19 12:10 Proventil Hfa INH 2 puff [id number] GLADIS Administration Atorvastatin Calcium 40 mg 10/30/19 21:00 10/30/19 22:02 Lipitor PO 40 mg HS GLADIS Administration Ezetimibe 10 mg 10/30/19 21:00 10/30/19 22:08 Zetia PO 10 mg HS GLADIS Administration Famotidine 20 mg 10/30/19 21:00 10/30/19 22:02 Pepcid PO 20 mg QPM GLADIS Administration Folic Acid 1 mg 10/31/19 09:00 10/31/19 08:29 Folvite PO 1 mg DAILY GLADIS Administration Furosemide 20 mg 10/31/19 06:00 10/31/19 04:57 Lasix PO 20 mg 0600,1400 GLADIS Administration Cefepime HCl 2 gm/ Sodium 100 mls @ 200 mls/hr 10/30/19 21:00 10/31/19 08:28 Chloride IVPB 100 mls Q12HR GLADIS Administration Sodium Chloride 1,000 mls @ 75 mls/hr 10/30/19 19:00 10/31/19 08:32 Normal Saline 0.9% IV 1,000 mls .[id number] GLADIS Administration Iron/Minerals/Multivitamins 1 tab 10/31/19 09:00 10/31/19 08:29 Theragran M PO 1 tab QAM GLADIS Administration Magnesium Oxide 400 mg 10/31/19 09:00 10/31/19 08:29 Magnesium Oxide PO 400 mg DAILY GLADIS Administration Methylprednisolone Sodium Succinate 40 mg 10/30/19 23:59 10/31/19 12:10 Solu-Medrol IVP 40 mg Q6HR GLADIS Administration Metoprolol Tartrate 12.5 mg 10/30/19 21:00 10/31/19 08:29 Lopressor PO 12.5 mg BID GLADIS Administration Mometasone Furoate/Formoterol Fumar 0 puff 10/30/19 18:30 10/31/19 09:17 Dulera 200 Mcg/5 Mcg Inhaler INH 2 puff BID-RT GLADIS Administration Sodium Chloride 10 ml 10/30/19 21:00 10/31/19 09:02 Flush - Normal Saline IVF Not Given Q12HR GLADIS - Exam General Appearance: awake alert, ill appearing Eye: PERRL, anicteric sclera ENT: normocephalic atraumatic, dry oral mucosa Neck: supple, symmetric, no JVD, no thyromegaly Heart: RRR, no gallops, no rubs, normal peripheral pulses Heart - other findings: S1, S2 Respiratory: tachypneic Respiratory - other findings: diminished bilat, occasional rhonchi Gastrointestinal: soft, non-tender, non-distended, normal bowel sounds, no palpable masses Extremities: 2+ LE edema Extremities - other findings: LUE edema(chronic) Skin: normal turgor Neurological: cranial nerve grossly intact, no new deficit Musculoskeletal: normal tone, generalized weakness Psychiatric: normal affect, A&O x 3 Hosp A/P (1) Symptomatic anemia Code(s): D64.9 - ANEMIA, UNSPECIFIED Status: Acute Plan: s/p 2u PRBC's, serial H/H monitoring, no GI blood loss noted (2) Acute respiratory failure with hypoxia Code(s): J96.01 - ACUTE RESPIRATORY FAILURE WITH HYPOXIA Status: Acute Plan: Continue O2 support, wean as clinically indicated (3) Pancytopenia due to antineoplastic chemotherapy Code(s): D61.810 - ANTINEOPLASTIC CHEMOTHERAPY INDUCED PANCYTOPENIA; T45.1X5A - ADVERSE EFFECT OF ANTINEOPLASTIC AND IMMUNOSUP DRUGS, INIT Status: Acute Plan: Supportive mgmt, monitor recovery trend, hold further chemo (4) Stage IV adenocarcinoma of lung Code(s): C34.90 - MALIGNANT NEOPLASM OF UNSP PART OF UNSP BRONCHUS OR LUNG Status: Chronic Plan: Chemotherapy for outpt rx (5) 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 Code(s): I82.A12 - ACUTE EMBOLISM AND THROMBOSIS OF LEFT AXILLARY VEIN Status : Chronic Plan: Holding Eliquis until platelets sustaining >50K (6) Hyponatremia Code(s): E87.1 - HYPO-OSMOLALITY AND HYPONATREMIA Status: Acute Plan: Continue low-volume IV NS @ 50ml/h, serial Na+ - Plan continue antibiotics, PT/OT, vp digital marketing social media and crm, respiratory therapy, out of bed/ ambulate, DVT proph w/SCDs Stable currently Continue Cefepime empirically Continue IVF NS @ 50ml/h Hold Eliquis COVID-19 rule out pending Magic Mouthwash TID PRN Respiratory isolation AM lab: CMP, CBC
[2019-10-31] MEDS: Aluminum & Magnesium Hydroxide 60 ML, Lidocaine 2% Viscous Solution 30 ML, diphenhydrAM... SSW PRN (18:44)
[2019-10-31] MEDS: Ezetimibe 10 MG TAB PO SCH (21:08)
[2019-10-31] MEDS: Atorvastatin Calcium 40 MG TAB PO SCH (21:08)
[2019-10-31] MEDS: Famotidine 20 MG TAB PO SCH (21:08)
[2019-11-01] MEDS: PROVENTIL INHALER 6.7 G (200 INHALATIONS) INH SCH ×6 (01:09→22:23)
[2019-11-01] MEDS: Acetaminophen 500 MG TAB PO PRN (04:32)
[2019-11-01 05:25] LABS: Hemoglobin 7.3 g/dL (14.0-18.0); Mean Corpuscular HGB CONC 35.3 g/dL (32.0-36.0); Mean Corpuscular Hemoglobin 37.2 pg (27.0-31.0); Mean Platelet Volume 9.2 fL (7.4-10.4); Platelet Count 28 thou/uL (130-400); RBC Distribution Width 20.6 % (11.5-14.5); Red Blood Cell (RBC) Count 1.95 mill/uL (4.70-6.10); White Blood Cell (WBC) Count 4.2 thou/uL (4.8-10.8)
[2019-11-01 05:28] LABS: Band 11 % (5-11); Hypochromia SLIGHT = 6-15 cells (100X) (0-5/hpf); Lymphocytes 4 % (21-51); MDiff Complete? YES; Macrocytosis SLIGHT = 6-15 cells (100X) (0-5/hpf); Monocytes 5 % (0-10); Neutrophil 80 % (42-75); Platelet Morphology Comment Appears Decreased
[2019-11-01 05:31] LABS: ALT (SGPT) 26 U/L (8-55); AST (SGOT) 37 U/L (5-34); Albumin 2.2 g/dL (3.4-4.8); Alkaline Phosphatase 61 U/L (40-110); Anion Gap 12 mmol/L (10-20); BUN (Urea Nitrogen) 34 mg/dL (8.4-25.7); Bilirubin, Total 0.9 mg/dL (0.2-1.2); Calc. Creatinine Clearance 44 mL/min (70-130); Calcium 7.1 mg/dL (7.8-10.44); Carbon Dioxide 22 mmol/L (23-31); Chloride 100 mmol/L (98-107); Estimated GFR-MDRD 45; Globulin 3.4 g/dL (2.4-3.5); Glucose 126 mg/dL (83-110); Protein, Total 5.6 g/dL (5.8-8.1); Sodium 131 mmol/L (136-145)
[2019-11-01 05:33] LABS: Potassium 2.9 mmol/L (3.5-5.1)
[2019-11-01] MEDS: methylPREDNISolone Sod Succ 40 MG VIAL IVP SCH ×4 (05:54→17:27)
[2019-11-01] MEDS: Furosemide 20 MG TAB PO SCH ×2 (05:54→13:11)
[2019-11-01] MEDS ORDERED: Potassium Chloride 20 MEQ TAB PO SCH ×2 (06:15→12:45)
[2019-11-01] MEDS: Aluminum & Magnesium Hydroxide 60 ML, Lidocaine 2% Viscous Solution 30 ML, diphenhydrAM... SSW PRN ×3 (07:13→18:49)
[2019-11-01] MEDS: Multivitamin W/ Minerals 1 TAB PO SCH (08:04)
[2019-11-01] MEDS: Magnesium Oxide 400 MG TAB PO SCH (08:04)
[2019-11-01] MEDS: Folic Acid 1 MG TAB PO SCH (08:04)
[2019-11-01] MEDS: Cefepime 2 GM in Sodium Chloride 0.9% 100 ML IVPB SCH ×2 (08:04→20:41)
[2019-11-01] MEDS: Metoprolol Tartrate 25 MG TAB PO SCH ×2 (08:04→20:43)
[2019-11-01] MEDS: Sodium Chloride 0.9% 1,000 ML IV SCH (08:05)
[2019-11-01] MEDS: Bacteriostatic Water 30 ML VIAL FS PRN (11:57)
--- NOTE | 2019-11-01 12:26 | PDOC.HOSPP ---
- Subjective Encounter Date: 11/01/19 Encounter Time: 12:25 Subjective: f/u for severe symptomatic anemia, pancytopenia s/p 2u PRBC's and 1 pk platelets. Feels better overall. Ruled out for COVID-19. - Objective Vital Signs & Weight: Vital Signs (12 hours) Temp Pulse Resp BP Pulse Ox 11/01/19 11:21 97.6 F 87 16 119/60 100 11/01/19 08:12 96.5 F L 92 19 122/59 L 100 11/01/19 07:52 98 11/01/19 04:00 97.7 F 95 18 124/58 L 98 Weight Admit Weight 164 lb 9.6 oz Weight 164 lb 9.6 oz I&O: 10/31/19 11/01/19 11/02/19 06:59 06:59 06:59 Intake Total 350 Balance 350 Result Diagrams: 11/01/19 05:00 11/01/19 05:00 Additional Labs: Microbiology 10/30/19 12:40 Nasal swab Influenza Types A,B Direct EIA - Final Laboratory Tests 04/27/18 04/27/18 04/28/18 03:30 18:24 03:40 WBC 9.4 26.6 H Hgb 14.3 11.7 L Plt Count Neutrophils % Neutrophils % (Manual) Band Neuts % (Manual) Sodium 134 L Potassium BUN Creatinine 04/28/18 10/30/19 10/30/19 03:40 12:48 14:05 WBC 13.6 H 2.4 L Hgb 10.5 L 5.5 L* Plt Count 4 L* Neutrophils % 90.9 H Neutrophils % (Manual) Band Neuts % (Manual) Sodium 127 L Potassium 3.4 L BUN 32 H Creatinine 1.73 H 10/31/19 05:09 WBC Hgb Plt Count Neutrophils % Neutrophils % (Manual) 78 H Band Neuts % (Manual) 18 H Sodium Potassium BUN Creatinine Laboratory Tests 10/30/19 12:40 COVID-19 PCR Not Detected EKG Reviewed by me: Yes (Tele - SR) Hospitalist ROS - Medication Medications: Active Medications Generic Name Dose Route Start Last Admin Trade Name Freq PRN Reason Stop Dose Admin Acetaminophen 1,000 mg 10/30/19 18:30 11/01/19 04:32 Tylenol PO 1,000 mg Q6H PRN Administration Mild Pain (1-3) Albuterol Sulfate 2 puff 10/30/19 18:30 11/01/19 05:54 Proventil Hfa INH Not Given [id number] GLADIS Atorvastatin Calcium 40 mg 10/30/19 21:00 10/31/19 21:08 Lipitor PO 40 mg HS GLADIS Administration Al Hydroxide/Mg Hydroxide 60 0 ml 10/31/19 15:26 11/01/19 07:13 ml/ Lidocaine HCl 30 ml/ SSW 10 ml Diphenhydramine HCl 75 mg PRN PRN Administration Mouth Irritation Ezetimibe 10 mg 10/30/19 21:00 10/31/19 21:08 Zetia PO 10 mg HS GLADIS Administration Famotidine 20 mg 10/30/19 21:00 10/31/19 21:08 Pepcid PO 20 mg QPM GLADIS Administration Folic Acid 1 mg 10/31/19 09:00 11/01/19 08:04 Folvite PO 1 mg DAILY GLADIS Administration Furosemide 20 mg 10/31/19 06:00 11/01/19 05:54 Lasix PO 20 mg 0600,1400 GLADIS Administration Cefepime HCl 2 gm/ Sodium 100 mls @ 200 mls/hr 10/30/19 21:00 11/01/19 08:04 Chloride IVPB 100 mls Q12HR GLADIS Administration Sodium Chloride 1,000 mls @ 50 mls/hr 10/31/19 16:02 11/01/19 08:05 Normal Saline 0.9% IV 1,000 mls .Q20H GLADIS Administration Iron/Minerals/Multivitamins 1 tab 10/31/19 09:00 11/01/19 08:04 Theragran M PO 1 tab QAM GLADIS Administration Magnesium Oxide 400 mg 10/31/19 09:00 11/01/19 08:04 Magnesium Oxide PO 400 mg DAILY GLADIS Administration Methylprednisolone Sodium Succinate 40 mg 10/30/19 23:59 11/01/19 11:55 Solu-Medrol IVP 40 mg Q6HR GLADIS Administration Metoprolol Tartrate 12.5 mg 10/30/19 21:00 11/01/19 08:04 Lopressor PO 12.5 mg BID GLADIS Administration Mometasone Furoate/Formoterol Fumar 0 puff 10/30/19 18:30 10/31/19 18:45 Dulera 200 Mcg/5 Mcg Inhaler INH 2 puff BID-RT GLADIS Administration Sodium Chloride 10 ml 10/30/19 21:00 11/01/19 08:04 Flush - Normal Saline IVF 10 ml Q12HR GLADIS Administration Sterile Water 1 ml 10/30/19 19:04 11/01/19 11:57 Bacteriostatic Water FS 1 ml PRN PRN Administration RECONSTITUTION - Exam General Appearance: NAD, awake alert Eye: PERRL, anicteric sclera ENT: normocephalic atraumatic, no oropharyngeal lesions Neck: supple, symmetric, no JVD, no thyromegaly Heart: RRR, no gallops, no rubs, normal peripheral pulses Heart - other findings: S1, S2 Respiratory: CTAB, no wheezes, no rales, no ronchi, normal chest expansion Gastrointestinal: soft, non-tender, non-distended, normal bowel sounds Extremities - other findings: LUE chronic edema/erythema, scattered ecchymosis of extremities Skin: normal turgor Neurological: cranial nerve grossly intact, no new deficit Musculoskeletal: normal tone, generalized weakness Psychiatric: normal affect, A&O x 3 Hosp A/P (1) Symptomatic anemia Code(s): D64.9 - ANEMIA, UNSPECIFIED Status: Acute Plan: Secondary to chemotherapy s/p 2u PRBC's, serial H/H (2) Acute respiratory failure with hypoxia Code(s): J96.01 - ACUTE RESPIRATORY FAILURE WITH HYPOXIA Status: Acute Plan: Improved, RA currently (3) Pancytopenia due to antineoplastic chemotherapy Code(s): D61.810 - ANTINEOPLASTIC CHEMOTHERAPY INDUCED PANCYTOPENIA; T45.1X5A - ADVERSE EFFECT OF ANTINEOPLASTIC AND IMMUNOSUP DRUGS, INIT Status: Acute Plan: Continue supportive mgmt, serial CBC (4) Stage IV adenocarcinoma of lung Code(s): C34.90 - MALIGNANT NEOPLASM OF UNSP PART OF UNSP BRONCHUS OR LUNG Status: Chronic Plan: Resume outpt medical oncology follow up and timing for next chemotherapy (5) 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 Code(s): I82.A12 - ACUTE EMBOLISM AND THROMBOSIS OF LEFT AXILLARY VEIN Status : Chronic (6) Hyponatremia Code(s): E87.1 - HYPO-OSMOLALITY AND HYPONATREMIA Status: Acute Plan: Improving slowly, continue low volume IV NS - Plan continue antibiotics, PT/OT, social work program coordinator, out of bed/ambulate, DVT proph w/ SCDs Stable currently Continue Cefepime empirically Continue IVF NS @ 50ml/h Hold Eliquis until platelets sustaining >50K COVID-19 ruled out Magic Mouthwash TID PRN Respiratory isolation AM lab: BMP, CBC Likely home in 24h
[2019-11-01] MEDS: Mometasone 200 MCG/Formoterol 5 MCG 120 PUFF INHALER INH SCH ×2 (13:10→20:20)
--- NOTE | 2019-11-01 15:02 | PDOC.MOPN ---
Interval History: sleeping, no distress - Vital Signs Vital Signs: Vital Signs (12 hours) Temp Pulse Resp BP Pulse Ox 11/01/19 11:21 97.6 F 87 16 119/60 100 11/01/19 08:12 96.5 F L 92 19 122/59 L 100 11/01/19 07:52 98 11/01/19 04:00 97.7 F 95 18 124/58 L 98 Weight Admit Weight 164 lb 9.6 oz Weight 164 lb 9.6 oz - Physical Exam General: No acute distress Lungs: Clear to auscultation Cardiovascular: Regular rate Abdomen: Normal bowel sounds - Labs Result Diagrams: 11/01/19 05:00 11/01/19 05:00 Lab results: Laboratory Results - last 24 hr 11/01/19 05:00: WBC 4.2 L, RBC 1.95 L, Hgb 7.3 L, Hct 20.6 L, MCV 105.0 H, MCH 37.2 H, MCHC 35.3, RDW 20.6 H, Plt Count 28 L*, MPV 9.2, Neutrophils % (Manual) 80 H, Band Neuts % (Manual) 11, Lymphocytes % (Manual) 4 L, Monocytes % (Manual ) 5, Hypochromia SLIGHT = 6-15 cells, Plt Morphology Comment Appears Decreased L , Macrocytosis SLIGHT = 6-15 cells 11/01/19 05:00: Sodium 131 L, Potassium 2.9 L*, Chloride 100, Carbon Dioxide 22 L, Anion Gap 12, BUN 34 H, Creatinine 1.51 H, Estimated GFR (MDRD) 45, Glucose 126 H, Calcium 7.1 L, Total Bilirubin 0.9, AST 37 H, ALT 26, Alkaline Phosphatase 61, Serum Total Protein 5.6 L, Albumin 2.2 L, Globulin 3.4, Albumin/ Globulin Ratio 0.6 L 10/30/19 12:40: COVID-19 PCR Not Detected Status: lab reviewed by me A/P - Problem (1) Pancytopenia due to antineoplastic chemotherapy Current Visit: Yes Code(s): D61.810 - ANTINEOPLASTIC CHEMOTHERAPY INDUCED PANCYTOPENIA; T45.1X5A - ADVERSE EFFECT OF ANTINEOPLASTIC AND IMMUNOSUP DRUGS, INIT Status: Acute (2) 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 Current Visit: Yes Code(s): I82.A12 - ACUTE EMBOLISM AND THROMBOSIS OF LEFT AXILLARY VEIN Status: Chronic (3) Stage IV adenocarcinoma of lung Current Visit: Yes Code(s): C34.90 - MALIGNANT NEOPLASM OF UNSP PART OF UNSP BRONCHUS OR LUNG Status: Chronic - Plan Plan: Covid 19 negative Platelets and hgb improved after transfusion continue to hold Eliquis for platelets < 50. CBC daily
[2019-11-01] MEDS: Potassium Chloride 20 MEQ TAB PO SCH (17:27)
[2019-11-01] MEDS: Famotidine 20 MG TAB PO SCH (20:41)
[2019-11-01] MEDS: Atorvastatin Calcium 40 MG TAB PO SCH (20:42)
[2019-11-01] MEDS: Ezetimibe 10 MG TAB PO SCH (20:43)
[2019-11-01] MEDS ORDERED: Senokot 8.6 MG TAB PO PRN (21:09)
[2019-11-02] MEDS: methylPREDNISolone Sod Succ 40 MG VIAL IVP SCH ×5 (01:29→23:38)
[2019-11-02] MEDS: Acetaminophen 500 MG TAB PO PRN ×2 (01:39→21:18)
[2019-11-02] MEDS: PROVENTIL INHALER 6.7 G (200 INHALATIONS) INH SCH ×6 (02:45→22:29)
[2019-11-02] MEDS: Sodium Chloride 0.9% 1,000 ML IV SCH (05:28)
[2019-11-02] MEDS: Furosemide 20 MG TAB PO SCH ×2 (06:42→13:09)
[2019-11-02] MEDS: Mometasone 200 MCG/Formoterol 5 MCG 120 PUFF INHALER INH SCH ×2 (07:13→18:33)
--- NOTE | 2019-11-02 08:48 | PDOC.HOSPP ---
- Subjective Encounter Date: 11/02/19 Encounter Time: 11:15 Subjective: Patient with extreme fatigue this AM. No other complaints. Phlebotomy unable to get blood this AM so will have nurse access his port. - Objective Vital Signs & Weight: Vital Signs (12 hours) Temp Pulse Resp BP Pulse Ox 11/02/19 07:30 97.6 F 84 16 135/63 100 11/02/19 07:14 98 11/02/19 07:13 89 20 98 11/02/19 03:29 97.5 F L 88 18 111/56 L 91 L 11/01/19 23:19 98.7 F 87 16 122/56 L 98 Weight Admit Weight 164 lb 9.6 oz Weight 172 lb 12.8 oz I&O: 11/01/19 11/02/19 11/03/19 06:59 06:59 06:59 Intake Total 2387 Output Total 1400 Balance 987 Result Diagrams: 11/01/19 05:00 11/01/19 05:00 Hospitalist ROS - Review of Systems Constitutional: reports: malaise. denies: fever, chills Respiratory: denies: cough, shortness of breath Gastrointestinal: denies: nausea, vomiting, abdominal pain - Medication Medications: Active Medications Generic Name Dose Route Start Last Admin Trade Name Freq PRN Reason Stop Dose Admin Acetaminophen 1,000 mg 10/30/19 18:30 11/02/19 01:39 Tylenol PO 1,000 mg Q6H PRN Administration Mild Pain (1-3) Albuterol Sulfate 2 puff 10/30/19 18:30 11/02/19 07:13 Proventil Hfa INH 2 puff [id number] GLADIS Administration Atorvastatin Calcium 40 mg 10/30/19 21:00 11/01/19 20:42 Lipitor PO 40 mg HS GLADIS Administration Al Hydroxide/Mg Hydroxide 60 0 ml 10/31/19 15:26 11/01/19 18:49 ml/ Lidocaine HCl 30 ml/ SSW 10 ml Diphenhydramine HCl 75 mg PRN PRN Administration Mouth Irritation Ezetimibe 10 mg 10/30/19 21:00 11/01/19 20:43 Zetia PO 10 mg HS GLADIS Administration Famotidine 20 mg 10/30/19 21:00 11/01/19 20:41 Pepcid PO 20 mg QPM GLADIS Administration Folic Acid 1 mg 10/31/19 09:00 11/01/19 08:04 Folvite PO 1 mg DAILY GLADIS Administration Furosemide 20 mg 10/31/19 06:00 11/02/19 06:42 Lasix PO 20 mg 0600,1400 GLADIS Administration Cefepime HCl 2 gm/ Sodium 100 mls @ 200 mls/hr 10/30/19 21:00 11/01/19 20:41 Chloride IVPB 100 mls Q12HR GLADIS Administration Sodium Chloride 1,000 mls @ 50 mls/hr 10/31/19 16:02 11/02/19 05:28 Normal Saline 0.9% IV 1,000 mls .Q20H GLADIS Administration Iron/Minerals/Multivitamins 1 tab 10/31/19 09:00 11/01/19 08:04 Theragran M PO 1 tab QAM GLADIS Administration Magnesium Oxide 400 mg 10/31/19 09:00 11/01/19 08:04 Magnesium Oxide PO 400 mg DAILY GLADIS Administration Methylprednisolone Sodium Succinate 40 mg 10/30/19 23:59 11/02/19 06:42 Solu-Medrol IVP 40 mg Q6HR GLADIS Administration Metoprolol Tartrate 12.5 mg 10/30/19 21:00 11/01/19 20:43 Lopressor PO 12.5 mg BID GLADIS Administration Mometasone Furoate/Formoterol Fumar 0 puff 10/30/19 18:30 11/02/19 07:13 Dulera 200 Mcg/5 Mcg Inhaler INH 2 puff BID-RT GLADIS Administration Potassium Chloride 40 meq 11/01/19 17:00 11/01/19 17:27 K-Dur PO 40 meq BID-WM GLADIS Administration Senna 2 tab 11/01/19 21:09 11/02/19 01:27 Senokot PO 2 tab HSPRN PRN Administration Constipation Sodium Chloride 10 ml 10/30/19 21:00 11/01/19 20:53 Flush - Normal Saline IVF 10 ml Q12HR GLADIS Administration Sodium Chloride 10 ml 10/30/19 19:03 11/02/19 01:40 Flush - Normal Saline IVF 10 ml PRN PRN Administration Saline Flush Sterile Water 1 ml 10/30/19 19:04 11/01/19 11:57 Bacteriostatic Water FS 1 ml PRN PRN Administration RECONSTITUTION - Exam General Appearance: NAD, awake alert General - other findings: very fatigues appearing ENT: moist mucosa Heart: RRR, no murmur, no gallops, no rubs Respiratory: CTAB, no wheezes, no rales, no ronchi Gastrointestinal: soft, non-tender, non-distended, normal bowel sounds Psychiatric: normal affect, normal behavior, A&O x 3 Hosp A/P (1) Symptomatic anemia Code(s): D64.9 - ANEMIA, UNSPECIFIED Status: Acute (2) Pancytopenia due to antineoplastic chemotherapy Code(s): D61.810 - ANTINEOPLASTIC CHEMOTHERAPY INDUCED PANCYTOPENIA; T45.1X5A - ADVERSE EFFECT OF ANTINEOPLASTIC AND IMMUNOSUP DRUGS, INIT Status: Acute (3) Acute respiratory failure with hypoxia Code(s): J96.01 - ACUTE RESPIRATORY FAILURE WITH HYPOXIA Status: Acute (4) Stage IV adenocarcinoma of lung Code(s): C34.90 - MALIGNANT NEOPLASM OF UNSP PART OF UNSP BRONCHUS OR LUNG Status: Chronic (5) 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 Code(s): I82.A12 - ACUTE EMBOLISM AND THROMBOSIS OF LEFT AXILLARY VEIN Status : Chronic (6) Hyponatremia Code(s): E87.1 - HYPO-OSMOLALITY AND HYPONATREMIA Status: Acute (7) Hypokalemia Code(s): E87.6 - HYPOKALEMIA Status: Acute - Plan Patient now on RA Rechecking labs this AM for potassium and platelets Hold Eliquis until platelets above 50,000 D/C home when ok with heme/onc still on Cefepime
[2019-11-02] MEDS: Folic Acid 1 MG TAB PO SCH (09:31)
[2019-11-02] MEDS: Metoprolol Tartrate 25 MG TAB PO SCH ×2 (09:31→20:20)
[2019-11-02] MEDS: Cefepime 2 GM in Sodium Chloride 0.9% 100 ML IVPB SCH ×2 (09:31→20:22)
[2019-11-02] MEDS: Potassium Chloride 20 MEQ TAB PO SCH ×2 (09:31→18:02)
[2019-11-02] MEDS: Magnesium Oxide 400 MG TAB PO SCH (09:32)
[2019-11-02] MEDS: Multivitamin W/ Minerals 1 TAB PO SCH (09:32)
[2019-11-02] MEDS: Aluminum & Magnesium Hydroxide 60 ML, Lidocaine 2% Viscous Solution 30 ML, diphenhydrAM... SSW PRN ×2 (09:37→18:02)
[2019-11-02 12:49] LABS: Anion Gap 14 mmol/L (10-20); BUN (Urea Nitrogen) 34 mg/dL (8.4-25.7); Calc. Creatinine Clearance 48 mL/min (70-130); Calcium 6.9 mg/dL (7.8-10.44); Carbon Dioxide 19 mmol/L (23-31); Chloride 104 mmol/L (98-107); Estimated GFR-MDRD 48; Glucose 139 mg/dL (83-110); Potassium 3.7 mmol/L (3.5-5.1); Sodium 133 mmol/L (136-145)
[2019-11-02 12:58] LABS: Hemoglobin 7.2 g/dL (14.0-18.0); Mean Corpuscular HGB CONC 34.2 g/dL (32.0-36.0); Mean Corpuscular Hemoglobin 36.9 pg (27.0-31.0); Mean Platelet Volume 10.5 fL (7.4-10.4); Platelet Count 16 thou/uL (130-400); RBC Distribution Width 20.2 % (11.5-14.5); Red Blood Cell (RBC) Count 1.96 mill/uL (4.70-6.10); White Blood Cell (WBC) Count 4.3 thou/uL (4.8-10.8)
[2019-11-02 13:02] LABS: Anisocytosis SLIGHT = 6-15 cells (100X) (0-5/hpf); Band 8 % (5-11); Dohle Bodies SLIGHT; Lymphocytes 3 % (21-51); MDiff Complete? YES; Macrocytosis SLIGHT = 6-15 cells (100X) (0-5/hpf); Monocytes 4 % (0-10); Neutrophil 85 % (42-75); Platelet Morphology Comment Appears Decreased; Polychromasia SLIGHT = 2-3 cells (100X) (0-2/hpf); Spherocytes SLIGHT = 1-5 cells (100X) (None Seen); Toxic Granulation SLIGHT
--- NOTE | 2019-11-02 15:23 | PDOC.MOPN ---
Interval History: He is feeling worse today, more fatigued. Anasarca continues, has diffuse bruising. He was able to stand for a couple minutes with PT but unable to take even 1 step. - Vital Signs Vital Signs: Vital Signs (12 hours) Temp Pulse Pulse Pulse Resp BP BP 11/02/19 11:32 97.6 F 84 18 11/02/19 11:00 90 20 11/02/19 09:44 92 106 H 119/69 131/65 11/02/19 07:30 97.6 F 84 16 11/02/19 07:14 11/02/19 07:13 89 20 11/02/19 03:29 97.5 F L 88 18 BP Pulse Ox 11/02/19 11:32 121/60 100 11/02/19 11:00 99 11/02/19 09:44 11/02/19 07:30 135/63 100 11/02/19 07:14 98 11/02/19 07:13 98 11/02/19 03:29 111/56 L 91 L Weight Admit Weight 164 lb 9.6 oz Weight 172 lb 12.8 oz - Physical Exam General: Alert, Oriented x3, Cooperative HEENT: EOMI Lungs: Normal air movement Extremities: Other (diffuse anasarca) Skin: No significant lesion (diffuse ecchymoses) Neurological: Cranial nerves 3-12 NL Psych/Mental Status: Mood NL - Labs Result Diagrams: 11/02/19 12:07 11/02/19 12:07 Lab results: Laboratory Results - last 24 hr 11/02/19 12:07: WBC 4.3 L, RBC 1.96 L, Hgb 7.2 L, Hct 21.2 L, MCV 108.0 H, MCH 36.9 H, MCHC 34.2, RDW 20.2 H, Plt Count 16 L*, MPV 10.5 H, Neutrophils % ( Manual) 85 H, Band Neuts % (Manual) 8, Lymphocytes % (Manual) 3 L, Monocytes % ( Manual) 4, Toxic Granulation SLIGHT, Dohle Bodies SLIGHT, Plt Morphology Comment Appears Decreased L, Polychromasia SLIGHT = 2-3 cells, Anisocytosis SLIGHT = 6-15 cells, Macrocytosis SLIGHT = 6-15 cells, Spherocytes SLIGHT = 1-5 cells 11/02/19 12:07: Sodium 133 L, Potassium 3.7, Chloride 104, Carbon Dioxide 19 L, Anion Gap 14, BUN 34 H, Creatinine 1.44 H, Estimated GFR (MDRD) 48, Glucose 139 H, Calcium 6.9 L A/P - Problem (1) Pancytopenia due to antineoplastic chemotherapy Current Visit: Yes Code(s): D61.810 - ANTINEOPLASTIC CHEMOTHERAPY INDUCED PANCYTOPENIA; T45.1X5A - ADVERSE EFFECT OF ANTINEOPLASTIC AND IMMUNOSUP DRUGS, INIT Status: Acute (2) Symptomatic anemia Current Visit: Yes Code(s): D64.9 - ANEMIA, UNSPECIFIED Status: Acute (3) 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 Current Visit: Yes Code(s): I82.A12 - ACUTE EMBOLISM AND THROMBOSIS OF LEFT AXILLARY VEIN Status: Chronic (4) Stage IV adenocarcinoma of lung Current Visit: Yes Code(s): C34.90 - MALIGNANT NEOPLASM OF UNSP PART OF UNSP BRONCHUS OR LUNG Status: Chronic - Plan Plan: Discussed with patient his prognosis and treatment. He has stable disease on Alimta maintenance chemotherapy however tolerated his last cycle extremely poorly. Will hold next dose of chemotherapy and give him a "chemo holiday" to see if he is able to get his strength back and improve his nutrition, and give his bone marrow a break. If he is able to improve back to his baseline then he would be a candidate to restart Alimta or change to Docetaxel +/- Ramucirumab. If he does not improve significantly then I would recommend hospice at that time. Mr. Guthrie understands and agrees with the plan. Transfuse prn Hb < 7 or Platelets < 10 Hold Eliquis as long as platelets < 50 Continue PT - pt would likely benefit from rehab at discharge
[2019-11-02] MEDS: Atorvastatin Calcium 40 MG TAB PO SCH (20:20)
[2019-11-02] MEDS: Famotidine 20 MG TAB PO SCH (20:20)
[2019-11-02] MEDS: Ezetimibe 10 MG TAB PO SCH (20:21)
[2019-11-03] MEDS: Sodium Chloride 0.9% 1,000 ML IV SCH (02:35)
[2019-11-03] MEDS: PROVENTIL INHALER 6.7 G (200 INHALATIONS) INH SCH ×6 (02:37→22:15)
[2019-11-03] MEDS: Furosemide 20 MG TAB PO SCH ×2 (05:10→15:11)
[2019-11-03] MEDS: methylPREDNISolone Sod Succ 40 MG VIAL IVP SCH ×4 (05:11→23:51)
[2019-11-03 05:53] LABS: Hemoglobin 7.2 g/dL (14.0-18.0); Mean Corpuscular HGB CONC 35.5 g/dL (32.0-36.0); Mean Corpuscular Hemoglobin 37.8 pg (27.0-31.0); Mean Platelet Volume 12.1 fL (7.4-10.4); Platelet Count 13 thou/uL (130-400); RBC Distribution Width 20.2 % (11.5-14.5); Red Blood Cell (RBC) Count 1.92 mill/uL (4.70-6.10); White Blood Cell (WBC) Count 4.7 thou/uL (4.8-10.8)
[2019-11-03 06:18] LABS: Band 7 % (5-11); Hypochromia SLIGHT = 6-15 cells (100X) (0-5/hpf); Lymphocytes 3 % (21-51); MDiff Complete? YES; Macrocytosis SLIGHT = 6-15 cells (100X) (0-5/hpf); Monocytes 11 % (0-10); Neutrophil 79 % (42-75); Platelet Morphology Comment Appears Decreased
[2019-11-03] MEDS: Mometasone 200 MCG/Formoterol 5 MCG 120 PUFF INHALER INH SCH ×2 (07:51→19:08)
--- NOTE | 2019-11-03 08:05 | PDOC.HOSPP ---
- Subjective Encounter Date: 11/03/19 Encounter Time: 10:40 Subjective: Patient reports more fatigues than yesterday. Some right sided chest pressure and some return of SOB this AM. - Objective Vital Signs & Weight: Vital Signs (12 hours) Temp Pulse Resp BP Pulse Ox 11/03/19 07:15 97.6 F 94 24 H 123/72 96 11/03/19 02:46 97.5 F L 92 17 119/70 100 11/03/19 02:37 93 14 100 11/02/19 23:10 97.4 F L 86 15 120/65 100 11/02/19 22:29 88 14 97 11/02/19 20:20 97.5 F L 94 23 H 103/53 L 99 Weight Admit Weight 164 lb 9.6 oz Weight 179 lb 6.4 oz I&O: 11/02/19 11/03/19 11/04/19 06:59 06:59 06:59 Intake Total 2387 1711 Output Total 1400 1850 Balance 987 -139 Result Diagrams: 11/03/19 05:31 11/02/19 12:07 Hospitalist ROS - Review of Systems Constitutional: denies: fever, chills Respiratory: reports: shortness of breath. denies: cough Cardiovascular: denies: palpitations, orthopnea Gastrointestinal: denies: nausea, vomiting, abdominal pain - Medication Medications: Active Medications Generic Name Dose Route Start Last Admin Trade Name Freq PRN Reason Stop Dose Admin Acetaminophen 1,000 mg 10/30/19 18:30 11/02/19 21:18 Tylenol PO 1,000 mg Q6H PRN Administration Mild Pain (1-3) Albuterol Sulfate 2 puff 10/30/19 18:30 11/03/19 07:51 Proventil Hfa INH 2 puff [id number] GLADIS Administration Atorvastatin Calcium 40 mg 10/30/19 21:00 11/02/19 20:20 Lipitor PO 40 mg HS GLADIS Administration Al Hydroxide/Mg Hydroxide 60 0 ml 10/31/19 15:26 11/02/19 18:02 ml/ Lidocaine HCl 30 ml/ SSW 10 ml Diphenhydramine HCl 75 mg PRN PRN Administration Mouth Irritation Ezetimibe 10 mg 10/30/19 21:00 11/02/19 20:21 Zetia PO 10 mg HS GLADIS Administration Famotidine 20 mg 10/30/19 21:00 11/02/19 20:20 Pepcid PO 20 mg QPM GLADIS Administration Folic Acid 1 mg 10/31/19 09:00 11/02/19 09:31 Folvite PO 1 mg DAILY GLADIS Administration Furosemide 20 mg 10/31/19 06:00 11/03/19 05:10 Lasix PO 20 mg 0600,1400 GLADIS Administration Cefepime HCl 2 gm/ Sodium 100 mls @ 200 mls/hr 10/30/19 21:00 11/02/19 20:22 Chloride IVPB 100 mls Q12HR GLADIS Administration Sodium Chloride 1,000 mls @ 50 mls/hr 10/31/19 16:02 11/03/19 02:35 Normal Saline 0.9% IV 1,000 mls .Q20H GLADIS Administration Iron/Minerals/Multivitamins 1 tab 10/31/19 09:00 11/02/19 09:32 Theragran M PO 1 tab QAM GLADIS Administration Magnesium Oxide 400 mg 10/31/19 09:00 11/02/19 09:32 Magnesium Oxide PO 400 mg DAILY GLADIS Administration Methylprednisolone Sodium Succinate 40 mg 10/30/19 23:59 11/03/19 05:11 Solu-Medrol IVP 40 mg Q6HR GLADIS Administration Metoprolol Tartrate 12.5 mg 10/30/19 21:00 11/02/19 20:20 Lopressor PO 12.5 mg BID GLADIS Administration Mometasone Furoate/Formoterol Fumar 0 puff 10/30/19 18:30 11/03/19 07:51 Dulera 200 Mcg/5 Mcg Inhaler INH 2 puff BID-RT GLADIS Administration Potassium Chloride 40 meq 11/01/19 17:00 11/02/19 18:02 K-Dur PO 40 meq BID-WM GLADIS Administration Senna 2 tab 11/01/19 21:09 11/02/19 01:27 Senokot PO 2 tab HSPRN PRN Administration Constipation Sodium Chloride 10 ml 10/30/19 21:00 11/02/19 20:23 Flush - Normal Saline IVF Not Given Q12HR GLADIS Sodium Chloride 10 ml 10/30/19 19:03 11/02/19 01:40 Flush - Normal Saline IVF 10 ml PRN PRN Administration Saline Flush Sterile Water 1 ml 10/30/19 19:04 11/01/19 11:57 Bacteriostatic Water FS 1 ml PRN PRN Administration RECONSTITUTION - Exam General Appearance: NAD, awake alert ENT: moist mucosa Heart: RRR, no murmur, no gallops, no rubs Respiratory: CTAB, no wheezes, no rales, no ronchi Gastrointestinal: soft, non-tender, non-distended, normal bowel sounds Psychiatric: normal affect, normal behavior, A&O x 3 Hosp A/P (1) Symptomatic anemia Code(s): D64.9 - ANEMIA, UNSPECIFIED Status: Acute (2) Pancytopenia due to antineoplastic chemotherapy Code(s): D61.810 - ANTINEOPLASTIC CHEMOTHERAPY INDUCED PANCYTOPENIA; T45.1X5A - ADVERSE EFFECT OF ANTINEOPLASTIC AND IMMUNOSUP DRUGS, INIT Status: Acute (3) Acute respiratory failure with hypoxia Code(s): J96.01 - ACUTE RESPIRATORY FAILURE WITH HYPOXIA Status: Acute (4) Stage IV adenocarcinoma of lung Code(s): C34.90 - MALIGNANT NEOPLASM OF UNSP PART OF UNSP BRONCHUS OR LUNG Status: Chronic (5) 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 Code(s): I82.A12 - ACUTE EMBOLISM AND THROMBOSIS OF LEFT AXILLARY VEIN Status : Chronic (6) Hyponatremia Code(s): E87.1 - HYPO-OSMOLALITY AND HYPONATREMIA Status: Acute (7) Hypokalemia Code(s): E87.6 - HYPOKALEMIA Status: Resolved - Plan Patient now on room air, but more SOB today, concern for fluid overload. Stopping IV fluids and give IV dose of Lasix. Potassium normalized Platelets continue to drop, will need transfusion if drops below 10,000 H/H stable able 7 Hold Eliquis until platelets above 50,000 Still on Cefepime, can likely d/c on discharge Will need to go to rehab once platelets stable Hold chemo for now, if can't tolerate reintroduction will need to transition to hospice
[2019-11-03] MEDS: Metoprolol Tartrate 25 MG TAB PO SCH ×2 (09:28→20:14)
[2019-11-03] MEDS: Magnesium Oxide 400 MG TAB PO SCH (09:28)
[2019-11-03] MEDS: Multivitamin W/ Minerals 1 TAB PO SCH (09:28)
[2019-11-03] MEDS: Folic Acid 1 MG TAB PO SCH (09:28)
[2019-11-03] MEDS: Potassium Chloride 20 MEQ TAB PO SCH ×2 (09:28→18:09)
[2019-11-03] MEDS: Cefepime 2 GM in Sodium Chloride 0.9% 100 ML IVPB SCH ×2 (09:29→20:18)
[2019-11-03] MEDS ORDERED: Furosemide 40 MG/4 ML VIAL SLOW IVP SCH (10:15)
[2019-11-03] MEDS: Aluminum & Magnesium Hydroxide 60 ML, Lidocaine 2% Viscous Solution 30 ML, diphenhydrAM... SSW PRN ×2 (12:08→18:09)
[2019-11-03] MEDS: Ezetimibe 10 MG TAB PO SCH (20:14)
[2019-11-03] MEDS: Atorvastatin Calcium 40 MG TAB PO SCH (20:14)
[2019-11-03] MEDS: Famotidine 20 MG TAB PO SCH (20:14)
[2019-11-03] MEDS: Acetaminophen 500 MG TAB PO PRN (20:15)
[2019-11-04] MEDS: PROVENTIL INHALER 6.7 G (200 INHALATIONS) INH SCH ×6 (02:22→23:13)
[2019-11-04] MEDS: Furosemide 20 MG TAB PO SCH (05:17)
[2019-11-04] MEDS: methylPREDNISolone Sod Succ 40 MG VIAL IVP SCH ×4 (05:18→23:40)
[2019-11-04 05:54] LABS: Mean Corpuscular HGB CONC 34.1 g/dL (32.0-36.0); Mean Corpuscular Hemoglobin 36.7 pg (27.0-31.0); Platelet Count 15 thou/uL (130-400); RBC Distribution Width 20.3 % (11.5-14.5); Red Blood Cell (RBC) Count 1.92 mill/uL (4.70-6.10); White Blood Cell (WBC) Count 5.1 thou/uL (4.8-10.8)
[2019-11-04 06:05] LABS: Band 8 % (5-11); Lymphocytes 9 % (21-51); MDiff Complete? YES; Monocytes 5 % (0-10); Neutrophil 77 % (42-75); Platelet Morphology Comment Appears Decreased; Promyelocytes 1 % (0-0)
[2019-11-04 06:14] LABS: Anion Gap 9 mmol/L (10-20); BUN (Urea Nitrogen) 36 mg/dL (8.4-25.7); Calc. Creatinine Clearance 47 mL/min (70-130); Calcium 6.5 mg/dL (7.8-10.44); Carbon Dioxide 21 mmol/L (23-31); Chloride 108 mmol/L (98-107); Estimated GFR-MDRD 44; Glucose 116 mg/dL (83-110); Potassium 4.2 mmol/L (3.5-5.1); Sodium 134 mmol/L (136-145)
[2019-11-04] MEDS: Mometasone 200 MCG/Formoterol 5 MCG 120 PUFF INHALER INH SCH ×2 (06:44→19:29)
--- NOTE | 2019-11-04 06:52 | PDOC.HOSPP ---
- Subjective Encounter Date: 11/04/19 Encounter Time: 10:50 Subjective: Patient with worsened SOB. Right chest tightness resolved. States he peed some with the IV Lasix, but didn't notice significantly more than normal. Still up in wait since admit. - Objective Vital Signs & Weight: Vital Signs (12 hours) Temp Pulse Resp BP Pulse Ox 11/04/19 06:45 98 11/04/19 06:44 83 16 98 11/04/19 06:42 83 16 98 11/04/19 02:39 97.8 F 82 16 120/67 97 11/04/19 02:22 77 16 100 11/03/19 23:54 80 123/68 11/03/19 22:15 88 16 98 11/03/19 19:26 97.6 F 90 16 127/68 98 11/03/19 19:08 86 16 97 Weight Admit Weight 164 lb 9.6 oz Weight 178 lb 14.4 oz I&O: 11/02/19 11/03/19 11/04/19 06:59 06:59 06:59 Intake Total 2387 1711 1500 Output Total 1400 1850 2550 Balance 987 -139 -1050 Result Diagrams: 11/04/19 05:23 11/04/19 05:23 Hospitalist ROS - Review of Systems Constitutional: denies: fever, chills Respiratory: reports: shortness of breath. denies: cough Cardiovascular: denies: chest pain, palpitations, orthopnea Gastrointestinal: denies: nausea, vomiting, abdominal pain - Medication Medications: Active Medications Generic Name Dose Route Start Last Admin Trade Name Freq PRN Reason Stop Dose Admin Acetaminophen 1,000 mg 10/30/19 18:30 11/03/19 20:15 Tylenol PO 1,000 mg Q6H PRN Administration Mild Pain (1-3) Albuterol Sulfate 2 puff 10/30/19 18:30 11/04/19 06:42 Proventil Hfa INH 2 puff [id number] GLADIS Administration Atorvastatin Calcium 40 mg 10/30/19 21:00 11/03/19 20:14 Lipitor PO 40 mg HS GLADIS Administration Al Hydroxide/Mg Hydroxide 60 0 ml 10/31/19 15:26 11/03/19 18:09 ml/ Lidocaine HCl 30 ml/ SSW 10 ml Diphenhydramine HCl 75 mg PRN PRN Administration Mouth Irritation Ezetimibe 10 mg 10/30/19 21:00 11/03/19 20:14 Zetia PO 10 mg HS GLADIS Administration Famotidine 20 mg 10/30/19 21:00 11/03/19 20:14 Pepcid PO 20 mg QPM GLADIS Administration Folic Acid 1 mg 10/31/19 09:00 11/03/19 09:28 Folvite PO 1 mg DAILY GLADIS Administration Furosemide 20 mg 10/31/19 06:00 11/04/19 05:17 Lasix PO 20 mg 0600,1400 GLADIS Administration Cefepime HCl 2 gm/ Sodium 100 mls @ 200 mls/hr 10/30/19 21:00 11/03/19 20:18 Chloride IVPB 100 mls Q12HR GLADIS Administration Iron/Minerals/Multivitamins 1 tab 10/31/19 09:00 11/03/19 09:28 Theragran M PO 1 tab QAM GLADIS Administration Magnesium Oxide 400 mg 10/31/19 09:00 11/03/19 09:28 Magnesium Oxide PO 400 mg DAILY GLADIS Administration Methylprednisolone Sodium Succinate 40 mg 10/30/19 23:59 11/04/19 05:18 Solu-Medrol IVP 40 mg Q6HR GLADIS Administration Metoprolol Tartrate 12.5 mg 10/30/19 21:00 11/03/19 20:14 Lopressor PO 12.5 mg BID GLADIS Administration Mometasone Furoate/Formoterol Fumar 0 puff 10/30/19 18:30 11/04/19 06:44 Dulera 200 Mcg/5 Mcg Inhaler INH 2 puff BID-RT GLADIS Administration Potassium Chloride 40 meq 11/01/19 17:00 11/03/19 18:09 K-Dur PO 40 meq BID-WM GLADIS Administration Senna 2 tab 11/01/19 21:09 11/02/19 01:27 Senokot PO 2 tab HSPRN PRN Administration Constipation Sodium Chloride 10 ml 10/30/19 21:00 11/03/19 20:23 Flush - Normal Saline IVF 10 ml Q12HR GLADIS Administration Sodium Chloride 10 ml 10/30/19 19:03 11/03/19 23:51 Flush - Normal Saline IVF 10 ml PRN PRN Administration Saline Flush Sterile Water 1 ml 10/30/19 19:04 11/01/19 11:57 Bacteriostatic Water FS 1 ml PRN PRN Administration RECONSTITUTION - Exam General Appearance: NAD, awake alert ENT: moist mucosa Heart: RRR, no murmur, no gallops, no rubs Respiratory: CTAB, no wheezes, no rales, no ronchi Gastrointestinal: soft, non-tender, non-distended, normal bowel sounds Psychiatric: normal affect, normal behavior, A&O x 3 Hosp A/P (1) Symptomatic anemia Code(s): D64.9 - ANEMIA, UNSPECIFIED Status: Acute (2) Pancytopenia due to antineoplastic chemotherapy Code(s): D61.810 - ANTINEOPLASTIC CHEMOTHERAPY INDUCED PANCYTOPENIA; T45.1X5A - ADVERSE EFFECT OF ANTINEOPLASTIC AND IMMUNOSUP DRUGS, INIT Status: Acute (3) Acute respiratory failure with hypoxia Code(s): J96.01 - ACUTE RESPIRATORY FAILURE WITH HYPOXIA Status: Acute (4) Stage IV adenocarcinoma of lung Code(s): C34.90 - MALIGNANT NEOPLASM OF UNSP PART OF UNSP BRONCHUS OR LUNG Status: Chronic (5) 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 Code(s): I82.A12 - ACUTE EMBOLISM AND THROMBOSIS OF LEFT AXILLARY VEIN Status : Chronic (6) Hyponatremia Code(s): E87.1 - HYPO-OSMOLALITY AND HYPONATREMIA Status: Acute (7) Hypokalemia Code(s): E87.6 - HYPOKALEMIA Status: Resolved - Plan Patient now on room air, but more SOB today, concern for fluid overload. Stopped IV fluids and giving IV Lasix for another day, then back to oral. Potassium normalized Platelets continue to drop, will need transfusion if drops below 10,000 H/H stable at 7 Hold Eliquis until platelets above 50,000 S/P 5 days of Cefepime, no evidence infection, will d/c Will need to go to rehab once platelets stable Hold chemo for now, if can't tolerate reintroduction will need to transition to hospice
[2019-11-04] MEDS: Magnesium Oxide 400 MG TAB PO SCH (08:15)
[2019-11-04] MEDS: Metoprolol Tartrate 25 MG TAB PO SCH ×2 (08:15→20:14)
[2019-11-04] MEDS: Folic Acid 1 MG TAB PO SCH (08:16)
[2019-11-04] MEDS: Multivitamin W/ Minerals 1 TAB PO SCH (08:16)
[2019-11-04] MEDS: Potassium Chloride 20 MEQ TAB PO SCH ×2 (08:16→17:37)
[2019-11-04] MEDS: Aluminum & Magnesium Hydroxide 60 ML, Lidocaine 2% Viscous Solution 30 ML, diphenhydrAM... SSW PRN ×3 (09:01→17:38)
--- NOTE | 2019-11-04 11:23 | RAD ---
CHEST 1 VIEW: Date: 11/04/2019 HISTORY: Shortness of breath. COMPARISON: 10/30/2019. FINDINGS: Loculated right pleural effusion, slightly increased in size. Small left effusion. Left upper lobe nodule is similar. Left axillary surgical clips. IMPRESSION: Enlarging right pleural effusion and small left pleural effusion. POS: HOME
[2019-11-04] MEDS: Bacteriostatic Water 30 ML VIAL FS PRN ×2 (12:27→17:38)
[2019-11-04] MEDS: Furosemide 40 MG/4 ML VIAL SLOW IVP SCH (14:44)
--- NOTE | 2019-11-04 15:15 | PDOC.MOPN ---
Interval History: alert today, breathing improved. - Vital Signs Vital Signs: Vital Signs (12 hours) Temp Pulse Pulse Pulse Resp BP BP 11/04/19 14:06 63 16 11/04/19 11:46 98 F 80 22 H 11/04/19 10:28 75 16 11/04/19 10:00 80 87 126/59 L 126/67 11/04/19 08:00 11/04/19 07:42 98.3 F 89 22 H 11/04/19 06:45 11/04/19 06:44 83 16 11/04/19 06:42 83 16 BP Pulse Ox Pulse Ox Pulse Ox 11/04/19 14:06 100 11/04/19 11:46 124/62 100 11/04/19 10:28 100 11/04/19 10:00 98 98 11/04/19 08:00 98 11/04/19 07:42 118/68 98 11/04/19 06:45 98 11/04/19 06:44 98 11/04/19 06:42 98 Weight Admit Weight 164 lb 9.6 oz Weight 178 lb 14.4 oz - Physical Exam General: Alert, Oriented x3, No acute distress HEENT: Atraumatic, PERRLA, EOMI, Mucous membr. moist/pink Lungs: Clear to auscultation, Normal air movement Cardiovascular: Regular rate, Normal S1, Normal S2, No murmurs, Gallops, Rubs Extremities: Other (anasarca) Neurological: Normal speech - Labs Result Diagrams: 11/04/19 05:23 11/04/19 05:23 Lab results: Laboratory Results - last 24 hr 11/04/19 05:23: Sodium 134 L, Potassium 4.2, Chloride 108 H, Carbon Dioxide 21 L , Anion Gap 9 L, BUN 36 H, Creatinine 1.53 H, Estimated GFR (MDRD) 44, Glucose 116 H, Calcium 6.5 L 11/04/19 05:23: WBC 5.1, RBC 1.92 L, Hgb 7.0 L, Hct 20.6 L, MCV 107.0 H, MCH 36.7 H, MCHC 34.1, RDW 20.3 H, Plt Count 15 L*, MPV 13.0 H, Neutrophils % ( Manual) 77 H, Band Neuts % (Manual) 8, Lymphocytes % (Manual) 9 L, Monocytes % ( Manual) 5, Promyelocytes % (Man) 1 H, Lymphocytes # Not Reportable, Plt Morphology Comment Appears Decreased L Status: lab reviewed by me A/P - Problem (1) Pancytopenia due to antineoplastic chemotherapy Current Visit: Yes Code(s): D61.810 - ANTINEOPLASTIC CHEMOTHERAPY INDUCED PANCYTOPENIA; T45.1X5A - ADVERSE EFFECT OF ANTINEOPLASTIC AND IMMUNOSUP DRUGS, INIT Status: Acute (2) 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 Current Visit: Yes Code(s): I82.A12 - ACUTE EMBOLISM AND THROMBOSIS OF LEFT AXILLARY VEIN Status: Chronic (3) Stage IV adenocarcinoma of lung Current Visit: Yes Code(s): C34.90 - MALIGNANT NEOPLASM OF UNSP PART OF UNSP BRONCHUS OR LUNG Status: Chronic - Plan Plan: Lasix for edema, protein and albumin low, consider albumin IV Transfuse prn Hb < 7 or Platelets < 10 Hold Eliquis as long as platelets < 50 Continue PT - pt would likely benefit from rehab at discharge
[2019-11-04] MEDS: Atorvastatin Calcium 40 MG TAB PO SCH (20:14)
[2019-11-04] MEDS: Ezetimibe 10 MG TAB PO SCH (20:15)
[2019-11-04] MEDS: Famotidine 20 MG TAB PO SCH (20:15)
[2019-11-04] MEDS ORDERED: Temazepam 15 MG CAP PO SCH (21:00)
[2019-11-05] MEDS: PROVENTIL INHALER 6.7 G (200 INHALATIONS) INH SCH ×6 (02:15→22:09)
[2019-11-05 04:32] LABS: #Lymphocytes 0.4 thou/uL (1.20-3.40); #Monocytes 0.6 thou/uL (0.11-0.59); #Neutrophils 5.4 thou/uL (1.40-6.50); %Lymphocytes 5.5 % (21.0-51.0); %Monocytes 9.3 % (0.0-10.0); %Neutrophils 85.2 % (42.0-75.0); Hemoglobin 6.9 g/dL (14.0-18.0); Mean Corpuscular HGB CONC 34.4 g/dL (32.0-36.0); Mean Corpuscular Hemoglobin 37.2 pg (27.0-31.0); Mean Platelet Volume 12.6 fL (7.4-10.4); Platelet Count 15 thou/uL (130-400); RBC Distribution Width 20.2 % (11.5-14.5); Red Blood Cell (RBC) Count 1.84 mill/uL (4.70-6.10); White Blood Cell (WBC) Count 6.3 thou/uL (4.8-10.8)
[2019-11-05] MEDS: methylPREDNISolone Sod Succ 40 MG VIAL IVP SCH ×4 (05:06→23:06)
[2019-11-05] MEDS: Furosemide 40 MG/4 ML VIAL SLOW IVP SCH ×2 (05:06→14:15)
[2019-11-05] MEDS: Aluminum & Magnesium Hydroxide 60 ML, Lidocaine 2% Viscous Solution 30 ML, diphenhydrAM... SSW PRN ×3 (05:20→12:26)
[2019-11-05] MEDS: Mometasone 200 MCG/Formoterol 5 MCG 120 PUFF INHALER INH SCH ×2 (07:22→19:14)
--- NOTE | 2019-11-05 07:29 | PDOC.HOSPP ---
- Subjective Encounter Date: 11/05/19 Encounter Time: 11:30 Subjective: Patient with improved shortness of breath, slept better last night with Restoril and was able to stand with PT today. - Objective Vital Signs & Weight: Vital Signs (12 hours) Temp Pulse Resp BP Pulse Ox 11/05/19 07:25 100 11/05/19 07:24 82 16 100 11/05/19 07:22 82 16 100 11/05/19 03:54 97.5 F L 93 18 124/68 100 11/05/19 02:15 80 14 100 11/05/19 00:13 99 11/04/19 23:29 97.7 F 89 18 118/73 100 11/04/19 23:13 79 16 100 11/04/19 20:01 97.5 F L 98 18 124/62 98 11/04/19 20:00 98 11/04/19 19:29 86 16 99 Weight Admit Weight 164 lb 9.6 oz Weight 178 lb 14.4 oz I&O: 11/04/19 11/05/19 11/06/19 06:59 06:59 06:59 Intake Total 1500 480 Output Total 2550 5375 Balance -1050 -1198 Result Diagrams: 11/05/19 04:15 11/04/19 05:23 Hospitalist ROS - Review of Systems Constitutional: denies: fever, chills Respiratory: denies: cough, shortness of breath Cardiovascular: denies: chest pain, palpitations Gastrointestinal: denies: nausea, vomiting, abdominal pain Neurological: reports: weakness - Medication Medications: Active Medications Generic Name Dose Route Start Last Admin Trade Name Freq PRN Reason Stop Dose Admin Acetaminophen 1,000 mg 10/30/19 18:30 11/03/19 20:15 Tylenol PO 1,000 mg Q6H PRN Administration Mild Pain (1-3) Albuterol Sulfate 2 puff 10/30/19 18:30 11/05/19 07:24 Proventil Hfa INH 2 puff [id number] GLADIS Administration Atorvastatin Calcium 40 mg 10/30/19 21:00 11/04/19 20:14 Lipitor PO 40 mg HS GLADIS Administration Al Hydroxide/Mg Hydroxide 60 0 ml 10/31/19 15:26 11/05/19 05:20 ml/ Lidocaine HCl 30 ml/ SSW 10 ml Diphenhydramine HCl 75 mg PRN PRN Administration Mouth Irritation Ezetimibe 10 mg 10/30/19 21:00 11/04/19 20:15 Zetia PO 10 mg HS GLADIS Administration Famotidine 20 mg 10/30/19 21:00 11/04/19 20:15 Pepcid PO Not Given QPM GLADIS Folic Acid 1 mg 10/31/19 09:00 11/04/19 08:16 Folvite PO 1 mg DAILY GLADIS Administration Furosemide 20 mg 10/31/19 06:00 11/04/19 05:17 Lasix PO 20 mg 0600,1400 GLADIS Administration Furosemide 40 mg 11/04/19 14:00 11/05/19 05:06 Lasix SLOW IVP 11/05/19 23:59 40 mg 0600,1400 GLADIS Administration Iron/Minerals/Multivitamins 1 tab 10/31/19 09:00 11/04/19 08:16 Theragran M PO 1 tab QAM GLADIS Administration Magnesium Oxide 400 mg 10/31/19 09:00 11/04/19 08:15 Magnesium Oxide PO 400 mg DAILY GLADIS Administration Methylprednisolone Sodium Succinate 40 mg 10/30/19 23:59 11/05/19 05:06 Solu-Medrol IVP 40 mg Q6HR GLADIS Administration Metoprolol Tartrate 12.5 mg 10/30/19 21:00 11/04/19 20:14 Lopressor PO 12.5 mg BID GLADIS Administration Mometasone Furoate/Formoterol Fumar 0 puff 10/30/19 18:30 11/05/19 07:22 Dulera 200 Mcg/5 Mcg Inhaler INH 2 puff BID-RT GLADIS Administration Potassium Chloride 40 meq 11/01/19 17:00 11/04/19 17:37 K-Dur PO 40 meq BID-WM GLADIS Administration Senna 2 tab 11/01/19 21:09 11/02/19 01:27 Senokot PO 2 tab HSPRN PRN Administration Constipation Sodium Chloride 10 ml 10/30/19 21:00 11/04/19 20:16 Flush - Normal Saline IVF 10 ml Q12HR GLADIS Administration Sodium Chloride 10 ml 10/30/19 19:03 11/03/19 23:51 Flush - Normal Saline IVF 10 ml PRN PRN Administration Saline Flush Sterile Water 1 ml 10/30/19 19:04 11/04/19 17:38 Bacteriostatic Water FS 1 ml PRN PRN Administration RECONSTITUTION - Exam General Appearance: NAD, awake alert ENT: moist mucosa Heart: RRR, no murmur, no gallops, no rubs Respiratory: CTAB, no wheezes, no rales, no ronchi Gastrointestinal: soft, non-tender, non-distended, normal bowel sounds Psychiatric: normal affect, normal behavior, A&O x 3 Hosp A/P (1) Symptomatic anemia Code(s): D64.9 - ANEMIA, UNSPECIFIED Status: Acute (2) Pancytopenia due to antineoplastic chemotherapy Code(s): D61.810 - ANTINEOPLASTIC CHEMOTHERAPY INDUCED PANCYTOPENIA; T45.1X5A - ADVERSE EFFECT OF ANTINEOPLASTIC AND IMMUNOSUP DRUGS, INIT Status: Acute (3) Acute respiratory failure with hypoxia Code(s): J96.01 - ACUTE RESPIRATORY FAILURE WITH HYPOXIA Status: Acute (4) Stage IV adenocarcinoma of lung Code(s): C34.90 - MALIGNANT NEOPLASM OF UNSP PART OF UNSP BRONCHUS OR LUNG Status: Chronic (5) 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 Code(s): I82.A12 - ACUTE EMBOLISM AND THROMBOSIS OF LEFT AXILLARY VEIN Status : Chronic (6) Hyponatremia Code(s): E87.1 - HYPO-OSMOLALITY AND HYPONATREMIA Status: Acute (7) Hypokalemia Code(s): E87.6 - HYPOKALEMIA Status: Resolved - Plan Patient now on room air, but more SOB today, concern for fluid overload. Stopped IV fluids and giving IV Lasix for another day, then back to oral. Potassium normalized Platelets stable at 15,000 H/H dipped below 7, relatively stable, give 1 more unit PRBC Hold Eliquis until platelets above 50,000 S/P 5 days of Cefepime, no evidence infection, will d/c Will need to go to rehab once platelets stable Hold chemo for now, if can't tolerate reintroduction will need to transition to hospice
[2019-11-05] MEDS: Metoprolol Tartrate 25 MG TAB PO SCH ×2 (08:20→20:00)
[2019-11-05] MEDS: Magnesium Oxide 400 MG TAB PO SCH (08:20)
[2019-11-05] MEDS: Folic Acid 1 MG TAB PO SCH (08:20)
[2019-11-05] MEDS: Potassium Chloride 20 MEQ TAB PO SCH ×2 (08:20→17:50)
[2019-11-05] MEDS: Multivitamin W/ Minerals 1 TAB PO SCH (08:21)
[2019-11-05] MEDS: Acetaminophen 500 MG TAB PO PRN (08:21)
--- NOTE | 2019-11-05 14:06 | PDOC.MOPN ---
Interval History: feels better today, working with PT and able to stand on side of bed. - Vital Signs Vital Signs: Vital Signs (12 hours) Temp Pulse Pulse Pulse Pulse Pulse Resp 11/05/19 13:52 88 16 11/05/19 11:48 98.6 F 103 H 18 11/05/19 11:35 96.4 F L 94 18 11/05/19 10:37 90 16 11/05/19 10:14 102 H 82 93 11/05/19 08:00 11/05/19 07:31 100.0 F H 85 18 11/05/19 07:25 11/05/19 07:24 82 16 11/05/19 07:22 82 16 11/05/19 03:54 97.5 F L 93 18 11/05/19 02:15 80 14 BP BP BP BP BP Pulse Ox 11/05/19 13:52 100 11/05/19 11:48 115/68 100 11/05/19 11:35 117/58 L 100 11/05/19 10:37 100 11/05/19 10:14 96/53 L 122/64 103/58 L 11/05/19 08:00 99 11/05/19 07:31 118/61 99 11/05/19 07:25 100 11/05/19 07:24 100 11/05/19 07:22 100 11/05/19 03:54 124/68 100 11/05/19 02:15 100 Weight Admit Weight 164 lb 9.6 oz Weight 178 lb 14.4 oz - Physical Exam General: Alert, Oriented x3, No acute distress HEENT: Atraumatic, PERRLA, EOMI, Mucous membr. moist/pink Lungs: Clear to auscultation Cardiovascular: Regular rate Abdomen: Normal bowel sounds Extremities: Other (2+ edema, weeping RUE) Neurological: Normal speech - Labs Result Diagrams: 11/05/19 04:15 11/04/19 05:23 Lab results: Laboratory Results - last 24 hr 11/05/19 09:27: Blood Type O POSITIVE, Antibody Screen NEGATIVE, Crossmatch See Detail 11/05/19 04:15: WBC 6.3, RBC 1.84 L, Hgb 6.9 L, Hct 19.9 L, MCV 108.0 H, MCH 37.2 H, MCHC 34.4, RDW 20.2 H, Plt Count 15 L*, MPV 12.6 H, Neutrophils % 85.2 H , Neutrophils % (Manual) Not Reportable, Lymphocytes % 5.5 L, Monocytes % 9.3, Eosinophils % 0.0, Basophils % 0.0, Neutrophils # 5.4, Lymphocytes # 0.4 L, Monocytes # 0.6 H, Eosinophils # 0.0, Basophils # 0.0 Status: lab reviewed by me A/P - Problem (1) Pancytopenia due to antineoplastic chemotherapy Current Visit: Yes Code(s): D61.810 - ANTINEOPLASTIC CHEMOTHERAPY INDUCED PANCYTOPENIA; T45.1X5A - ADVERSE EFFECT OF ANTINEOPLASTIC AND IMMUNOSUP DRUGS, INIT Status: Acute (2) 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 transfused 1 unit blood today 2. daily CBC 3. continue PT 4. Hopefully, to rehab by end of week.
[2019-11-05] MEDS: Atorvastatin Calcium 40 MG TAB PO SCH (20:00)
[2019-11-05] MEDS: Ezetimibe 10 MG TAB PO SCH (20:00)
[2019-11-05] MEDS: Famotidine 20 MG TAB PO SCH (20:00)
[2019-11-05] MEDS: Temazepam 15 MG CAP PO PRN (21:14)
[2019-11-06] MEDS: PROVENTIL INHALER 6.7 G (200 INHALATIONS) INH SCH ×6 (01:50→22:30)
[2019-11-06] MEDS: methylPREDNISolone Sod Succ 40 MG VIAL IVP SCH ×4 (05:07→23:48)
[2019-11-06 05:26] LABS: Band 13 % (5-11); Hemoglobin 7.9 g/dL (14.0-18.0); Lymphocytes 4 % (21-51); MDiff Complete? YES; Mean Corpuscular HGB CONC 33.3 g/dL (32.0-36.0); Mean Corpuscular Hemoglobin 35.1 pg (27.0-31.0); Mean Platelet Volume 13.6 fL (7.4-10.4); Monocytes 4 % (0-10); Neutrophil 79 % (42-75); Platelet Count 19 thou/uL (130-400); Platelet Morphology Comment Appears Decreased; RBC Distribution Width 20.2 % (11.5-14.5); Red Blood Cell (RBC) Count 2.25 mill/uL (4.70-6.10); White Blood Cell (WBC) Count 7.7 thou/uL (4.8-10.8)
[2019-11-06] MEDS: Furosemide 20 MG TAB PO SCH ×2 (05:34→13:17)
[2019-11-06] MEDS: Mometasone 200 MCG/Formoterol 5 MCG 120 PUFF INHALER INH SCH ×2 (06:50→19:02)
--- NOTE | 2019-11-06 07:34 | PDOC.HOSPP ---
- Subjective Encounter Date: 11/06/19 Encounter Time: 10:30 Subjective: Patient with mildly worse SOB today, fluctuates in severity. No other changes. - Objective Vital Signs & Weight: Vital Signs (12 hours) Temp Pulse Resp BP Pulse Ox 11/06/19 03:15 98.3 F 93 19 148/69 H 94 L 11/06/19 01:50 89 16 96 11/05/19 23:10 97.5 F L 78 14 135/78 100 11/05/19 22:09 94 16 99 Weight Admit Weight 164 lb 9.6 oz Weight 178 lb 14.4 oz I&O: 11/05/19 11/06/19 11/07/19 06:59 06:59 06:59 Intake Total 480 1910 Output Total 6271 5490 Balance -1195 -1790 Result Diagrams: 11/06/19 05:10 11/04/19 05:23 Hospitalist ROS - Review of Systems Constitutional: denies: fever, chills Respiratory: reports: shortness of breath. denies: cough Cardiovascular: denies: chest pain, palpitations, orthopnea Gastrointestinal: denies: nausea, vomiting, abdominal pain - Medication Medications: Active Medications Generic Name Dose Route Start Last Admin Trade Name Freq PRN Reason Stop Dose Admin Acetaminophen 1,000 mg 10/30/19 18:30 11/05/19 08:21 Tylenol PO 1,000 mg Q6H PRN Administration Mild Pain (1-3) Albuterol Sulfate 2 puff 10/30/19 18:30 11/06/19 06:49 Proventil Hfa INH 2 puff [id number] GLADIS Administration Atorvastatin Calcium 40 mg 10/30/19 21:00 11/05/19 20:00 Lipitor PO 40 mg HS GLADIS Administration Al Hydroxide/Mg Hydroxide 60 0 ml 10/31/19 15:26 11/05/19 12:26 ml/ Lidocaine HCl 30 ml/ SSW 10 ml Diphenhydramine HCl 75 mg PRN PRN Administration Mouth Irritation Ezetimibe 10 mg 10/30/19 21:00 11/05/19 20:00 Zetia PO 10 mg HS GLADIS Administration Famotidine 20 mg 10/30/19 21:00 11/05/19 20:00 Pepcid PO Not Given QPM GLADIS Folic Acid 1 mg 10/31/19 09:00 11/05/19 08:20 Folvite PO 1 mg DAILY GLADIS Administration Furosemide 20 mg 10/31/19 06:00 11/06/19 05:34 Lasix PO Not Given 0600,1400 [facility] Iron/Minerals/Multivitamins 1 tab 10/31/19 09:00 11/05/19 08:21 Theragran M PO 1 tab QAM GLADIS Administration Magnesium Oxide 400 mg 10/31/19 09:00 11/05/19 08:20 Magnesium Oxide PO 400 mg DAILY GLADIS Administration Methylprednisolone Sodium Succinate 40 mg 10/30/19 23:59 11/06/19 05:07 Solu-Medrol IVP 40 mg Q6HR GLADIS Administration Metoprolol Tartrate 12.5 mg 10/30/19 21:00 11/05/19 20:00 Lopressor PO 12.5 mg BID [facility] Administration Mometasone Furoate/Formoterol Fumar 0 puff 10/30/19 18:30 11/06/19 06:50 Dulera 200 Mcg/5 Mcg Inhaler INH 2 puff BID-RT GLADIS Administration Potassium Chloride 40 meq 11/01/19 17:00 11/05/19 17:50 K-Dur PO 40 meq BID-WM GLADIS Administration Senna 2 tab 11/01/19 21:09 11/02/19 01:27 Senokot PO 2 tab HSPRN PRN Administration Constipation Sodium Chloride 10 ml 10/30/19 21:00 11/05/19 20:00 Flush - Normal Saline IVF 10 ml Q12HR GLADIS Administration Sodium Chloride 10 ml 10/30/19 19:03 11/03/19 23:51 Flush - Normal Saline IVF 10 ml PRN PRN Administration Saline Flush Sterile Water 1 ml 10/30/19 19:04 11/04/19 17:38 Bacteriostatic Water FS 1 ml PRN PRN Administration RECONSTITUTION Temazepam 15 mg 11/05/19 11:35 11/05/19 21:14 Restoril PO 15 mg HSPRN PRN Administration Insomnia - Exam General Appearance: NAD ENT: moist mucosa Heart: RRR, no murmur, no gallops, no rubs Respiratory: CTAB, no wheezes, no rales, no ronchi Gastrointestinal: soft, non-tender, non-distended, normal bowel sounds Psychiatric: normal affect, normal behavior, A&O x 3 Hosp A/P (1) Symptomatic anemia Code(s): D64.9 - ANEMIA, UNSPECIFIED Status: Acute (2) Pancytopenia due to antineoplastic chemotherapy Code(s): D61.810 - ANTINEOPLASTIC CHEMOTHERAPY INDUCED PANCYTOPENIA; T45.1X5A - ADVERSE EFFECT OF ANTINEOPLASTIC AND IMMUNOSUP DRUGS, INIT Status: Acute (3) Acute respiratory failure with hypoxia Code(s): J96.01 - ACUTE RESPIRATORY FAILURE WITH HYPOXIA Status: Acute (4) Stage IV adenocarcinoma of lung Code(s): C34.90 - MALIGNANT NEOPLASM OF UNSP PART OF UNSP BRONCHUS OR LUNG Status: Chronic (5) 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 Code(s): I82.A12 - ACUTE EMBOLISM AND THROMBOSIS OF LEFT AXILLARY VEIN Status : Chronic (6) Hyponatremia Code(s): E87.1 - HYPO-OSMOLALITY AND HYPONATREMIA Status: Acute (7) Hypokalemia Code(s): E87.6 - HYPOKALEMIA Status: Resolved - Plan Platelets stable H/H improved with last transfusion Hold Eliquis until platelets above 50,000 S/P 5 days of Cefepime, no evidence infection, d/c'd Hold chemo for now, if can't tolerate reintroduction will need to transition to hospice Recheck CBC tomorrow, if H/H and Platelets continue to remain stable can d/c to rehab
[2019-11-06] MEDS ORDERED: Furosemide 20 MG TAB PO SCH (07:45)
[2019-11-06] MEDS: Magnesium Oxide 400 MG TAB PO SCH (08:42)
[2019-11-06] MEDS: Multivitamin W/ Minerals 1 TAB PO SCH (08:42)
[2019-11-06] MEDS: Potassium Chloride 20 MEQ TAB PO SCH ×2 (08:42→17:00)
[2019-11-06] MEDS: Metoprolol Tartrate 25 MG TAB PO SCH ×2 (08:42→21:45)
[2019-11-06] MEDS: Folic Acid 1 MG TAB PO SCH (08:42)
[2019-11-06] MEDS: Aluminum & Magnesium Hydroxide 60 ML, Lidocaine 2% Viscous Solution 30 ML, diphenhydrAM... SSW PRN ×2 (11:32→13:17)
--- NOTE | 2019-11-06 12:01 | PDOC.MOPN ---
Interval History: eating more, anasarca improving - Vital Signs Vital Signs: Vital Signs (12 hours) Temp Pulse Resp BP Pulse Ox 11/06/19 11:53 97.7 F 93 20 121/67 94 L 11/06/19 08:00 97.9 F 101 H 12 131/79 94 L 11/06/19 03:15 98.3 F 93 19 148/69 H 94 L 11/06/19 01:50 89 16 96 Weight Admit Weight 164 lb 9.6 oz Weight 178 lb 14.4 oz - Physical Exam General: Alert, Oriented x3, No acute distress HEENT: Atraumatic, PERRLA, EOMI, Mucous membr. moist/pink Lungs: Clear to auscultation Cardiovascular: Regular rate Abdomen: Normal bowel sounds Extremities: Other Neurological: Normal speech - Labs Result Diagrams: 11/06/19 05:10 11/04/19 05:23 Lab results: Laboratory Results - last 24 hr 11/06/19 05:10: WBC 7.7, RBC 2.25 L, Hgb 7.9 L, Hct 23.7 L, MCV 105.0 H, MCH 35.1 H, MCHC 33.3, RDW 20.2 H, Plt Count 19 L*, MPV 13.6 H, Neutrophils % ( Manual) 79 H, Band Neuts % (Manual) 13 H, Lymphocytes % (Manual) 4 L, Monocytes % (Manual) 4, Plt Morphology Comment Appears Decreased L 11/05/19 09:27: Crossmatch See Detail Status: lab reviewed by me A/P - Problem (1) Pancytopenia due to antineoplastic chemotherapy Current Visit: Yes Code(s): D61.810 - ANTINEOPLASTIC CHEMOTHERAPY INDUCED PANCYTOPENIA; T45.1X5A - ADVERSE EFFECT OF ANTINEOPLASTIC AND IMMUNOSUP DRUGS, INIT Status: Acute (2) 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 Current Visit: Yes Code(s): I82.A12 - ACUTE EMBOLISM AND THROMBOSIS OF LEFT AXILLARY VEIN Status: Chronic (3) Stage IV adenocarcinoma of lung Current Visit: Yes Code(s): C34.90 - MALIGNANT NEOPLASM OF UNSP PART OF UNSP BRONCHUS OR LUNG Status: Chronic - Plan Plan: referral to Rehab made today Continue ambulation with PT no transfusion needed today CBC in am
[2019-11-06] MEDS: Ezetimibe 10 MG TAB PO SCH (21:45)
[2019-11-06] MEDS: Temazepam 15 MG CAP PO PRN (21:45)
[2019-11-06] MEDS: Famotidine 20 MG TAB PO SCH (21:45)
[2019-11-06] MEDS: Atorvastatin Calcium 40 MG TAB PO SCH (21:45)
[2019-11-07] MEDS: PROVENTIL INHALER 6.7 G (200 INHALATIONS) INH SCH ×6 (03:01→22:13)
[2019-11-07] MEDS: Acetaminophen 500 MG TAB PO PRN (03:29)
[2019-11-07 04:51] LABS: Hemoglobin 8.3 g/dL (14.0-18.0); Mean Corpuscular HGB CONC 33.9 g/dL (32.0-36.0); Mean Corpuscular Hemoglobin 35.7 pg (27.0-31.0); Mean Platelet Volume 13.9 fL (7.4-10.4); Platelet Count 22 thou/uL (130-400); RBC Distribution Width 20.3 % (11.5-14.5); Red Blood Cell (RBC) Count 2.32 mill/uL (4.70-6.10); White Blood Cell (WBC) Count 10.2 thou/uL (4.8-10.8)
[2019-11-07 05:00] LABS: #Lymphocytes 0.4 thou/uL (1.20-3.40); #Monocytes 0.8 thou/uL (0.11-0.59); %Eosinophils 0.1 % (0.0-10.0); %Lymphocytes 4.3 % (21.0-51.0); %Monocytes 7.3 % (0.0-10.0); %Neutrophils 88.3 % (42.0-75.0)
[2019-11-07 05:05] LABS: Anion Gap 11 mmol/L (10-20); BUN (Urea Nitrogen) 42 mg/dL (8.4-25.7); Calc. Creatinine Clearance 61 mL/min (70-130); Calcium 6.5 mg/dL (7.8-10.44); Carbon Dioxide 20 mmol/L (23-31); Chloride 109 mmol/L (98-107); Estimated GFR-MDRD 57; Glucose 105 mg/dL (83-110); Magnesium 1.8 mg/dL (1.6-2.6); Potassium 4.3 mmol/L (3.5-5.1); Sodium 136 mmol/L (136-145)
[2019-11-07] MEDS: Furosemide 20 MG TAB PO SCH ×2 (05:21→13:24)
[2019-11-07] MEDS: methylPREDNISolone Sod Succ 40 MG VIAL IVP SCH (05:22)
[2019-11-07] MEDS: Mometasone 200 MCG/Formoterol 5 MCG 120 PUFF INHALER INH SCH ×2 (07:38→18:42)
[2019-11-07] MEDS: Aluminum & Magnesium Hydroxide 60 ML, Lidocaine 2% Viscous Solution 30 ML, diphenhydrAM... SSW PRN ×3 (07:41→18:16)
[2019-11-07] MEDS: Potassium Chloride 20 MEQ TAB PO SCH ×2 (09:05→18:14)
[2019-11-07] MEDS: Folic Acid 1 MG TAB PO SCH (09:07)
[2019-11-07] MEDS: Metoprolol Tartrate 25 MG TAB PO SCH ×2 (09:07→21:16)
[2019-11-07] MEDS: Magnesium Oxide 400 MG TAB PO SCH (09:07)
[2019-11-07] MEDS: Multivitamin W/ Minerals 1 TAB PO SCH (09:08)
[2019-11-07] MEDS ORDERED: predniSONE 20 MG TAB PO SCH (09:15)
--- NOTE | 2019-11-07 11:06 | PDOC.MOPN ---
Interval History: doing well, edema much better. Working with PT - Vital Signs Vital Signs: Vital Signs (12 hours) Temp Pulse Pulse Pulse Pulse Resp BP 11/07/19 09:35 125 H 81 104 H 133/63 11/07/19 07:50 97.6 F 99 16 11/07/19 07:40 11/07/19 07:38 50 L 16 11/07/19 07:36 50 L 16 11/07/19 03:24 97.5 F L 96 16 11/07/19 03:01 100 16 11/07/19 00:30 97.5 F L 95 16 BP BP Pulse Ox Pulse Ox Pulse Ox Pulse Ox Pulse Ox 11/07/19 09:35 130/80 78 L 78 L 100 98 11/07/19 07:50 134/85 97 11/07/19 07:40 97 11/07/19 07:38 97 11/07/19 07:36 97 11/07/19 03:24 135/75 100 11/07/19 03:01 100 11/07/19 00:30 122/71 99 Weight Admit Weight 164 lb 9.6 oz Weight 186 lb 11.2 oz - Physical Exam General: Alert, Oriented x3, No acute distress HEENT: Atraumatic, PERRLA, EOMI, Mucous membr. moist/pink Lungs: Clear to auscultation Cardiovascular: Regular rate, Other (occ pvc) Abdomen: Normal bowel sounds Extremities: Other (1+ BLE) Neurological: Normal speech - Labs Result Diagrams: 11/07/19 04:23 11/07/19 03:30 Lab results: Laboratory Results - last 24 hr 11/07/19 04:23: WBC 10.2, RBC 2.32 L, Hgb 8.3 L, Hct 24.5 L, MCV 105.0 H, MCH 35.7 H, MCHC 33.9, RDW 20.3 H, Plt Count 22 L*, MPV 13.9 H, Neutrophils % 88.3 H , Neutrophils % (Manual) Not Reportable, Lymphocytes % 4.3 L, Monocytes % 7.3, Eosinophils % 0.1, Basophils % 0.0, Neutrophils # 9.0 H, Lymphocytes # 0.4 L, Monocytes # 0.8 H, Eosinophils # 0.0, Basophils # 0.0 11/07/19 03:30: Sodium 136, Potassium 4.3, Chloride 109 H, Carbon Dioxide 20 L, Anion Gap 11, BUN 42 H, Creatinine 1.23, Estimated GFR (MDRD) 57, Glucose 105, Calcium 6.5 L, Magnesium 1.8 Status: lab reviewed by me A/P - Problem (1) Pancytopenia due to antineoplastic chemotherapy Current Visit: Yes Code(s): D61.810 - ANTINEOPLASTIC CHEMOTHERAPY INDUCED PANCYTOPENIA; T45.1X5A - ADVERSE EFFECT OF ANTINEOPLASTIC AND IMMUNOSUP DRUGS, INIT Status: Acute (2) 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 Current Visit: Yes Code(s): I82.A12 - ACUTE EMBOLISM AND THROMBOSIS OF LEFT AXILLARY VEIN Status: Chronic (3) Stage IV adenocarcinoma of lung Current Visit: Yes Code(s): C34.90 - MALIGNANT NEOPLASM OF UNSP PART OF UNSP BRONCHUS OR LUNG Status: Chronic - Plan Plan: Ready for rehab from our perspective await insurance approval will monitor CBC daily no transfusion needed today continue physical therapy
[2019-11-07 12:34] VITALS: BMI 28.3
--- NOTE | 2019-11-07 12:41 | PDOC.HOSPP ---
- Subjective Encounter Date: 11/07/19 Encounter Time: 09:05 Subjective: f/u for stage IV lung adenocarcinoma on current chemotherapy, pancytopenia, severe anemia with total 3u PRBC's/1 pck platelets. Feels better overall and good appetite. - Objective Vital Signs & Weight: Vital Signs (12 hours) Temp Pulse Pulse Pulse Pulse Resp BP 11/07/19 11:40 98.5 F 92 16 11/07/19 11:21 92 16 11/07/19 09:35 125 H 81 104 H 133/63 11/07/19 07:50 97.6 F 99 16 11/07/19 07:40 11/07/19 07:38 50 L 16 11/07/19 07:36 50 L 16 11/07/19 03:24 97.5 F L 96 16 11/07/19 03:01 100 16 BP BP Pulse Ox Pulse Ox Pulse Ox Pulse Ox Pulse Ox 11/07/19 11:40 131/74 100 11/07/19 11:21 98 11/07/19 09:35 130/80 78 L 78 L 100 98 11/07/19 07:50 134/85 97 11/07/19 07:40 97 11/07/19 07:38 97 11/07/19 07:36 97 11/07/19 03:24 135/75 100 11/07/19 03:01 100 Weight Admit Weight 164 lb 9.6 oz Weight 186 lb 11.2 oz I&O: 11/06/19 11/07/19 11/08/19 06:59 06:59 06:59 Intake Total 1910 1080 240 Output Total 3700 1600 300 Balance -1790 -520 -60 Result Diagrams: 11/07/19 04:23 11/07/19 03:30 Additional Labs: Microbiology 10/30/19 12:40 Nasal swab Influenza Types A,B Direct EIA - Final Laboratory Tests 04/27/18 04/27/18 04/28/18 03:30 18:24 03:40 WBC 9.4 26.6 H Hgb 14.3 11.7 L Plt Count Neutrophils % Neutrophils % (Manual) Band Neuts % (Manual) Sodium 134 L Potassium BUN Creatinine COVID-19 PCR 04/28/18 10/30/19 10/30/19 03:40 12:40 12:48 WBC 13.6 H Hgb 10.5 L Plt Count Neutrophils % Neutrophils % (Manual) Band Neuts % (Manual) Sodium 127 L Potassium 3.4 L BUN 32 H Creatinine 1.73 H COVID-19 PCR Not Detected 10/30/19 10/31/19 14:05 05:09 WBC 2.4 L Hgb 5.5 L* Plt Count 4 L* Neutrophils % 90.9 H Neutrophils % (Manual) 78 H Band Neuts % (Manual) 18 H Sodium Potassium BUN Creatinine COVID-19 PCR EKG Reviewed by me: Yes (Tele - SR) Hospitalist ROS - Medication Medications: Active Medications Generic Name Dose Route Start Last Admin Trade Name Freq PRN Reason Stop Dose Admin Acetaminophen 1,000 mg 10/30/19 18:30 11/07/19 03:29 Tylenol PO 1,000 mg Q6H PRN Administration Mild Pain (1-3) Albuterol Sulfate 2 puff 10/30/19 18:30 11/07/19 11:21 Proventil Hfa INH 2 puff [id number] GLADIS Administration Atorvastatin Calcium 40 mg 10/30/19 21:00 11/06/19 21:45 Lipitor PO 40 mg HS GLADIS Administration Al Hydroxide/Mg Hydroxide 60 0 ml 10/31/19 15:26 11/07/19 11:51 ml/ Lidocaine HCl 30 ml/ SSW 10 ml Diphenhydramine HCl 75 mg PRN PRN Administration Mouth Irritation Ezetimibe 10 mg 10/30/19 21:00 11/06/19 21:45 Zetia PO 10 mg HS GLADIS Administration Famotidine 20 mg 10/30/19 21:00 11/06/19 21:45 Pepcid PO 20 mg QPM GLADIS Administration Folic Acid 1 mg 10/31/19 09:00 11/07/19 09:07 Folvite PO 1 mg DAILY GLADIS Administration Furosemide 20 mg 10/31/19 06:00 11/07/19 05:21 Lasix PO 20 mg 0600,1400 GLADIS Administration Iron/Minerals/Multivitamins 1 tab 10/31/19 09:00 11/07/19 09:08 Theragran M PO 1 tab QAM GLADIS Administration Magnesium Oxide 400 mg 10/31/19 09:00 11/07/19 09:07 Magnesium Oxide PO 400 mg DAILY GLADIS Administration Metoprolol Tartrate 12.5 mg 10/30/19 21:00 11/07/19 09:07 Lopressor PO 12.5 mg BID GLADIS Administration Mometasone Furoate/Formoterol Fumar 0 puff 10/30/19 18:30 11/07/19 07:38 Dulera 200 Mcg/5 Mcg Inhaler INH 2 puff BID-RT GLADIS Administration Potassium Chloride 40 meq 11/01/19 17:00 11/07/19 09:05 K-Dur PO 40 meq BID-WM GLADIS Administration Senna 2 tab 11/01/19 21:09 11/02/19 01:27 Senokot PO 2 tab HSPRN PRN Administration Constipation Sodium Chloride 10 ml 10/30/19 21:00 11/07/19 09:08 Flush - Normal Saline IVF 10 ml Q12HR GLADIS Administration Sodium Chloride 10 ml 10/30/19 19:03 11/07/19 05:23 Flush - Normal Saline IVF 10 ml PRN PRN Administration Saline Flush Sterile Water 1 ml 10/30/19 19:04 11/04/19 17:38 Bacteriostatic Water FS 1 ml PRN PRN Administration RECONSTITUTION Temazepam 15 mg 11/05/19 11:35 11/06/19 21:45 Restoril PO 15 mg HSPRN PRN Administration Insomnia - Exam General Appearance: NAD, awake alert Eye: PERRL, anicteric sclera ENT: normocephalic atraumatic, no oropharyngeal lesions Neck: supple, symmetric, no JVD, no thyromegaly Heart: RRR, no gallops, no rubs, normal peripheral pulses Respiratory: no tachypnea Respiratory - other findings: diminished in bases Gastrointestinal: soft, non-tender, non-distended, normal bowel sounds, no palpable masses Extremities: no cyanosis, no clubbing, 1+ LE edema Skin: normal turgor Neurological: cranial nerve grossly intact, no new deficit Musculoskeletal: normal tone, generalized weakness Psychiatric: normal affect, A&O x 3 Hosp A/P (1) Symptomatic anemia Code(s): D64.9 - ANEMIA, UNSPECIFIED Status: Acute Plan: s/p 3u total PRBC's, stable H/H currently (2) Acute respiratory failure with hypoxia Code(s): J96.01 - ACUTE RESPIRATORY FAILURE WITH HYPOXIA Status: Acute Plan: Resolving, continue supportive mgmt (3) Pancytopenia due to antineoplastic chemotherapy Code(s): D61.810 - ANTINEOPLASTIC CHEMOTHERAPY INDUCED PANCYTOPENIA; T45.1X5A - ADVERSE EFFECT OF ANTINEOPLASTIC AND IMMUNOSUP DRUGS, INIT Status: Acute (4) Stage IV adenocarcinoma of lung Code(s): C34.90 - MALIGNANT NEOPLASM OF UNSP PART OF UNSP BRONCHUS OR LUNG Status: Chronic (5) 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 Code(s): I82.A12 - ACUTE EMBOLISM AND THROMBOSIS OF LEFT AXILLARY VEIN Status : Chronic Plan: Off anticoagulation due to severe anemia and high risk of bleeding (6) Hyponatremia Code(s): E87.1 - HYPO-OSMOLALITY AND HYPONATREMIA Status: Acute Plan: Improved and resolving - Plan Stable currently Continue Prednisone 40mg po daily Continue KCL 40meq BID Hold Eliquis until platelets sustaining >50K COVID-19 ruled out Magic Mouthwash TID PRN Respiratory isolation d/c'd Rehab evaluation pending AM lab: BMP Transfer to Oncology floor
[2019-11-07] MEDS: Ezetimibe 10 MG TAB PO SCH (21:16)
[2019-11-07] MEDS: Atorvastatin Calcium 40 MG TAB PO SCH (21:16)
[2019-11-07] MEDS: Temazepam 15 MG CAP PO PRN (21:16)
[2019-11-07] MEDS: Famotidine 20 MG TAB PO SCH (21:16)
[2019-11-08] MEDS: PROVENTIL INHALER 6.7 G (200 INHALATIONS) INH SCH ×6 (02:25→22:16)
[2019-11-08 04:52] LABS: Anion Gap 13 mmol/L (10-20); BUN (Urea Nitrogen) 42 mg/dL (8.4-25.7); Calc. Creatinine Clearance 57 mL/min (70-130); Calcium 6.7 mg/dL (7.8-10.44); Carbon Dioxide 20 mmol/L (23-31); Chloride 110 mmol/L (98-107); Estimated GFR-MDRD 53; Glucose 88 mg/dL (83-110); Potassium 4.6 mmol/L (3.5-5.1); Sodium 138 mmol/L (136-145)
[2019-11-08] MEDS: Furosemide 20 MG TAB PO SCH ×2 (05:56→13:13)
[2019-11-08] MEDS: Mometasone 200 MCG/Formoterol 5 MCG 120 PUFF INHALER INH SCH ×2 (06:22→18:45)
[2019-11-08] MEDS: Folic Acid 1 MG TAB PO SCH (08:02)
[2019-11-08] MEDS: Magnesium Oxide 400 MG TAB PO SCH (08:02)
[2019-11-08] MEDS: Multivitamin W/ Minerals 1 TAB PO SCH (08:02)
[2019-11-08] MEDS: Metoprolol Tartrate 25 MG TAB PO SCH ×2 (08:02→20:49)
[2019-11-08] MEDS: Potassium Chloride 20 MEQ TAB PO SCH (08:02)
[2019-11-08] MEDS: predniSONE 20 MG TAB PO SCH (08:02)
[2019-11-08] MEDS: Aluminum & Magnesium Hydroxide 60 ML, Lidocaine 2% Viscous Solution 30 ML, diphenhydrAM... SSW PRN ×3 (08:28→16:58)
--- NOTE | 2019-11-08 10:04 | PDOC.HOSPP ---
- Subjective Encounter Date: 11/08/19 Encounter Time: 10:00 Subjective: f/u for Stage IV lung adenocarcinoma with pancytopenia and s/p 3u PRBC's/1 pk platelets. Awaiting rehab approval. No new issues reported. - Objective Vital Signs & Weight: Vital Signs (12 hours) Temp Pulse Resp BP Pulse Ox 11/08/19 08:06 100 11/08/19 07:59 97.6 F 84 19 117/74 100 11/08/19 06:22 91 12 11/08/19 06:20 91 12 11/08/19 03:50 98.9 F 91 18 135/83 100 11/08/19 00:00 98.1 F 94 18 129/81 100 Weight Admit Weight 164 lb 9.6 oz Weight 186 lb 11.2 oz I&O: 11/07/19 11/08/19 11/09/19 06:59 06:59 06:59 Intake Total 1080 1070 Output Total 1600 1950 Balance -520 -880 Result Diagrams: 11/07/19 04:23 11/08/19 04:00 Additional Labs: Microbiology 10/30/19 12:40 Nasal swab Influenza Types A,B Direct EIA - Final Laboratory Tests 04/27/18 04/27/18 04/28/18 03:30 18:24 03:40 WBC 9.4 26.6 H Hgb 14.3 11.7 L Plt Count Neutrophils % Neutrophils % (Manual) Band Neuts % (Manual) Sodium 134 L Potassium BUN Creatinine COVID-19 PCR 04/28/18 10/30/19 10/30/19 03:40 12:40 12:48 WBC 13.6 H Hgb 10.5 L Plt Count Neutrophils % Neutrophils % (Manual) Band Neuts % (Manual) Sodium 127 L Potassium 3.4 L BUN 32 H Creatinine 1.73 H COVID-19 PCR Not Detected 10/30/19 10/31/19 14:05 05:09 WBC 2.4 L Hgb 5.5 L* Plt Count 4 L* Neutrophils % 90.9 H Neutrophils % (Manual) 78 H Band Neuts % (Manual) 18 H Sodium Potassium BUN Creatinine COVID-19 PCR Hospitalist ROS - Medication Medications: Active Medications Generic Name Dose Route Start Last Admin Trade Name Freq PRN Reason Stop Dose Admin Acetaminophen 1,000 mg 10/30/19 18:30 11/07/19 03:29 Tylenol PO 1,000 mg Q6H PRN Administration Mild Pain (1-3) Albuterol Sulfate 2 puff 10/30/19 18:30 11/08/19 06:20 Proventil Hfa INH 2 puff [id number] GLADIS Administration Atorvastatin Calcium 40 mg 10/30/19 21:00 11/07/19 21:16 Lipitor PO 40 mg HS GLADIS Administration Al Hydroxide/Mg Hydroxide 60 0 ml 10/31/19 15:26 11/08/19 08:28 ml/ Lidocaine HCl 30 ml/ SSW 10 ml Diphenhydramine HCl 75 mg PRN PRN Administration Mouth Irritation Ezetimibe 10 mg 10/30/19 21:00 11/07/19 21:16 Zetia PO 10 mg HS GLADIS Administration Famotidine 20 mg 10/30/19 21:00 11/07/19 21:16 Pepcid PO 20 mg QPM GLADIS Administration Folic Acid 1 mg 10/31/19 09:00 11/08/19 08:02 Folvite PO 1 mg DAILY GLADIS Administration Furosemide 20 mg 10/31/19 06:00 11/08/19 05:56 Lasix PO 20 mg 0600,1400 GLADIS Administration Iron/Minerals/Multivitamins 1 tab 10/31/19 09:00 11/08/19 08:02 Theragran M PO 1 tab QAM GLADIS Administration Magnesium Oxide 400 mg 10/31/19 09:00 11/08/19 08:02 Magnesium Oxide PO 400 mg DAILY GLADIS Administration Metoprolol Tartrate 12.5 mg 10/30/19 21:00 11/08/19 08:02 Lopressor PO 12.5 mg BID GLADIS Administration Mometasone Furoate/Formoterol Fumar 0 puff 10/30/19 18:30 11/08/19 06:22 Dulera 200 Mcg/5 Mcg Inhaler INH 1 puff BID-RT GLADIS Administration Potassium Chloride 40 meq 11/01/19 17:00 11/08/19 08:02 K-Dur PO 40 meq BID-WM GLADIS Administration Prednisone 40 mg 11/08/19 08:00 11/08/19 08:02 Prednisone PO 40 mg QAM-WM GLADIS Administration Senna 2 tab 11/01/19 21:09 11/02/19 01:27 Senokot PO 2 tab HSPRN PRN Administration Constipation Sodium Chloride 10 ml 10/30/19 21:00 11/08/19 08:12 Flush - Normal Saline IVF 10 ml Q12HR GLADIS Administration Sodium Chloride 10 ml 10/30/19 19:03 11/07/19 05:23 Flush - Normal Saline IVF 10 ml PRN PRN Administration Saline Flush Sterile Water 1 ml 10/30/19 19:04 11/04/19 17:38 Bacteriostatic Water FS 1 ml PRN PRN Administration RECONSTITUTION Temazepam 15 mg 11/05/19 11:35 11/07/19 21:16 Restoril PO 15 mg HSPRN PRN Administration Insomnia - Exam General Appearance: NAD, awake alert Eye: PERRL, anicteric sclera ENT: normocephalic atraumatic, no oropharyngeal lesions Neck: supple, symmetric, no JVD, no thyromegaly Heart: RRR, no gallops, no rubs, normal peripheral pulses Heart - other findings: S1, S2 Respiratory: CTAB, no wheezes, no rales, no ronchi, normal chest expansion Gastrointestinal: soft, non-tender, non-distended, normal bowel sounds, no palpable masses Extremities: no cyanosis, 1+ LE edema Skin: normal turgor Skin - other findings: ecchymotic regions on BUE's Neurological: cranial nerve grossly intact, no new deficit Musculoskeletal: normal tone, generalized weakness Psychiatric: normal affect, A&O x 3 Hosp A/P (1) Symptomatic anemia Code(s): D64.9 - ANEMIA, UNSPECIFIED Status: Acute Plan: s/p 3u PRBC's, stable H/H trend currently (2) Acute respiratory failure with hypoxia Code(s): J96.01 - ACUTE RESPIRATORY FAILURE WITH HYPOXIA Status: Acute Plan: Resolved, continue supportive mgmt, O2 PRN (3) Pancytopenia due to antineoplastic chemotherapy Code(s): D61.810 - ANTINEOPLASTIC CHEMOTHERAPY INDUCED PANCYTOPENIA; T45.1X5A - ADVERSE EFFECT OF ANTINEOPLASTIC AND IMMUNOSUP DRUGS, INIT Status: Acute Plan: Alimta on hold (4) Stage IV adenocarcinoma of lung Code(s): C34.90 - MALIGNANT NEOPLASM OF UNSP PART OF UNSP BRONCHUS OR LUNG Status: Chronic (5) 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 Code(s): I82.A12 - ACUTE EMBOLISM AND THROMBOSIS OF LEFT AXILLARY VEIN Status : Chronic Plan: No anticoagulation due to severe pancytopenia (6) Hyponatremia Code(s): E87.1 - HYPO-OSMOLALITY AND HYPONATREMIA Status: Acute Plan: Resolving - Plan PT/OT, social service manager, out of bed/ambulate Stable currently Continue Prednisone 40mg po daily Change KCL 20meq daily Hold Eliquis until platelets sustaining >50K COVID-19 ruled out Magic Mouthwash TID PRN Respiratory isolation d/c'd Rehab evaluation pending Transfer to Oncology floor
--- NOTE | 2019-11-08 14:30 | PDOC.MOPN ---
Interval History: walked in hallway today, minimal SOB - Vital Signs Vital Signs: Vital Signs (12 hours) Temp Pulse Resp BP Pulse Ox 11/08/19 13:10 100 18 131/77 100 11/08/19 10:47 84 12 11/08/19 08:06 100 11/08/19 07:59 97.6 F 84 19 117/74 100 11/08/19 06:22 91 12 11/08/19 06:20 91 12 11/08/19 03:50 98.9 F 91 18 135/83 100 Weight Admit Weight 164 lb 9.6 oz Weight 186 lb 11.2 oz - Physical Exam General: Alert, Oriented x3, No acute distress HEENT: Atraumatic, PERRLA, EOMI, Mucous membr. moist/pink Lungs: Clear to auscultation, Normal air movement Cardiovascular: Regular rate, Normal S1, Normal S2, No murmurs, Gallops, Rubs Abdomen: Normal bowel sounds, Soft, No tenderness, No hepatospenomegaly, No masses Extremities: Other Neurological: Normal speech - Labs Result Diagrams: 11/07/19 04:23 11/08/19 04:00 Lab results: Laboratory Results - last 24 hr 11/08/19 04:00: Sodium 138, Potassium 4.6, Chloride 110 H, Carbon Dioxide 20 L, Anion Gap 13, BUN 42 H, Creatinine 1.32 H, Estimated GFR (MDRD) 53, Glucose 88, Calcium 6.7 L Status: lab reviewed by me A/P - Problem (1) Pancytopenia due to antineoplastic chemotherapy Current Visit: Yes Code(s): D61.810 - ANTINEOPLASTIC CHEMOTHERAPY INDUCED PANCYTOPENIA; T45.1X5A - ADVERSE EFFECT OF ANTINEOPLASTIC AND IMMUNOSUP DRUGS, INIT Status: Acute (2) 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 await rehab approval 2. continue PT 3. CBC daily, transfuse prn
[2019-11-08] MEDS: Atorvastatin Calcium 40 MG TAB PO SCH (20:49)
[2019-11-08] MEDS: Famotidine 20 MG TAB PO SCH (20:49)
[2019-11-08] MEDS: Temazepam 15 MG CAP PO PRN (20:49)
[2019-11-08] MEDS: Acetaminophen 500 MG TAB PO PRN (20:49)
[2019-11-08] MEDS: Ezetimibe 10 MG TAB PO SCH (20:49)
[2019-11-09] MEDS: PROVENTIL INHALER 6.7 G (200 INHALATIONS) INH SCH ×6 (02:41→22:08)
[2019-11-09] MEDS: Furosemide 20 MG TAB PO SCH ×2 (05:34→14:57)
[2019-11-09] MEDS: Mometasone 200 MCG/Formoterol 5 MCG 120 PUFF INHALER INH SCH ×2 (06:38→18:48)
[2019-11-09] MEDS: Aluminum & Magnesium Hydroxide 60 ML, Lidocaine 2% Viscous Solution 30 ML, diphenhydrAM... SSW PRN ×3 (07:57→17:10)
[2019-11-09] MEDS: Magnesium Oxide 400 MG TAB PO SCH (07:58)
[2019-11-09] MEDS: predniSONE 20 MG TAB PO SCH (07:58)
[2019-11-09] MEDS: Multivitamin W/ Minerals 1 TAB PO SCH (07:58)
[2019-11-09] MEDS: Metoprolol Tartrate 25 MG TAB PO SCH ×2 (07:59→20:36)
[2019-11-09] MEDS: Folic Acid 1 MG TAB PO SCH (07:59)
[2019-11-09] MEDS: Potassium Chloride 20 MEQ TAB PO SCH (08:00)
--- NOTE | 2019-11-09 10:32 | PDOC.HOSPP ---
- Subjective Encounter Date: 11/09/19 Encounter Time: 10:30 Subjective: f/u symptomatic anemia, pancytopenia s/p 3u PRBC's and 1 pk platelets. Awaiting inpt rehab approval. No new issues noted. - Objective Vital Signs & Weight: Vital Signs (12 hours) Temp Pulse Resp BP Pulse Ox 11/09/19 08:00 100 11/09/19 07:26 97.7 F 92 20 163/82 H 100 11/09/19 06:38 89 16 Weight Admit Weight 164 lb 9.6 oz Weight 186 lb 11.2 oz I&O: 11/08/19 11/09/19 11/10/19 06:59 06:59 06:59 Intake Total 1070 1400 Output Total 7345 1926 160 Balance -700 -1725 -440 Result Diagrams: 11/07/19 04:23 11/08/19 04:00 Additional Labs: Microbiology 10/30/19 12:40 Nasal swab Influenza Types A,B Direct EIA - Final Laboratory Tests 04/27/18 04/27/18 04/28/18 03:30 18:24 03:40 WBC 9.4 26.6 H Hgb 14.3 11.7 L Plt Count Neutrophils % Neutrophils % (Manual) Band Neuts % (Manual) Sodium 134 L Potassium BUN Creatinine COVID-19 PCR 04/28/18 10/30/19 10/30/19 03:40 12:40 12:48 WBC 13.6 H Hgb 10.5 L Plt Count Neutrophils % Neutrophils % (Manual) Band Neuts % (Manual) Sodium 127 L Potassium 3.4 L BUN 32 H Creatinine 1.73 H COVID-19 PCR Not Detected 10/30/19 10/31/19 14:05 05:09 WBC 2.4 L Hgb 5.5 L* Plt Count 4 L* Neutrophils % 90.9 H Neutrophils % (Manual) 78 H Band Neuts % (Manual) 18 H Sodium Potassium BUN Creatinine COVID-19 PCR Hospitalist ROS - Medication Medications: Active Medications Generic Name Dose Route Start Last Admin Trade Name Freq PRN Reason Stop Dose Admin Acetaminophen 1,000 mg 10/30/19 18:30 11/08/19 20:49 Tylenol PO 1,000 mg Q6H PRN Administration Mild Pain (1-3) Albuterol Sulfate 2 puff 10/30/19 18:30 04/25/20 06:38 Proventil Hfa INH 2 puff [id number] GLADIS Administration Atorvastatin Calcium 40 mg 10/30/19 21:00 11/08/19 20:49 Lipitor PO 40 mg HS GLADIS Administration Al Hydroxide/Mg Hydroxide 60 0 ml 10/31/19 15:26 11/09/19 07:57 ml/ Lidocaine HCl 30 ml/ SSW 10 ml Diphenhydramine HCl 75 mg PRN PRN Administration Mouth Irritation Ezetimibe 10 mg 10/30/19 21:00 11/08/19 20:49 Zetia PO 10 mg HS GLADIS Administration Famotidine 20 mg 10/30/19 21:00 11/08/19 20:49 Pepcid PO 20 mg QPM GLADIS Administration Folic Acid 1 mg 10/31/19 09:00 11/09/19 07:59 Folvite PO 1 mg DAILY GLADIS Administration Furosemide 20 mg 10/31/19 06:00 11/09/19 05:34 Lasix PO 20 mg 0600,1400 GLADIS Administration Iron/Minerals/Multivitamins 1 tab 10/31/19 09:00 11/09/19 07:58 Theragran M PO 1 tab QAM GLADIS Administration Magnesium Oxide 400 mg 10/31/19 09:00 11/09/19 07:58 Magnesium Oxide PO 400 mg DAILY GLADIS Administration Metoprolol Tartrate 12.5 mg 10/30/19 21:00 11/09/19 07:59 Lopressor PO 12.5 mg BID GLADIS Administration Mometasone Furoate/Formoterol Fumar 0 puff 10/30/19 18:30 11/09/19 06:38 Dulera 200 Mcg/5 Mcg Inhaler INH 2 puff BID-RT GLADIS Administration Potassium Chloride 20 meq 11/09/19 09:00 11/09/19 08:00 K-Dur PO 20 meq DAILY GLADIS Administration Prednisone 40 mg 11/08/19 08:00 11/09/19 07:58 Prednisone PO 40 mg QAM-WM GLADIS Administration Senna 2 tab 11/01/19 21:09 11/02/19 01:27 Senokot PO 2 tab HSPRN PRN Administration Constipation Sodium Chloride 10 ml 10/30/19 21:00 11/09/19 08:01 Flush - Normal Saline IVF 10 ml Q12HR GLADIS Administration Sodium Chloride 10 ml 10/30/19 19:03 11/07/19 05:23 Flush - Normal Saline IVF 10 ml PRN PRN Administration Saline Flush Sterile Water 1 ml 10/30/19 19:04 11/04/19 17:38 Bacteriostatic Water FS 1 ml PRN PRN Administration RECONSTITUTION Temazepam 15 mg 11/05/19 11:35 11/08/19 20:49 Restoril PO 15 mg HSPRN PRN Administration Insomnia - Exam General Appearance: NAD, awake alert Eye: PERRL, anicteric sclera ENT: normocephalic atraumatic, no oropharyngeal lesions Neck: supple, symmetric, no JVD, no thyromegaly Heart: RRR, no gallops, no rubs, normal peripheral pulses Heart - other findings: S1, S2 Respiratory: CTAB, no wheezes, no rales, no ronchi, normal chest expansion Gastrointestinal: soft, non-tender, non-distended, normal bowel sounds, no palpable masses Extremities: no cyanosis, 1+ LE edema Skin: normal turgor Neurological: cranial nerve grossly intact, no new deficit Musculoskeletal: normal tone, generalized weakness Psychiatric: normal affect, A&O x 3 Hosp A/P (1) Symptomatic anemia Code(s): D64.9 - ANEMIA, UNSPECIFIED Status: Acute Plan: s/p 3u PRBC's, serial H/H monitoring, no active blood loss currently (2) Acute respiratory failure with hypoxia Code(s): J96.01 - ACUTE RESPIRATORY FAILURE WITH HYPOXIA Status: Acute Plan: Resolved, continue to monitor (3) Pancytopenia due to antineoplastic chemotherapy Code(s): D61.810 - ANTINEOPLASTIC CHEMOTHERAPY INDUCED PANCYTOPENIA; T45.1X5A - ADVERSE EFFECT OF ANTINEOPLASTIC AND IMMUNOSUP DRUGS, INIT Status: Acute Plan: See above, transfuse PRBC's/platelets PRN (4) Stage IV adenocarcinoma of lung Code(s): C34.90 - MALIGNANT NEOPLASM OF UNSP PART OF UNSP BRONCHUS OR LUNG Status: Chronic (5) 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 Code(s): I82.A12 - ACUTE EMBOLISM AND THROMBOSIS OF LEFT AXILLARY VEIN Status : Chronic (6) Hyponatremia Code(s): E87.1 - HYPO-OSMOLALITY AND HYPONATREMIA Status: Acute - Plan PT/OT, manager social media, out of bed/ambulate, DVT proph w/SCDs Stable currently Continue Prednisone 40mg po daily Change KCL 20meq daily Hold Eliquis until platelets sustaining >50K COVID-19 ruled out Magic Mouthwash TID PRN Respiratory isolation d/c'd Rehab evaluation pending AM lab: CBC
[2019-11-09] MEDS: Ezetimibe 10 MG TAB PO SCH (20:35)
[2019-11-09] MEDS: Famotidine 20 MG TAB PO SCH (20:35)
[2019-11-09] MEDS: Acetaminophen 500 MG TAB PO PRN (20:36)
[2019-11-09] MEDS: Temazepam 15 MG CAP PO PRN (20:36)
[2019-11-09] MEDS: Atorvastatin Calcium 40 MG TAB PO SCH (20:36)
[2019-11-10] MEDS: PROVENTIL INHALER 6.7 G (200 INHALATIONS) INH SCH ×6 (01:40→22:00)
[2019-11-10] MEDS: Acetaminophen 500 MG TAB PO PRN (01:55)
[2019-11-10 05:29] LABS: Hemoglobin 8.4 g/dL (14.0-18.0); Mean Corpuscular HGB CONC 34.2 g/dL (32.0-36.0); Mean Corpuscular Hemoglobin 36.6 pg (27.0-31.0); Mean Platelet Volume 12.1 fL (7.4-10.4); Platelet Count 42 thou/uL (130-400); RBC Distribution Width 20.1 % (11.5-14.5); Red Blood Cell (RBC) Count 2.29 mill/uL (4.70-6.10); White Blood Cell (WBC) Count 13.8 thou/uL (4.8-10.8)
[2019-11-10 05:30] LABS: Anisocytosis SLIGHT = 6-15 cells (100X) (0-5/hpf); Band 7 % (5-11); Lymphocytes 3 % (21-51); MDiff Complete? YES; Macrocytosis SLIGHT = 6-15 cells (100X) (0-5/hpf); Monocytes 4 % (0-10); Neutrophil 86 % (42-75); Platelet Morphology Comment Appears Decreased
[2019-11-10] MEDS: Furosemide 20 MG TAB PO SCH ×2 (05:51→13:18)
[2019-11-10] MEDS: Mometasone 200 MCG/Formoterol 5 MCG 120 PUFF INHALER INH SCH ×2 (06:19→19:25)
[2019-11-10] MEDS: Aluminum & Magnesium Hydroxide 60 ML, Lidocaine 2% Viscous Solution 30 ML, diphenhydrAM... SSW PRN ×3 (08:19→20:16)
[2019-11-10] MEDS: Folic Acid 1 MG TAB PO SCH (08:22)
[2019-11-10] MEDS: Metoprolol Tartrate 25 MG TAB PO SCH ×2 (08:22→20:19)
[2019-11-10] MEDS: Multivitamin W/ Minerals 1 TAB PO SCH (08:22)
[2019-11-10] MEDS: Magnesium Oxide 400 MG TAB PO SCH (08:22)
[2019-11-10] MEDS: Potassium Chloride 20 MEQ TAB PO SCH (08:22)
[2019-11-10] MEDS: predniSONE 20 MG TAB PO SCH (08:22)
--- NOTE | 2019-11-10 12:43 | PDOC.HOSPP ---
- Subjective Encounter Date: 11/10/19 Encounter Time: 12:30 Subjective: f/u for pancytopenia, symptomatic anemia with current chemotherapy s/p 3u PRBC' s and 1u platelets. Apparently was denied inpt rehab by insurance. Feels ok overall but unhappy about insurance denial. - Objective Vital Signs & Weight: Vital Signs (12 hours) Temp Pulse Resp BP Pulse Ox 11/10/19 11:55 96 16 11/10/19 08:07 96.4 F L 96 18 158/76 H 100 11/10/19 06:19 94 16 11/10/19 01:40 96 16 97 Weight Admit Weight 164 lb 9.6 oz Weight 186 lb 11.2 oz I&O: 11/09/19 11/10/19 11/11/19 06:59 06:59 06:59 Intake Total 1400 1210 480 Output Total 3122 9728 1350 Balance -1725 -865 -870 Result Diagrams: 11/10/19 04:30 11/08/19 04:00 Additional Labs: Microbiology 10/30/19 12:40 Nasal swab Influenza Types A,B Direct EIA - Final Laboratory Tests 04/27/18 04/27/18 04/28/18 03:30 18:24 03:40 WBC 9.4 26.6 H Hgb 14.3 11.7 L Plt Count Neutrophils % Neutrophils % (Manual) Band Neuts % (Manual) Sodium 134 L Potassium BUN Creatinine COVID-19 PCR 04/28/18 10/30/19 10/30/19 03:40 12:40 12:48 WBC 13.6 H Hgb 10.5 L Plt Count Neutrophils % Neutrophils % (Manual) Band Neuts % (Manual) Sodium 127 L Potassium 3.4 L BUN 32 H Creatinine 1.73 H COVID-19 PCR Not Detected 10/30/19 10/31/19 14:05 05:09 WBC 2.4 L Hgb 5.5 L* Plt Count 4 L* Neutrophils % 90.9 H Neutrophils % (Manual) 78 H Band Neuts % (Manual) 18 H Sodium Potassium BUN Creatinine COVID-19 PCR Hospitalist ROS - Medication Medications: Active Medications Generic Name Dose Route Start Last Admin Trade Name Freq PRN Reason Stop Dose Admin Acetaminophen 1,000 mg 10/30/19 18:30 11/10/19 01:55 Tylenol PO 1,000 mg Q6H PRN Administration Mild Pain (1-3) Albuterol Sulfate 2 puff 10/30/19 18:30 11/10/19 11:55 Proventil Hfa INH 2 puff [id number] GLADIS Administration Atorvastatin Calcium 40 mg 10/30/19 21:00 11/09/19 20:36 Lipitor PO 40 mg HS GLADIS Administration Al Hydroxide/Mg Hydroxide 60 0 ml 10/31/19 15:26 11/10/19 08:19 ml/ Lidocaine HCl 30 ml/ SSW 10 ml Diphenhydramine HCl 75 mg PRN PRN Administration Mouth Irritation Ezetimibe 10 mg 10/30/19 21:00 11/09/19 20:35 Zetia PO 10 mg HS GLADIS Administration Famotidine 20 mg 10/30/19 21:00 11/09/19 20:35 Pepcid PO 20 mg QPM GLADIS Administration Folic Acid 1 mg 10/31/19 09:00 11/10/19 08:22 Folvite PO 1 mg DAILY GLADIS Administration Furosemide 20 mg 10/31/19 06:00 11/10/19 05:51 Lasix PO 20 mg 0600,1400 GLADIS Administration Iron/Minerals/Multivitamins 1 tab 10/31/19 09:00 11/10/19 08:22 Theragran M PO 1 tab QAM GLADIS Administration Magnesium Oxide 400 mg 10/31/19 09:00 11/10/19 08:22 Magnesium Oxide PO 400 mg DAILY GLADIS Administration Metoprolol Tartrate 12.5 mg 10/30/19 21:00 11/10/19 08:22 Lopressor PO 12.5 mg BID GLADIS Administration Mometasone Furoate/Formoterol Fumar 0 puff 10/30/19 18:30 11/10/19 06:19 Dulera 200 Mcg/5 Mcg Inhaler INH 1 puff BID-RT GLADIS Administration Potassium Chloride 20 meq 11/09/19 09:00 11/10/19 08:22 K-Dur PO 20 meq DAILY GLADIS Administration Prednisone 40 mg 11/08/19 08:00 11/10/19 08:22 Prednisone PO 40 mg QAM-WM GLADIS Administration Senna 2 tab 11/01/19 21:09 11/02/19 01:27 Senokot PO 2 tab HSPRN PRN Administration Constipation Sodium Chloride 10 ml 10/30/19 21:00 11/10/19 08:23 Flush - Normal Saline IVF 10 ml Q12HR GLADIS Administration Sodium Chloride 10 ml 10/30/19 19:03 11/07/19 05:23 Flush - Normal Saline IVF 10 ml PRN PRN Administration Saline Flush Sterile Water 1 ml 10/30/19 19:04 11/04/19 17:38 Bacteriostatic Water FS 1 ml PRN PRN Administration RECONSTITUTION Temazepam 15 mg 11/05/19 11:35 11/09/19 20:36 Restoril PO 15 mg HSPRN PRN Administration Insomnia - Exam General Appearance: NAD, awake alert Eye: PERRL, anicteric sclera ENT: normocephalic atraumatic, no oropharyngeal lesions Neck: supple, symmetric, no JVD, no thyromegaly Heart: RRR, no gallops, no rubs, normal peripheral pulses Heart - other findings: S1, S2 Respiratory: CTAB, no wheezes, no rales, no ronchi, normal chest expansion, no tachypnea Gastrointestinal: soft, non-tender, non-distended, normal bowel sounds, no palpable masses Extremities: no cyanosis, 1+ LE edema Skin: normal turgor Neurological: cranial nerve grossly intact, no new deficit Musculoskeletal: normal tone, generalized weakness Psychiatric: normal affect, A&O x 3 Hosp A/P (1) Symptomatic anemia Code(s): D64.9 - ANEMIA, UNSPECIFIED Status: Acute (2) Acute respiratory failure with hypoxia Code(s): J96.01 - ACUTE RESPIRATORY FAILURE WITH HYPOXIA Status: Acute (3) Pancytopenia due to antineoplastic chemotherapy Code(s): D61.810 - ANTINEOPLASTIC CHEMOTHERAPY INDUCED PANCYTOPENIA; T45.1X5A - ADVERSE EFFECT OF ANTINEOPLASTIC AND IMMUNOSUP DRUGS, INIT Status: Acute (4) Stage IV adenocarcinoma of lung Code(s): C34.90 - MALIGNANT NEOPLASM OF UNSP PART OF UNSP BRONCHUS OR LUNG Status: Chronic (5) 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 Code(s): I82.A12 - ACUTE EMBOLISM AND THROMBOSIS OF LEFT AXILLARY VEIN Status : Chronic (6) Hyponatremia Code(s): E87.1 - HYPO-OSMOLALITY AND HYPONATREMIA Status: Acute - Plan plan discussed w/ family, PT/OT, social services manager, out of bed/ambulate Stable currently Continue Prednisone 40mg po daily Change KCL 20meq daily Hold Eliquis until platelets sustaining >50K COVID-19 ruled out Magic Mouthwash TID PRN Respiratory isolation d/c'd Inpt Rehab denied by insurance AM lab: CBC
[2019-11-10] MEDS: Famotidine 20 MG TAB PO SCH (20:19)
[2019-11-10] MEDS: Atorvastatin Calcium 40 MG TAB PO SCH (20:19)
[2019-11-10] MEDS: Ezetimibe 10 MG TAB PO SCH (20:19)
[2019-11-10] MEDS: Temazepam 15 MG CAP PO PRN (21:37)
[2019-11-11] MEDS: PROVENTIL INHALER 6.7 G (200 INHALATIONS) INH SCH ×6 (01:08→22:47)
[2019-11-11] MEDS: Furosemide 20 MG TAB PO SCH ×2 (05:43→14:27)
[2019-11-11] MEDS: Mometasone 200 MCG/Formoterol 5 MCG 120 PUFF INHALER INH SCH ×2 (07:13→18:09)
[2019-11-11] MEDS: Multivitamin W/ Minerals 1 TAB PO SCH (08:52)
[2019-11-11] MEDS: Magnesium Oxide 400 MG TAB PO SCH (08:52)
[2019-11-11] MEDS: Potassium Chloride 20 MEQ TAB PO SCH (08:52)
[2019-11-11] MEDS: predniSONE 20 MG TAB PO SCH (08:53)
[2019-11-11] MEDS: Metoprolol Tartrate 25 MG TAB PO SCH ×2 (08:53→20:01)
[2019-11-11] MEDS: Folic Acid 1 MG TAB PO SCH (08:53)
[2019-11-11] MEDS: Aluminum & Magnesium Hydroxide 60 ML, Lidocaine 2% Viscous Solution 30 ML, diphenhydrAM... SSW PRN ×3 (09:16→18:25)
--- NOTE | 2019-11-11 10:56 | PDOC.EVN ---
Event Note - Event Note Event Note: Mr. Guthrie continues clinically improving and progressing with mobility despite his complex medical condition and advanced lung carcinoma. He will continue to benefit from directed and structured inpatient rehabilitation which will allow him to complete his ongoing chemotherapeutic plan. His respiratory status and metabolic processes are stabilized which will allow him to fully participate and benefit from a rehab setting and program. He remains motivated and determined to meet the goals of his physical/occupational therapy team.
--- NOTE | 2019-11-11 11:56 | PDOC.HOSPP ---
- Subjective Encounter Date: 11/11/19 Encounter Time: 11:50 Subjective: f/u for pancytopenia due to chemotherapy and symptomatic anemia s/p 3u PRBC's and 1u platelets. States feeling much better overall and participating with PT ambulating 108ft with RW today. Appetite good. Voiding regularly. - Objective Vital Signs & Weight: Vital Signs (12 hours) Temp Pulse Resp BP Pulse Ox Pulse Ox Pulse Ox 11/11/19 10:05 96 92 L 11/11/19 08:00 97.6 F 70 18 137/74 100 11/11/19 01:08 96 18 99 Pulse Ox 11/11/19 10:05 98 11/11/19 08:00 11/11/19 01:08 Weight Admit Weight 164 lb 9.6 oz Weight 186 lb 11.2 oz I&O: 11/10/19 11/11/19 11/12/19 06:59 06:59 06:59 Intake Total 1210 1860 Output Total 8621 5118 Balance -173 -0044 Result Diagrams: 11/10/19 04:30 11/08/19 04:00 Additional Labs: Microbiology 10/30/19 12:40 Nasal swab Influenza Types A,B Direct EIA - Final Laboratory Tests 04/27/18 04/27/18 04/28/18 03:30 18:24 03:40 WBC 9.4 26.6 H Hgb 14.3 11.7 L Plt Count Neutrophils % Neutrophils % (Manual) Band Neuts % (Manual) Sodium 134 L Potassium BUN Creatinine COVID-19 PCR 04/28/18 10/30/19 10/30/19 03:40 12:40 12:48 WBC 13.6 H Hgb 10.5 L Plt Count Neutrophils % Neutrophils % (Manual) Band Neuts % (Manual) Sodium 127 L Potassium 3.4 L BUN 32 H Creatinine 1.73 H COVID-19 PCR Not Detected 10/30/19 10/31/19 14:05 05:09 WBC 2.4 L Hgb 5.5 L* Plt Count 4 L* Neutrophils % 90.9 H Neutrophils % (Manual) 78 H Band Neuts % (Manual) 18 H Sodium Potassium BUN Creatinine COVID-19 PCR Hospitalist ROS - Medication Medications: Active Medications Generic Name Dose Route Start Last Admin Trade Name Freq PRN Reason Stop Dose Admin Acetaminophen 1,000 mg 10/30/19 18:30 11/10/19 01:55 Tylenol PO 1,000 mg Q6H PRN Administration Mild Pain (1-3) Albuterol Sulfate 2 puff 10/30/19 18:30 11/11/19 10:52 Proventil Hfa INH 2 puff [id number] GLADIS Administration Atorvastatin Calcium 40 mg 10/30/19 21:00 11/10/19 20:19 Lipitor PO 40 mg HS GLADIS Administration Al Hydroxide/Mg Hydroxide 60 0 ml 10/31/19 15:26 11/11/19 09:16 ml/ Lidocaine HCl 30 ml/ SSW 10 ml Diphenhydramine HCl 75 mg PRN PRN Administration Mouth Irritation Ezetimibe 10 mg 10/30/19 21:00 11/10/19 20:19 Zetia PO 10 mg HS GLADIS Administration Famotidine 20 mg 10/30/19 21:00 11/10/19 20:19 Pepcid PO 20 mg QPM GLADIS Administration Folic Acid 1 mg 10/31/19 09:00 11/11/19 08:53 Folvite PO 1 mg DAILY GLADIS Administration Furosemide 20 mg 10/31/19 06:00 11/11/19 05:43 Lasix PO 20 mg 0600,1400 GLADIS Administration Iron/Minerals/Multivitamins 1 tab 10/31/19 09:00 11/11/19 08:52 Theragran M PO 1 tab QAM GLADIS Administration Magnesium Oxide 400 mg 10/31/19 09:00 11/11/19 08:52 Magnesium Oxide PO 400 mg DAILY GLADIS Administration Metoprolol Tartrate 12.5 mg 10/30/19 21:00 11/11/19 08:53 Lopressor PO 12.5 mg BID GLADIS Administration Mometasone Furoate/Formoterol Fumar 0 puff 10/30/19 18:30 11/11/19 07:13 Dulera 200 Mcg/5 Mcg Inhaler INH 1 puff BID-RT GLADIS Administration Potassium Chloride 20 meq 11/09/19 09:00 11/11/19 08:52 K-Dur PO 20 meq DAILY GLADIS Administration Prednisone 40 mg 11/08/19 08:00 11/11/19 08:53 Prednisone PO 40 mg QAM-WM GLADIS Administration Senna 2 tab 11/01/19 21:09 11/02/19 01:27 Senokot PO 2 tab HSPRN PRN Administration Constipation Sodium Chloride 10 ml 10/30/19 21:00 11/11/19 08:56 Flush - Normal Saline IVF 10 ml Q12HR GLADIS Administration Sodium Chloride 10 ml 10/30/19 19:03 11/07/19 05:23 Flush - Normal Saline IVF 10 ml PRN PRN Administration Saline Flush Sterile Water 1 ml 10/30/19 19:04 11/04/19 17:38 Bacteriostatic Water FS 1 ml PRN PRN Administration RECONSTITUTION Temazepam 15 mg 11/05/19 11:35 11/10/19 21:37 Restoril PO 15 mg HSPRN PRN Administration Insomnia - Exam General Appearance: NAD, awake alert Eye: PERRL, anicteric sclera ENT: normocephalic atraumatic, no oropharyngeal lesions Neck: supple, symmetric, no JVD, no thyromegaly Heart: RRR, no gallops, no rubs, normal peripheral pulses Heart - other findings: S1, S2 Respiratory: CTAB, no wheezes, no rales, no ronchi, normal chest expansion Gastrointestinal: soft, non-tender, non-distended, normal bowel sounds, no palpable masses Extremities: no cyanosis Extremities - other findings: minimal LUE edema Skin: normal turgor Neurological: cranial nerve grossly intact, no new deficit Musculoskeletal: normal tone, generalized weakness Psychiatric: normal affect, A&O x 3 Hosp A/P (1) Symptomatic anemia Code(s): D64.9 - ANEMIA, UNSPECIFIED Status: Acute Plan: Stabilizing currently, serial H/H monitoring, s/p 3u PRBC's (2) Acute respiratory failure with hypoxia Code(s): J96.01 - ACUTE RESPIRATORY FAILURE WITH HYPOXIA Status: Acute Plan: Resolving, supportive (3) Pancytopenia due to antineoplastic chemotherapy Code(s): D61.810 - ANTINEOPLASTIC CHEMOTHERAPY INDUCED PANCYTOPENIA; T45.1X5A - ADVERSE EFFECT OF ANTINEOPLASTIC AND IMMUNOSUP DRUGS, INIT Status: Acute Plan: Improving trend (4) Stage IV adenocarcinoma of lung Code(s): C34.90 - MALIGNANT NEOPLASM OF UNSP PART OF UNSP BRONCHUS OR LUNG Status: Chronic (5) 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
--- NOTE | 2019-11-11 14:45 | PDOC.MOPN ---
Interval History: walking with PT, breathing improved. - Vital Signs Vital Signs: Vital Signs (12 hours) Temp Pulse Resp BP Pulse Ox Pulse Ox Pulse Ox 11/11/19 10:05 96 92 L 11/11/19 08:00 97.6 F 70 18 137/74 100 Pulse Ox 11/11/19 10:05 98 11/11/19 08:00 Weight Admit Weight 164 lb 9.6 oz Weight 186 lb 11.2 oz - Physical Exam General: Alert, Oriented x3, No acute distress HEENT: Atraumatic, PERRLA, EOMI, Mucous membr. moist/pink Lungs: Clear to auscultation, Normal air movement Abdomen: Normal bowel sounds, Soft, No tenderness, No hepatospenomegaly, No masses Extremities: Other Neurological: Normal gait, Normal speech, Strength at 5/5 X4 ext, Normal tone, Sensation intact, Cranial nerves 3-12 NL, Reflexes 2+ Psych/Mental Status: Mental status NL, Mood NL - Labs Result Diagrams: 11/10/19 04:30 11/08/19 04:00 Status: lab reviewed by me A/P - Problem (1) Pancytopenia due to antineoplastic chemotherapy Current Visit: Yes Code(s): D61.810 - ANTINEOPLASTIC CHEMOTHERAPY INDUCED PANCYTOPENIA; T45.1X5A - ADVERSE EFFECT OF ANTINEOPLASTIC AND IMMUNOSUP DRUGS, INIT Status: Acute (2) 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 Await appeal decision for rehab 2. Start anticoagulation when platelets > 50.
[2019-11-11] MEDS: Ezetimibe 10 MG TAB PO SCH (20:00)
[2019-11-11] MEDS: Atorvastatin Calcium 40 MG TAB PO SCH (20:00)
[2019-11-11] MEDS: Temazepam 15 MG CAP PO PRN (20:01)
[2019-11-11] MEDS: Famotidine 20 MG TAB PO SCH (20:01)
[2019-11-11] MEDS: Acetaminophen 500 MG TAB PO PRN (20:01)
[2019-11-12] MEDS: PROVENTIL INHALER 6.7 G (200 INHALATIONS) INH SCH ×6 (02:07→21:53)
[2019-11-12] MEDS: Furosemide 20 MG TAB PO SCH ×2 (05:00→12:40)
[2019-11-12 05:47] LABS: Mean Corpuscular HGB CONC 33.7 g/dL (32.0-36.0); Mean Corpuscular Hemoglobin 36.2 pg (27.0-31.0); Mean Platelet Volume 11.3 fL (7.4-10.4); Platelet Count 60 thou/uL (130-400); RBC Distribution Width 20.6 % (11.5-14.5); Red Blood Cell (RBC) Count 2.21 mill/uL (4.70-6.10); White Blood Cell (WBC) Count 14.4 thou/uL (4.8-10.8)
[2019-11-12 06:18] LABS: Anisocytosis SLIGHT = 6-15 cells (100X) (0-5/hpf); Band 6 % (5-11); Lymphocytes 8 % (21-51); MDiff Complete? YES; Macrocytosis SLIGHT = 6-15 cells (100X) (0-5/hpf); Metamyelocyte 1 % (0-0); Monocytes 11 % (0-10); Myelocyte 1 % (0-0); Neutrophil 73 % (42-75); Platelet Morphology Comment Appears Decreased
[2019-11-12] MEDS: Mometasone 200 MCG/Formoterol 5 MCG 120 PUFF INHALER INH SCH ×2 (07:18→18:45)
[2019-11-12] MEDS: Aluminum & Magnesium Hydroxide 60 ML, Lidocaine 2% Viscous Solution 30 ML, diphenhydrAM... SSW PRN ×3 (08:22→18:10)
[2019-11-12] MEDS: Metoprolol Tartrate 25 MG TAB PO SCH ×2 (08:24→20:10)
[2019-11-12] MEDS: predniSONE 20 MG TAB PO SCH (08:24)
[2019-11-12] MEDS: Magnesium Oxide 400 MG TAB PO SCH (08:25)
[2019-11-12] MEDS: Folic Acid 1 MG TAB PO SCH (08:25)
[2019-11-12] MEDS: Potassium Chloride 20 MEQ TAB PO SCH (08:25)
[2019-11-12] MEDS: Multivitamin W/ Minerals 1 TAB PO SCH (08:25)
--- NOTE | 2019-11-12 12:41 | PDOC.HOSPP ---
- Subjective Encounter Date: 11/12/19 Encounter Time: 12:30 Subjective: f/u for lung carcinoma, symptomatic anemia/pancytopenia s/p 3u PRBC's and 1u platelets. Overall improved and awaiting potential inpt rehab pending insurance authorization. Ambulating with PT in halls. - Objective Vital Signs & Weight: Vital Signs (12 hours) Temp Pulse Resp BP Pulse Ox 11/12/19 08:29 97.9 F 75 18 116/70 95 11/12/19 08:00 97.9 F 75 18 116/70 96 11/12/19 02:07 91 16 98 Weight Admit Weight 164 lb 9.6 oz Weight 186 lb 11.2 oz I&O: 11/11/19 11/12/19 11/13/19 06:59 06:59 06:59 Intake Total 1860 1110 Output Total 4600 2140 Balance -2030 1030 Result Diagrams: 11/12/19 05:35 11/08/19 04:00 Hospitalist ROS - Medication Medications: Active Medications Generic Name Dose Route Start Last Admin Trade Name Freq PRN Reason Stop Dose Admin Acetaminophen 1,000 mg 10/30/19 18:30 11/11/19 20:01 Tylenol PO 1,000 mg Q6H PRN Administration Mild Pain (1-3) Albuterol Sulfate 2 puff 10/30/19 18:30 11/12/19 11:44 Proventil Hfa INH 2 puff [id number] GLADIS Administration Atorvastatin Calcium 40 mg 10/30/19 21:00 11/11/19 20:00 Lipitor PO 40 mg HS GLADIS Administration Al Hydroxide/Mg Hydroxide 60 0 ml 10/31/19 15:26 11/12/19 08:22 ml/ Lidocaine HCl 30 ml/ SSW 10 ml Diphenhydramine HCl 75 mg PRN PRN Administration Mouth Irritation Ezetimibe 10 mg 10/30/19 21:00 11/11/19 20:00 Zetia PO 10 mg HS GLADIS Administration Famotidine 20 mg 10/30/19 21:00 11/11/19 20:01 Pepcid PO 20 mg QPM GLADIS Administration Folic Acid 1 mg 10/31/19 09:00 11/12/19 08:25 Folvite PO 1 mg DAILY GLADIS Administration Furosemide 20 mg 10/31/19 06:00 11/12/19 05:00 Lasix PO 20 mg 0600,1400 GLADIS Administration Iron/Minerals/Multivitamins 1 tab 10/31/19 09:00 11/12/19 08:25 Theragran M PO 1 tab QAM GLADIS Administration Magnesium Oxide 400 mg 10/31/19 09:00 11/12/19 08:25 Magnesium Oxide PO 400 mg DAILY GLADIS Administration Metoprolol Tartrate 12.5 mg 10/30/19 21:00 11/12/19 08:24 Lopressor PO 12.5 mg BID GLADIS Administration Mometasone Furoate/Formoterol Fumar 0 puff 10/30/19 18:30 11/12/19 07:18 Dulera 200 Mcg/5 Mcg Inhaler INH 2 puff BID-RT GLADIS Administration Potassium Chloride 20 meq 11/09/19 09:00 11/12/19 08:25 K-Dur PO 20 meq DAILY GLADIS Administration Prednisone 40 mg 11/08/19 08:00 11/12/19 08:24 Prednisone PO 40 mg QAM-WM GLADIS Administration Senna 2 tab 11/01/19 21:09 11/02/19 01:27 Senokot PO 2 tab HSPRN PRN Administration Constipation Sodium Chloride 10 ml 10/30/19 21:00 11/12/19 08:25 Flush - Normal Saline IVF 10 ml Q12HR GLADIS Administration Sodium Chloride 10 ml 10/30/19 19:03 11/07/19 05:23 Flush - Normal Saline IVF 10 ml PRN PRN Administration Saline Flush Sterile Water 1 ml 10/30/19 19:04 11/04/19 17:38 Bacteriostatic Water FS 1 ml PRN PRN Administration RECONSTITUTION Temazepam 15 mg 11/05/19 11:35 11/11/19 20:01 Restoril PO 15 mg HSPRN PRN Administration Insomnia - Exam General Appearance: NAD, awake alert Eye: PERRL, anicteric sclera ENT: normocephalic atraumatic, no oropharyngeal lesions Neck: supple, symmetric, no JVD, no thyromegaly Heart: RRR, no murmur, no gallops, no rubs, normal peripheral pulses Heart - other findings: S1, S2 Respiratory: CTAB, no wheezes, no rales, no ronchi, normal chest expansion Gastrointestinal: soft, non-tender, non-distended, normal bowel sounds Extremities: no cyanosis Extremities - other findings: minimal edema of LUE Skin: normal turgor Neurological: cranial nerve grossly intact, no new deficit Musculoskeletal: generalized weakness Psychiatric: normal affect, A&O x 3 Hosp A/P (1) Symptomatic anemia Code(s): D64.9 - ANEMIA, UNSPECIFIED Status: Acute Plan: serial H/H monitoring, s/p 3u PRBC's total (2) Pancytopenia due to antineoplastic chemotherapy Code(s): D61.810 - ANTINEOPLASTIC CHEMOTHERAPY INDUCED PANCYTOPENIA; T45.1X5A - ADVERSE EFFECT OF ANTINEOPLASTIC AND IMMUNOSUP DRUGS, INIT Status: Acute Plan: Improved, continue CBC monitoring once resuming chemotherapy (3) Stage IV adenocarcinoma of lung Code(s): C34.90 - MALIGNANT NEOPLASM OF UNSP PART OF UNSP BRONCHUS OR LUNG Status: Chronic (4) 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 Code(s): I82.A12 - ACUTE EMBOLISM AND THROMBOSIS OF LEFT AXILLARY VEIN Status : Chronic (5) Hyponatremia Code(s): E87.1 - HYPO-OSMOLALITY AND HYPONATREMIA Status: Acute (6) Acute respiratory failure with hypoxia Code(s): J96.01 - ACUTE RESPIRATORY FAILURE WITH HYPOXIA Status: Resolved - Plan PT/OT, social professionals, out of bed/ambulate, DVT proph w/SCDs Stable currently Continue Prednisone 40mg po daily Change KCL 20meq daily Hold Eliquis until platelets sustaining >50K COVID-19 ruled out Magic Mouthwash TID PRN Respiratory isolation d/c'd Inpt Rehab denied by insurance, appeal in progress AM lab: CBC
[2019-11-12] MEDS: Temazepam 15 MG CAP PO PRN (20:10)
[2019-11-12] MEDS: Atorvastatin Calcium 40 MG TAB PO SCH (20:11)
[2019-11-12] MEDS: Ezetimibe 10 MG TAB PO SCH (20:11)
[2019-11-12] MEDS: Famotidine 20 MG TAB PO SCH (20:11)
[2019-11-12] MEDS: Acetaminophen 500 MG TAB PO PRN (20:11)
[2019-11-13] MEDS: PROVENTIL INHALER 6.7 G (200 INHALATIONS) INH SCH ×6 (02:36→22:26)
[2019-11-13] MEDS: Furosemide 20 MG TAB PO SCH ×2 (05:15→15:39)
[2019-11-13 06:23] LABS: Hemoglobin 7.8 g/dL (14.0-18.0); Mean Corpuscular HGB CONC 33.3 g/dL (32.0-36.0); Mean Corpuscular Hemoglobin 36.2 pg (27.0-31.0); Mean Platelet Volume 10.7 fL (7.4-10.4); Platelet Count 68 thou/uL (130-400); RBC Distribution Width 21.2 % (11.5-14.5); Red Blood Cell (RBC) Count 2.15 mill/uL (4.70-6.10)
[2019-11-13 06:45] LABS: Anisocytosis MODERATE=16-30 cells (100X) (0-5/hpf); Band 18 % (5-11); Lymphocytes 4 % (21-51); MDiff Complete? YES; Monocytes 8 % (0-10); Neutrophil 70 % (42-75); Platelet Morphology Comment Appears Decreased
[2019-11-13] MEDS: Mometasone 200 MCG/Formoterol 5 MCG 120 PUFF INHALER INH SCH ×2 (06:54→18:38)
[2019-11-13] MEDS: Metoprolol Tartrate 25 MG TAB PO SCH ×2 (07:50→20:08)
[2019-11-13] MEDS: Multivitamin W/ Minerals 1 TAB PO SCH (07:50)
[2019-11-13] MEDS: Folic Acid 1 MG TAB PO SCH (07:50)
[2019-11-13] MEDS: Aluminum & Magnesium Hydroxide 60 ML, Lidocaine 2% Viscous Solution 30 ML, diphenhydrAM... SSW PRN ×2 (07:50→11:09)
[2019-11-13] MEDS: Potassium Chloride 20 MEQ TAB PO SCH (07:50)
[2019-11-13] MEDS: Magnesium Oxide 400 MG TAB PO SCH (07:51)
[2019-11-13] MEDS: predniSONE 20 MG TAB PO SCH (07:51)
--- NOTE | 2019-11-13 10:11 | PDOC.MOPN ---
Interval History: no distress - Vital Signs Vital Signs: Vital Signs (12 hours) Temp Pulse Resp BP Pulse Ox 11/13/19 08:00 99 11/13/19 07:45 98.0 F 60 16 135/60 99 Weight Admit Weight 164 lb 9.6 oz Weight 186 lb 11.2 oz - Physical Exam General: Alert, Oriented x3, No acute distress HEENT: Atraumatic, PERRLA, EOMI, Mucous membr. moist/pink Lungs: Clear to auscultation, Normal air movement Cardiovascular: Regular rate, Normal S1, Normal S2, No murmurs, Gallops, Rubs Abdomen: Normal bowel sounds, Soft, No tenderness, No hepatospenomegaly, No masses Neurological: Normal speech - Labs Result Diagrams: 11/13/19 05:20 11/08/19 04:00 Lab results: Laboratory Results - last 24 hr 11/13/19 05:20: WBC 14.0 H, RBC 2.15 L, Hgb 7.8 L, Hct 23.3 L, MCV 109.0 H, MCH 36.2 H, MCHC 33.3, RDW 21.2 H, Plt Count 68 L, MPV 10.7 H, Neutrophils % (Manual ) 70, Band Neuts % (Manual) 18 H, Lymphocytes % (Manual) 4 L, Monocytes % ( Manual) 8, Plt Morphology Comment Appears Decreased L, Anisocytosis MODERATE=16- 30 cells H Status: lab reviewed by me A/P - Problem (1) Pancytopenia due to antineoplastic chemotherapy Current Visit: Yes Code(s): D61.810 - ANTINEOPLASTIC CHEMOTHERAPY INDUCED PANCYTOPENIA; T45.1X5A - ADVERSE EFFECT OF ANTINEOPLASTIC AND IMMUNOSUP DRUGS, INIT Status: Acute (2) 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 platelets improved to 68K. Resume Eliquis today 2. daily CBC 3. await decision on appeal for rehab 4. continue PT
--- NOTE | 2019-11-13 14:20 | PDOC.HOSPP ---
- Subjective Encounter Date: 11/13/19 Encounter Time: 14:10 Subjective: f/u for lung carcinoma with symptomatic anemia/pancytopenia. Feels better overall. - Objective Vital Signs & Weight: Vital Signs (12 hours) Temp Pulse Resp BP Pulse Ox 11/13/19 08:00 99 11/13/19 07:45 98.0 F 60 16 135/60 99 Weight Admit Weight 164 lb 9.6 oz Weight 186 lb 11.2 oz I&O: 11/12/19 11/13/19 11/14/19 06:59 06:59 06:59 Intake Total 1110 1240 Output Total 2140 2090 Balance -9072 -456 Result Diagrams: 11/13/19 05:20 11/08/19 04:00 Additional Labs: Microbiology 10/30/19 12:40 Nasal swab Influenza Types A,B Direct EIA - Final Laboratory Tests 04/27/18 04/27/18 04/28/18 03:30 18:24 03:40 WBC 9.4 26.6 H Hgb 14.3 11.7 L Plt Count Neutrophils % Neutrophils % (Manual) Band Neuts % (Manual) Sodium 134 L Potassium BUN Creatinine COVID-19 PCR 04/28/18 10/30/19 10/30/19 03:40 12:40 12:48 WBC 13.6 H Hgb 10.5 L Plt Count Neutrophils % Neutrophils % (Manual) Band Neuts % (Manual) Sodium 127 L Potassium 3.4 L BUN 32 H Creatinine 1.73 H COVID-19 PCR Not Detected 10/30/19 10/31/19 14:05 05:09 WBC 2.4 L Hgb 5.5 L* Plt Count 4 L* Neutrophils % 90.9 H Neutrophils % (Manual) 78 H Band Neuts % (Manual) 18 H Sodium Potassium BUN Creatinine COVID-19 PCR Hospitalist ROS - Medication Medications: Active Medications Generic Name Dose Route Start Last Admin Trade Name Freq PRN Reason Stop Dose Admin Acetaminophen 1,000 mg 10/30/19 18:30 11/12/19 20:11 Tylenol PO 1,000 mg Q6H PRN Administration Mild Pain (1-3) Albuterol Sulfate 2 puff 10/30/19 18:30 11/13/19 14:11 Proventil Hfa INH 2 puff [id number] GLADIS Administration Atorvastatin Calcium 40 mg 10/30/19 21:00 11/12/19 20:11 Lipitor PO 40 mg HS GLADIS Administration Al Hydroxide/Mg Hydroxide 60 0 ml 10/31/19 15:26 11/13/19 11:09 ml/ Lidocaine HCl 30 ml/ SSW 10 ml Diphenhydramine HCl 75 mg PRN PRN Administration Mouth Irritation Ezetimibe 10 mg 10/30/19 21:00 11/12/19 20:11 Zetia PO 10 mg HS GLADIS Administration Famotidine 20 mg 10/30/19 21:00 11/12/19 20:11 Pepcid PO 20 mg QPM GLADIS Administration Folic Acid 1 mg 10/31/19 09:00 11/13/19 07:50 Folvite PO 1 mg DAILY GLADIS Administration Furosemide 20 mg 10/31/19 06:00 11/13/19 05:15 Lasix PO 20 mg 0600,1400 GLADIS Administration Iron/Minerals/Multivitamins 1 tab 10/31/19 09:00 11/13/19 07:50 Theragran M PO 1 tab QAM GLADIS Administration Magnesium Oxide 400 mg 10/31/19 09:00 11/13/19 07:51 Magnesium Oxide PO 400 mg DAILY GLADIS Administration Metoprolol Tartrate 12.5 mg 10/30/19 21:00 11/13/19 07:50 Lopressor PO 12.5 mg BID GLADIS Administration Mometasone Furoate/Formoterol Fumar 0 puff 10/30/19 18:30 11/13/19 06:54 Dulera 200 Mcg/5 Mcg Inhaler INH 2 puff BID-RT GLADIS Administration Potassium Chloride 20 meq 11/09/19 09:00 11/13/19 07:50 K-Dur PO 20 meq DAILY GLADIS Administration Prednisone 40 mg 11/08/19 08:00 11/13/19 07:51 Prednisone PO 40 mg QAM-WM GLADIS Administration Senna 2 tab 11/01/19 21:09 11/02/19 01:27 Senokot PO 2 tab HSPRN PRN Administration Constipation Sodium Chloride 10 ml 10/30/19 21:00 11/13/19 07:51 Flush - Normal Saline IVF 10 ml Q12HR GLADIS Administration Sodium Chloride 10 ml 10/30/19 19:03 11/07/19 05:23 Flush - Normal Saline IVF 10 ml PRN PRN Administration Saline Flush Sterile Water 1 ml 10/30/19 19:04 11/04/19 17:38 Bacteriostatic Water FS 1 ml PRN PRN Administration RECONSTITUTION Temazepam 15 mg 11/05/19 11:35 11/12/19 20:10 Restoril PO 15 mg HSPRN PRN Administration Insomnia - Exam General Appearance: NAD, awake alert Eye: PERRL, anicteric sclera ENT: normocephalic atraumatic, no oropharyngeal lesions Neck: supple, symmetric, no JVD, no thyromegaly Heart: RRR, no murmur, no gallops, no rubs, normal peripheral pulses Heart - other findings: S1, S2 Respiratory: CTAB, no wheezes, no rales, no ronchi, normal chest expansion Gastrointestinal: soft, non-tender, non-distended, normal bowel sounds, no palpable masses Extremities: no cyanosis, no clubbing Skin: normal turgor Neurological: cranial nerve grossly intact, no new deficit Musculoskeletal: normal tone, generalized weakness Psychiatric: normal affect, A&O x 3 Hosp A/P (1) Symptomatic anemia Code(s): D64.9 - ANEMIA, UNSPECIFIED Status: Acute Plan: s/p 3u PRBC's, serial H/H monitoring (2) Pancytopenia due to antineoplastic chemotherapy Code(s): D61.810 - ANTINEOPLASTIC CHEMOTHERAPY INDUCED PANCYTOPENIA; T45.1X5A - ADVERSE EFFECT OF ANTINEOPLASTIC AND IMMUNOSUP DRUGS, INIT Status: Acute Plan: Improving metrics, resume chemotherapy as outpt (3) Stage IV adenocarcinoma of lung Code(s): C34.90 - MALIGNANT NEOPLASM OF UNSP PART OF UNSP BRONCHUS OR LUNG Status: Chronic (4) 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 Code(s): I82.A12 - ACUTE EMBOLISM AND THROMBOSIS OF LEFT AXILLARY VEIN Status : Chronic (5) Hyponatremia Code(s): E87.1 - HYPO-OSMOLALITY AND HYPONATREMIA Status: Acute - Plan PT/OT, social welfare administrator, out of bed/ambulate, DVT proph w/SCDs Stable currently Continue Prednisone 40mg po daily Change KCL 20meq daily Hold Eliquis until platelets sustaining >50K COVID-19 ruled out Magic Mouthwash TID PRN Respiratory isolation d/c'd Inpt Rehab denied by insurance, appeal in progress AM lab: CBC
[2019-11-13] MEDS: Atorvastatin Calcium 40 MG TAB PO SCH (20:08)
[2019-11-13] MEDS: Ezetimibe 10 MG TAB PO SCH (20:08)
[2019-11-13] MEDS: Apixaban 2.5 MG TAB PO SCH (20:08)
[2019-11-13] MEDS: Famotidine 20 MG TAB PO SCH (20:08)
[2019-11-13] MEDS: Temazepam 15 MG CAP PO PRN (20:25)
[2019-11-14] MEDS: PROVENTIL INHALER 6.7 G (200 INHALATIONS) INH SCH ×4 (02:31→13:59)
[2019-11-14] MEDS: Furosemide 20 MG TAB PO SCH ×2 (05:21→14:13)
[2019-11-14 06:01] LABS: Platelet Count 74 thou/uL (130-400)
[2019-11-14] MEDS: Mometasone 200 MCG/Formoterol 5 MCG 120 PUFF INHALER INH SCH (07:25)
[2019-11-14 07:52] VITALS: BP 114/82; TEMP 97.7
[2019-11-14] MEDS: Aluminum & Magnesium Hydroxide 60 ML, Lidocaine 2% Viscous Solution 30 ML, diphenhydrAM... SSW PRN ×3 (08:04→12:06)
[2019-11-14] MEDS: Potassium Chloride 20 MEQ TAB PO SCH (08:05)
[2019-11-14] MEDS: predniSONE 20 MG TAB PO SCH (08:05)
[2019-11-14] MEDS: Metoprolol Tartrate 25 MG TAB PO SCH (08:05)
[2019-11-14] MEDS: Magnesium Oxide 400 MG TAB PO SCH (08:06)
[2019-11-14] MEDS: Apixaban 2.5 MG TAB PO SCH (08:06)
[2019-11-14] MEDS: Folic Acid 1 MG TAB PO SCH (08:06)
[2019-11-14] MEDS: Multivitamin W/ Minerals 1 TAB PO SCH (08:50)
--- NOTE | 2019-11-14 11:00 | PDOC.MOPN ---
Interval History: fatigued but excited to go to rehab - Vital Signs Vital Signs: Vital Signs (12 hours) Temp Pulse Resp BP Pulse Ox 11/14/19 08:00 99 11/14/19 07:48 97.7 F 76 18 114/82 100 11/14/19 02:31 16 96 Weight Admit Weight 164 lb 9.6 oz Weight 186 lb 11.2 oz - Physical Exam General: Alert, Oriented x3, No acute distress HEENT: Atraumatic, PERRLA, EOMI, Mucous membr. 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 CBC stable 2. dc to rehab 3. Follow-up in clinic
--- NOTE | 2019-11-14 11:45 | DIS ---
DATE OF ADMISSION: 10/30/2019 DATE OF DISCHARGE: 11/14/2019 DISCHARGE DIAGNOSES: 1. Symptomatic anemia, status post 3 units of packed red blood cells. 2. Pancytopenia due to antineoplastic chemotherapy, improved. 3. Stage IV adenocarcinoma of the lung. 4. Deep vein thrombosis of the axillary vein in the left upper extremity, chronic. 5. Hyponatremia, resolved. 6. Chronic kidney disease stage 3. CONSULTATIONS: Dr. Powers with Medical Oncology Service. PERTINENT LABORATORY AND X-RAY FINDINGS: Sodium ranged between 127 to 138, potassium ranged between 2.9 to 4.6, creatinine ranged between 1.23 to 1.73. Estimated GFR ranged between 39 to 57. Magnesium level 1.8. CBC showed a white blood cell count ranging between 2.4 to 14.4, hemoglobin ranged between 5.5 to 8.4, platelet count ranged between 4 to 74. COVID-19 PCR not detected on 10/30/2019. Influenza A and B antigen negative on 10/30/2019. Portable chest x-ray dated 10/30/2019, showed left upper lobe peripheral mass consistent with history of lung carcinoma. Homogeneous opacity of the right chest consistent with large pleural effusion. CT angiogram of the chest dated 10/30/2019, showed no evidence for pulmonary embolus. HOSPITAL COURSE: The patient was initially admitted after presenting with increased shortness of breath with associated generalized weakness. The patient's history is significant for stage IV lung carcinoma, undergoing current chemotherapy with Alimta. General workup revealed symptomatic anemia with initial hemoglobin of 5.5. The patient was typed and crossed and receiving a total of 3 units of packed red blood cells and 1 unit of platelets. Serial monitoring of the hemoglobin showed overall stable trend. The patient did not require further transfusion for the remainder of the hospital course. The patient's overall pancytopenia was slow to clinically improved; however, Medical Oncology Service was consulted with recommendations for supportive management. The patient was also ruled out for COVID-19 by PCR, which was negative as stated previously. The patient slowly clinically improved, however, remained severely deconditioned and generally weak. Due to the patient's deconditioned state, comorbid conditions, the patient was deemed an appropriate candidate for ongoing inpatient rehabilitation services. The patient has been approved and will transfer to [facility] after discharge. I have examined the patient at the time of discharge and discussed followup instructions. The patient verbalizes understanding and agreement. Ready for discharge on 11/14/2019. DISCHARGE MEDICATIONS: 1. Lipitor 40 mg p.o. at bedtime. 2. Ezetimibe 10 mg p.o. at bedtime. 3. Pepcid 20 mg p.o. at bedtime. 4. Folic acid 1 mg p.o. daily. 5. Lasix 40 mg p.o. q.a.m. 6. Metoprolol tartrate 25 mg p.o. daily. 7. Multivitamin 1 tablet p.o. daily. 8. Coenzyme Q10 of 200 mg p.o. daily. 9. Eliquis 2.5 mg p.o. b.i.d. 10. Enteric-coated aspirin 81 mg p.o. daily. 11. Viscous lidocaine swish and swallow p.r.n. 12. Dulera 200/5 mcg one inhalation b.i.d. 13. K-Dur 20 mEq p.o. daily. 14. Prednisone 20 mg p.o. daily x3 days, followed by half a tablet p.o. daily x3 days, stop on 11/20/2019. FOLLOWUP: The patient may follow up with his primary care provider, Dr. Martinez Higuera. The patient will follow up with Dr. Chan Powers with [facility]. CONDITION ON DISCHARGE: Stable. ACTIVITY: Ad becky rolling walker with standby assistance. DIET: Regular. CODE STATUS: Full. DISPOSITION: Discharged to [facility] on 11/14/2019. TIME SPENT: Total time for preparing and coordinating discharge, 35 minutes. Job ID: [id number]
== END 2019-11-14 15:15 | DRG 808 ==
LOC: ERS 11:37 → 2SW 16:01 → ONC 11-07 14:38
PROVIDERS: ADMIT Family Medicine; ATTEND Family Medicine
PROC: 30233R1 Transfusion of Nonautologous Platelets into Peripheral Vein, Percutaneous Approach (ICD-10-PCS; principal; 2019-10-30)
PROC: 30233N1 Transfusion of Nonautologous Red Blood Cells into Peripheral Vein, Percutaneous Approach (ICD-10-PCS; 2019-10-30)
PROC: 8E0ZXY6 Isolation (ICD-10-PCS; 2019-10-30)
DX: D61.810 Antineoplastic chemotherapy induced pancytopenia (principal); J96.01 Acute respiratory failure with hypoxia; C34.12 Malignant neoplasm of upper lobe, left bronchus or lung; I82.722 Chronic embolism and thrombosis of deep veins of left upper extremity; E87.1 Hypo-osmolality and hyponatremia; I13.0 Hypertensive heart and chronic kidney disease with heart failure and stage 1 through stage 4 chronic kidney disease, or unspecified chronic kidney disease; I50.32 Chronic diastolic (congestive) heart failure; T45.1X5A Adverse effect of antineoplastic and immunosuppressive drugs, initial encounter; N18.3 Chronic kidney disease, stage 3 (moderate); Z20.828 Contact with and (suspected) exposure to other viral communicable diseases; E78.5 Hyperlipidemia, unspecified; E87.6 Hypokalemia; I25.10 Atherosclerotic heart disease of native coronary artery without angina pectoris; Z98.52 Vasectomy status; Z79.52 Long term (current) use of systemic steroids; Z79.82 Long term (current) use of aspirin; Z79.01 Long term (current) use of anticoagulants; Z79.899 Other long term (current) drug therapy; Z95.1 Presence of aortocoronary bypass graft
CPT/HCPCS: 36415; 36430; 71045; 71275; 80048; 80053; 82553; 83735; 83880; 84484; 84550; 85007; 85014; 85018; 85025; 85027; 85049; 85610; 85730; 86850; 86900; 86901; 86922; 87635; 87804; 93005; 94760; 96374; C9132; J0692; J1940; J2920; J3490; J7512; P9016; P9035; Q0163; Q9967; U0002

== ENCOUNTER 2019-11-17 10:23 | Inpatient (IN) | payer MEDICARE, OTHER ==
[2019-11-17] MEDS ORDERED: Diltiazem HCl 125 MG, Admixture Fee 1 EACH in Sodium Chloride 0.9% 100 ML IVPB SCH (11:15)
--- NOTE | 2019-11-17 11:26 | RAD ---
CHEST 1 VIEW: Date: 11/17/2019 HISTORY: Atrial fibrillation. COMPARISON: Radiograph dated 11/04/2019. FINDINGS: Loculated right pleural effusion is similar. Port catheter tip mid SVC. Small left effusion with left lower lobe consolidation. Multiple midline sternotomy wires. Left axill hillary surgical clips. IMPRESSION: Similar examination of the chest. Peripheral left upper lobe nodule not well seen on today's exam. POS: HOME
[2019-11-17 11:37] LABS: #Eosinphils 0.1 thou/uL (0.0-0.7); #Lymphocytes 0.3 thou/uL (1.20-3.40); #Monocytes 0.3 thou/uL (0.11-0.59); #Neutrophils 10.9 thou/uL (1.40-6.50); %Basophils 0.1 % (0.0-1.0); %Eosinophils 0.5 % (0.0-10.0); %Lymphocytes 2.8 % (21.0-51.0); %Monocytes 2.9 % (0.0-10.0); %Neutrophils 93.8 % (42.0-75.0); Hemoglobin 8.7 g/dL (14.0-18.0); Mean Corpuscular HGB CONC 33.3 g/dL (32.0-36.0); Mean Corpuscular Hemoglobin 36.6 pg (27.0-31.0); Mean Platelet Volume 10.2 fL (7.4-10.4); Platelet Count 73 thou/uL (130-400); RBC Distribution Width 22.8 % (11.5-14.5); Red Blood Cell (RBC) Count 2.37 mill/uL (4.70-6.10); White Blood Cell (WBC) Count 11.6 thou/uL (4.8-10.8)
[2019-11-17 11:47] LABS: ALT (SGPT) 53 U/L (8-55); AST (SGOT) 44 U/L (5-34); Albumin 2.3 g/dL (3.4-4.8); Alkaline Phosphatase 91 U/L (40-110); Anion Gap 12 mmol/L (10-20); BUN (Urea Nitrogen) 39 mg/dL (8.4-25.7); Bilirubin, Total 0.7 mg/dL (0.2-1.2); Calc. Creatinine Clearance 0 mL/min (70-130); Calcium 8.1 mg/dL (7.8-10.44); Carbon Dioxide 26 mmol/L (23-31); Chloride 103 mmol/L (98-107); Estimated GFR-MDRD 45; Globulin 3.4 g/dL (2.4-3.5); Glucose 105 mg/dL (83-110); Potassium 3.5 mmol/L (3.5-5.1); Protein, Total 5.7 g/dL (5.8-8.1); Sodium 137 mmol/L (136-145)
[2019-11-17 11:50] LABS: Bacteria/HPF None Seen HPF (None Seen); Bilirubin Negative (Negative); Blood, Urine Negative (Negative); Clarity Clear (Clear); Glucose, Urine (Dipstick) Normal (Negative); Leukocyte Negative Leu/uL (Negative); Nitrite Negative (Negative); Protein, Urine (Dipstick) 30 mg/dL (Neg-Trace); RBC/HPF None Seen HPF (0-3); Squamous Epithelial None Seen HPF (0-3); Urobilinogen Normal mg/dL (Less than 2); WBC/HPF 0-3 HPF (0-3)
[2019-11-17] MEDS: Aluminum & Magnesium Hydroxide 60 ML, Lidocaine 2% Viscous Solution 30 ML, diphenhydrAM... SSW SCH (17:06)
[2019-11-17] MEDS ORDERED: Digoxin 0.25 MG TAB PO SCH (17:30)
--- NOTE | 2019-11-17 17:41 | HP ---
CHIEF COMPLAINT: Tachycardia. HISTORY OF PRESENT ILLNESS: This is a 74-year-old male with history of recent hospitalization in this facility from October 29 through November 13 due to symptomatic anemia, pancytopenia, stage IV adenocarcinoma of the lung, chronic kidney disease stage 3, who has been at rehab over the past few days. The patient returns to this facility today due to tachycardia with a rate in the 140s. The patient reports that around 10 o'clock that he had shaking chills, inability to get warm , and his oxygen levels were noted to be in the 80s. He denies any precipitating or relieving factors. He did not feel any palpitations or chest pain, denies any fevers, nausea, vomiting, lightheadedness, or dizziness. Over at the facility, the patient was found to be in atrial fibrillation with a rate in the 140s and he was transferred here. In the emergency room, he received diltiazem 10 mg IV x2, started on a diltiazem drip at 5 mg/hour, and Hospitalist called for admission. PAST MEDICAL HISTORY: 1. Symptomatic anemia, status post 3 units during hospitalization here from 10/30/2019 to 11/14/2019. 2. Pancytopenia due to chemotherapy. 3. Stage IV adenocarcinoma of the lung. 4. History of DVT in the left upper extremity, chronic. 5. Chronic kidney disease, stage III. 6. Coronary artery disease with diastolic dysfunction. 7. Atrial fibrillation. PAST SURGICAL HISTORY: 1. CABG. 2. Thoracentesis and MediPort placement. CURRENT MEDICATIONS: Reconciled with the list from his discharge. 1. Lipitor 40 mg at bedtime. 2. Zetia 10 mg at bedtime. 3. Pepcid 20 mg at bedtime. 4. Folic acid 1 mg daily. 5. Lasix 40 mg daily. 6. Metoprolol 25 mg daily. 7. Multivitamin 1 tablet daily. 8. Coenzyme Q10 of 200 mg daily. 9. Eliquis 2.5 mg b.i.d. 10. Enteric-coated aspirin 81 mg daily. 11. Magic mouthwash with meals. 12. Dulera 200/5 one inhalation b.i.d. 13. Potassium chloride 20 mEq daily. 14. Prednisone, currently on a taper, that was 20 mg, to start 10 mg tomorrow through November 19. FAMILY HISTORY: Negative for inheritable disease. SOCIAL HISTORY: The patient is . His is his surrogate decision maker and he is a full code. He quit tobacco in 1988. REVIEW OF SYSTEMS: Positive for ulcerations of his mouth on the palate and his upper gums, irritation of his bilateral eyes, scrotal edema, sacral ulcer. Negative for fevers, nausea, vomiting, abdominal pain, or chest pain. All remaining review of systems are reviewed and negative. PHYSICAL EXAMINATION: VITAL SIGNS: Blood pressure 140/68, pulse 119, respirations 16, temperature 98.7, sat 96% on 4 L nasal cannula. GENERAL: Awake, alert, responsive, in no apparent distress. Able to speak in full sentences. HEENT: He has mild erythema and edema of his eyelids, some discharge on his left lashes, no scleral icterus. Oral mucosa is pink, appears dry. NECK: Supple. Nontender. LYMPHATICS: No palpable cervical or supraclavicular lymphadenopathy. LUNGS: Clear to auscultation bilateral. No audible wheezing, rhonchi, or rales. HEART: Normal S1, S2. Regular rate and rhythm. No significant murmurs. ABDOMEN: Soft. Present bowel sounds. Nontender. Nondistended. EXTREMITIES: He has 2+ pitting edema in his right lower extremity and well- healed surgical scars, no pitting edema in his left lower extremity. SKIN: Areas of ecchymosis and petechiae, particularly around the bilateral knees. NEUROLOGIC: No focal deficits. PSYCH: Appears euthymic. VASCULAR: 2+ radial pulses. LABORATORY DATA: Labs reviewed. CBC: 11.6, 8.7, 26.0, 73. Chemistry: 137, 3.5, 103, 26, 39, 1.5, 105. T bilirubin 0.7, AST 44, ALT 53, alkaline phosphatase 91, total protein 5.7, albumin 2.3. Urinalysis: Present protein, otherwise negative. IMAGING STUDIES: Chest x-ray is personally reviewed. Peripheral left upper lobe nodule not well seen on today's exam, loculated right pleural effusion is similar, small left effusion with left lower lobe consolidation. EKG shows tachycardia, atrial fibrillation versus multifocal atrial tachycardia. No ST changes, abnormal R-wave progression. IMPRESSION: 1. Tachycardia - atrial fibrillation versus multifocal atrial tachycardia in a patient with history of atrial fibrillation. 2. Rigors reported earlier in a patient on chemotherapy, oral steroids, with pancytopenia. 3. Coronary artery disease with history of CABG. 4. Stage IV lung cancer, on treatment. 5. Pancytopenia secondary to above. 6. Chronic kidney disease, stable. 7. Left upper extremity deep vein thrombosis, on Eliquis. 8. Mouth ulcerations secondary to chemotherapy. 9. Eye irritation. 10. Moderate protein calorie malnutrition/hypoalbuminemia. 11. Left lower extremity edema. 12. Scrotal edema. 13. Sacral ulcer - present on admission. PLAN: 1. Observation status in the hospital. 2. We will increase the diltiazem drip for improved heart rate control, order echocardiogram and Cardiology consultation. 3. Obtain urine and blood cultures. Holding antibiotics for now as the chest x- ray report does not show new findings. Monitor cultures, as well as temperature curve and determine if antibiotics are warranted. 4. We will continue his usual home medications to include lipid medications, the prednisone taper, his full anticoagulation with Eliquis. 5. Magic mouthwash with meals. 6. Lubricant for the eyes. 7. Scrotal elevation. 8. Sacral ulcer wound care. 9. Dietary consult. 10. Monitor renal function and pancytopenia. 11. DVT prophylaxis. He is on Eliquis. 12. GI prophylaxis not indicated. The patient does take Pepcid. We will order that. 13. Code status is full. Surrogate decision maker is the patient's . 14. Reviewed the plan of care with the patient who demonstrates understanding, no questions or further needs at the end of evaluation. 15. The patient is at high risk given age, comorbidities, and current presentation. Job ID: [id number] [facility]
[2019-11-17] MEDS: Mometasone 200 MCG/Formoterol 5 MCG 120 PUFF INHALER INH SCH (18:49)
--- NOTE | 2019-11-17 18:53 | CON ---
DATE OF CONSULTATION: 11/17/2019 REASON FOR CONSULTATION: Tachycardia, possible atrial fibrillation. PRIMARY HIGH SCHOOL PRINCIPAL: Izaiah Rubio MD HISTORY OF PRESENT ILLNESS: Mr. Guthrie is a 74-year-old white gentleman, who comes to the hospital for tachycardia. He was recently discharged from this facility to rehab. He was found to be tachycardic and irregular, so he was sent back to the ER where he was found to be in a tachycardic and irregular rhythm that was thought to be atrial fibrillation. He was admitted for further evaluation and care and Cardiology is being consulted for this. On my evaluation, Mr. Guthrie is on a diltiazem drip. His heart rate has been in the 140s and is now much better in the 110s to 120, still little bit tachycardic. He feels comfortable otherwise. Denies any chest pain, tightness pressure. No palpitations. No syncope, presyncope, or lightheadedness. PAST MEDICAL HISTORY: 1. Stage IV lung carcinoma. 2. Pancytopenia secondary to chemotherapy with Alimta. 3. Chronic kidney disease, stage 3. 4. DVT of the left brachial vein, on Eliquis. 5. History of symptomatic anemia in the past from Alimta. 6. Coronary artery disease status post CABG. 7. Diastolic heart failure. PAST SURGICAL HISTORY: 1. Coronary artery bypass grafting. 2. Thoracentesis in the past. 3. Thoracoscopy. 4. Pleurodesis. 5. MediPort placement. 6. Colonoscopy on 10/03 with external hemorrhoids. OUTPATIENT MEDICATIONS: 1. Prednisone 20 mg q.a.m. 2. Benadryl p.r.n. 3. CoQ10. 4. Potassium chloride 20 mEq a day. 5. Multivitamin. 6. Dulera. 7. Metoprolol tartrate 25 mg a day. 8. Magnesium oxide. 9. Lidocaine. 10. Furosemide 40 mg q.a.m. 11. Folic acid. 12. Famotidine. 13. Ezetimibe. 14. Atorvastatin 40 mg at bedtime. 15. Aspirin 81 a day. 16. Eliquis 2.5 mg b.i.d. ALLERGIES: NO KNOWN DRUG ALLERGIES. FAMILY HISTORY: Noncontributory. SOCIAL HISTORY: Quit smoking in 1988. No alcohol, tobacco, or drugs currently. REVIEW OF SYSTEMS: A 12-point review of systems was done and is all negative unless stated in the history of present illness. PHYSICAL EXAMINATION: VITAL SIGNS: Temperature 99.8, pulse 120, respiratory rate 20, saturating 96% on 4 L nasal cannula, blood pressure 108/62. GENERAL: Awake, alert, oriented x3. No distress. HEENT: Normocephalic, atraumatic. NECK: Supple. LUNGS: Have reduced breath sounds. CARDIOVASCULAR: S1, S2. Irregularly irregular heart rate in the one teens. ABDOMEN: Soft, positive bowel sounds. EXTREMITIES: Right edema. SKIN: Warm and dry. LABORATORY DATA: Laboratory work was reviewed. White count of 11, hemoglobin of 8.7, hematocrit of 26, platelet count of 73. Chemistries were unremarkable except for BUN of 39, creatinine 1.51, GFR of 45. BNP was 746. UA was unremarkable. EKG was reviewed. EKG seems like either atrial flutter with variable block versus MAT. Telemetry monitoring seems more like multifocal atrial tachycardia than atrial fibrillation or aflutter. ASSESSMENT: 1. Multifocal atrial tachycardia. 2. He may have short runs of atrial fibrillation. 3. Chronic anticoagulation with Eliquis for brachial vein thrombosis. 4. Recent blood transfusion requiring him stop Eliquis for a few days and he now has right lower extremity swelling, worse in the left. 5. Stage IV lung cancer. PLAN: 1. Continue Eliquis for DVT. 2. We will do a right lower extremity venous duplex to evaluate for DVTs. 3. Continue diltiazem drip at current rate. 4. We will add oral digoxin, try to rate control him a little bit better without dropping his blood pressure too much. Thank you for letting us to participate in the care of your patient, Dr. Rubio. We will follow up in the morning. Job ID: [id number]
[2019-11-17] MEDS: Apixaban 2.5 MG TAB PO SCH (20:03)
[2019-11-17] MEDS: Famotidine 20 MG TAB PO SCH (20:03)
[2019-11-17] MEDS: Atorvastatin Calcium 40 MG TAB PO SCH (20:03)
[2019-11-17] MEDS: Metoprolol Tartrate 25 MG TAB PO SCH (20:04)
[2019-11-17] MEDS: Temazepam 15 MG CAP PO SCH (20:33)
[2019-11-17] MEDS: Diltiazem 125 MG in Sodium Chloride 0.9% 100 ML IVPB SCH (23:55)
[2019-11-18 03:31] LABS: #Eosinphils 0.1 thou/uL (0.0-0.7); #Lymphocytes 0.6 thou/uL (1.20-3.40); #Monocytes 0.4 thou/uL (0.11-0.59); #Neutrophils 10.6 thou/uL (1.40-6.50); %Basophils 0.1 % (0.0-1.0); %Eosinophils 0.5 % (0.0-10.0); %Lymphocytes 4.8 % (21.0-51.0); %Monocytes 3.2 % (0.0-10.0); %Neutrophils 91.5 % (42.0-75.0); Hemoglobin 7.2 g/dL (14.0-18.0); Mean Corpuscular HGB CONC 33.9 g/dL (32.0-36.0); Mean Corpuscular Hemoglobin 37.4 pg (27.0-31.0); Mean Platelet Volume 10.2 fL (7.4-10.4); Platelet Count 69 thou/uL (130-400); RBC Distribution Width 23.3 % (11.5-14.5); Red Blood Cell (RBC) Count 1.92 mill/uL (4.70-6.10); White Blood Cell (WBC) Count 11.6 thou/uL (4.8-10.8)
[2019-11-18 03:46] LABS: Anion Gap 12 mmol/L (10-20); BUN (Urea Nitrogen) 37 mg/dL (8.4-25.7); Calc. Creatinine Clearance 44 mL/min (70-130); Calcium 7.5 mg/dL (7.8-10.44); Carbon Dioxide 25 mmol/L (23-31); Chloride 102 mmol/L (98-107); Estimated GFR-MDRD 43; Glucose 75 mg/dL (83-110); Potassium 3.1 mmol/L (3.5-5.1); Sodium 136 mmol/L (136-145)
[2019-11-18] MEDS: Mometasone 200 MCG/Formoterol 5 MCG 120 PUFF INHALER INH SCH ×2 (07:15→18:40)
[2019-11-18] MEDS: Aluminum & Magnesium Hydroxide 60 ML, Lidocaine 2% Viscous Solution 30 ML, diphenhydrAM... SSW SCH ×3 (08:02→17:00)
--- NOTE | 2019-11-18 08:07 | PDOC.HOSPP ---
- Subjective Encounter Date: 11/18/19 (f/u tachycardia) Encounter Time: 08:04 Subjective: Pt without complaints this morning - reports he slept well. Denies any pain/n/v /palpitations or any other concerns. - Objective Vital Signs & Weight: Vital Signs (12 hours) Temp Pulse Resp Pulse Ox 11/18/19 07:15 113 H 16 93 L 11/18/19 07:13 99.1 F 11/18/19 04:00 99.6 F 11/17/19 23:56 98.8 F Weight Weight 171 lb 9.6 oz Most Recent Monitor Data Heart Rate from ECG 119 NIBP 100/57 NIBP BP-Mean 71 Respiration from ECG 20 SpO2 93 I&O: 11/17/19 11/18/19 11/19/19 06:59 06:59 06:59 Intake Total 1280 Output Total 1220 Balance 60 Result Diagrams: 11/18/19 15:08 11/18/19 03:16 EKG Reviewed by me: Yes (tele - MAT with rate in 90's) Hospitalist ROS - Medication Medications: Active Medications Generic Name Dose Route Start Last Admin Trade Name Freq PRN Reason Stop Dose Admin Apixaban 2.5 mg 11/17/19 21:00 11/17/19 20:03 Eliquis PO 2.5 mg BID GLADIS Administration Atorvastatin Calcium 40 mg 11/17/19 21:00 11/17/19 20:03 Lipitor PO 40 mg HS GLADIS Administration Al Hydroxide/Mg Hydroxide 60 0 ml 11/17/19 17:00 11/18/19 08:02 ml/ Lidocaine HCl 30 ml/ SSW 10 ml Diphenhydramine HCl 75 mg AC GLADIS Administration Famotidine 20 mg 11/17/19 21:00 11/17/19 20:03 Pepcid PO 20 mg HS GLADIS Administration Diltiazem HCl 125 mg/ Sodium 125 mls @ 10 mls/hr 11/17/19 20:30 11/17/19 23: 55 Chloride IVPB 125 mls INF GLADIS Administration Protocol 10 MG/HR Metoprolol Tartrate 25 mg 11/17/19 21:00 11/17/19 20:04 Lopressor PO Not Given BID GLADIS Mineral Oil/White Petrolatum 1 gm 11/17/19 21:00 11/17/19 20:03 Artificial Tears 3.5 Gm Oint EA EYE 1 gm BID GLADIS Administration Mometasone Furoate/Formoterol Fumar 1 puff 11/17/19 18:30 11/18/19 07:15 Dulera 200 Mcg/5 Mcg Inhaler INH 1 puff BID-RT GLADIS Administration Temazepam 15 mg 11/17/19 21:00 11/17/19 20:33 Restoril PO 15 mg HS GLADIS Administration - Exam General Appearance: NAD Heart: no murmur, irregular Respiratory - other findings: good air movement, left basilar rales Gastrointestinal: soft, non-tender, non-distended, normal bowel sounds Extremities - other findings: 2+ edema in RLE, none in LLE Musculoskeletal: normal tone Psychiatric: normal affect Hosp A/P (1) Atrial tachycardia, multifocal Code(s): I47.1 - SUPRAVENTRICULAR TACHYCARDIA Status: Acute (2) Rigors Code(s): R68.89 - OTHER GENERAL SYMPTOMS AND SIGNS Status: Acute (3) Coronary artery disease Code(s): I25.10 - ATHSCL HEART DISEASE OF [place] CORONARY ARTERY W/O ANG PCTRS Status: Chronic Qualifiers: Coronary Disease-Associated Artery/Lesion type: bypass graft Associated angina: without angina (4) DVT (deep venous thrombosis) Code(s): I82.409 - ACUTE EMBOLISM AND THOMBOS UNSP DEEP VN UNSP LOWER EXTREMITY Status: Chronic Qualifiers: DVT location: upper extremity Laterality: right (5) CKD (chronic kidney disease) Code(s): N18.9 - CHRONIC KIDNEY DISEASE, UNSPECIFIED Status: Acute Qualifiers: Chronic kidney disease stage: stage 3 (moderate) Qualified Code(s): N18.3 - Chronic kidney disease, stage 3 (moderate) (6) Mouth ulceration Status: Acute (7) Sacral ulcer Code(s): L98.429 - NON-PRESSURE CHRONIC ULCER OF BACK WITH UNSPECIFIED SEVERITY Status: Acute (8) Malnutrition Code(s): E46 - UNSPECIFIED PROTEIN-CALORIE MALNUTRITION Status: Acute Qualifiers: Malnutrition type: protein-calorie malnutrition Protein-calorie malnutrition severity: moderate Qualified Code(s): E44.0 - Moderate protein- calorie malnutrition (9) Pancytopenia Code(s): D61.818 - OTHER PANCYTOPENIA Status: Chronic (10) Stage IV adenocarcinoma of lung Code(s): C34.90 - MALIGNANT NEOPLASM OF UNSP PART OF UNSP BRONCHUS OR LUNG Status: Chronic - Plan Appreciate cardiology consult - continue dilt gtt and digoxin - pt on home dose of metoprolol - dig level in AM - continue Eliquis Rigors on admission and higher risk of infection - monitor blood and urine cultures Rales on exam - on oral furosemide, will follow. BP's on lower side of normal - hold on IV lasix for now RLE edema - US today Sacral ulcer - wound care consult Moderate protein calorie malnutrition - hand tier consult pancytopenia with worsening anemia - recheck h/h this afternoon and type/ screen. Transfuse if less than 7. Pt recently completed endoscopy that was normal. Lung cancer - chemo per Oncology replace potassium - additional dose with lunch. mag level checked and normal change to inpatient status - continues to require diltiazem gtt dvt prophy - eliquis gi prophy - not indicated code status full
[2019-11-18] MEDS: Furosemide 40 MG TAB PO SCH (09:46)
[2019-11-18] MEDS: Potassium Chloride 20 MEQ TAB PO SCH (09:47)
[2019-11-18] MEDS: Apixaban 2.5 MG TAB PO SCH ×2 (09:47→20:29)
[2019-11-18] MEDS: predniSONE 20 MG TAB PO SCH (09:47)
[2019-11-18] MEDS: Digoxin 0.125 MG TAB PO SCH (09:48)
[2019-11-18] MEDS: Ezetimibe 10 MG TAB PO SCH (09:48)
[2019-11-18] MEDS: Aspirin 81 mg Enteric Coated Tablet PO SCH (09:48)
[2019-11-18] MEDS: Metoprolol Tartrate 25 MG TAB PO SCH ×2 (09:49→20:32)
[2019-11-18] MEDS: Acetaminophen 325 MG TAB PO PRN (10:58)
[2019-11-18] MEDS ORDERED: Potassium Chloride 20 MEQ TAB PO SCH (12:00)
[2019-11-18] MEDS ORDERED: Digoxin 0.25 MG TAB PO SCH (14:00)
[2019-11-18] MEDS: Diltiazem 125 MG in Sodium Chloride 0.9% 100 ML IVPB SCH (14:12)
--- NOTE | 2019-11-18 14:12 | ULT ---
EXAM: Right lower extremity venous Doppler HISTORY: Right lower extremity edema. FINDINGS: Grayscale, color-flow, Doppler evaluation, spectral analysis of the right lower extremity venous stru ctures is performed with 2-D imaging. The right common femoral, superficial femoral, popliteal, posterior tibial, proximal greater saphenous and profunda femoral veins are imaged. There is normal luminal compressibility, flow, and augmentation in the visualized deep venous structu res of the right lower extremity. IMPRESSION: No evidence of a deep vein thrombosis in the visualized deep venous structures right lower extremity.
[2019-11-18 15:22] LABS: Hemoglobin 6.9 g/dL (14.0-18.0)
[2019-11-18] MEDS: Atorvastatin Calcium 40 MG TAB PO SCH (20:29)
[2019-11-18] MEDS: Temazepam 15 MG CAP PO SCH (20:29)
[2019-11-18] MEDS: Famotidine 20 MG TAB PO SCH (20:30)
[2019-11-19] MEDS: Acetaminophen 325 MG TAB PO PRN ×2 (03:04→20:17)
[2019-11-19] MEDS: Diltiazem 125 MG in Sodium Chloride 0.9% 100 ML IVPB SCH (03:04)
[2019-11-19 05:22] LABS: #Eosinphils 0.1 thou/uL (0.0-0.7); #Lymphocytes 0.5 thou/uL (1.20-3.40); #Monocytes 0.3 thou/uL (0.11-0.59); #Neutrophils 13.3 thou/uL (1.40-6.50); %Eosinophils 0.4 % (0.0-10.0); %Lymphocytes 3.2 % (21.0-51.0); %Monocytes 1.9 % (0.0-10.0); %Neutrophils 94.5 % (42.0-75.0); Hemoglobin 8.5 g/dL (14.0-18.0); Mean Corpuscular HGB CONC 34.1 g/dL (32.0-36.0); Mean Corpuscular Hemoglobin 36.2 pg (27.0-31.0); Mean Platelet Volume 10.6 fL (7.4-10.4); Platelet Count 72 thou/uL (130-400); Red Blood Cell (RBC) Count 2.35 mill/uL (4.70-6.10); White Blood Cell (WBC) Count 14.1 thou/uL (4.8-10.8)
[2019-11-19 05:35] LABS: Anion Gap 12 mmol/L (10-20); BUN (Urea Nitrogen) 41 mg/dL (8.4-25.7); Calc. Creatinine Clearance 46 mL/min (70-130); Calcium 7.6 mg/dL (7.8-10.44); Carbon Dioxide 24 mmol/L (23-31); Chloride 102 mmol/L (98-107); Digoxin 0.33 ng/mL (0.8-2.0); Estimated GFR-MDRD 42; Glucose 85 mg/dL (83-110); Potassium 3.4 mmol/L (3.5-5.1); Sodium 135 mmol/L (136-145)
[2019-11-19] MEDS ORDERED: Diltiazem 125 MG in Sodium Chloride 0.9% 100 ML IVPB SCH (07:33)
[2019-11-19] MEDS: Mometasone 200 MCG/Formoterol 5 MCG 120 PUFF INHALER INH SCH ×2 (08:03→19:12)
[2019-11-19] MEDS: Furosemide 40 MG TAB PO SCH (09:42)
[2019-11-19] MEDS: Aluminum & Magnesium Hydroxide 60 ML, Lidocaine 2% Viscous Solution 30 ML, diphenhydrAM... SSW SCH ×3 (09:52→17:11)
[2019-11-19] MEDS: Potassium Chloride 20 MEQ TAB PO SCH (09:52)
[2019-11-19] MEDS: Digoxin 0.125 MG TAB PO SCH (09:52)
[2019-11-19] MEDS: Aspirin 81 mg Enteric Coated Tablet PO SCH (09:53)
[2019-11-19] MEDS: predniSONE 20 MG TAB PO SCH (09:53)
[2019-11-19] MEDS: Ezetimibe 10 MG TAB PO SCH (09:53)
[2019-11-19] MEDS: Metoprolol Tartrate 25 MG TAB PO SCH ×2 (09:56→20:17)
[2019-11-19] MEDS: Apixaban 2.5 MG TAB PO SCH ×2 (09:57→20:17)
[2019-11-19] MEDS: Furosemide 40 MG/4 ML VIAL SLOW IVP SCH (09:57)
[2019-11-19] MEDS ORDERED: ALPRAZolam 0.25 MG TAB PO SCH (11:45)
[2019-11-19] MEDS ORDERED: Digoxin 0.25 MG TAB PO SCH ×2 (12:00→18:00)
[2019-11-19] MEDS: Temazepam 15 MG CAP PO SCH (20:17)
[2019-11-19] MEDS: Atorvastatin Calcium 40 MG TAB PO SCH (20:17)
[2019-11-19] MEDS: Famotidine 20 MG TAB PO SCH (20:17)
--- NOTE | 2019-11-19 21:40 | PDOC.HOSPP ---
- Subjective Encounter Date: 11/19/19 Subjective: Says he is feeling better. Denies SOB. - Objective Vital Signs & Weight: Vital Signs (12 hours) Temp Pulse Resp Pulse Ox 11/19/19 20:00 98.3 F 100 11/19/19 19:15 98 11/19/19 19:12 106 H 16 98 11/19/19 18:02 105 H 11/19/19 16:00 98.6 F 11/19/19 12:01 105 H 11/19/19 11:18 98.9 F 11/19/19 09:52 116 H Weight Admit Weight 171 lb 9.6 oz Weight 175 lb 1 oz Most Recent Monitor Data Heart Rate from ECG 111 NIBP 122/61 NIBP BP-Mean 81 Respiration from ECG 13 SpO2 98 I&O: 11/18/19 11/19/19 11/20/19 06:59 06:59 06:59 Intake Total 1280 2309 48.2 Output Total 1220 1450 1650 Balance 60 859 -1601.8 Result Diagrams: 11/19/19 05:00 11/19/19 05:00 Hospitalist ROS - Medication Medications: Active Medications Generic Name Dose Route Start Last Admin Trade Name Freq PRN Reason Stop Dose Admin Acetaminophen 650 mg 11/17/19 15:55 11/19/19 20:17 Tylenol PO 650 mg Q4H PRN Administration Headache/Fever/Mild Pain (1-3) Apixaban 2.5 mg 11/17/19 21:00 11/19/19 20:17 Eliquis PO 2.5 mg BID GLADIS Administration Aspirin 81 mg 11/18/19 09:00 11/19/19 09:53 Ecotrin PO 81 mg DAILY GLADIS Administration Atorvastatin Calcium 40 mg 11/17/19 21:00 11/19/19 20:17 Lipitor PO 40 mg HS GLADIS Administration Al Hydroxide/Mg Hydroxide 60 0 ml 11/17/19 17:00 11/19/19 17:11 ml/ Lidocaine HCl 30 ml/ SSW 10 ml Diphenhydramine HCl 75 mg AC GLADIS Administration Digoxin 0.125 mg 11/18/19 09:00 11/19/19 09:52 Lanoxin PO 0.125 mg DAILY GLADIS Administration Ezetimibe 10 mg 11/18/19 09:00 11/19/19 09:53 Zetia PO 10 mg DAILY GLADIS Administration Famotidine 20 mg 11/17/19 21:00 11/19/19 20:17 Pepcid PO 20 mg HS GLADIS Administration Furosemide 40 mg 11/19/19 09:00 11/19/19 09:57 Lasix SLOW IVP 40 mg DAILY GLADIS Administration Metoprolol Tartrate 25 mg 11/17/19 21:00 11/19/19 20:17 Lopressor PO 25 mg BID GLADIS Administration Mineral Oil/White Petrolatum 1 gm 11/17/19 21:00 11/19/19 20:18 Artificial Tears 3.5 Gm Oint EA EYE 1 applic BID GLADIS Administration Mometasone Furoate/Formoterol Fumar 1 puff 11/17/19 18:30 11/19/19 19:12 Dulera 200 Mcg/5 Mcg Inhaler INH 1 puff BID-RT GLADIS Administration Potassium Chloride 20 meq 11/18/19 08:00 11/19/19 09:52 K-Dur PO 20 meq QAM-WM GLADIS Administration Prednisone 10 mg 11/18/19 08:00 11/19/19 09:53 Prednisone PO 11/20/19 08:01 10 mg QAM-WM GLADIS Administration Sodium Chloride 10 ml 11/18/19 09:00 11/19/19 20:17 Flush - Normal Saline IVF 10 ml Q12HR GLADIS Administration Temazepam 15 mg 11/17/19 21:00 11/19/19 20:17 Restoril PO 15 mg HS GLADIS Administration - Exam General Appearance: NAD, awake alert Heart: no murmur, irregular Respiratory: CTAB, no wheezes, no rales, no ronchi, normal chest expansion, no tachypnea, normal percussion Gastrointestinal: soft, non-tender, non-distended, normal bowel sounds, no palpable masses, no hepatomegaly, no splenomegaly, no bruit Extremities: no cyanosis, no clubbing Neurological: no focal deficits Musculoskeletal: generalized weakness Psychiatric: normal affect Hosp A/P (1) Atrial tachycardia, multifocal Code(s): I47.1 - SUPRAVENTRICULAR TACHYCARDIA Status: Acute (2) CKD (chronic kidney disease) Code(s): N18.9 - CHRONIC KIDNEY DISEASE, UNSPECIFIED Status: Acute Qualifiers: Chronic kidney disease stage: stage 3 (moderate) Qualified Code(s): N18.3 - Chronic kidney disease, stage 3 (moderate) (3) Sacral ulcer Code(s): L98.429 - NON-PRESSURE CHRONIC ULCER OF BACK WITH UNSPECIFIED SEVERITY Status: Acute (4) Coronary artery disease Code(s): I25.10 - ATHSCL HEART DISEASE OF [place] CORONARY ARTERY W/O ANG PCTRS Status: Chronic Qualifiers: Coronary Disease-Associated Artery/Lesion type: bypass graft Associated angina: without angina (5) Deep vein thrombosis (DVT) of brachial vein of left upper extremity Code(s): I82.622 - ACUTE EMBOLISM AND THROMBOSIS OF DEEP VEINS OF L UP EXTREM Status: Acute Qualifiers: Chronicity: acute Qualified Code(s): I82.622 - Acute embolism and thrombosis of deep veins of left upper extremity (6) Lung cancer Code(s): C34.90 - MALIGNANT NEOPLASM OF UNSP PART OF UNSP BRONCHUS OR LUNG Status: Acute (7) PVD (peripheral vascular disease) with claudication Code(s): I73.9 - PERIPHERAL VASCULAR DISEASE, UNSPECIFIED Status: Acute (8) Pancytopenia due to antineoplastic chemotherapy Code(s): D61.810 - ANTINEOPLASTIC CHEMOTHERAPY INDUCED PANCYTOPENIA; T45.1X5A - ADVERSE EFFECT OF ANTINEOPLASTIC AND IMMUNOSUP DRUGS, INIT Status: Acute (9) HTN (hypertension) Code(s): I10 - ESSENTIAL (PRIMARY) HYPERTENSION Status: Chronic Qualifiers: Hypertension type: essential hypertension Qualified Code(s): I10 - Essential (primary) hypertension - Plan On Diltiazem gtt. Started on Digoxin. Cardiology following. Rate better. On anticoagulation.
[2019-11-20 04:32] LABS: #Eosinphils 0.1 thou/uL (0.0-0.7); #Lymphocytes 0.4 thou/uL (1.20-3.40); #Monocytes 0.2 thou/uL (0.11-0.59); #Neutrophils 12.2 thou/uL (1.40-6.50); %Eosinophils 0.5 % (0.0-10.0); %Monocytes 1.5 % (0.0-10.0); %Neutrophils 94.9 % (42.0-75.0); Hemoglobin 8.6 g/dL (14.0-18.0); Mean Corpuscular HGB CONC 32.2 g/dL (32.0-36.0); Mean Corpuscular Hemoglobin 34.8 pg (27.0-31.0); Mean Platelet Volume 10.3 fL (7.4-10.4); Platelet Count 78 thou/uL (130-400); RBC Distribution Width 22.2 % (11.5-14.5); Red Blood Cell (RBC) Count 2.47 mill/uL (4.70-6.10); White Blood Cell (WBC) Count 12.8 thou/uL (4.8-10.8)
[2019-11-20 05:13] LABS: Anion Gap 12 mmol/L (10-20); BUN (Urea Nitrogen) 40 mg/dL (8.4-25.7); Calc. Creatinine Clearance 43 mL/min (70-130); Calcium 7.9 mg/dL (7.8-10.44); Carbon Dioxide 25 mmol/L (23-31); Chloride 105 mmol/L (98-107); Estimated GFR-MDRD 40; Glucose 82 mg/dL (83-110); Potassium 3.5 mmol/L (3.5-5.1); Sodium 138 mmol/L (136-145)
[2019-11-20 05:15] LABS: Digoxin 0.92 ng/mL (0.8-2.0)
[2019-11-20] MEDS: Mometasone 200 MCG/Formoterol 5 MCG 120 PUFF INHALER INH SCH ×2 (08:04→18:32)
[2019-11-20] MEDS: Potassium Chloride 20 MEQ TAB PO SCH (08:25)
[2019-11-20] MEDS: Digoxin 0.125 MG TAB PO SCH (08:26)
[2019-11-20] MEDS: Ezetimibe 10 MG TAB PO SCH (08:26)
[2019-11-20] MEDS: Metoprolol Tartrate 50 MG TAB PO SCH ×2 (08:26→20:27)
[2019-11-20] MEDS: predniSONE 20 MG TAB PO SCH (08:27)
[2019-11-20] MEDS: Aspirin 81 mg Enteric Coated Tablet PO SCH (08:27)
[2019-11-20] MEDS: Apixaban 2.5 MG TAB PO SCH ×2 (08:27→20:26)
[2019-11-20] MEDS: Aluminum & Magnesium Hydroxide 60 ML, Lidocaine 2% Viscous Solution 30 ML, diphenhydrAM... SSW SCH ×3 (08:31→17:26)
[2019-11-20] MEDS: Furosemide 40 MG/4 ML VIAL SLOW IVP SCH (08:53)
--- NOTE | 2019-11-20 15:54 | PDOC.HOSPP ---
- Subjective Encounter Date: 11/20/19 Subjective: Says he feels a little better today. Eager to do whatever he needs to do to feel better. - Objective Vital Signs & Weight: Vital Signs (12 hours) Temp Pulse Pulse Pulse BP BP Pulse Ox 11/20/19 15:11 98.2 F 11/20/19 14:17 99 107 H 125/87 123/70 11/20/19 11:07 98.2 F 11/20/19 08:26 128 H 11/20/19 08:00 95 11/20/19 07:04 97.5 F L 11/20/19 04:00 98.3 F Pulse Ox Pulse Ox 11/20/19 15:11 11/20/19 14:17 100 95 11/20/19 11:07 11/20/19 08:26 11/20/19 08:00 11/20/19 07:04 11/20/19 04:00 Weight Admit Weight 171 lb 9.6 oz Weight 170 lb 1 oz Most Recent Monitor Data Heart Rate from ECG 100 NIBP 108/63 NIBP BP-Mean 78 Respiration from ECG 16 SpO2 99 I&O: 11/19/19 11/20/19 11/21/19 06:59 06:59 06:59 Intake Total 2309 678.2 Output Total 1450 2725 Balance 859 -2046.8 Result Diagrams: 11/20/19 04:10 11/20/19 04:10 Hospitalist ROS - Medication Medications: Active Medications Generic Name Dose Route Start Last Admin Trade Name Freq PRN Reason Stop Dose Admin Acetaminophen 650 mg 11/17/19 15:55 11/19/19 20:17 Tylenol PO 650 mg Q4H PRN Administration Headache/Fever/Mild Pain (1-3) Apixaban 2.5 mg 11/17/19 21:00 11/20/19 08:27 Eliquis PO 2.5 mg BID GLADIS Administration Aspirin 81 mg 11/18/19 09:00 11/20/19 08:27 Ecotrin PO 81 mg DAILY GLADIS Administration Atorvastatin Calcium 40 mg 11/17/19 21:00 11/19/19 20:17 Lipitor PO 40 mg HS GLADIS Administration Al Hydroxide/Mg Hydroxide 60 0 ml 11/17/19 17:00 11/20/19 13:08 ml/ Lidocaine HCl 30 ml/ SSW 10 ml Diphenhydramine HCl 75 mg AC GLADIS Administration Digoxin 0.125 mg 11/18/19 09:00 11/20/19 08:26 Lanoxin PO 0.125 mg DAILY GLADIS Administration Ezetimibe 10 mg 11/18/19 09:00 11/20/19 08:26 Zetia PO 10 mg DAILY GLADIS Administration Famotidine 20 mg 11/17/19 21:00 11/19/19 20:17 Pepcid PO 20 mg HS GLADIS Administration Furosemide 40 mg 11/19/19 09:00 11/20/19 08:53 Lasix SLOW IVP 40 mg DAILY GLADIS Administration Metoprolol Tartrate 50 mg 11/20/19 09:00 11/20/19 08:26 Lopressor PO 50 mg BID GLADIS Administration Mineral Oil/White Petrolatum 1 gm 11/17/19 21:00 11/20/19 08:32 Artificial Tears 3.5 Gm Oint EA EYE 1 applic BID GLADIS Administration Mometasone Furoate/Formoterol Fumar 1 puff 11/17/19 18:30 11/20/19 08:04 Dulera 200 Mcg/5 Mcg Inhaler INH 1 puff BID-RT GLADIS Administration Potassium Chloride 20 meq 11/18/19 08:00 11/20/19 08:25 K-Dur PO 20 meq QAM-WM GLADIS Administration Sodium Chloride 10 ml 11/18/19 09:00 11/20/19 13:08 Flush - Normal Saline IVF 10 ml Q12HR GLADIS Administration Temazepam 15 mg 11/17/19 21:00 11/19/19 20:17 Restoril PO 15 mg HS GLADIS Administration - Exam General Appearance: NAD, awake alert General - other findings: Frail. Heart: no murmur, no gallops, irregular Respiratory: CTAB, no wheezes, no rales, no ronchi, normal chest expansion, no tachypnea, normal percussion Respiratory - other findings: Diminished at bases. Gastrointestinal: soft, non-tender, non-distended, normal bowel sounds, no palpable masses, no hepatomegaly, no splenomegaly, no bruit Extremities: 2+ LE edema (LUE.) Skin - other findings: edematous. LUE with some weeping of serous fluid. Musculoskeletal: generalized weakness Psychiatric: normal affect, normal behavior, A&O x 3 Hosp A/P (1) Atrial tachycardia, multifocal Code(s): I47.1 - SUPRAVENTRICULAR TACHYCARDIA Status: Acute (2) CKD (chronic kidney disease) Code(s): N18.9 - CHRONIC KIDNEY DISEASE, UNSPECIFIED Status: Acute Qualifiers: Chronic kidney disease stage: stage 3 (moderate) Qualified Code(s): N18.3 - Chronic kidney disease, stage 3 (moderate) (3) Sacral ulcer Code(s): L98.429 - NON-PRESSURE CHRONIC ULCER OF BACK WITH UNSPECIFIED SEVERITY Status: Acute (4) Coronary artery disease Code(s): I25.10 - ATHSCL HEART DISEASE OF [place] CORONARY ARTERY W/O ANG PCTRS Status: Chronic Qualifiers: Coronary Disease-Associated Artery/Lesion type: bypass graft Associated angina: without angina (5) Deep vein thrombosis (DVT) of brachial vein of left upper extremity Code(s): I82.622 - ACUTE EMBOLISM AND THROMBOSIS OF DEEP VEINS OF L UP EXTREM Status: Acute Qualifiers: Chronicity: acute Qualified Code(s): I82.622 - Acute embolism and thrombosis of deep veins of left upper extremity (6) Lung cancer Code(s): C34.90 - MALIGNANT NEOPLASM OF UNSP PART OF UNSP BRONCHUS OR LUNG Status: Acute (7) PVD (peripheral vascular disease) with claudication Code(s): I73.9 - PERIPHERAL VASCULAR DISEASE, UNSPECIFIED Status: Acute (8) Pancytopenia due to antineoplastic chemotherapy Code(s): D61.810 - ANTINEOPLASTIC CHEMOTHERAPY INDUCED PANCYTOPENIA; T45.1X5A - ADVERSE EFFECT OF ANTINEOPLASTIC AND IMMUNOSUP DRUGS, INIT Status: Acute (9) HTN (hypertension) Code(s): I10 - ESSENTIAL (PRIMARY) HYPERTENSION Status: Chronic Qualifiers: Hypertension type: essential hypertension Qualified Code(s): I10 - Essential (primary) hypertension (10) Acute on chronic combined systolic (congestive) and diastolic (congestive) heart failure Code(s): I50.43 - ACUTE ON CHRONIC COMBINED SYSTOLIC AND DIASTOLIC HRT FAIL Status: Acute - Plan MAT: On Diltiazem gtt. Started on Digoxin. Loaded again by Cards. Metoprolol dose increased to 50 mg bid. On anticoagulation already for DVT. Acute on chronic combined systolic and diastolic CHF: On Lasix po as OP. Now on IV lasix 40 q day. Beta kishan. Acute on chronic resp failure with hypoxia: Supplemental oxygen. Due to Lung cancer and CHF. CAD: Asa, BB. CKD: Stable creatinine. DVT LUE: Eliquis. Sacral Ulcer: Debilitated. Working on nutrition. Wound care. Lung Cancer Stage IV: Significant debility. Not capable of considering any further treatment unless his debility can improve. PET CT from September showed progression from July. HTN: Well controlled. PUD Proph: Famotidine
[2019-11-20] MEDS: Atorvastatin Calcium 40 MG TAB PO SCH (20:26)
[2019-11-20] MEDS: Famotidine 20 MG TAB PO SCH (20:26)
[2019-11-20] MEDS: Temazepam 15 MG CAP PO SCH (20:26)
[2019-11-21 04:02] LABS: #Eosinphils 0.1 thou/uL (0.0-0.7); #Lymphocytes 0.4 thou/uL (1.20-3.40); #Monocytes 0.3 thou/uL (0.11-0.59); #Neutrophils 12.9 thou/uL (1.40-6.50); %Eosinophils 0.7 % (0.0-10.0); %Monocytes 2.2 % (0.0-10.0); Hemoglobin 9.1 g/dL (14.0-18.0); Mean Corpuscular Hemoglobin 36.6 pg (27.0-31.0); Mean Platelet Volume 10.1 fL (7.4-10.4); Platelet Count 76 thou/uL (130-400); RBC Distribution Width 22.3 % (11.5-14.5); Red Blood Cell (RBC) Count 2.49 mill/uL (4.70-6.10); White Blood Cell (WBC) Count 13.7 thou/uL (4.8-10.8)
[2019-11-21 04:18] LABS: Anion Gap 13 mmol/L (10-20); BUN (Urea Nitrogen) 39 mg/dL (8.4-25.7); Calc. Creatinine Clearance 41 mL/min (70-130); Calcium 7.8 mg/dL (7.8-10.44); Carbon Dioxide 21 mmol/L (23-31); Chloride 103 mmol/L (98-107); Estimated GFR-MDRD 40; Glucose 78 mg/dL (83-110); Potassium 3.3 mmol/L (3.5-5.1); Sodium 134 mmol/L (136-145)
[2019-11-21] MEDS ORDERED: Potassium Chloride 20 MEQ TAB PO SCH ×2 (04:30→08:00)
[2019-11-21] MEDS ORDERED: Metoprolol Tartrate 5 MG/5 ML VIAL IVP SCH (04:30)
[2019-11-21] MEDS: Potassium Chloride 20 MEQ TAB PO SCH (04:40)
[2019-11-21] MEDS: Mometasone 200 MCG/Formoterol 5 MCG 120 PUFF INHALER INH SCH ×2 (07:13→18:27)
[2019-11-21] MEDS: Aluminum & Magnesium Hydroxide 60 ML, Lidocaine 2% Viscous Solution 30 ML, diphenhydrAM... SSW SCH ×3 (07:55→17:47)
[2019-11-21] MEDS ORDERED: Ondansetron PF 4 MG/2 ML Vial IVP PRN (07:57)
[2019-11-21] MEDS ORDERED: Bisacodyl 5 MG TAB PO PRN (07:57)
[2019-11-21] MEDS ORDERED: Ondansetron ODT 4 MG TAB PO PRN (07:57)
[2019-11-21] MEDS ORDERED: Calcium Carbonate 500 MG ChewTAB PO PRN (07:57)
[2019-11-21] MEDS ORDERED: Diabetic Tussin 200 MG/10 ML UDCUP PO PRN (07:57)
[2019-11-21] MEDS ORDERED: Artificial Tears 18 DROP/0.9 ML EA EYE PRN (07:57)
[2019-11-21] MEDS ORDERED: Cepastat Lozenges 1 LOZ PO PRN (07:57)
[2019-11-21] MEDS ORDERED: Loperamide HCl 2 MG CAP PO PRN (07:57)
[2019-11-21] MEDS ORDERED: Sodium Chloride 0.65% Nasal 44 ML BOT EA NARE PRN (07:57)
[2019-11-21] MEDS ORDERED: Senokot S 8.6-50 MG TAB PO PRN (07:57)
[2019-11-21] MEDS ORDERED: hydrALAZINE 20 MG/ML VIAL SLOW IVP PRN (07:57)
[2019-11-21] MEDS ORDERED: Loratadine 10 MG TAB PO PRN (07:57)
[2019-11-21] MEDS: Metoprolol Tartrate 50 MG TAB PO SCH ×2 (08:58→22:38)
[2019-11-21] MEDS: Aspirin 81 mg Enteric Coated Tablet PO SCH (08:58)
[2019-11-21] MEDS: Ezetimibe 10 MG TAB PO SCH (08:58)
[2019-11-21] MEDS: Digoxin 0.125 MG TAB PO SCH (08:58)
[2019-11-21] MEDS: Magnesium Oxide 400 MG TAB PO SCH (08:58)
[2019-11-21] MEDS: Apixaban 2.5 MG TAB PO SCH ×2 (08:59→21:38)
[2019-11-21] MEDS: Cyanocobalamin (Vitamin B-12) 1,000 MCG TAB PO SCH (08:59)
[2019-11-21] MEDS: Folic Acid 1 MG TAB PO SCH (08:59)
[2019-11-21] MEDS: Furosemide 40 MG/4 ML VIAL SLOW IVP SCH (09:00)
[2019-11-21] MEDS ORDERED: Dronedarone HCl 400 MG TAB PO SCH ×2 (10:00)
--- NOTE | 2019-11-21 10:01 | PDOC.HOSPP ---
- Subjective Encounter Date: 11/21/19 Encounter Time: 08:20 Subjective: pt is very weak, still has dyspnea, no fever. Patient seen and examined. No overnight events - Objective Vital Signs & Weight: Vital Signs (12 hours) Temp Pulse Resp BP Pulse Ox 11/21/19 08:58 90 11/21/19 07:55 97.5 F L 90 18 126/63 94 L 11/21/19 04:47 112/57 L 11/21/19 04:44 129/61 98 11/21/19 04:40 118/74 11/21/19 04:35 100/58 L 11/21/19 03:55 107/56 L 11/21/19 02:55 97.4 F L 96 18 133/63 92 L Weight Admit Weight 171 lb 9.6 oz Weight 166 lb 8 oz Most Recent Monitor Data Heart Rate from ECG 98 NIBP 111/59 NIBP BP-Mean 76 Respiration from ECG 19 SpO2 77 I&O: 11/20/19 11/21/19 11/22/19 06:59 06:59 06:59 Intake Total 678.2 740 Output Total 2725 950 Balance -2046.8 -210 Result Diagrams: 11/21/19 03:28 11/21/19 03:28 Radiology Reviewed by me: Yes EKG Reviewed by me: Yes Hospitalist ROS - Review of Systems Constitutional: reports: weakness. denies: fever, chills, sweats, malaise, other ENT: denies: ear pain, ear discharge, nose pain, nose discharge, nose congestion , mouth pain, mouth swelling, throat pain, throat swelling, other Respiratory: reports: shortness of breath, SOB with excertion. denies: cough, dry, hemoptysis, pleuritic pain, sputum, wheezing, other Cardiovascular: reports: edema. denies: chest pain, palpitations, orthopnea, paroxysmal noc. dyspnea, light headedness, other Gastrointestinal: denies: nausea, vomiting, abdominal pain, diarrhea, constipation, melena, hematochezia, other Genitourinary: denies: dysuria, frequency, incontinence, hematuria, retention, other Musculoskeletal: denies: neck pain, shoulder pain, arm pain, back pain, hand pain, leg pain, foot pain, other Skin: denies: rash, lesions, leigh, bruising, other - Medication Medications: Active Medications Generic Name Dose Route Start Last Admin Trade Name Torres PRN Reason Stop Dose Admin Acetaminophen 650 mg 11/17/19 15:55 11/19/19 20:17 Tylenol PO 650 mg Q4H PRN Administration Headache/Fever/Mild Pain (1-3) Apixaban 2.5 mg 11/17/19 21:00 11/21/19 08:59 Eliquis PO 2.5 mg BID GLADIS Administration Aspirin 81 mg 11/18/19 09:00 11/21/19 08:58 Ecotrin PO 81 mg DAILY GLADIS Administration Atorvastatin Calcium 40 mg 11/17/19 21:00 11/20/19 20:26 Lipitor PO 40 mg HS GLADIS Administration Al Hydroxide/Mg Hydroxide 60 0 ml 11/17/19 17:00 11/21/19 07:55 ml/ Lidocaine HCl 30 ml/ SSW 10 ml Diphenhydramine HCl 75 mg AC GLADIS Administration Cyanocobalamin 1,000 mcg 11/21/19 09:00 11/21/19 08:59 Vitamin B-12 PO 1,000 mcg DAILY [facility] Administration Digoxin 0.125 mg 11/18/19 09:00 11/21/19 08:58 Lanoxin PO 0.125 mg DAILY GLADIS Administration Ezetimibe 10 mg 11/18/19 09:00 11/21/19 08:58 Zetia PO 10 mg DAILY GLADIS Administration Famotidine 20 mg 11/17/19 21:00 11/20/19 20:26 Pepcid PO 20 mg HS GLADIS Administration Folic Acid 1 mg 11/21/19 09:00 11/21/19 08:59 Folvite PO 1 mg DAILY GLADIS Administration Furosemide 40 mg 11/19/19 09:00 11/21/19 09:00 Lasix SLOW IVP 40 mg DAILY [facility] Administration Magnesium Oxide 400 mg 11/21/19 09:00 11/21/19 08:58 Magnesium Oxide PO 400 mg DAILY [facility] Administration Metoprolol Tartrate 50 mg 11/20/19 09:00 11/21/19 08:58 Lopressor PO 50 mg BID [facility] Administration Mineral Oil/White Petrolatum 1 gm 11/17/19 21:00 11/21/19 08:59 Artificial Tears 3.5 Gm Oint EA EYE Not Given BID [facility] Mometasone Furoate/Formoterol Fumar 1 puff 11/17/19 18:30 11/21/19 07:13 Dulera 200 Mcg/5 Mcg Inhaler INH 1 puff BID-RT GLADIS Administration Potassium Chloride 20 meq 11/18/19 08:00 11/21/19 04:40 K-Dur PO Not Given QAM-WM GLADIS Potassium Chloride 20 meq 11/21/19 08:00 11/21/19 09:00 K-Dur PO 11/21/19 10:00 Not Given NOW GLADIS Sodium Chloride 10 ml 11/18/19 09:00 11/21/19 09:00 Flush - Normal Saline IVF 10 ml Q12HR GLADIS Administration Temazepam 15 mg 11/17/19 21:00 11/20/19 20:26 Restoril PO 15 mg HS GLADIS Administration - Exam General Appearance: NAD, awake alert Eye: PERRL, anicteric sclera ENT: normocephalic atraumatic, no oropharyngeal lesions Neck: supple, symmetric, no JVD, no thyromegaly Heart: no murmur, no gallops, no rubs, irregular Respiratory: rales, rhonchi Gastrointestinal: soft, non-tender, non-distended, normal bowel sounds Extremities: no cyanosis, 2+ LE edema Skin: normal turgor, no lesions Neurological: no focal deficits Musculoskeletal: normal tone, normal strength Psychiatric: normal affect, normal behavior Hosp A/P (1) Acute respiratory failure with hypoxia Code(s): J96.01 - ACUTE RESPIRATORY FAILURE WITH HYPOXIA Status: Acute (2) Acute on chronic combined systolic (congestive) and diastolic (congestive) heart failure Code(s): I50.43 - ACUTE ON CHRONIC COMBINED SYSTOLIC AND DIASTOLIC HRT FAIL Status: Acute (3) Atrial tachycardia, multifocal Code(s): I47.1 - SUPRAVENTRICULAR TACHYCARDIA Status: Acute (4) Coronary artery disease Code(s): I25.10 - ATHSCL HEART DISEASE OF [place] CORONARY ARTERY W/O ANG PCTRS Status: Chronic Qualifiers: Coronary Disease-Associated Artery/Lesion type: bypass graft Associated angina: without angina (5) Atrial fibrillation Code(s): I48.91 - UNSPECIFIED ATRIAL FIBRILLATION Status: Acute (6) Deep vein thrombosis (DVT) of brachial vein of left upper extremity Code(s): I82.622 - ACUTE EMBOLISM AND THROMBOSIS OF DEEP VEINS OF L UP EXTREM Status: Acute Qualifiers: Chronicity: acute Qualified Code(s): I82.622 - Acute embolism and thrombosis of deep veins of left upper extremity (7) Moderate protein-calorie malnutrition Code(s): E44.0 - MODERATE PROTEIN-CALORIE MALNUTRITION Status: Chronic (8) PVD (peripheral vascular disease) with claudication Code(s): I73.9 - PERIPHERAL VASCULAR DISEASE, UNSPECIFIED Status: Chronic (9) HTN (hypertension) Code(s): I10 - ESSENTIAL (PRIMARY) HYPERTENSION Status: Chronic Qualifiers: Hypertension type: essential hypertension Qualified Code(s): I10 - Essential (primary) hypertension (10) Macrocytic anemia Code(s): D53.9 - NUTRITIONAL ANEMIA, UNSPECIFIED Status: Chronic (11) Stage IV adenocarcinoma of lung Code(s): C34.90 - MALIGNANT NEOPLASM OF UNSP PART OF UNSP BRONCHUS OR LUNG Status: Chronic (12) Thrombocytopenia Code(s): D69.6 - THROMBOCYTOPENIA, UNSPECIFIED Status: Chronic (13) Physical deconditioning Code(s): R53.81 - OTHER MALAISE Status: Chronic (14) CKD (chronic kidney disease), stage III Code(s): N18.3 - CHRONIC KIDNEY DISEASE, STAGE 3 (MODERATE) Status: Chronic - Plan old records reviewed/req, PT/OT continue lasix continue rate control with cardizem and digoxin continue PT/OT as tolerated wean off oxygen as tolerated, may need home oxygen on discharge medication reviewed and continue to provide symptomatic care not ready for discharge repeat labs tomorrow add folic acid and vitamin B12
--- NOTE | 2019-11-21 11:27 | CON ---
DATE OF CONSULTATION: 11/21/2019 HISTORY OF PRESENT ILLNESS: I am seeing Mr. 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 His problems are; 1. Multifocal atrial tachycardia with rapid heart rate. 2. Prior history of frequent PVC, nonsustained ventricular tachycardia, possibly LV outflow tract/aortic cusp origin by EKG. 3. Coronary artery disease with non-ST elevation CO prompting left heart catheterization on 04/26/2018 showing severe multivessel coronary artery disease , normal LVEF. a. Status post CABG on 04/27/2018 x4 vessels with JOSEPH to LAD, SVG to the diagonal, obtuse marginal and right coronary artery. b. 2D echo from 11/18/2019 reveals LVEF 55% to 60%, moderate MR, and mild left atrial enlargement. 4. Stage 4 lung cancer. a. Chemotherapy with Alimta possibly related to pancytopenia. 5. Chronic stage 3 kidney disease. 6. History of left radial vein DVT on Eliquis. 7. Diastolic heart failure. ALLERGIES: NONE NOTED. MEDICATIONS: At home included; 1. Aspirin. 2. Lipitor. 3. Multivitamin. 4. Famotidine. 5. Folic acid. 6. Ezetimibe. 7. Coenzyme Q10. 8. Furosemide 20 mg daily. 9. Magnesium. 10. Metoprolol tartrate. 11. Apixaban. 12. Diphenhydramine. 13. Lidocaine. 14. Mometasone. 15. Potassium chloride. 16. Prednisone. 17. Temazepam. SUBJECTIVE: Mr. Guthrie is admitted with a rapid heart rate with tachycardia up to 140 beats per minute. He did have some shaking chills and reduced oxygen levels also noted. No obvious precursor to this was noted. He was recently hospitalized with pancytopenia on 11/14/2019 to rehab, but was eventually admitted due to these issues above. COVID-19 was ruled out by PCR on last admission. Currently, he denies any passing-out spells. No stroke-like symptoms. No bleeding issues at this time. He does have some ulcerations in his mouth. No nausea or vomiting. No abdominal pain. Rest of 12-point review of system otherwise unremarkable. PAST MEDICAL HISTORY: As above. I have seen this gentleman back in April 2018 during his frequent PVCs post bypass surgery. He was treated with a beta kishan therapy and no indication for ICD implant was found at that time. Since then, he was diagnosed with advanced lung cancer on chemotherapy per Oncology Service as above. SOCIAL HISTORY: He is . is a surrogate decision maker. He is in full code. Quit tobacco abuse in 1988. FAMILY HISTORY: Negative for inheritable disease. OBJECTIVE DATA: VITAL SIGNS: Blood pressure is 126/63, heart rate 90, respirations 18, and temperature 97.5 degrees Fahrenheit. GENERAL: Alert and oriented man, in no apparent distress. NECK: Supple. Jugular veins not distended. CHEST: Coarse with crackles. HEART: Sounds are irregularly irregular. S1 and S2 are variable. No murmur or gallop. ABDOMEN: Benign. Bowel sounds are positive. EXTREMITIES: Lower extremity with edema, clubbing, or cyanosis. SKIN: Without rash. Sacral edema noted. NEUROLOGIC: The patient is nonfocal. DATABASE: EKG is reviewed from November 17, 2019 revealing multifocal atrial tachycardia, rate of 141 beats per minute, QTc 321 milliseconds, and narrow QRS. No significant ST-T changes. Subsequent telemetry strips reveal intermittent atrial tachycardia with rapid rates with good ventricular rate control. LABORATORY DATA: White cell count is 13.7 and 9.1 and platelet count is 76. Sodium 134, potassium 3.3, BUN is 39, creatinine 1.6, and AST and ALT are 44 and 53. ASSESSMENT AND PLAN: Mr. Guthrie is a 74-year-old man with history of coronary artery disease status post bypass grafting surgery two years ago, preserved LVEF , prior PVCs now resolved. He has advanced stage 4 lung cancer on chemotherapy. He is presenting with multifocal atrial tachycardia during EKG with rapid rates. He was placed on diltiazem, metoprolol and Eliquis was initiated are continued. History of deep venous thrombosis. Multifocal atrial tachycardia, possibly related to his advanced pulmonary disease. I agree with the initiated therapy with attempt rate control with digoxin and beta blockers, possible diltiazem IV p.r.n. We are going to consider adding p.o. diltiazem or consider suppression effort with Multaq if that feels amiodarone could be a potential last resort. Once on Multaq, monitor for diastolic heart failure exacerbation and QT issues. Job ID: [id number] [facility]
[2019-11-21] MEDS: Acetaminophen 325 MG TAB PO PRN (12:56)
[2019-11-21] MEDS: Dronedarone HCl 400 MG TAB PO SCH (17:47)
[2019-11-21] MEDS ORDERED: Sodium Chloride 0.9% 500 ML IVPB SCH (20:00)
[2019-11-21] MEDS: Famotidine 20 MG TAB PO SCH (21:39)
[2019-11-21] MEDS: Atorvastatin Calcium 40 MG TAB PO SCH (21:39)
[2019-11-21] MEDS: Temazepam 15 MG CAP PO SCH (21:40)
[2019-11-22 04:49] LABS: Anion Gap 14 mmol/L (10-20); BUN (Urea Nitrogen) 42 mg/dL (8.4-25.7); Calc. Creatinine Clearance 33 mL/min (70-130); Calcium 7.9 mg/dL (7.8-10.44); Carbon Dioxide 23 mmol/L (23-31); Chloride 106 mmol/L (98-107); Estimated GFR-MDRD 32; Glucose 76 mg/dL (83-110); Potassium 3.6 mmol/L (3.5-5.1); Sodium 139 mmol/L (136-145)
[2019-11-22 05:41] LABS: Hemoglobin 8.3 g/dL (14.0-18.0); Mean Corpuscular HGB CONC 32.4 g/dL (32.0-36.0); Mean Corpuscular Hemoglobin 35.7 pg (27.0-31.0); Mean Platelet Volume 10.2 fL (7.4-10.4); Platelet Count 106 thou/uL (130-400); RBC Distribution Width 22.4 % (11.5-14.5); Red Blood Cell (RBC) Count 2.33 mill/uL (4.70-6.10); White Blood Cell (WBC) Count 14.9 thou/uL (4.8-10.8)
[2019-11-22] MEDS: Mometasone 200 MCG/Formoterol 5 MCG 120 PUFF INHALER INH SCH ×2 (06:21→18:45)
[2019-11-22 06:39] LABS: #Eosinphils 0.1 thou/uL (0.0-0.7); #Lymphocytes 0.4 thou/uL (1.20-3.40); #Monocytes 0.3 thou/uL (0.11-0.59); #Neutrophils 14.1 thou/uL (1.40-6.50); %Basophils 0.1 % (0.0-1.0); %Eosinophils 0.5 % (0.0-10.0); %Lymphocytes 2.8 % (21.0-51.0); %Monocytes 2.1 % (0.0-10.0); %Neutrophils 94.5 % (42.0-75.0); Anisocytosis MODERATE=16-30 cells (100X) (0-5/hpf); MDiff Complete? YES; Macrocytosis MODERATE=16-30 cells (100X) (0-5/hpf)
[2019-11-22] MEDS: Aluminum & Magnesium Hydroxide 60 ML, Lidocaine 2% Viscous Solution 30 ML, diphenhydrAM... SSW SCH ×3 (08:01→17:41)
[2019-11-22] MEDS: Folic Acid 1 MG TAB PO SCH (08:01)
[2019-11-22] MEDS: Metoprolol Tartrate 50 MG TAB PO SCH (08:01)
[2019-11-22] MEDS: Furosemide 40 MG TAB PO SCH (08:01)
[2019-11-22] MEDS: Aspirin 81 mg Enteric Coated Tablet PO SCH (08:01)
[2019-11-22] MEDS: Ezetimibe 10 MG TAB PO SCH (08:01)
[2019-11-22] MEDS: Potassium Chloride 20 MEQ TAB PO SCH (08:01)
[2019-11-22] MEDS: Magnesium Oxide 400 MG TAB PO SCH (08:01)
[2019-11-22] MEDS: Dronedarone HCl 400 MG TAB PO SCH ×2 (08:02→17:42)
[2019-11-22] MEDS: Cyanocobalamin (Vitamin B-12) 1,000 MCG TAB PO SCH (08:02)
[2019-11-22] MEDS: Digoxin 0.125 MG TAB PO SCH (08:02)
[2019-11-22] MEDS: Apixaban 2.5 MG TAB PO SCH ×2 (08:02→20:59)
--- NOTE | 2019-11-22 15:21 | PDOC.EP ---
- Subjective Date: 11/22/19 Time: 15:20 Interval History: He continues to be dyspnic, requirng O2, albeit not worse than yesterday. No palpitations. - Review of Systems Constitutional: reports: weakness. denies: chills, fever Respiratory: reports: SOB with excertion Cardiology: denies: orthopnea Gastrointestinal: denies: abdominal pain Musculoskeletal: reports: unstable gait - Objective Allergies/Adverse Reactions: Allergies Allergy/AdvReac Type Severity Reaction Status Date / Time No Known Drug Allergies Allergy Verified 11/17/19 14:14 Current Medications Acetaminophen (Tylenol) 650 mg PO Q4H PRN PRN Reason: Headache/Fever/Mild Pain (1-3) Last Admin: 11/21/19 12:56 Dose: 650 mg Apixaban (Eliquis) 2.5 mg PO BID [facility] Last Admin: 11/22/19 08:02 Dose: 2.5 mg Artificial Tears (Tears Naturale) 2 drop EA EYE PRN PRN PRN Reason: Dry Eyes Aspirin (Ecotrin) 81 mg PO DAILY [facility] Last Admin: 11/22/19 08:01 Dose: 81 mg Atorvastatin Calcium (Lipitor) 40 mg PO [facility] Last Admin: 11/21/19 21:39 Dose: 40 mg Bisacodyl (Dulcolax) 10 mg PO DAILYPRN PRN PRN Reason: Constipation Calcium Carbonate (Tums) 1,000 mg PO Q4H PRN PRN Reason: Heartburn or Indigestion Al Hydroxide/Mg Hydroxide 60 ml/ Lidocaine HCl 30 ml/Diphenhydramine HCl 75 mg 0 ml SSW AC [facility] Last Admin: 11/22/19 13:02 Dose: 10 ml Cyanocobalamin (Vitamin B-12) 1,000 mcg PO DAILY [facility] Last Admin: 11/22/19 08:02 Dose: 1,000 mcg Digoxin (Lanoxin) 0.125 mg PO DAILY [facility] Last Admin: 11/22/19 08:02 Dose: 0.125 mg Dronedarone (Multaq) 400 mg PO BID-[facility] Last Admin: 11/22/19 08:02 Dose: 400 mg Ezetimibe (Zetia) 10 mg PO DAILY [facility] Last Admin: 11/22/19 08:01 Dose: 10 mg Famotidine (Pepcid) 20 mg PO [facility] Last Admin: 11/21/19 21:39 Dose: 20 mg Folic Acid (Folvite) 1 mg PO DAILY [facility] Last Admin: 11/22/19 08:01 Dose: 1 mg Furosemide (Lasix) 40 mg PO DAILY-AC [facility] Last Admin: 11/22/19 08:01 Dose: 40 mg Guaifenesin (Robitussin Sf) 200 mg PO Q4H PRN PRN Reason: Cough Hydralazine HCl (Apresoline) 10 mg SLOW IVP Q4H PRN PRN Reason: SBP > 180 and HR < 70 Loperamide HCl (Imodium) 2 mg PO PRN PRN PRN Reason: Diarrhea/Loose Stools Loratadine (Claritin) 10 mg PO DAILYPRN PRN PRN Reason: Sinus Symptoms Magnesium Oxide (Magnesium Oxide) 400 mg PO DAILY [facility] Last Admin: 11/22/19 08:01 Dose: 400 mg Metoprolol Tartrate (Lopressor) 25 mg PO BID [facility] Mineral Oil/White Petrolatum (Artificial Tears 3.5 Gm Oint) 1 gm EA EYE BID [facility] Last Admin: 11/22/19 13:02 Dose: Not Given Mometasone Furoate/Formoterol Fumar (Dulera 200 Mcg/5 Mcg Inhaler) 1 puff INH BID-RT [facility] Last Admin: 11/22/19 06:21 Dose: 1 puff Ondansetron HCl (Zofran Odt) 4 mg PO Q6H PRN PRN Reason: Nausea/Vomiting Ondansetron HCl (Zofran) 4 mg IVP Q6H PRN PRN Reason: Nausea/Vomiting Potassium Chloride (K-Dur) 20 meq PO QAM-WM [facility] Last Admin: 11/22/19 08:01 Dose: 20 meq Senna/Docusate Sodium (Senokot S) 2 tab PO BIDPRN PRN PRN Reason: Constipation Sodium Chloride (Flush - Normal Saline) 10 ml IVF Q12HR [facility] Last Admin: 11/22/19 13:02 Dose: 10 ml Sodium Chloride (Flush - Normal Saline) 10 ml IVF PRN PRN PRN Reason: Saline Flush Sodium Chloride ([place] Nasal [place] 0.65%) 0 ml EA NARE QIDPRN PRN PRN Reason: Nasal Congestion Temazepam (Restoril) 15 mg PO HS [facility] Last Admin: 05/07/20 21:40 Dose: 15 mg Throat Lozenges (Cepastat Lozenges) 1 guy PO Q2H PRN PRN Reason: Sore Throat Vital Signs & Weight: Vital Signs Temp Pulse Resp BP Pulse Ox 11/22/19 12:25 98.1 F 76 19 100/58 L 98 11/22/19 10:05 97 11/22/19 08:02 84 11/22/19 07:20 98.5 F 84 19 98/57 L 97 11/22/19 06:21 107 H 12 11/22/19 05:52 110 H 24 H 96/60 99 Admit Weight 171 lb 9.6 oz Weight 158 lb 6.4 oz I/O: I/O 11/21/19 11/22/19 11/23/19 06:59 06:59 06:59 Intake Total 740 1725 Output Total 950 920 Balance -210 805 - Physical Exam Neck: supple neck Cardiology: regular rate and rhythm, no murmur Lungs: clear to auscultation Neurology: cranial nerve 2-12 intact Abdomen: unremarkable Extremities: strong pulses Skin: groin sites stable - Labs Result Diagrams: 11/22/19 04:09 11/22/19 03:56 - EKG Interpretation EKG shows: Sinus rhythm - Assessment/Plan Assessment/Plan: 1. Multifocal atrial tachycardia with rapid heart rate. 2. Prior history of frequent PVC, nonsustained ventricular tachycardia, possibly LV outflow tract/aortic cusp origin by EKG. 3. Coronary artery disease with non-ST elevation [place] prompting left heart catheterization on 04/26/2018 showing severe multivessel coronary artery disease , normal LVEF. a. Status post CABG on 04/27/2018 x4 vessels with JOSEPH to LAD, SVG to the diagonal, obtuse marginal and right coronary artery. b. 2D echo from 11/18/2019 reveals LVEF 55% to 60%, moderate MR, and mild left atrial enlargement. 4. Stage 4 lung cancer. a. Chemotherapy with Alimta possibly related to pancytopenia. 5. Chronic stage 3 kidney disease. 6. History of left radial vein DVT on Eliquis. 7. Diastolic heart failure. Plan. Multifocal atrial tachycardia, possibly related to his advanced pulmonary disease. Good response to Multaq. Will stop Dig. Monitor for diastolic heart failure exacerbation and QT prolongation.(QTc today 465ms). WOuld sign off call if questions.
--- NOTE | 2019-11-22 16:29 | PDOC.HOSPP ---
- Subjective Encounter Date: 11/22/19 Encounter Time: 12:00 Subjective: Patient seen and examined. No overnight events. States he is feeling better but still tired. - Objective Vital Signs & Weight: Vital Signs (12 hours) Temp Pulse Resp BP Pulse Ox 11/22/19 12:25 98.1 F 76 19 100/58 L 98 11/22/19 10:05 97 11/22/19 08:02 84 11/22/19 07:20 98.5 F 84 19 98/57 L 97 11/22/19 06:21 107 H 12 11/22/19 05:52 110 H 24 H 96/60 99 Weight Admit Weight 171 lb 9.6 oz Weight 158 lb 6.4 oz Most Recent Monitor Data Heart Rate from ECG 98 NIBP 111/59 NIBP BP-Mean 76 Respiration from ECG 19 SpO2 77 I&O: 11/21/19 11/22/19 11/23/19 06:59 06:59 06:59 Intake Total 740 1725 Output Total 950 920 Balance -210 805 Result Diagrams: 11/22/19 04:09 11/22/19 03:56 EKG Reviewed by me: Yes Hospitalist ROS - Review of Systems Respiratory: reports: shortness of breath, SOB with excertion Cardiovascular: reports: edema - Medication Medications: Active Medications Generic Name Dose Route Start Last Admin Trade Name Freq PRN Reason Stop Dose Admin Acetaminophen 650 mg 11/17/19 15:55 11/21/19 12:56 Tylenol PO 650 mg Q4H PRN Administration Headache/Fever/Mild Pain (1-3) Apixaban 2.5 mg 11/17/19 21:00 11/22/19 08:02 Eliquis PO 2.5 mg BID GLADIS Administration Aspirin 81 mg 11/18/19 09:00 11/22/19 08:01 Ecotrin PO 81 mg DAILY GLADIS Administration Atorvastatin Calcium 40 mg 11/17/19 21:00 11/21/19 21:39 Lipitor PO 40 mg HS GLADIS Administration Al Hydroxide/Mg Hydroxide 60 0 ml 11/17/19 17:00 11/22/19 13:02 ml/ Lidocaine HCl 30 ml/ SSW 10 ml Diphenhydramine HCl 75 mg AC GLADIS Administration Cyanocobalamin 1,000 mcg 11/21/19 09:00 11/22/19 08:02 Vitamin B-12 PO 1,000 mcg DAILY GLADIS Administration Dronedarone 400 mg 11/21/19 17:00 11/22/19 08:02 Multaq PO 400 mg BID-WM GLADIS Administration Ezetimibe 10 mg 11/18/19 09:00 11/22/19 08:01 Zetia PO 10 mg DAILY GLADIS Administration Famotidine 20 mg 11/17/19 21:00 11/21/19 21:39 Pepcid PO 20 mg HS GLADIS Administration Folic Acid 1 mg 11/21/19 09:00 11/22/19 08:01 Folvite PO 1 mg DAILY GLADIS Administration Furosemide 40 mg 11/22/19 07:30 11/22/19 08:01 Lasix PO 40 mg DAILY-AC GLADIS Administration Magnesium Oxide 400 mg 11/21/19 09:00 11/22/19 08:01 Magnesium Oxide PO 400 mg DAILY GLADIS Administration Mineral Oil/White Petrolatum 1 gm 11/17/19 21:00 11/22/19 13:02 Artificial Tears 3.5 Gm Oint EA EYE Not Given BID GLADIS Mometasone Furoate/Formoterol Fumar 1 puff 11/17/19 18:30 11/22/19 06:21 Dulera 200 Mcg/5 Mcg Inhaler INH 1 puff BID-RT GLADIS Administration Potassium Chloride 20 meq 11/18/19 08:00 11/22/19 08:01 K-Dur PO 20 meq QAM-WM GLADIS Administration Sodium Chloride 10 ml 11/18/19 09:00 11/22/19 13:02 Flush - Normal Saline IVF 10 ml Q12HR GLADIS Administration Temazepam 15 mg 11/17/19 21:00 11/21/19 21:40 Restoril PO 15 mg HS GLADIS Administration - Exam General Appearance: NAD, awake alert Neck: supple, symmetric Heart: no murmur, no gallops, irregular Respiratory: rales, rhonchi Gastrointestinal: soft, non-tender, non-distended, normal bowel sounds Extremities: 2+ LE edema Neurological: no focal deficits Psychiatric: normal affect, normal behavior Hosp A/P (1) Acute on chronic combined systolic (congestive) and diastolic (congestive) heart failure Code(s): I50.43 - ACUTE ON CHRONIC COMBINED SYSTOLIC AND DIASTOLIC HRT FAIL Status: Acute (2) Atrial tachycardia, multifocal Code(s): I47.1 - SUPRAVENTRICULAR TACHYCARDIA Status: Acute (3) CKD (chronic kidney disease) Code(s): N18.9 - CHRONIC KIDNEY DISEASE, UNSPECIFIED Status: Acute Qualifiers: Chronic kidney disease stage: stage 3 (moderate) Qualified Code(s): N18.3 - Chronic kidney disease, stage 3 (moderate) (4) Coronary artery disease Code(s): I25.10 - ATHSCL HEART DISEASE OF [place] CORONARY ARTERY W/O ANG PCTRS Status: Chronic Qualifiers: Coronary Disease-Associated Artery/Lesion type: bypass graft Associated angina: without angina (5) Physical deconditioning Code(s): R53.81 - OTHER MALAISE Status: Chronic (6) Thrombocytopenia Code(s): D69.6 - THROMBOCYTOPENIA, UNSPECIFIED Status: Chronic (7) Acute respiratory failure with hypoxia Code(s): J96.01 - ACUTE RESPIRATORY FAILURE WITH HYPOXIA Status: Acute (8) Atrial fibrillation Code(s): I48.91 - UNSPECIFIED ATRIAL FIBRILLATION Status: Acute (9) Deep vein thrombosis (DVT) of brachial vein of left upper extremity Code(s): I82.622 - ACUTE EMBOLISM AND THROMBOSIS OF DEEP VEINS OF L UP EXTREM Status: Acute Qualifiers: Chronicity: acute Qualified Code(s): I82.622 - Acute embolism and thrombosis of deep veins of left upper extremity (10) HTN (hypertension) Code(s): I10 - ESSENTIAL (PRIMARY) HYPERTENSION Status: Chronic Qualifiers: Hypertension type: essential hypertension Qualified Code(s): I10 - Essential (primary) hypertension (11) Macrocytic anemia Code(s): D53.9 - NUTRITIONAL ANEMIA, UNSPECIFIED Status: Chronic (12) Moderate protein-calorie malnutrition Code(s): E44.0 - MODERATE PROTEIN-CALORIE MALNUTRITION Status: Chronic (13) PVD (peripheral vascular disease) with claudication Code(s): I73.9 - PERIPHERAL VASCULAR DISEASE, UNSPECIFIED Status: Chronic (14) Stage IV adenocarcinoma of lung Code(s): C34.90 - MALIGNANT NEOPLASM OF UNSP PART OF UNSP BRONCHUS OR LUNG Status: Chronic - Plan Multifocal atrial tachycardia, rate in the 90-110's currently EP and cardiology following patient Multaq started yesterday and responding well, digoxin dc'd Awaiting rehab approval, continue PT/OT
--- NOTE | 2019-11-22 17:10 | PDOC.EVN ---
Event Note - Event Note Event Note: Attempted to call [employer] two times before 1500 and left messages on the insurance voicemail. They returned my call and I was unable to get to it in time so I called them again and left an additional message. My last message was left with them at 1620. Still awaiting a call back for peer to peer for rehab.
[2019-11-22] MEDS: Atorvastatin Calcium 40 MG TAB PO SCH (20:59)
[2019-11-22] MEDS: Famotidine 20 MG TAB PO SCH (20:59)
[2019-11-22] MEDS ORDERED: SYSTANE 3.5 GM TUBE EA EYE SCH (22:45)
[2019-11-23] MEDS: Temazepam 15 MG CAP PO SCH ×2 (01:44→21:23)
[2019-11-23] MEDS: Metoprolol Tartrate 25 MG TAB PO SCH ×2 (01:44→08:23)
[2019-11-23 05:11] LABS: Anisocytosis SLIGHT = 6-15 cells (100X) (0-5/hpf); Band 4 % (5-11); Eosinophils 1 % (0-10); Hemoglobin 8.8 g/dL (14.0-18.0); Lymphocytes 2 % (21-51); MDiff Complete? YES; Macrocytosis MODERATE=16-30 cells (100X) (0-5/hpf); Mean Corpuscular HGB CONC 33.2 g/dL (32.0-36.0); Mean Corpuscular Hemoglobin 36.1 pg (27.0-31.0); Mean Platelet Volume 9.9 fL (7.4-10.4); Neutrophil 93 % (42-75); Platelet Count 110 thou/uL (130-400); Platelet Morphology Comment Appears Decreased; RBC Distribution Width 22.3 % (11.5-14.5); Red Blood Cell (RBC) Count 2.45 mill/uL (4.70-6.10); White Blood Cell (WBC) Count 18.8 thou/uL (4.8-10.8)
[2019-11-23 05:13] LABS: Anion Gap 16 mmol/L (10-20); BUN (Urea Nitrogen) 47 mg/dL (8.4-25.7); Calc. Creatinine Clearance 28 mL/min (70-130); Calcium 7.6 mg/dL (7.8-10.44); Carbon Dioxide 17 mmol/L (23-31); Chloride 109 mmol/L (98-107); Digoxin 1.16 ng/mL (0.8-2.0); Estimated GFR-MDRD 29; Glucose 85 mg/dL (83-110); Sodium 138 mmol/L (136-145)
[2019-11-23] MEDS: Mometasone 200 MCG/Formoterol 5 MCG 120 PUFF INHALER INH SCH ×2 (07:18→18:43)
[2019-11-23] MEDS: Potassium Chloride 20 MEQ TAB PO SCH (07:59)
[2019-11-23] MEDS: Furosemide 40 MG TAB PO SCH (08:22)
[2019-11-23] MEDS: Aluminum & Magnesium Hydroxide 60 ML, Lidocaine 2% Viscous Solution 30 ML, diphenhydrAM... SSW SCH ×3 (08:44→16:39)
[2019-11-23] MEDS: Dronedarone HCl 400 MG TAB PO SCH ×2 (08:45→16:28)
[2019-11-23] MEDS ORDERED: Metoprolol Tartrate 25 MG TAB PO SCH (08:45)
[2019-11-23] MEDS: Cyanocobalamin (Vitamin B-12) 1,000 MCG TAB PO SCH (08:46)
[2019-11-23] MEDS: Magnesium Oxide 400 MG TAB PO SCH (08:46)
[2019-11-23] MEDS: Folic Acid 1 MG TAB PO SCH (08:46)
[2019-11-23] MEDS: Aspirin 81 mg Enteric Coated Tablet PO SCH (08:46)
[2019-11-23] MEDS: Apixaban 2.5 MG TAB PO SCH ×2 (08:46→21:23)
[2019-11-23] MEDS: Ezetimibe 10 MG TAB PO SCH (08:46)
[2019-11-23] MEDS: SYSTANE 3.5 GM TUBE EA EYE SCH ×2 (08:47→21:30)
[2019-11-23] MEDS ORDERED: Diltiazem 125 MG in Sodium Chloride 0.9% 100 ML IVPB SCH (10:00)
--- NOTE | 2019-11-23 10:22 | PRG ---
DATE OF SERVICE: 11/23/2019 SUBJECTIVE: Mr. Guthrie still has multifocal atrial tachycardia as he feels weak and fatigued. OBJECTIVE: VITAL SIGNS: Blood pressure 109/69; pulse 100 to 110, it is multifocal atrial tachycardia. LUNGS: Some distant breath sounds. No wheezing. CARDIAC: Tachycardiac. No murmur, rub or gallop. ABDOMEN: Soft and nontender. EXTREMITIES: No edema. ASSESSMENT: 1. Multifocal atrial tachycardia. 2. Previous bypass surgery. 3. Coronary artery disease. 4. Stage IV lung cancer. PLAN: 1. He is on Multaq. 2. He is on metoprolol. 3. Digoxin. Job ID: [id number]
--- NOTE | 2019-11-23 10:31 | PDOC.HOSPP ---
- Subjective Encounter Date: 11/23/19 Encounter Time: 09:45 Subjective: patient seen and examined at this time. states he is ready to go back to rehab and feeling better but still very tired. - Objective Vital Signs & Weight: Vital Signs (12 hours) Temp Pulse Resp BP BP Pulse Ox 11/23/19 07:45 97.3 F L 107 H 18 109/69 94 L 11/23/19 07:18 100 20 94 L 11/23/19 04:00 98.9 F 112 H 20 108/66 94 L 11/23/19 00:00 117/80 Weight Admit Weight 171 lb 9.6 oz Weight 155 lb 11.2 oz Most Recent Monitor Data Heart Rate from ECG 98 NIBP 111/59 NIBP BP-Mean 76 Respiration from ECG 19 SpO2 77 I&O: 11/22/19 11/23/19 11/24/19 06:59 06:59 06:59 Intake Total 1725 1000 Output Total 920 1600 Balance 805 -600 Result Diagrams: 11/24/19 03:38 11/24/19 03:38 EKG Reviewed by me: Yes Hospitalist ROS - Medication Medications: Active Medications Generic Name Dose Route Start Last Admin Trade Name Freq PRN Reason Stop Dose Admin Acetaminophen 650 mg 11/17/19 15:55 11/21/19 12:56 Tylenol PO 650 mg Q4H PRN Administration Headache/Fever/Mild Pain (1-3) Apixaban 2.5 mg 11/17/19 21:00 11/23/19 08:46 Eliquis PO 2.5 mg BID GLADIS Administration Aspirin 81 mg 11/18/19 09:00 11/23/19 08:46 Ecotrin PO 81 mg DAILY GLADIS Administration Atorvastatin Calcium 40 mg 11/17/19 21:00 11/22/19 20:59 Lipitor PO 40 mg HS GLADIS Administration Al Hydroxide/Mg Hydroxide 60 0 ml 11/17/19 17:00 11/23/19 08:44 ml/ Lidocaine HCl 30 ml/ SSW 10 ml Diphenhydramine HCl 75 mg AC GLADIS Administration Cyanocobalamin 1,000 mcg 11/21/19 09:00 11/23/19 08:46 Vitamin B-12 PO 1,000 mcg DAILY GLADIS Administration Diltiazem HCl 5 mg 11/23/19 10:00 11/23/19 10:01 Cardizem SLOW IVP 05/09/20 12:00 5 mg NOW GLADIS Administration Dronedarone 400 mg 11/21/19 17:00 11/23/19 08:45 Multaq PO 400 mg BID-WM GLADIS Administration Ezetimibe 10 mg 11/18/19 09:00 11/23/19 08:46 Zetia PO 10 mg DAILY GLADIS Administration Famotidine 20 mg 11/17/19 21:00 11/22/19 20:59 Pepcid PO 20 mg HS GLADIS Administration Folic Acid 1 mg 11/21/19 09:00 11/23/19 08:46 Folvite PO 1 mg DAILY GLADIS Administration Furosemide 40 mg 11/22/19 07:30 11/23/19 08:22 Lasix PO Not Given DAILY-AC GLADIS Diltiazem HCl 125 mg/ Sodium 125 mls @ 5 mls/hr 11/23/19 10:00 11/23/19 10:12 Chloride IVPB 125 mls INF GLADIS Administration Protocol 5 MG/HR Magnesium Oxide 400 mg 11/21/19 09:00 11/23/19 08:46 Magnesium Oxide PO 400 mg DAILY GLADIS Administration Metoprolol Tartrate 25 mg 11/22/19 21:00 11/23/19 08:23 Lopressor PO Not Given BID GLADIS Mineral Oil/White Petrolatum 0 gm 11/23/19 09:00 11/23/19 08:47 Systane Nighttime Eye Ointment EA EYE Not Given BID GLADIS Mometasone Furoate/Formoterol Fumar 1 puff 11/17/19 18:30 11/23/19 07:18 Dulera 200 Mcg/5 Mcg Inhaler INH 1 puff BID-RT GLADIS Administration Potassium Chloride 20 meq 11/18/19 08:00 11/23/19 07:59 K-Dur PO 20 meq QAM-WM GLADIS Administration Sodium Chloride 10 ml 11/18/19 09:00 11/23/19 08:47 Flush - Normal Saline IVF 10 ml Q12HR GLADIS Administration Temazepam 15 mg 11/17/19 21:00 11/23/19 01:44 Restoril PO Not Given HS GLADIS - Exam General Appearance: awake alert Eye: PERRL Heart: no murmur, no gallops, irregular, diminshed peripheral pulses Respiratory: rales, rhonchi Gastrointestinal: soft, non-distended, normal bowel sounds Extremities: 2+ LE edema Extremities - other findings: mottling to lower extremities Skin: normal turgor Neurological: no focal deficits Musculoskeletal: normal tone, generalized weakness Psychiatric: normal affect, normal behavior Hosp A/P (1) Acute on chronic combined systolic (congestive) and diastolic (congestive) heart failure Code(s): I50.43 - ACUTE ON CHRONIC COMBINED SYSTOLIC AND DIASTOLIC HRT FAIL Status: Acute (2) Atrial tachycardia, multifocal Code(s): I47.1 - SUPRAVENTRICULAR TACHYCARDIA Status: Acute (3) CKD (chronic kidney disease) Code(s): N18.9 - CHRONIC KIDNEY DISEASE, UNSPECIFIED Status: Acute Qualifiers: Chronic kidney disease stage: stage 3 (moderate) Qualified Code(s): N18.3 - Chronic kidney disease, stage 3 (moderate) (4) Coronary artery disease Code(s): I25.10 - ATHSCL HEART DISEASE OF [place] CORONARY ARTERY W/O ANG PCTRS Status: Chronic Qualifiers: Coronary Disease-Associated Artery/Lesion type: bypass graft Associated angina: without angina (5) Physical deconditioning Code(s): R53.81 - OTHER MALAISE Status: Chronic (6) Thrombocytopenia Code(s): D69.6 - THROMBOCYTOPENIA, UNSPECIFIED Status: Chronic (7) Acute respiratory failure with hypoxia Code(s): J96.01 - ACUTE RESPIRATORY FAILURE WITH HYPOXIA Status: Acute (8) Atrial fibrillation Code(s): I48.91 - UNSPECIFIED ATRIAL FIBRILLATION Status: Acute (9) Deep vein thrombosis (DVT) of brachial vein of left upper extremity Code(s): I82.622 - ACUTE EMBOLISM AND THROMBOSIS OF DEEP VEINS OF L UP EXTREM Status: Acute Qualifiers: Chronicity: acute Qualified Code(s): I82.622 - Acute embolism and thrombosis of deep veins of left upper extremity (10) HTN (hypertension) Code(s): I10 - ESSENTIAL (PRIMARY) HYPERTENSION Status: Chronic Qualifiers: Hypertension type: essential hypertension Qualified Code(s): I10 - Essential (primary) hypertension (11) Macrocytic anemia Code(s): D53.9 - NUTRITIONAL ANEMIA, UNSPECIFIED Status: Chronic (12) Moderate protein-calorie malnutrition Code(s): E44.0 - MODERATE PROTEIN-CALORIE MALNUTRITION Status: Chronic (13) PVD (peripheral vascular disease) with claudication Code(s): I73.9 - PERIPHERAL VASCULAR DISEASE, UNSPECIFIED Status: Chronic (14) Stage IV adenocarcinoma of lung Code(s): C34.90 - MALIGNANT NEOPLASM OF UNSP PART OF UNSP BRONCHUS OR LUNG Status: Chronic (15) Sacral ulcer Code(s): L98.429 - NON-PRESSURE CHRONIC ULCER OF BACK WITH UNSPECIFIED SEVERITY Status: Acute - Plan Multifocal atrial tachycardia, rate in the 90-110's currently EP and cardiology following patient Responding well to Multaq Awaiting rehab approval, continue PT/OT WBC continue to increase along with kidney functions- chest xray, blood cultures , UA, urine cultures ordered Cefepime and Vancomycin- pharm to dose
[2019-11-23] MEDS ORDERED: Vancomycin 1 GM in Premix Bag 1 BAG IVPB SCH ×3 (12:30→15:45)
[2019-11-23] MEDS ORDERED: HOLD VANCOMYCIN FOR LEVEL >20 FS SCH (12:30)
[2019-11-23] MEDS ORDERED: Vancomycin HCl 250 MG in Sodium Chloride 0.9% 100 ML IVPB SCH (12:30)
[2019-11-23] MEDS ORDERED: Vancomycin HCl 500 MG in Sodium Chloride 0.9% 100 ML IVPB SCH (12:30)
[2019-11-23] MEDS ORDERED: Vancomycin HCl 750 MG in Sodium Chloride 0.9% 250 ML 250 ML IVPB SCH (12:30)
--- NOTE | 2019-11-23 12:30 | RAD ---
EXAM: Portable chest PROVIDED CLINICAL HISTORY: Leukocytosis COMPARISON: 11/17/2019 FINDINGS: Development of right midlung zone and left perihilar airspace disease. Additional significant interva l change with respect to the prior examination is not apparent. IMPRESSION: Development of bilateral airspace disease, compatible with pneumonia in the appropriate clinical cont ext.
[2019-11-23] MEDS ORDERED: Cefepime 1 GM in Sodium Chloride 0.9% 100 ML IVPB SCH (13:00)
[2019-11-23] MEDS ORDERED: Vancomycin Sliding Scale 1 EACH FS ONE (14:00)
[2019-11-23] MEDS: Cefepime 0.5 GM in Sodium Chloride 0.9% 100 ML IVPB SCH (15:09)
[2019-11-23 15:19] LABS: Bacteria/HPF None Seen HPF (None Seen); RBC/HPF 0-3 HPF (0-3); Squamous Epithelial 0-3 HPF (0-3); WBC/HPF 0-3 HPF (0-3)
--- NOTE | 2019-11-23 18:25 | PDOC.EVN ---
Event Note - Event Note Event Note: Mr. Guthrie was seen and discussed with Lynnette BUTT. He is extremely weak, and it was noted he has some mottling in his lower extremities. He denies any pain however. on exam he does have some rales in th left mid lung field anteriorly, but no wheezing. He was also noted to have some purplish discoloration of the first toe on the right foot, as well as the plantar aspect of the right foot. He feet are a bit cooler, but i am able to plapate a faint dorsalis pedis pulse on both feet. When the feet are warmed, the discoloration improves. On lab it is noted that his WBC count has risen to 18K Will check blood and urine cultures, a repeat chest X- ray, and place him on empiric IV antibiotics Re-assess in the AM.
[2019-11-23] MEDS: Atorvastatin Calcium 40 MG TAB PO SCH (21:23)
[2019-11-23] MEDS: Famotidine 20 MG TAB PO SCH (21:23)
[2019-11-23] MEDS ORDERED: Furosemide 40 MG/4 ML VIAL ONE (23:37)
[2019-11-23] MEDS ORDERED: Furosemide 20 MG/2 ML VIAL SLOW IVP SCH (23:45)
[2019-11-23 23:52] LABS: Actual Bicarbonate (HCO3a) 22.3 mEq/L (22-28); Base Excess (BEa) -0.4 mEq/L (-2.0 to +3.0); CO2 Tension 29.1 mmHg (35.0-45.0); Calcium, Ionized 1.11 mmol/L (1.12-1.30); Carboxyhemoglobin (COHb) 1.6 gm% (0.0-3.0); Hemoglobin (Hb) 8.6 g/dL (14.0-18.0); O2 Tension (PaO2), arterial 91.3 mmHg (> 70.0); Potassium - ABG Lab 3.59 mmol/L (3.70-5.30)
[2019-11-23 23:55] LABS: ALV-art Gradient 228.825 (0-20); Puncture Site RRA
[2019-11-24 04:17] LABS: Anion Gap 13 mmol/L (10-20); BUN (Urea Nitrogen) 43 mg/dL (8.4-25.7); Calc. Creatinine Clearance 29 mL/min (70-130); Calcium 7.8 mg/dL (7.8-10.44); Carbon Dioxide 22 mmol/L (23-31); Chloride 106 mmol/L (98-107); Estimated GFR-MDRD 29; Glucose 95 mg/dL (83-110); Potassium 3.6 mmol/L (3.5-5.1); Sodium 137 mmol/L (136-145)
[2019-11-24] MEDS: Metoprolol Tartrate 25 MG TAB PO SCH ×3 (04:41→20:19)
[2019-11-24 04:54] LABS: #Eosinphils 0.1 thou/uL (0.0-0.7); #Lymphocytes 0.4 thou/uL (1.20-3.40); #Monocytes 0.4 thou/uL (0.11-0.59); #Neutrophils 14.1 thou/uL (1.40-6.50); %Basophils 0.1 % (0.0-1.0); %Eosinophils 0.9 % (0.0-10.0); %Lymphocytes 2.4 % (21.0-51.0); %Monocytes 2.7 % (0.0-10.0); %Neutrophils 93.9 % (42.0-75.0); Anisocytosis MODERATE=16-30 cells (100X) (0-5/hpf); Hemoglobin 7.9 g/dL (14.0-18.0); MDiff Complete? YES; Macrocytosis MODERATE=16-30 cells (100X) (0-5/hpf); Mean Corpuscular HGB CONC 32.4 g/dL (32.0-36.0); Mean Platelet Volume 10.5 fL (7.4-10.4); Platelet Count 127 thou/uL (130-400); Platelet Morphology Comment Appears Adequate; RBC Distribution Width 22.5 % (11.5-14.5); Red Blood Cell (RBC) Count 2.18 mill/uL (4.70-6.10)
[2019-11-24] MEDS: Mometasone 200 MCG/Formoterol 5 MCG 120 PUFF INHALER INH SCH ×2 (07:02→18:30)
[2019-11-24] MEDS: Aluminum & Magnesium Hydroxide 60 ML, Lidocaine 2% Viscous Solution 30 ML, diphenhydrAM... SSW SCH ×3 (08:19→15:59)
[2019-11-24] MEDS: Aspirin 81 mg Enteric Coated Tablet PO SCH (08:19)
[2019-11-24] MEDS: Apixaban 2.5 MG TAB PO SCH ×2 (08:19→20:18)
[2019-11-24] MEDS: Dronedarone HCl 400 MG TAB PO SCH ×2 (08:19→15:59)
[2019-11-24] MEDS: Potassium Chloride 20 MEQ TAB PO SCH (08:19)
[2019-11-24] MEDS: Cyanocobalamin (Vitamin B-12) 1,000 MCG TAB PO SCH (08:20)
[2019-11-24] MEDS: Ezetimibe 10 MG TAB PO SCH (08:20)
[2019-11-24] MEDS: Magnesium Oxide 400 MG TAB PO SCH (08:20)
[2019-11-24] MEDS: Folic Acid 1 MG TAB PO SCH (08:20)
[2019-11-24] MEDS: Furosemide 40 MG TAB PO SCH (08:20)
[2019-11-24] MEDS: SYSTANE 3.5 GM TUBE EA EYE SCH ×2 (08:24→20:18)
--- NOTE | 2019-11-24 08:51 | PDOC.HOSPP ---
- Subjective Encounter Date: 11/24/19 Encounter Time: 08:49 Subjective: Mr. Guthrie was seen today in follow-up or respiratory distress. He says he feels much better, but he appears fatigued, and is using accessory muscles of respiration. He became hypoxic last night, and was placed on a venti-mask. - Objective Vital Signs & Weight: Vital Signs (12 hours) Temp Pulse Resp BP BP Pulse Ox 11/24/19 08:16 93 98/58 L 100 11/24/19 07:01 94 24 H 99 11/24/19 07:00 98.0 F 97 20 103/59 L 100 11/24/19 04:00 98.7 F 115 H 24 H 100/55 L 99 11/24/19 01:46 101 H 22 H 96 11/24/19 00:54 94 L 11/24/19 00:00 99.6 F 92 32 H 109/53 L 99 11/23/19 23:56 28 H 91 L 11/23/19 23:00 86 L Weight Admit Weight 171 lb 9.6 oz Weight 160 lb Most Recent Monitor Data Heart Rate from ECG 98 NIBP 111/59 NIBP BP-Mean 76 Respiration from ECG 19 SpO2 77 I&O: 11/23/19 11/24/19 11/25/19 06:59 06:59 06:59 Intake Total 1000 995 Output Total 1600 1025 Balance -600 -30 Result Diagrams: 11/24/19 03:38 11/24/19 03:38 Hospitalist ROS - Medication Medications: Active Medications Generic Name Dose Route Start Last Admin Trade Name Freq PRN Reason Stop Dose Admin Acetaminophen 650 mg 11/17/19 15:55 11/21/19 12:56 Tylenol PO 650 mg Q4H PRN Administration Headache/Fever/Mild Pain (1-3) Albuterol/Ipratropium 3 ml 11/24/19 02:30 11/24/19 07:01 Duoneb NEB 3 ml [id number] GLADIS Administration Apixaban 2.5 mg 11/17/19 21:00 11/24/19 08:19 Eliquis PO 2.5 mg BID GLADIS Administration Aspirin 81 mg 11/18/19 09:00 11/24/19 08:19 Ecotrin PO 81 mg DAILY GLADIS Administration Atorvastatin Calcium 40 mg 11/17/19 21:00 11/23/19 21:23 Lipitor PO 40 mg HS GLADIS Administration Al Hydroxide/Mg Hydroxide 60 0 ml 11/17/19 17:00 11/24/19 08:19 ml/ Lidocaine HCl 30 ml/ SSW 10 ml Diphenhydramine HCl 75 mg AC GLADIS Administration Cyanocobalamin 1,000 mcg 11/21/19 09:00 11/24/19 08:20 Vitamin B-12 PO 1,000 mcg DAILY GLADIS Administration Dronedarone 400 mg 11/21/19 17:00 11/24/19 08:19 Multaq PO 400 mg BID-WM GLADIS Administration Ezetimibe 10 mg 11/18/19 09:00 11/24/19 08:20 Zetia PO 10 mg DAILY GLADIS Administration Famotidine 20 mg 11/17/19 21:00 11/23/19 21:23 Pepcid PO 20 mg HS GLADIS Administration Folic Acid 1 mg 11/21/19 09:00 11/24/19 08:20 Folvite PO 1 mg DAILY GLADIS Administration Furosemide 40 mg 11/22/19 07:30 11/24/19 08:20 Lasix PO Not Given DAILY-AC GLADIS Diltiazem HCl 125 mg/ Sodium 125 mls @ 5 mls/hr 11/23/19 10:00 11/23/19 10:12 Chloride IVPB 125 mls INF GLADIS Administration Protocol 5 MG/HR Cefepime HCl 0.5 gm/ Sodium 100 mls @ 200 mls/hr 11/23/19 13:00 11/23/19 15: 09 Chloride IVPB 100 mls Q24HR GLADIS Administration Magnesium Oxide 400 mg 11/21/19 09:00 11/24/19 08:20 Magnesium Oxide PO 400 mg DAILY GLADIS Administration Metoprolol Tartrate 25 mg 11/22/19 21:00 11/24/19 08:21 Lopressor PO Not Given BID GLADIS Mineral Oil/White Petrolatum 0 gm 11/23/19 09:00 11/24/19 08:24 Systane Nighttime Eye Ointment EA EYE Not Given BID GLADIS Mometasone Furoate/Formoterol Fumar 1 puff 11/17/19 18:30 11/24/19 07:02 Dulera 200 Mcg/5 Mcg Inhaler INH 1 puff BID-RT GLADIS Administration Potassium Chloride 20 meq 11/18/19 08:00 11/24/19 08:19 K-Dur PO 20 meq QAM-WM GLADIS Administration Sodium Chloride 10 ml 11/18/19 09:00 11/24/19 08:20 Flush - Normal Saline IVF 10 ml Q12HR GLADIS Administration Temazepam 15 mg 11/17/19 21:00 11/23/19 21:23 Restoril PO 15 mg HS GLADIS Administration - Exam Eye: PERRL Heart: RRR, no murmur, no gallops, no rubs Respiratory: rales, rhonchi (rales at the base), tachypneic Gastrointestinal: soft, non-tender, non-distended, normal bowel sounds Extremities: 2+ LE edema (+ toes are mottled, capillary refill is good, dorsalis pedis pulses are palpable, but diminished) Hosp A/P (1) Pneumonia Code(s): J18.9 - PNEUMONIA, UNSPECIFIED ORGANISM Status: Acute (2) Acute respiratory failure with hypoxia Code(s): J96.01 - ACUTE RESPIRATORY FAILURE WITH HYPOXIA Status: Acute (3) Sepsis Code(s): A41.9 - SEPSIS, UNSPECIFIED ORGANISM Status: Acute (4) Sacral ulcer Code(s): L98.429 - NON-PRESSURE CHRONIC ULCER OF BACK WITH UNSPECIFIED SEVERITY Status: Acute (5) CKD (chronic kidney disease), stage III Code(s): N18.3 - CHRONIC KIDNEY DISEASE, STAGE 3 (MODERATE) Status: Chronic (6) 3-vessel CAD Status: Chronic (7) HTN (hypertension) Code(s): I10 - ESSENTIAL (PRIMARY) HYPERTENSION Status: Chronic Qualifiers: Hypertension type: essential hypertension Qualified Code(s): I10 - Essential (primary) hypertension (8) Stage IV adenocarcinoma of lung Code(s): C34.90 - MALIGNANT NEOPLASM OF UNSP PART OF UNSP BRONCHUS OR LUNG Status: Chronic - Plan * Acute respiratory failure with hypoxemia, due to pneumonia- will continue broad spectrum antibiotics * Will give a unit of blood to aid in his oxygen carrying capacity * He may need a dose of Lasix following the transfusion * Chronic diastolic heart failure- stable * HTN- blood pressure is borderline * CAD- - patient is s/p recent CABG * Stage 4 Lung cancer- patient is undergoing treatment * Severe deconditioning- continue PT/OT as tolerated
--- NOTE | 2019-11-24 09:57 | PDOC.HOSPP ---
- Subjective Encounter Date: 11/24/19 Encounter Time: 09:00 Subjective: Mr. Guthrie says he is feeling better than he has been. He still appears to be working harder than he was yesterday to breath and is still on his venti mask. - Objective Vital Signs & Weight: Vital Signs (12 hours) Temp Pulse Resp BP BP Pulse Ox 11/24/19 08:16 93 98/58 L 100 11/24/19 07:01 94 24 H 99 11/24/19 07:00 98.0 F 97 20 103/59 L 100 11/24/19 04:00 98.7 F 115 H 24 H 100/55 L 99 11/24/19 01:46 101 H 22 H 96 11/24/19 00:54 94 L 11/24/19 00:00 99.6 F 92 32 H 109/53 L 99 11/23/19 23:56 28 H 91 L 11/23/19 23:00 86 L Weight Admit Weight 171 lb 9.6 oz Weight 160 lb Most Recent Monitor Data Heart Rate from ECG 98 NIBP 111/59 NIBP BP-Mean 76 Respiration from ECG 19 SpO2 77 I&O: 11/23/19 11/24/19 11/25/19 06:59 06:59 06:59 Intake Total 1000 995 Output Total 1600 1025 Balance -600 -30 Result Diagrams: 11/24/19 03:38 11/24/19 03:38 EKG Reviewed by me: Yes Hospitalist ROS - Medication Medications: Active Medications Generic Name Dose Route Start Last Admin Trade Name Freq PRN Reason Stop Dose Admin Acetaminophen 650 mg 11/17/19 15:55 11/21/19 12:56 Tylenol PO 650 mg Q4H PRN Administration Headache/Fever/Mild Pain (1-3) Albuterol/Ipratropium 3 ml 11/24/19 02:30 11/24/19 07:01 Duoneb NEB 3 ml [id number] GLADIS Administration Apixaban 2.5 mg 11/17/19 21:00 11/24/19 08:19 Eliquis PO 2.5 mg BID GLADIS Administration Aspirin 81 mg 11/18/19 09:00 11/24/19 08:19 Ecotrin PO 81 mg DAILY GLADIS Administration Atorvastatin Calcium 40 mg 11/17/19 21:00 05/09/20 21:23 Lipitor PO 40 mg HS GLADIS Administration Al Hydroxide/Mg Hydroxide 60 0 ml 11/17/19 17:00 11/24/19 08:19 ml/ Lidocaine HCl 30 ml/ SSW 10 ml Diphenhydramine HCl 75 mg AC GLADIS Administration Cyanocobalamin 1,000 mcg 11/21/19 09:00 11/24/19 08:20 Vitamin B-12 PO 1,000 mcg DAILY GLADIS Administration Dronedarone 400 mg 11/21/19 17:00 11/24/19 08:19 Multaq PO 400 mg BID-WM GLADIS Administration Ezetimibe 10 mg 11/18/19 09:00 11/24/19 08:20 Zetia PO 10 mg DAILY GLADIS Administration Famotidine 20 mg 11/17/19 21:00 11/23/19 21:23 Pepcid PO 20 mg HS GLADIS Administration Folic Acid 1 mg 11/21/19 09:00 11/24/19 08:20 Folvite PO 1 mg DAILY GLADIS Administration Furosemide 40 mg 11/22/19 07:30 11/24/19 08:20 Lasix PO Not Given DAILY-AC GLADIS Diltiazem HCl 125 mg/ Sodium 125 mls @ 5 mls/hr 11/23/19 10:00 11/23/19 10:12 Chloride IVPB 125 mls INF GLADIS Administration Protocol 5 MG/HR Cefepime HCl 0.5 gm/ Sodium 100 mls @ 200 mls/hr 11/23/19 13:00 11/23/19 15: 09 Chloride IVPB 100 mls Q24HR GLADIS Administration Magnesium Oxide 400 mg 11/21/19 09:00 11/24/19 08:20 Magnesium Oxide PO 400 mg DAILY GLADIS Administration Metoprolol Tartrate 25 mg 11/22/19 21:00 11/24/19 08:21 Lopressor PO Not Given BID GLADIS Mineral Oil/White Petrolatum 0 gm 11/23/19 09:00 11/24/19 08:24 Systane Nighttime Eye Ointment EA EYE Not Given BID GLADIS Mometasone Furoate/Formoterol Fumar 1 puff 11/17/19 18:30 11/24/19 07:02 Dulera 200 Mcg/5 Mcg Inhaler INH 1 puff BID-RT GLADIS Administration Potassium Chloride 20 meq 11/18/19 08:00 11/24/19 08:19 K-Dur PO 20 meq QAM-WM GLADIS Administration Sodium Chloride 10 ml 11/18/19 09:00 11/24/19 08:20 Flush - Normal Saline IVF 10 ml Q12HR GLADIS Administration Temazepam 15 mg 11/17/19 21:00 11/23/19 21:23 Restoril PO 15 mg HS GLADIS Administration - Exam General Appearance: awake alert Neck: supple, symmetric, no JVD, no lymphadenopathy Heart: RRR, no murmur, no gallops, no rubs Respiratory: rales, rhonchi, tachypneic Gastrointestinal: soft, non-tender, non-distended, normal bowel sounds Extremities: 2+ LE edema Extremities - other findings: toes are mottled with good cap refill Hosp A/P (1) Acute on chronic combined systolic (congestive) and diastolic (congestive) heart failure Code(s): I50.43 - ACUTE ON CHRONIC COMBINED SYSTOLIC AND DIASTOLIC HRT FAIL Status: Acute (2) Atrial tachycardia, multifocal Code(s): I47.1 - SUPRAVENTRICULAR TACHYCARDIA Status: Acute (3) CKD (chronic kidney disease) Code(s): N18.9 - CHRONIC KIDNEY DISEASE, UNSPECIFIED Status: Acute Qualifiers: Chronic kidney disease stage: stage 3 (moderate) Qualified Code(s): N18.3 - Chronic kidney disease, stage 3 (moderate) (4) Coronary artery disease Code(s): I25.10 - ATHSCL HEART DISEASE OF [place] CORONARY ARTERY W/O ANG PCTRS Status: Chronic Qualifiers: Coronary Disease-Associated Artery/Lesion type: bypass graft Associated angina: without angina (5) Physical deconditioning Code(s): R53.81 - OTHER MALAISE Status: Chronic (6) Thrombocytopenia Code(s): D69.6 - THROMBOCYTOPENIA, UNSPECIFIED Status: Chronic (7) Acute respiratory failure with hypoxia Code(s): J96.01 - ACUTE RESPIRATORY FAILURE WITH HYPOXIA Status: Acute (8) Atrial fibrillation Code(s): I48.91 - UNSPECIFIED ATRIAL FIBRILLATION Status: Acute (9) Deep vein thrombosis (DVT) of brachial vein of left upper extremity Code(s): I82.622 - ACUTE EMBOLISM AND THROMBOSIS OF DEEP VEINS OF L UP EXTREM Status: Acute Qualifiers: Chronicity: acute Qualified Code(s): I82.622 - Acute embolism and thrombosis of deep veins of left upper extremity (10) HTN (hypertension) Code(s): I10 - ESSENTIAL (PRIMARY) HYPERTENSION Status: Chronic Qualifiers: Hypertension type: essential hypertension Qualified Code(s): I10 - Essential (primary) hypertension (11) Macrocytic anemia Code(s): D53.9 - NUTRITIONAL ANEMIA, UNSPECIFIED Status: Chronic (12) Moderate protein-calorie malnutrition Code(s): E44.0 - MODERATE PROTEIN-CALORIE MALNUTRITION Status: Chronic (13) PVD (peripheral vascular disease) with claudication Code(s): I73.9 - PERIPHERAL VASCULAR DISEASE, UNSPECIFIED Status: Chronic (14) Stage IV adenocarcinoma of lung Code(s): C34.90 - MALIGNANT NEOPLASM OF UNSP PART OF UNSP BRONCHUS OR LUNG Status: Chronic (15) Sacral ulcer Code(s): L98.429 - NON-PRESSURE CHRONIC ULCER OF BACK WITH UNSPECIFIED SEVERITY Status: Acute - Plan Acute respiratory failure with hypoxia, due to pneumonia: continue antibiotics Will transfuse 1 unit of blood to try and boost his oxygen carrying capacity HTN: continue to monitor Severe deconditioning: continue PT/OT Continue cardiem gtt per cardiology Sacral ulcer: wound care treating
--- NOTE | 2019-11-24 13:41 | PDOC.BPN ---
- Brief Progress Note 1 of 2 blood cultures reported as positive for coagulase neg staph- most likely contaminant but will continue antibiotics at this time
[2019-11-24] MEDS: Cefepime 0.5 GM in Sodium Chloride 0.9% 100 ML IVPB SCH (13:50)
[2019-11-24] MEDS ORDERED: Potassium Chloride 20 MEQ TAB PO SCH (14:15)
[2019-11-24] MEDS ORDERED: Furosemide 40 MG/4 ML VIAL SLOW IVP SCH (14:15)
--- NOTE | 2019-11-24 14:29 | PRG ---
DATE OF SERVICE: 11/24/2019 SUBJECTIVE: Mr. Guthrie is more short of breath. Today, he seems to be working harder to breathe. He did receive 1 unit of packed red blood cells earlier today. OBJECTIVE: VITAL SIGNS: His blood pressure was low earlier, but now it is 130 systolic, pulse is 100, it actually varies between 90 to 110, it is atrial tachycardia. LUNGS: I had heard some rales at the bases and decreased breath sounds at the bases. CARDIAC: Irregular. ABDOMEN: Soft, nontender. EXTREMITIES: Mild edema, especially in his arms; in lower extremities, [id number]. ASSESSMENT: 1. Suspect diastolic congestive heart failure. 2. Pulmonary infiltrates. 3. Atrial tachycardia. PLAN: Give him a single dose of Lasix and potassium. Prognosis guarded in this pleasant patient. Dr. Rubio to resume care tomorrow. Job ID: [id number]
[2019-11-24 15:21] LABS: Vancomycin, Trough 9.9 ug/mL
[2019-11-24] MEDS ORDERED: Vancomycin 1 GM in Premix Bag 1 BAG IVPB SCH (16:00)
[2019-11-24 16:04] VITALS: BP 137/77
--- NOTE | 2019-11-24 16:17 | EKG ---
Test Reason : TIMED Blood Pressure : / mmHG Vent. Rate : 106 BPM Atrial Rate : 085 BPM P-R Int : 000 ms QRS Dur : 086 ms QT Int : 334 ms P-R-T Axes : 000 -27 122 degrees QTc Int : 443 ms Atrial fibrillation with rapid ventricular response Nonspecific ST and T wave abnormality , probably digitalis effect Abnormal ECG When compared with ECG of 17-NOV-2019 10:30, (Unconfirmed) Nonspecific T wave abnormality no longer evident in Inferior leads Confirmed by JORGE VARGAS (2) on 11/24/2019 4:16:25 PM Referred By: YOU Confirmed By:JORGE VARGAS
--- NOTE | 2019-11-24 16:33 | EKG ---
Test Reason : TIMED Blood Pressure : / mmHG Vent. Rate : 111 BPM Atrial Rate : 111 BPM P-R Int : 000 ms QRS Dur : 088 ms QT Int : 342 ms P-R-T Axes : 000 -32 127 degrees QTc Int : 465 ms Atrial tachycardia with rapid ventricular response with premature ventricular or aberrantly conducte d complexes Left axis deviation Nonspecific ST and T wave abnormality , probably digitalis effect Abnormal ECG When compared with ECG of 21-NOV-2019 12:23, (Unconfirmed) Nonspecific T wave abnormality no longer evident in Anterior leads Confirmed by JORGE VARGAS (2) on 11/24/2019 4:33:01 PM Referred By: YOU Confirmed By:JORGE VARGAS
--- NOTE | 2019-11-24 18:19 | PDOC.FMACP ---
Advance Care Planning - Problem (1) Pneumonia Status: Acute Code(s): J18.9 - PNEUMONIA, UNSPECIFIED ORGANISM (2) Acute respiratory failure with hypoxia Status: Acute Code(s): J96.01 - ACUTE RESPIRATORY FAILURE WITH HYPOXIA (3) Sepsis Status: Acute Code(s): A41.9 - SEPSIS, UNSPECIFIED ORGANISM (4) Sacral ulcer Status: Acute Code(s): L98.429 - NON-PRESSURE CHRONIC ULCER OF BACK WITH UNSPECIFIED SEVERITY (5) CKD (chronic kidney disease), stage III Status: Chronic Code(s): N18.3 - CHRONIC KIDNEY DISEASE, STAGE 3 (MODERATE) (6) 3-vessel CAD Status: Chronic (7) HTN (hypertension) Status: Chronic Code(s): I10 - ESSENTIAL (PRIMARY) HYPERTENSION Qualifiers: Hypertension type: essential hypertension Qualified Code(s): I10 - Essential (primary) hypertension (8) Stage IV adenocarcinoma of lung Status: Chronic Code(s): C34.90 - MALIGNANT NEOPLASM OF UNSP PART OF UNSP BRONCHUS OR LUNG - Note Summary: I spoke with the patient's at the bedside today. We discussed the patient current condition,as well as how he has been progressing over the past few months. I explained to her that in my opion his condition has worsened over the past few days. He respiratory status has become more tenuous. He has developed sepsis, and his renal function has worsened. We discussed code status as well. She says she only wants to her " positive findings" and says that her is a fighter and would never want to leave her. The patient was able to hear what we discussed but did not offer any input. He appeared to weak to comment. His code status will remain a full code. He will be transferred to the [facility]. All questions were answered. The Palliative Care Team will be Consulted to help with family support and goals of care. Time Spent (mins): 25
[2019-11-24] MEDS: Famotidine 20 MG TAB PO SCH (20:18)
[2019-11-24] MEDS: Atorvastatin Calcium 40 MG TAB PO SCH (20:18)
[2019-11-24] MEDS: Temazepam 15 MG CAP PO SCH (20:18)
[2019-11-24] MEDS ORDERED: Melatonin 3 MG TAB PO PRN (22:01)
[2019-11-25] MEDS: Acetaminophen 325 MG TAB PO PRN (03:47)
[2019-11-25 04:12] LABS: Anion Gap 13 mmol/L (10-20); BUN (Urea Nitrogen) 54 mg/dL (8.4-25.7); Calc. Creatinine Clearance 25 mL/min (70-130); Calcium 7.3 mg/dL (7.8-10.44); Carbon Dioxide 21 mmol/L (23-31); Chloride 106 mmol/L (98-107); Estimated GFR-MDRD 25; Glucose 91 mg/dL (83-110); Potassium 4.3 mmol/L (3.5-5.1); Sodium 136 mmol/L (136-145)
[2019-11-25 04:55] LABS: Anisocytosis SLIGHT = 6-15 cells (100X) (0-5/hpf); Band 13 % (5-11); Hemoglobin 8.5 g/dL (14.0-18.0); Large Platelets SLIGHT; Lymphocytes 6 % (21-51); MDiff Complete? YES; Macrocytosis SLIGHT = 6-15 cells (100X) (0-5/hpf); Mean Corpuscular HGB CONC 32.8 g/dL (32.0-36.0); Mean Corpuscular Hemoglobin 34.5 pg (27.0-31.0); Mean Platelet Volume 10.5 fL (7.4-10.4); Monocytes 1 % (0-10); Neutrophil 80 % (42-75); Nucleated RBC 1 % (0); Platelet Count 115 thou/uL (130-400); Platelet Morphology Comment Appears Decreased; RBC Distribution Width 22.6 % (11.5-14.5); Red Blood Cell (RBC) Count 2.47 mill/uL (4.70-6.10); Toxic Granulation SLIGHT; White Blood Cell (WBC) Count 12.3 thou/uL (4.8-10.8)
[2019-11-25] MEDS ORDERED: Diltiazem 125 MG in Sodium Chloride 0.9% 100 ML IVPB SCH (07:47)
[2019-11-25] MEDS: Magnesium Oxide 400 MG TAB PO SCH (08:07)
[2019-11-25] MEDS: Ezetimibe 10 MG TAB PO SCH (08:07)
[2019-11-25] MEDS: Metoprolol Tartrate 25 MG TAB PO SCH ×2 (08:08→20:30)
[2019-11-25] MEDS: Potassium Chloride 20 MEQ TAB PO SCH (08:08)
[2019-11-25] MEDS: Aspirin 81 mg Enteric Coated Tablet PO SCH (08:08)
[2019-11-25] MEDS: Apixaban 2.5 MG TAB PO SCH ×2 (08:08→20:30)
[2019-11-25] MEDS: Furosemide 40 MG TAB PO SCH (08:08)
[2019-11-25] MEDS: Folic Acid 1 MG TAB PO SCH (08:08)
[2019-11-25] MEDS: Dronedarone HCl 400 MG TAB PO SCH ×2 (08:08→17:49)
[2019-11-25] MEDS: Cyanocobalamin (Vitamin B-12) 1,000 MCG TAB PO SCH (08:09)
[2019-11-25 08:10] LABS: Actual Bicarbonate (HCO3a) 22.3 mEq/L (22-28); Base Excess (BEa) -0.9 mEq/L (-2.0 to +3.0); CO2 Tension 31.4 mmHg (35.0-45.0); Calcium, Ionized 1.09 mmol/L (1.12-1.30); Carboxyhemoglobin (COHb) 2.1 gm% (0.0-3.0); Hemoglobin (Hb) 9.1 g/dL (14.0-18.0); Potassium - ABG Lab 4.17 mmol/L (3.70-5.30); pH, Arterial 7.47 (7.35-7.45)
--- NOTE | 2019-11-25 08:18 | RAD ---
EXAM: CHEST ONE VIEW HISTORY: Worsening respiratory status COMPARISON: 11/23/2019 FINDINGS: Median sternotomy wires are again present. Right subclavian Mediport catheter is stable in position. Cardiac silhouette is within normal limits. Increased perihilar interstitial opacities are present bilaterally with greater patchy parenchymal density in the midlung zones bilaterally again worrisome for pneumonia in the correct clinical scenario. Small to moderate size right pleural effusion is again noted with a minimal left pleural effusion. Surgical clips again overlie the left axillary monica on. No other interval change. IMPRESSION: 1. Bilateral interstitial opacities with associated patchy parenchymal opacities in the midlung zones bilaterally. Interstitial opacities do appear mildly increased. Findings are again suspicious for pneumonia in the correct clinical scenario. 2. [id number] size right pleural effusion.
--- NOTE | 2019-11-25 08:22 | PDOC.HOSPP ---
- Subjective Encounter Date: 11/25/19 Encounter Time: 08:21 Subjective: Mr. Guthrie was seen today in follow-up of respiratory failure. He notes more trouble breathing this morning. He also complains of pain in his left leg from the knee down. - Objective Vital Signs & Weight: Vital Signs (12 hours) Temp Pulse Resp Pulse Ox 11/25/19 07:28 99 11/25/19 07:24 76 23 H 99 11/25/19 07:19 96.0 F L 11/25/19 03:49 92 L 11/25/19 03:48 92 L 11/25/19 03:31 97.0 F L 11/24/19 23:30 97.5 F L 11/24/19 22:38 97 Weight Admit Weight 171 lb 9.6 oz Weight 162 lb 12.8 oz Most Recent Monitor Data Heart Rate from ECG 95 NIBP 129/99 NIBP BP-Mean 109 Respiration from ECG 28 SpO2 87 I&O: 11/24/19 11/25/19 11/26/19 06:59 06:59 06:59 Intake Total 995 1250 Output Total 1025 950 Balance -30 300 Result Diagrams: 11/25/19 03:35 11/25/19 03:35 Hospitalist ROS - Medication Medications: Active Medications Generic Name Dose Route Start Last Admin Trade Name Freq PRN Reason Stop Dose Admin Acetaminophen 650 mg 11/17/19 15:55 11/25/19 03:47 Tylenol PO 650 mg Q4H PRN Administration Headache/Fever/Mild Pain (1-3) Albuterol/Ipratropium 3 ml 11/24/19 02:30 11/25/19 07:24 Duoneb NEB 3 ml [id number] GLADIS Administration Apixaban 2.5 mg 11/17/19 21:00 11/24/19 20:18 Eliquis PO 2.5 mg BID GLADIS Administration Aspirin 81 mg 11/18/19 09:00 11/24/19 08:19 Ecotrin PO 81 mg DAILY GLADIS Administration Atorvastatin Calcium 40 mg 11/17/19 21:00 11/24/19 20:18 Lipitor PO 40 mg HS GLADIS Administration Al Hydroxide/Mg Hydroxide 60 0 ml 11/17/19 17:00 11/24/19 15:59 ml/ Lidocaine HCl 30 ml/ SSW 10 ml Diphenhydramine HCl 75 mg AC GLADIS Administration Cyanocobalamin 1,000 mcg 11/21/19 09:00 11/24/19 08:20 Vitamin B-12 PO 1,000 mcg DAILY GLADIS Administration Dronedarone 400 mg 11/21/19 17:00 11/24/19 15:59 Multaq PO 400 mg BID-WM GLADIS Administration Ezetimibe 10 mg 11/18/19 09:00 11/24/19 08:20 Zetia PO 10 mg DAILY GLADIS Administration Famotidine 20 mg 11/17/19 21:00 11/24/19 20:18 Pepcid PO 20 mg HS GLADIS Administration Folic Acid 1 mg 11/21/19 09:00 11/24/19 08:20 Folvite PO 1 mg DAILY GLADIS Administration Furosemide 40 mg 11/22/19 07:30 11/24/19 08:20 Lasix PO Not Given DAILY-AC GLADIS Cefepime HCl 0.5 gm/ Sodium 100 mls @ 200 mls/hr 11/23/19 13:00 11/24/19 13: 50 Chloride IVPB 100 mls Q24HR GLADIS Administration Magnesium Oxide 400 mg 11/21/19 09:00 11/24/19 08:20 Magnesium Oxide PO 400 mg DAILY GLADIS Administration Melatonin 3 mg 11/24/19 22:01 11/24/19 22:13 Melatonin PO 3 mg HSPRN PRN Administration Insomnia Metoprolol Tartrate 25 mg 11/22/19 21:00 11/24/19 20:19 Lopressor PO Not Given BID GLADIS Mineral Oil/White Petrolatum 0 gm 11/23/19 09:00 11/24/19 20:18 Systane Nighttime Eye Ointment EA EYE 1 applic BID GLADIS Administration Mometasone Furoate/Formoterol Fumar 1 puff 11/17/19 18:30 11/24/19 18:30 Dulera 200 Mcg/5 Mcg Inhaler INH 1 puff BID-RT GLADIS Administration Potassium Chloride 20 meq 11/18/19 08:00 11/24/19 08:19 K-Dur PO 20 meq QAM-WM GLADIS Administration Sodium Chloride 10 ml 11/18/19 09:00 11/24/19 20:19 Flush - Normal Saline IVF Not Given Q12HR GLADIS Temazepam 15 mg 11/17/19 21:00 05/10/20 20:18 Restoril PO 15 mg HS GLADIS Administration - Exam Eye: PERRL Heart: RRR, no murmur, no gallops, no rubs, normal peripheral pulses Respiratory: rales (+ bilateral rales, and occasional rhonchi), rhonchi Gastrointestinal: soft, non-tender, non-distended, normal bowel sounds, no palpable masses, no hepatomegaly Extremities: no edema (, + Left foot is a bit cooler than the right, + mottling + faint palpable left dorsalis pedis) Hosp A/P (1) Pneumonia Code(s): J18.9 - PNEUMONIA, UNSPECIFIED ORGANISM Status: Acute (2) Acute respiratory failure with hypoxia Code(s): J96.01 - ACUTE RESPIRATORY FAILURE WITH HYPOXIA Status: Acute (3) Sepsis Code(s): A41.9 - SEPSIS, UNSPECIFIED ORGANISM Status: Acute (4) Sacral ulcer Code(s): L98.429 - NON-PRESSURE CHRONIC ULCER OF BACK WITH UNSPECIFIED SEVERITY Status: Acute (5) CKD (chronic kidney disease), stage III Code(s): N18.3 - CHRONIC KIDNEY DISEASE, STAGE 3 (MODERATE) Status: Chronic (6) 3-vessel CAD Status: Chronic (7) HTN (hypertension) Code(s): I10 - ESSENTIAL (PRIMARY) HYPERTENSION Status: Chronic Qualifiers: Hypertension type: essential hypertension Qualified Code(s): I10 - Essential (primary) hypertension (8) Stage IV adenocarcinoma of lung Code(s): C34.90 - MALIGNANT NEOPLASM OF UNSP PART OF UNSP BRONCHUS OR LUNG Status: Chronic - Plan * Acute respiratory failure with hypoxemia, due to pneumonia- he continues to have high oxygen requirements. He is now in the IMCU * Will check a CXR and ABG due to deteriorating condition * Consult Pulmonary * Acute Kidney injury- ? etiology may be due to sepsis syndrome, or diastolic heart failure- will consult Nephrology * Chronic diastolic heart failure- Cardiology managing * Left leg pain- will check arterial doppler- he is already on anticoagulation * HTN- blood pressure is stable * CAD- s/p CABG in 06/2018 * Stage 4 Lung cancer- patient is undergoing treatment * Severe deconditioning- continue PT/OT as tolerated * Prognosis is guarded * Palliative Care has been consulted.
[2019-11-25] MEDS ORDERED: Bacteriostatic Water 30 ML VIAL FS PRN (10:05)
[2019-11-25] MEDS: SYSTANE 3.5 GM TUBE EA EYE SCH ×2 (10:42→20:30)
[2019-11-25] MEDS: Aluminum & Magnesium Hydroxide 60 ML, Lidocaine 2% Viscous Solution 30 ML, diphenhydrAM... SSW SCH ×3 (10:43→17:04)
[2019-11-25 11:13] LABS: O2 Tension (PaO2), arterial 57.4 mmHg (> 70.0); Puncture Site RRA
[2019-11-25] MEDS: Cefepime 0.5 GM in Sodium Chloride 0.9% 100 ML IVPB SCH ×3 (11:17→21:35)
[2019-11-25] MEDS: methylPREDNISolone Sod Succ 40 MG VIAL IVP SCH ×3 (11:26→21:35)
--- NOTE | 2019-11-25 11:26 | ULT ---
ARTERIAL DOPPLER STUDY LEFT LOWER EXTREMITY: Ultrasound Doppler study is performed on the arteries to the left lower extremity. Color Doppler, sp ectral analysis, and velocity recordings were obtained. INDICATION: Left lower extremity pain. Decreased pulses on physical exam. FINDINGS: There is flow seen in the left common femoral artery; however, the waveform analysis is abnormal with a monophasic waveform. Decreased velocities. Similar findings are seen in the profunda femoral and in the proximal to mid superficial femoral shadi ry. Decreased velocities and monophasic waveform. No flow is seen in the distal superficial femoral artery. There is no flow seen in the popliteal artery, anterior tibial artery, posterior tibial art jaciel, or dorsal pedis artery. IMPRESSION: Evidence of severe arterial occlusive disease in the left lower extremity. No flow is seen below mid thigh. Abnormal waveform in the visualized arteries of the proximal left lower extremity as noted a eric. This would suggest severe iliac artery disease. POS: SHAN
[2019-11-25] MEDS ORDERED: methylPREDNISolone Sod Succ 40 MG VIAL IVP SCH (12:00)
--- NOTE | 2019-11-25 12:54 | CON ---
DATE OF CONSULTATION: 11/25/2019 CONSULTING PHYSICIAN: Dr. Vivas. REASON FOR CONSULTATION: Acute kidney injury on chronic kidney disease. REASON FOR ADMISSION: Tachycardia. HISTORY OF PRESENT ILLNESS: This is a 74-year-old male with history of anemia, pancytopenia, DVT, and CKD, came to the hospital with above complaints and was found to have elevated creatinine. His creatinine on admission was around 1.6, close to his baseline. This morning, it is 2.5. Nephrology is consulted. The patient is very lethargic. He is also treated for diastolic heart failure and also pneumonia. No nausea or vomiting. PAST MEDICAL HISTORY: Positive for pancytopenia, lung cancer, DVT, CKD, coronary artery disease, and atrial fibrillation. PAST SURGICAL HISTORY: CABG and thoracentesis. HOME MEDICATIONS: Reviewed. ALLERGIES: NO KNOWN DRUG ALLERGIES. SOCIAL HISTORY: No smoking, alcohol, or illicit drug use. FAMILY HISTORY: No history of kidney disease. REVIEW OF SYSTEMS: CONSTITUTIONAL: Negative for weight loss or gain, ability to conduct usual activities. SKIN: Negative for rash, itching. EYES: Negative for double vision, pain. ENT/MOUTH: Negative for nose bleeding, neck stiffness, pain, tenderness. CARDIOVASCULAR: Negative for palpitations, dyspnea on exertion, orthopnea. RESPIRATORY: Negative for shortness of breath, wheezing, cough, hemoptysis, fever or night sweats. GASTROINTESTINAL: Negative for poor appetite, abdominal pain, heartburn, nausea, vomiting, constipation, or diarrhea. GENITOURINARY: Negative for urgency, frequency, dysuria, nocturia. MUSCULOSKELETAL: Negative for pain, swelling. NEUROLOGIC/PSYCHIATRIC: Negative for anxiety, depression. ALLERGY/IMMUNOLOGIC: Negative for skin rash, bleeding tendency. PHYSICAL EXAMINATION: GENERAL: This is a well-built male, in no apparent distress. VITAL SIGNS: Temperature 96.4, pulse 60, respiratory rate 20, blood pressure 94/55. HEENT: Atraumatic and normocephalic. NECK: Supple. CV: S1 and S2 heard. Rate and rhythm are regular. RESPIRATORY: Clear. GI: Abdomen is soft. MUSCULOSKELETAL: No edema. DERMATOLOGICAL: Chronic skin bruising. NEUROLOGIC: Lethargic, somnolent. LABORATORY DATA: Potassium 4.3, BUN is 54, creatinine is 2.5. ASSESSMENT AND PLAN: 1. Acute kidney injury on chronic kidney disease, stage 3. Could be multifactorial. Avoid nephrotoxins and cautious use of diuretics. Continue treatment for pneumonia and supportive care. 2. Cardiorenal syndrome. Follow up with Cardiology. 3. Anemia and pancytopenia. 4. Acidosis. 5. History of hypertension. 6. History of lung cancer. Prognosis is very poor. No acute indication for dialysis. Avoid nephrotoxins. Renally dose the medications. We will follow. Thank you for the consult. Job ID: [id number]
[2019-11-25 13:10] VITALS: BMI 24.7
--- NOTE | 2019-11-25 13:15 | CON ---
DATE OF CONSULTATION: 11/25/2019 HISTORY OF PRESENT ILLNESS: Martinez Guthrie is a 74-year-old gentleman, who has been in the hospital since 11/17/2019, today is 11/25/2019, we have been consulted regarding his pulmonary status. Nurse tells me that he was transferred yesterday from telemetry through an IMCU bed with worsening respiratory distress. He is on high-flow nasal O2 with his sats running 99%, respiratory rate 23, temperature 96, blood pressure fairly-looking gentleman, who has been seeing a local oncologist for a long period of time. He has known, what appears to be, metastatic cancer. His x-ray shows a right-sided pleural effusion, bilateral pulmonary infiltrates, appear to be both interstitial and alveolar. Additionally, he was seen by Cardiology, felt to have diastolic dysfunction. Additionally, he has evidence of atrial tachycardia with a rapid rate . PAST MEDICAL HISTORY: Previous coronary artery disease; status post CO; cardiac arrhythmias; normal EF; stage IV lung cancer; renal failure; history of DVT, on Eliquis; diastolic dysfunction; and severe deconditioning. PAST SURGICAL HISTORY: Otherwise included a previous CABG, previous thoracentesis, previous thoracoscopy, previous pleurodesis, MediPort, and colonoscopy. HOME MEDICATIONS: Include: 1. Restoril. 2. Prednisone 20. 3. Benadryl. 4. CQ. 5. Vitamins. 6. Dulera. 7. Lopressor 25. 8. Magnesium. 9. Lasix 40. 10. Folic acid. 11. Pepcid. ALLERGIES: NONE. PHYSICAL EXAMINATION: GENERAL: He is cachectic, elderly gentleman. He is alert. VITAL SIGNS: His sats are 99% on high-flow, with a pulse rate of 80, respirations 20, blood pressure 110/80. CHEST: Extensive rhonchi and crackles bilaterally. CARDIAC: Sinus tach. ABDOMEN: Soft. EXTREMITIES: Trace edema. PLAN: I have added steroids, antibiotics, neb treatments to his present regime. His prognosis is clearly grave. May consider doing a thoracentesis of right chest if he is more symptomatic. Family to decide his code status. This is a consultation note, 70 minutes, 50% direct patient care. Job ID: [id number]
--- NOTE | 2019-11-25 15:36 | CON ---
DATE OF CONSULTATION: REASON FOR CONSULTATION: Lung cancer. HISTORY OF PRESENT ILLNESS: Mr. Guthrie is a 74-year-old gentleman with stage IV lung cancer, who was on maintenance Alimta chemotherapy. Over the past month, he has had severe fatigue, shortness of breath, edema, and failure to thrive. He was admitted to this facility on 10/29, and transferred to rehab on 11/13. During that hospitalization, he had [id number] kidney disease, anasarca, and weakness. He was at rehab for approximately 1 week when he began to have shaking and low oxygen levels. He was noted to have tachycardia with a rate in the 140s and brought to the emergency room here. He has been admitted for atrial fibrillation with RVR. He is in the IMCU on a Cardizem drip. He has had progressive shortness of breath and is currently on high-flow oxygen. X-ray shows right-sided pleural effusion with bilateral pulmonary infiltrates. He is currently on antibiotics, steroid, and neb treatments. He was pancytopenic on his last admission, but that has resolved and he is on his Eliquis for DVT. The patient was seen at bedside. is not present at this time. He is unable to complete full sentences secondary to gasping for air. PAST MEDICAL HISTORY: 1. Stage IV lung cancer. 2. Chronic kidney disease. 3. DVT. 4. Coronary artery disease. 5. Diastolic heart failure. PAST SURGICAL HISTORY: 1. Coronary artery bypass grafting. 2. Thoracentesis. 3. Thorascopy. 4. Pleurodesis. 5. MediPort placement. ALLERGIES: NO KNOWN DRUG ALLERGIES. CURRENT MEDICATIONS: 1. DuoNeb. 2. Eliquis. 3. Ecotrin. 4. Lipitor. 5. Dulcolax. 6. Cefepime. 7. B12. 8. Diltiazem. 9. Multaq. 10. Zetia. 11. Pepcid. 12. Folvite. 13. Lasix. 14. Robitussin. 15. Magnesium. 16. Solu-Medrol. 17. Lopressor. 18. Potassium. 19. Vancomycin. FAMILY HISTORY: No history of cancer. SOCIAL HISTORY: Former smoker. No alcohol. Lives with his . REVIEW OF SYSTEMS: Unable to obtain secondary to shortness of breath. PHYSICAL EXAMINATION: VITAL SIGNS: Temperature 96.4, pulse is 64, respiratory rate 24, BP is 114/58, and he is 96% on high-flow O2. GENERAL: This is an ill-appearing male, in mild respiratory distress. HEENT: Normocephalic and atraumatic. Pupils are equal and reactive to light. NECK: Supple. CV: Irregular rate and rhythm. He has frequent PVCs. LUNGS: Diminished throughout. ABDOMEN: Soft and nontender. EXTREMITIES: He has 2+ pitting edema in his right lower extremity. SKIN: He has no rash. HEMATOLOGIC: He has scattered bruising on his upper extremities. NEUROLOGIC: Nonfocal. PERTINENT LABORATORY DATA AND X-RAYS: Current WBCs 12.3, hemoglobin 8.5, hematocrit 26, and platelet count is 115,000. He has 80% neutrophils, 30% bands, and 16% lymphocytes. Sodium is 136, potassium 4.3, chloride 106, CO2 is 21, BUN is 54, creatinine 2.55, and calcium 7.3. Bilirubin 0.7, AST is 44, AST is 53, alkaline phosphatase is 91, serum total protein is 5.7, albumin 2.3, and globulin 3.5. BNP is 746.5. Radiology per HPI. ASSESSMENT: 1. Stage IV metastatic lung cancer. 2. Right pleural effusion. 3. Aimch-ak-fscrsmy respiratory failure. 4. Protein deficient malnutrition. 5. Sacral ulcer, decubitus. DISCUSSION: The patient has significantly declined in the past 2 weeks. He is short of breath and unable to complete sentences. He seems mildly confused. He is discussing a volume on the TV, which is currently off. His has been informed of his declining status and will be arriving later this afternoon. We will discuss code status and goals of care at that time with her with assistance from Palliative Care. I do feel the patient should be a DNR as he appears to be greatly ill. Thank you for the consult. We will follow along. Job ID: [id number]
--- NOTE | 2019-11-25 15:49 | PDOC.FMACP ---
Advance Care Planning - Problem (1) Acute on chronic combined systolic (congestive) and diastolic (congestive) heart failure Status: Acute Code(s): I50.43 - ACUTE ON CHRONIC COMBINED SYSTOLIC AND DIASTOLIC HRT FAIL (2) Atrial tachycardia, multifocal Status: Acute Code(s): I47.1 - SUPRAVENTRICULAR TACHYCARDIA (3) Malnutrition Status: Acute Code(s): E46 - UNSPECIFIED PROTEIN-CALORIE MALNUTRITION Qualifiers: Malnutrition type: protein-calorie malnutrition Protein-calorie malnutrition severity: moderate Qualified Code(s): E44.0 - Moderate protein- calorie malnutrition (4) CKD (chronic kidney disease), stage III Status: Chronic Code(s): N18.3 - CHRONIC KIDNEY DISEASE, STAGE 3 (MODERATE) (5) Physical deconditioning Status: Chronic Code(s): R53.81 - OTHER MALAISE (6) Stage IV adenocarcinoma of lung Status: Chronic Code(s): C34.90 - MALIGNANT NEOPLASM OF UNSP PART OF UNSP BRONCHUS OR LUNG - Note Participants: family Summary: Advanced Care Planning was discussed. The diagnosis, prognosis and goals of care were discussed. Appropriate forms and documentation to accomplish the goals of care were discussed. All questions were answered. The Palliative Care Team will be engaged to assist with completion of any outstanding forms that are needed. Time Spent (mins): 30 (discussed with patient and family current condition and poor prognosis. Dr. Vines present as well. They will discuss hospice and decide if they wish to go home or to inpatient facility. Will follow-up tomorrow.)
[2019-11-25 15:51] LABS: Vancomycin, Random 17.2 ug/mL (See Comment)
[2019-11-25] MEDS ORDERED: Vancomycin 1 GM in Premix Bag 1 BAG IVPB SCH (18:00)
[2019-11-25] MEDS: Mometasone 200 MCG/Formoterol 5 MCG 120 PUFF INHALER INH SCH ×2 (18:24→18:27)
[2019-11-25] MEDS: Atorvastatin Calcium 40 MG TAB PO SCH (20:30)
[2019-11-25] MEDS: Famotidine 20 MG TAB PO SCH (20:30)
[2019-11-25] MEDS: Temazepam 15 MG CAP PO SCH (20:30)
[2019-11-26] MEDS ORDERED: Lorazepam 0.5 MG TAB PO SCH (03:00)
[2019-11-26] MEDS: methylPREDNISolone Sod Succ 40 MG VIAL IVP SCH ×2 (03:05→10:05)
[2019-11-26 04:08] LABS: Anion Gap 18 mmol/L (10-20); BUN (Urea Nitrogen) 61 mg/dL (8.4-25.7); Calc. Creatinine Clearance 23 mL/min (70-130); Calcium 7.3 mg/dL (7.8-10.44); Carbon Dioxide 16 mmol/L (23-31); Chloride 105 mmol/L (98-107); Estimated GFR-MDRD 22; Glucose 122 mg/dL (83-110); Potassium 5.8 mmol/L (3.5-5.1); Sodium 133 mmol/L (136-145)
[2019-11-26 07:21] VITALS: TEMP 96.2
[2019-11-26] MEDS: Mometasone 200 MCG/Formoterol 5 MCG 120 PUFF INHALER INH SCH (08:00)
[2019-11-26] MEDS ORDERED: Morphine 4 MG/ML VIAL SLOW IVP PRN (08:41)
--- NOTE | 2019-11-26 08:56 | PRG ---
DATE OF SERVICE: 11/26/2019 SUBJECTIVE: This morning, he is in agonal respiration, high-flow. OBJECTIVE: VITAL SIGNS: His sats are 88, temperature 96, pulse 70, blood pressure was 110/80. is at the bedside. CHEST: Rhonchi. CARDIAC: Sinus tach. ABDOMEN: Soft. ASSESSMENT: Metastatic stage IV lung cancer, respiratory failure, right pleural effusion, renal failure. Discussed with his about his prognosis being grave. She wants to be kept comfortable. Morphine is being added. He has remained DNR. Job ID: [id number]
--- NOTE | 2019-11-26 09:53 | PDOC.HOSPP ---
- Subjective Encounter Date: 11/26/19 Encounter Time: 09:51 Subjective: Mr. Guthrie was seen today in follow-up of respiratory failure and metastic lung cancer. He is obtunded this morning. He was reported to have increasing oxygen requirements. - Objective Vital Signs & Weight: Vital Signs (12 hours) Temp Pulse Resp Pulse Ox 11/26/19 08:00 94 L 11/26/19 07:59 70 30 H 94 L 11/26/19 07:20 96.2 F L 11/26/19 07:18 95 11/26/19 04:01 26 H 11/26/19 03:31 95.8 F L 11/26/19 02:30 95 11/26/19 00:24 100 11/25/19 23:31 96.2 F L Weight Admit Weight 171 lb 9.6 oz Weight 162 lb 12.8 oz Most Recent Monitor Data Heart Rate from ECG 66 NIBP 151/101 NIBP BP-Mean 117 Respiration from ECG 32 SpO2 96 I&O: 11/25/19 11/26/19 11/27/19 06:59 06:59 06:59 Intake Total 1250 1580 Output Total 950 675 Balance 300 905 Result Diagrams: 11/25/19 03:35 11/26/19 03:42 Hospitalist ROS - Medication Medications: Active Medications Generic Name Dose Route Start Last Admin Trade Name Freq PRN Reason Stop Dose Admin Acetaminophen 650 mg 11/17/19 15:55 11/25/19 03:47 Tylenol PO 650 mg Q4H PRN Administration Headache/Fever/Mild Pain (1-3) Albuterol/Ipratropium 3 ml 11/25/19 13:00 11/26/19 07:59 Duoneb NEB 3 ml D1PD-FR GLDAIS Administration Apixaban 2.5 mg 11/17/19 21:00 11/25/19 20:30 Eliquis PO 2.5 mg BID GLADIS Administration Aspirin 81 mg 11/18/19 09:00 11/25/19 08:08 Ecotrin PO 81 mg DAILY GLADIS Administration Atorvastatin Calcium 40 mg 11/17/19 21:00 11/25/19 20:30 Lipitor PO 40 mg HS GLADIS Administration Al Hydroxide/Mg Hydroxide 60 0 ml 11/17/19 17:00 11/25/19 17:04 ml/ Lidocaine HCl 30 ml/ SSW 10 ml Diphenhydramine HCl 75 mg AC GLADIS Administration Cyanocobalamin 1,000 mcg 11/21/19 09:00 11/25/19 08:09 Vitamin B-12 PO 1,000 mcg DAILY GLADIS Administration Dronedarone 400 mg 11/21/19 17:00 11/25/19 17:49 Multaq PO 400 mg BID-WM GLADIS Administration Ezetimibe 10 mg 11/18/19 09:00 11/25/19 08:07 Zetia PO 10 mg DAILY GLADIS Administration Famotidine 20 mg 11/17/19 21:00 11/25/19 20:30 Pepcid PO 20 mg HS GLADIS Administration Folic Acid 1 mg 11/21/19 09:00 11/25/19 08:08 Folvite PO 1 mg DAILY GLADIS Administration Furosemide 40 mg 11/22/19 07:30 11/25/19 08:08 Lasix PO 40 mg DAILY-AC GLADIS Administration Cefepime HCl 0.5 gm/ Sodium 100 mls @ 200 mls/hr 11/25/19 10:00 11/25/19 21: 35 Chloride IVPB 100 mls 1000,2200 GLADIS Administration Magnesium Oxide 400 mg 11/21/19 09:00 11/25/19 08:07 Magnesium Oxide PO 400 mg DAILY GLADIS Administration Melatonin 3 mg 11/24/19 22:01 11/24/19 22:13 Melatonin PO 3 mg HSPRN PRN Administration Insomnia Methylprednisolone Sodium Succinate 40 mg 11/25/19 10:00 11/26/19 03:05 Solu-Medrol IVP 40 mg 0400,1000,1600,2200 GLADIS Administration Metoprolol Tartrate 25 mg 11/22/19 21:00 11/25/19 20:30 Lopressor PO 25 mg BID GLADIS Administration Mineral Oil/White Petrolatum 0 gm 11/23/19 09:00 11/25/19 20:30 Systane Nighttime Eye Ointment EA EYE 1 applic BID GLADIS Administration Mometasone Furoate/Formoterol Fumar 1 puff 11/17/19 18:30 11/26/19 08:00 Dulera 200 Mcg/5 Mcg Inhaler INH Not Given BID-RT GLADIS Morphine Sulfate 4 mg 11/26/19 08:41 11/26/19 09:29 Morphine SLOW IVP 4 mg Q1H PRN Administration Congestion Potassium Chloride 20 meq 11/18/19 08:00 11/25/19 08:08 K-Dur PO 20 meq QAM-WM GLADIS Administration Sodium Chloride 10 ml 11/18/19 09:00 11/25/19 20:30 Flush - Normal Saline IVF 10 ml Q12HR GLADIS Administration Temazepam 15 mg 11/17/19 21:00 11/25/19 20:30 Restoril PO 15 mg HS GLADIS Administration - Exam Eye: PERRL Heart: RRR Gastrointestinal: soft, non-tender, non-distended, normal bowel sounds Extremities: no clubbing (+ cyanosis and mottling of the lower extremities), 2+ LE edema (+ upper extremity edema) Hosp A/P (1) Pneumonia Code(s): J18.9 - PNEUMONIA, UNSPECIFIED ORGANISM Status: Acute (2) Acute respiratory failure with hypoxia Code(s): J96.01 - ACUTE RESPIRATORY FAILURE WITH HYPOXIA Status: Acute (3) Sepsis Code(s): A41.9 - SEPSIS, UNSPECIFIED ORGANISM Status: Acute (4) Sacral ulcer Code(s): L98.429 - NON-PRESSURE CHRONIC ULCER OF BACK WITH UNSPECIFIED SEVERITY Status: Acute (5) CKD (chronic kidney disease), stage III Code(s): N18.3 - CHRONIC KIDNEY DISEASE, STAGE 3 (MODERATE) Status: Chronic (6) 3-vessel CAD Status: Chronic (7) HTN (hypertension) Code(s): I10 - ESSENTIAL (PRIMARY) HYPERTENSION Status: Chronic Qualifiers: Hypertension type: essential hypertension Qualified Code(s): I10 - Essential (primary) hypertension (8) Stage IV adenocarcinoma of lung Code(s): C34.90 - MALIGNANT NEOPLASM OF UNSP PART OF UNSP BRONCHUS OR LUNG Status: Chronic - Plan * Acute respiratory failure with hypoxemia, due to pneumonia- he continues to have high oxygen requirements. * He has made the decision to transition to palliative care, and will be evaluated for Hospice * Sepsis- continue empiric antibiotics * Stage 4 Lung cancer * Severe deconditioning * Awaiting Hospice
[2019-11-26] MEDS: Potassium Chloride 20 MEQ TAB PO SCH (10:04)
[2019-11-26] MEDS: Apixaban 2.5 MG TAB PO SCH (10:04)
[2019-11-26] MEDS: Aspirin 81 mg Enteric Coated Tablet PO SCH (10:04)
[2019-11-26] MEDS: Furosemide 40 MG TAB PO SCH (10:04)
[2019-11-26] MEDS: Dronedarone HCl 400 MG TAB PO SCH (10:04)
[2019-11-26] MEDS: Aluminum & Magnesium Hydroxide 60 ML, Lidocaine 2% Viscous Solution 30 ML, diphenhydrAM... SSW SCH ×2 (10:04→11:56)
[2019-11-26] MEDS: Metoprolol Tartrate 25 MG TAB PO SCH (10:05)
[2019-11-26] MEDS: Magnesium Oxide 400 MG TAB PO SCH (10:05)
[2019-11-26] MEDS: SYSTANE 3.5 GM TUBE EA EYE SCH (10:05)
[2019-11-26] MEDS: Ezetimibe 10 MG TAB PO SCH (10:05)
[2019-11-26] MEDS: Folic Acid 1 MG TAB PO SCH (10:05)
[2019-11-26] MEDS: Cyanocobalamin (Vitamin B-12) 1,000 MCG TAB PO SCH (10:05)
[2019-11-26] MEDS: Cefepime 0.5 GM in Sodium Chloride 0.9% 100 ML IVPB SCH (10:05)
--- NOTE | 2019-11-26 13:47 | PRG ---
DATE OF SERVICE: SUBJECTIVE: The patient is very lethargic and somnolent and family at the bedside. OBJECTIVE: GENERAL: This is an elderly male, very lethargic. VITAL SIGNS: Temperature 96.2, pulse 76, respiratory rate 18, and blood pressure 148/74. CHEST: Clear. ABDOMEN: Soft. MUSCULOSKELETAL: No edema. NEUROLOGICAL: Lethargic. LABORATORY DATA: Potassium 5.8, BUN is 61, and creatinine is 2.8. ASSESSMENT AND PLAN: 1. Acute kidney injury on chronic kidney disease, stage 3. 2. The patient and family chose to hospice, emotional support given. 3. Cardiorenal syndrome. 4. Anemia and pancytopenia. 5. Hypertension. 6. Lung cancer. 7. Poor prognosis. Agree with hospice. Emotional support given and all the questions answered from the family. Job ID: [id number]
[2019-11-26] MEDS ORDERED: Vancomycin 1 GM in Premix Bag 1 BAG IVPB SCH (18:00)
--- NOTE | 2019-11-28 16:25 | EKG ---
Test Reason : NEW ONSET A-FIB Blood Pressure : / mmHG Vent. Rate : 141 BPM Atrial Rate : 129 BPM P-R Int : 000 ms QRS Dur : 078 ms QT Int : 210 ms P-R-T Axes : 000 -17 196 degrees QTc Int : 321 ms Atrial fibrillation with rapid ventricular response with premature ventricular or aberrantly conducte d complexes Nonspecific ST and T wave abnormality Abnormal ECG Confirmed by ALEX ANG, NAZ ([id number]), book or script editor IONA RHODES ([id number]) on 11/28/2019 4:25:10 PM Referred By: ALEX Confirmed By:NAZ JOHNSON MD
== END 2019-11-26 12:15 | disposition hospice, inpatient (51) | DRG 308 ==
LOC: ERS 10:23 → IMCU/EMU 12:50 → OBSVTOIN 12:50 → 2NO 11-20 17:32 → IMCU/EMU 11-24 17:59
PROVIDERS: ADMIT Family Medicine; ATTEND Family Medicine
PROC: 30233N1 Transfusion of Nonautologous Red Blood Cells into Peripheral Vein, Percutaneous Approach (ICD-10-PCS; principal; 2019-11-18)
DX: I47.1 Supraventricular tachycardia (principal); D61.810 Antineoplastic chemotherapy induced pancytopenia; I50.43 Acute on chronic combined systolic (congestive) and diastolic (congestive) heart failure; J96.21 Acute and chronic respiratory failure with hypoxia; A41.9 Sepsis, unspecified organism; Z66 Do not resuscitate; Z51.5 Encounter for palliative care; J18.9 Pneumonia, unspecified organism; C34.90 Malignant neoplasm of unspecified part of unspecified bronchus or lung; E44.0 Moderate protein-calorie malnutrition; I13.0 Hypertensive heart and chronic kidney disease with heart failure and stage 1 through stage 4 chronic kidney disease, or unspecified chronic kidney disease; I25.810 Atherosclerosis of coronary artery bypass graft(s) without angina pectoris; I82.622 Acute embolism and thrombosis of deep veins of left upper extremity; N17.9 Acute kidney failure, unspecified; I48.91 Unspecified atrial fibrillation; E78.5 Hyperlipidemia, unspecified; N18.3 Chronic kidney disease, stage 3 (moderate); K12.1 Other forms of stomatitis; T45.1X5A Adverse effect of antineoplastic and immunosuppressive drugs, initial encounter; N50.89 Other specified disorders of the male genital organs; L98.429 Non-pressure chronic ulcer of back with unspecified severity; R68.89 Other general symptoms and signs; I73.9 Peripheral vascular disease, unspecified; D53.9 Nutritional anemia, unspecified; R53.83 Other fatigue; Z78.1 Physical restraint status; Z79.899 Other long term (current) drug therapy; Z95.1 Presence of aortocoronary bypass graft; Z79.01 Long term (current) use of anticoagulants; Z87.891 Personal history of nicotine dependence; Z79.52 Long term (current) use of systemic steroids; Z68.24 Body mass index [BMI] 24.0-24.9, adult; I25.2 Old myocardial infarction
CPT/HCPCS: 36415; 36416; 36430; 71045; 80048; 80053; 80162; 80202; 81003; 81015; 82805; 83735; 83880; 85025; 86850; 86900; 86901; 86922; 87040; 87086; 87149; 93005; 93010; 93306; 93923; 94640; 96365; 96366; 96376; J0692; J1940; J2270; J2920; J3370; J3490; J7512; J7620; P9016; Q0163

== ENCOUNTER 2019-11-26 12:15 | Inpatient (IN) | payer OTHER ==
[2019-11-26] MEDS ORDERED: Morphine 2 MG/ML SYRINGE SLOW IVP PRN (12:42)
[2019-11-26] MEDS ORDERED: Scopolamine 1.5 mg/72 hour Patch TOP PRN (12:43)
[2019-11-26] MEDS ORDERED: Lorazepam 2 MG/ML VIAL SLOW IVP PRN (12:55)
[2019-11-26] MEDS: Morphine 4 MG/ML VIAL SLOW IVP SCH ×11 (14:42→23:43)
[2019-11-26] MEDS: Lorazepam 2 MG/ML VIAL SLOW IVP SCH ×6 (15:19→23:35)
[2019-11-27] MEDS: Morphine 4 MG/ML VIAL SLOW IVP SCH ×8 (00:45→08:02)
[2019-11-27] MEDS: Lorazepam 2 MG/ML VIAL SLOW IVP SCH ×4 (01:52→05:41)
== END 2019-11-27 08:52 | disposition expired | DRG 951 ==
LOC: IMCU/EMU 12:15
PROVIDERS: ADMIT Family Medicine; ATTEND Family Medicine
DX: Z51.5 Encounter for palliative care (principal); D61.810 Antineoplastic chemotherapy induced pancytopenia; C34.90 Malignant neoplasm of unspecified part of unspecified bronchus or lung; I82.4Y2 Acute embolism and thrombosis of unspecified deep veins of left proximal lower extremity; E44.0 Moderate protein-calorie malnutrition; N18.3 Chronic kidney disease, stage 3 (moderate); I48.91 Unspecified atrial fibrillation; D63.1 Anemia in chronic kidney disease; I25.10 Atherosclerotic heart disease of native coronary artery without angina pectoris; T45.1X5A Adverse effect of antineoplastic and immunosuppressive drugs, initial encounter; K13.79 Other lesions of oral mucosa; L89.159 Pressure ulcer of sacral region, unspecified stage; Z95.1 Presence of aortocoronary bypass graft; Z79.899 Other long term (current) drug therapy; Z79.52 Long term (current) use of systemic steroids; Z79.82 Long term (current) use of aspirin; Z79.01 Long term (current) use of anticoagulants; Z87.891 Personal history of nicotine dependence
CPT/HCPCS: J2060; J2270